=== PATIENT | female | born 1925 | race Caucasian/White ===

== ENCOUNTER 2016-09-11 16:11 | Inpatient (IN) | payer OTHER, MEDICARE ==
[2016-09-11 16:28] VITALS: BMI 28.8
[2016-09-11 17:34] LABS: BASOPHIL 1.2 % (0-2.0); EOSINOPHIL 1.1 % (0-4.5); MCH 26.6 pg (25.7-33.7); MCHC 31.3 g/dl (32.0-36.0); MEAN CELL VOLUME 84.8 fl (80-96); MEAN PLT VOLUME 7.2 fl (7.5-11.1); NEUTROPHILS 75.3 % (42.8-82.8); PLATELET COUNT 293 K/MM3 (134-434); WHITE BLOOD COUNT 5.3 K/mm3 (4.0-10.0)
[2016-09-11 17:38] LABS: INR 1.49 (0.82-1.09); PROTHROMBIN TIME (PATIENT) 16.5 SEC (9.98-11.88)
[2016-09-11 17:40] LABS: ACTIVATED PTT 35.8 SECONDS (26.9-34.4)
[2016-09-11 17:53] LABS: ALBUMIN 3.4 g/dl (3.4-5.0); ALK PHOS 143 U/L (45-117); ANION GAP 9 (8-16); BILIRUBIN,TOTAL 0.8 mg/dL (0.2-1.0); CALCIUM 8.3 mg/dL (8.5-10.1); CO2 31 mmol/L (21-32); CREATININE 0.6 mg/dL (0.55-1.02); GLUCOSE,RANDOM 103 mg/dL (74-106); SGOT/AST 15 U/L (15-37); SGPT/ALT 14 U/L (12-78); TOT PROT 6.9 g/dl (6.4-8.2)
[2016-09-11] MEDS ORDERED: CEFTRIAXONE 1 GM in DEXTROSE 5%-WATER - 50 ML IVPB ONE (19:43)
[2016-09-11] MEDS ORDERED: VANCOMYCIN 1,000 MG in DEXTROSE 5%-WATER - 250 ML IVPB ONE (19:43)
[2016-09-11] MEDS ORDERED: CEFTRIAXONE 50 ML ONE (19:50)
--- NOTE | 2016-09-11 20:10 | PDOC ---
History of Present Illness - General History Source: Patient, Old Records Exam Limitations: No Limitations <Miles Vega - Last Filed: 09/11/16 20:34> - General History Source: Patient, Old Records, Primary Care Provider Exam Limitations: No Limitations - History of Present Illness Initial Comments: 09/11/16 20:35 The patient is a 89 year old female, with a significant past medical history of chronic venous stasis dermatitis, HTN, COPD, CHF, HLD, skin cancer, Afib, and anemia, who presents to the emergency department with a draining wound infection on her right lower extremity. She reports that she banged her right ramos which caused the drainage. She denies any increase in redness, swelling or pain. She notes that that she has chronic venous stasis changes in her lower extremity changes that is being monitored by Dr. Anderson. She states that she took 19 doses of oral antibiotics (Keflex) at home. The patient currently takes Keflex, Digg and Coumadin The patient denies chest pain, shortness of breath, headache and dizziness. Denies fever, chills, nausea, vomit, diarrhea and constipation. Denies dysuria, frequency, urgency and hematuria. Allergies: Penicillin Past surgical history: total hysterectomy, pacemaker Social history: No alcohol, tobacco or drug use reported PMD - Dr. Anthony Anderson <Dwayne Langley - Last Filed: 09/11/16 20:39> - General Chief Complaint: Wound Stated Complaint: INFECTED RT LEG (PCP SENT) Time Seen by Provider: 09/11/16 16:23 Past History - Past Medical History Anemia: Yes Cancer: Yes (SKIN CANCER) Cardiac Disorders: Yes (CHF ASHD,A FIB) COPD: Yes CHF: Yes HTN: Yes Hypercholesterolemia: Yes Thyroid Disease: Yes - Surgical History Abdominal Surgery: Yes (total hysterectomy) Cardiac Surgery: Yes (PACEMAKER) - Psycho/Social/Smoking Cessation Hx Anxiety: No Suicidal Ideation: No Smoking Status: No Smoking History: Never smoked Have you smoked in the past 12 months: No Number of Cigarettes Smoked Daily: 0 Hx Alcohol Use: No Drug/Substance Use Hx: No Substance Use Type: None Hx Substance Use Treatment: No <Miles Vega - Last Filed: 09/11/16 20:34> <Dwayne Langley - Last Filed: 09/11/16 20:39> - Past Medical History Allergies/Adverse Reactions: Allergies Allergy/AdvReac Type Severity Reaction Status Date / Time Penicillins Allergy Unknown Verified 09/11/16 16:23 mushrooms Allergy Uncoded 09/11/16 16:23 Home Medications: Ambulatory Orders Quinapril HCl [Accupril -] 20 mg PO DAILY #90 tablet 08/24/15 Atorvastatin Ca [Lipitor] 10 mg PO HS tablet 04/19/16 Warfarin Na [Coumadin -] 4 mg PO DAILY@1800 tablet 04/19/16 Aspirin [ASA -] 81 mg PO DAILY 06/11/16 Levothyroxine [Synthroid -] 125 mcg PO DAILY #30 tablet MDD 1 06/17/16 Digoxin [Lanoxin -] 125 mcg PO DAILY 09/11/16 Furosemide [Lasix -] 20 mg PO DAILY 09/11/16 Quinapril HCl [Accupril] 20 mg PO DAILY 09/11/16 Sertraline HCl [Zoloft -] 50 mg PO HS 09/11/16 Spironolactone [Aldactone -] 25 mg PO DAILY 09/11/16 Review of Systems - Review of Systems Able to Perform ROS?: Yes Comments:: 09/11/16 20:35 GENERAL/CONSTITUTIONAL: No fever or chills. No weakness. HEAD, EYES, EARS, NOSE AND THROAT: No change in vision. No ear pain or discharge. No sore throat. CARDIOVASCULAR: No chest pain or shortness of breath RESPIRATORY: No cough, wheezing, or hemoptysis. GASTROINTESTINAL: No nausea, vomiting, diarrhea or constipation. GENITOURINARY: No dysuria, frequency, or change in urination. MUSCULOSKELETAL: No joint or muscle swelling or pain. No neck or back pain. EXTREMITIES: + Right lower extremity wound and drainage. Bilateral lower extremity swelling. SKIN: No rash NEUROLOGIC: No headache, vertigo, loss of consciousness, or change in strength/ sensation. ENDOCRINE: No increased thirst. No abnormal weight change HEMATOLOGIC/LYMPHATIC: No anemia, easy bleeding, or history of blood clots. ALLERGIC/IMMUNOLOGIC: No hives or skin allergy. <Dwayne Langley - Last Filed: 09/11/16 20:39> *Physical Exam - Vital Signs Last Vital Signs Temp Pulse Resp BP Pulse Ox 98.8 F 85 18 117/56 98 09/11/16 18:50 02/22/17 16:23 09/11/16 16:23 09/11/16 16:23 09/11/16 16:23 <Miles Vega - Last Filed: 09/11/16 20:34> - Vital Signs Last Vital Signs Temp Pulse Resp BP Pulse Ox 98.8 F 85 18 117/56 98 09/11/16 18:50 09/11/16 16:23 09/11/16 16:23 09/11/16 16:23 09/11/16 16:23 - Physical Exam Comments: 09/11/16 20:35 GENERAL: Awake, alert, and fully oriented, in no acute distress HEAD: No signs of trauma, normocephalic, atraumatic EYES: PERRLA, EOMI, sclera anicteric, conjunctiva clear ENT: Auricles normal inspection, hearing grossly normal, nares patent, oropharynx clear without exudates. Moist mucosa NECK: Normal ROM, supple, no lymphadenopathy, JVD, or masses LUNGS: No distress, speaks full sentences, clear to auscultation bilaterally HEART: +Systolic murmur. Regular rate and rhythm, normal S1 and S2, no rubs or gallops, peripheral pulses normal and equal bilaterally. ABDOMEN: Soft, nontender, normoactive bowel sounds. No guarding, no rebound. No masses EXTREMITIES: Bilateral anterior ramos erythema, Right anterior ramos with 2 wound ulceration 3 cm by 3 cm and 2 cm by 2 cm 2+ pitting edema lower extremities bilaterally NEUROLOGICAL: Cranial nerves II through XII grossly intact. Normal speech, no focal sensorimotor deficits SKIN: Warm, Dry, normal turgor, no rashes or lesions noted. <Dwayne Langley - Last Filed: 09/11/16 20:39> Heart Score/ECG Review #1 ECG reviewed & interpreted by me at: 16:45 09/11/16 20:34 Ventricular paced 69 <Miles Vega - Last Filed: 09/11/16 20:34> ED Treatment Course - LABORATORY CBC & Chemistry Diagram: 09/11/16 17:00 09/11/16 17:00 - ADDITIONAL ORDERS Additional order review: Laboratory Results 09/11/16 09/11/16 09/11/16 17:00 17:00 16:55 INR 1.49 H PTT (Actin FS) 35.8 H D Sodium 140 Potassium 3.7 Chloride 100 Carbon Dioxide 31 Anion Gap 9 BUN 27 H Creatinine 0.6 Creat Clearance w eGFR > 60 Random Glucose 103 D Lactic Acid 1.013 Calcium 8.3 L Total Bilirubin 0.8 AST 15 D ALT 14 D Alkaline Phosphatase 143 H Total Protein 6.9 Albumin 3.4 09/11/16 17:00 RBC 2.55 L D MCV 84.8 MCHC 31.3 L RDW 20.0 H D MPV 7.2 L D Neutrophils % 75.3 Lymphocytes % 14.2 Monocytes % 8.2 Eosinophils % 1.1 Basophils % 1.2 <Miles Vega - Last Filed: 09/11/16 20:34> - LABORATORY CBC & Chemistry Diagram: 09/11/16 17:00 09/11/16 17:00 - ADDITIONAL ORDERS Additional order review: Laboratory Results 09/11/16 09/11/16 09/11/16 19:47 17:00 17:00 INR 1.49 H PTT (Actin FS) 35.8 H D Sodium 140 Potassium 3.7 Chloride 100 Carbon Dioxide 31 Anion Gap 9 BUN 27 H Creatinine 0.6 Creat Clearance w eGFR > 60 Random Glucose 103 D Lactic Acid Calcium 8.3 L Total Bilirubin 0.8 AST 15 D ALT 14 D Alkaline Phosphatase 143 H Total Protein 6.9 Albumin 3.4 Stool Occult Blood Negative 09/11/16 16:55 INR PTT (Actin FS) Sodium Potassium Chloride Carbon Dioxide Anion Gap BUN Creatinine Creat Clearance w eGFR Random Glucose Lactic Acid 1.013 Calcium Total Bilirubin AST ALT Alkaline Phosphatase Total Protein Albumin Stool Occult Blood 09/11/16 17:00 RBC 2.55 L D MCV 84.8 MCHC 31.3 L RDW 20.0 H D MPV 7.2 L D Neutrophils % 75.3 Lymphocytes % 14.2 Monocytes % 8.2 Eosinophils % 1.1 Basophils % 1.2 - RADIOLOGY Radiograph Interpretation: 09/11/16 20:36 Right lower extremity duplex Reviewed by: Dr. Chantelle Gonzalez Impression: There is no evidence of deep venous thromboses in the right lower extremity. Soft tissue swelling in the popliteal fossa. - Medications Given in the ED: ED Medications Discontinued Medications Generic Name Dose Route Start Last Admin Trade Name Freq PRN Reason Stop Dose Admin Ceftriaxone Sodium 1 gm/ 50 mls @ 100 mls/hr 09/11/16 19:43 09/11/16 20:14 Dextrose IVPB 09/11/16 20:12 100 mls/hr ONCE ONE Administration <Dwayne Langley - Last Filed: 09/11/16 20:39> Medical Decision Making - Medical Decision Making 09/11/16 20:10 A portion of this note was documented by scribe services under my direction. I have reviewed the details of the note, within reason, and agree with the documentation with the following case summary and management plan written by me. Patient treated in the ED. Nursing notes are reviewed and incorporated into the medical decision-making. Vital signs reviewed. Peripheral IV access obtained by the nurse, laboratory studies are drawn and sent, reviewed and interpreted by myself. Vital Signs Temp Pulse Resp BP Pulse Ox 98.8 F 85 18 117/56 98 09/11/16 18:50 09/11/16 16:23 09/11/16 16:23 09/11/16 16:23 09/11/16 16:23 89-year-old female with past medical history of hypertension, COPD, CHF, hyperlipidemia, skin cancer, atrial fibrillation, anemia presents for admission for right lower extremity infection. Several days ago, patient bumped bilaterallyOnto an object and sustained an injury to her right lateral ramos. It has started to become erythematous and red. She was started on Keflex which she has been adherent intake and 19 doses. Has noted no improvement in symptoms. Patient then came into the ED at the direction of her primary care physician for IV antibiotics. Ceftriaxone and vancomycin ordered. Interestingly, the patient is noted to be anemic at 6.8 which is a drop. Rectal stool occult exam was performed. Stool occult negative. Brown stools with no anal tears. Risks and benefits were discussed with the patient. Risks also include fever, blood reaction transfusions, infections. Patient consented for blood chest contusion. Given her history of CHF, 1 unit of PRBCs was ordered. The patient will need further inpatient workup for anemia. Case discussed with Dr. Anderson. He accepts patient for med/surg admission. Case discussed in detail with admitting physician including history, physical exam and ancillary studies. Admitting physician has assumed care for the patient, will follow all pending diagnostics and will complete the evaluation and treatment. <Miles Vega - Last Filed: 09/11/16 20:34> - Medical Decision Making 09/11/16 20:38 Dr. Anderson was called regarding the patient at 7:45pm and 8:10pm Dr. Anderson was consulted regarding the patient at 8:12pm [phone] <Dwayne Langley - Last Filed: 09/11/16 20:39> *DC/Admit/Observation/Transfer - Discharge Dispostion Admit: Yes <Miles Vega - Last Filed: 09/11/16 20:34> - Attestations Scribe Attestion: 09/11/16 20:36 Documentation prepared by Dwayne Langley, acting as medical billing and coding instructor for Miles Vega MD <Dwayne Langley - Last Filed: 09/11/16 20:39> Diagnosis at time of Disposition: Anemia Qualifiers: Anemia type: unspecified type Qualified Code(s): D64.9 - Anemia, unspecified Cellulitis Qualifiers: Site of cellulitis: extremity Site of cellulitis of extremity: lower extremity Laterality: unspecified laterality Qualified Code(s): L03.119 - Cellulitis of unspecified part of limb - Referrals Referrals: Anthony Anderson MD [Primary Care Provider] -
[2016-09-11] MEDS ORDERED: VANCOMYCIN 1 GRAM (PRE-DOCKED) 250 ML IVPB ONE ×2 (20:52→20:55)
[2016-09-11] MEDS ORDERED: PANTOPRAZOLE SODIUM 40 MG in SODIUM CHLORIDE 100 ML IVPB SCH (22:00)
[2016-09-11 23:26] LABS: URINE APPEARANCE CLEAR; URINE BILIRUBIN NEGATIVE (NEGATIVE); URINE BLOOD NEGATIVE (NEGATIVE); URINE COLOR LTYELLOW; URINE GLUCOSE (UA) NEGATIVE (NEGATIVE); URINE KETONE NEGATIVE (NEGATIVE); URINE LEUK ESTERASE NEGATIVE (NEGATIVE); URINE NITRITE NEGATIVE (NEGATIVE); URINE PROTEIN NEGATIVE (NEGATIVE); URINE UROBILINOGEN NEGATIVE E.U./dl (0.2-1.0)
[2016-09-12] MEDS: ACETAMINOPHEN 325 MG TABLET (FP) PO PRN ×2 (03:50→20:47)
[2016-09-12] MEDS: ATORVASTATIN CA 10 MG TABLET (FP) PO SCH ×2 (06:34→22:09)
[2016-09-12] MEDS: LEVOTHYROXINE NA 125 MCG TABLET (FP) PO SCH (06:34)
[2016-09-12] MEDS: PANTOPRAZOLE SODIUM 40 MG/100 ML PRE-DOCKED IVPB SCH ×3 (06:36→22:11)
[2016-09-12] MEDS: SERTRALINE HCL 50 MG TABLET (FP) PO SCH ×2 (06:36→22:10)
--- NOTE | 2016-09-12 07:18 | HP ---
Admitting History and Physical - Admission History of Present Illness: 89 year old female, with a significant past medical history of chronic venous stasis dermatitis, HTN, COPD, CHF, HLD, skin cancer, Afib, and anemia, who presents to the emergency department with a draining wound infection on her right lower extremity. She reports that she banged her right ramos which caused the drainage. She denies any increase in redness, swelling or pain. She notes that that she has chronic venous stasis changes in her lower extremity changes was on oral antibiotics (Keflex) at home. In er noted to be anemic - Past Medical History Cardiovascular: Yes: AFIB, CAD, CHF, HTN, Hyperlipdemia, Pulmonary Hypertension , Other (PPM with sick sinus syndrome) Pulmonary: Yes: COPD Gastrointestinal: Yes: GERD Musculoskeletal: Yes: Other (left foot drop) Endocrine: Yes: Hypothyroidism - Past Surgical History Past Surgical History: Yes: Hysterectomy, Permanent Pacemaker, Tonsillectomy - Smoking History Smoking history: Never smoked Have you smoked in the past 12 months: No Aproximately how many cigarettes per day: 0 - Alcohol/Substance Use Hx Alcohol Use: No - Social History ADL: Support Services History of Recent Travel: No Home Medications - Allergies Allergies/Adverse Reactions: Allergies Allergy/AdvReac Type Severity Reaction Status Date / Time Penicillins Allergy Unknown Verified 09/11/16 16:23 mushrooms Allergy Uncoded 09/11/16 16:23 - Home Medications Home Medications: Ambulatory Orders Quinapril HCl [Accupril -] 20 mg PO DAILY #90 tablet 08/24/15 Atorvastatin Ca [Lipitor] 10 mg PO HS tablet 04/19/16 Warfarin Na [Coumadin -] 4 mg PO DAILY@1800 tablet 04/19/16 Aspirin [ASA -] 81 mg PO DAILY 06/11/16 Levothyroxine [Synthroid -] 125 mcg PO DAILY #30 tablet MDD 1 06/17/16 Digoxin [Lanoxin -] 125 mcg PO DAILY 09/11/16 Furosemide [Lasix -] 20 mg PO DAILY 09/11/16 Quinapril HCl [Accupril] 20 mg PO DAILY 09/11/16 Sertraline HCl [Zoloft -] 50 mg PO HS 09/11/16 Spironolactone [Aldactone -] 25 mg PO DAILY 09/11/16 Review of Systems - Review of Systems Cardiovascular: denies: Chest Pain, Palpitations Respiratory: reports: SOB on Exertion. denies: Cough, SOB Gastrointestinal: denies: Abdominal Pain, Constipation Musculoskeletal: reports: Extremity Pain Integumentary: reports: Erythema, Wound (LE) Physical Examination Vital Signs: Vital Signs Temperature 98.6 F 09/12/16 02:00 Pulse Rate 92 H 09/12/16 02:00 Respiratory Rate 18 09/12/16 02:00 Blood Pressure 124/73 09/12/16 02:00 O2 Sat by Pulse Oximetry (%) 100 09/12/16 02:00 Cardiovascular: Yes: Regular Rate and Rhythm Respiratory: Yes: Regular, CTA Bilaterally Gastrointestinal: Yes: Normal Bowel Sounds, Soft. No: Tenderness Extremities: Yes: Erythema Edema: Yes Wound/Incision: Yes: Dressing Removed, Reddened, Other (scab) Problem List - Problems (1) Anemia Assessment/Plan: S/P PRBC MONITOR LABS GI CONSULT Code(s): D64.9 - ANEMIA, UNSPECIFIED Qualifiers: Anemia type: unspecified type Qualified Code(s): D64.9 - Anemia, unspecified (2) Cellulitis Assessment/Plan: IV ABX ID CONSULT Code(s): L03.90 - CELLULITIS, UNSPECIFIED Qualifiers: Site of cellulitis: extremity Site of cellulitis of extremity: lower extremity Laterality: unspecified laterality Qualified Code(s): L03.119 - Cellulitis of unspecified part of limb (3) A-fib Assessment/Plan: INR SUBTERAPEUTIC--?/COMPLIANCE HOLD COUMADIN--PENDING HGB AND GI Code(s): I48.91 - UNSPECIFIED ATRIAL FIBRILLATION Qualifiers: Atrial fibrillation type: chronic Qualified Code(s): I48.2 - Chronic atrial fibrillation (4) COPD (chronic obstructive pulmonary disease) Assessment/Plan: NEBS Code(s): J44.9 - CHRONIC OBSTRUCTIVE PULMONARY DISEASE, UNSPECIFIED (5) Venous stasis dermatitis of both lower extremities Code(s): I83.11 - VARICOSE VEINS OF RIGHT LOWER EXTREMITY WITH INFLAMMATION I83.12 - VARICOSE VEINS OF LEFT LOWER EXTREMITY WITH INFLAMMATION (6) Ulcer of lower extremity Assessment/Plan: ABX LOCAL CARE Code(s): L97.909 - NON-PRS CHRONIC ULC UNSP PRT OF UNSP LOW LEG W UNSP SEVERITY
[2016-09-12 08:58] LABS: ALBUMIN 3.1 g/dl (3.4-5.0); ANION GAP 7 (8-16); CO2 31 mmol/L (21-32); GLUCOSE,RANDOM 83 mg/dL (74-106)
[2016-09-12 09:02] LABS: ALK PHOS 127 U/L (45-117); CREATININE 0.6 mg/dL (0.55-1.02); SGOT/AST 14 U/L (15-37); SGPT/ALT 13 U/L (12-78); TOT PROT 5.9 g/dl (6.4-8.2)
[2016-09-12] MEDS ORDERED: cefTRIAXone 1 GM/50 ML BAG (PRE-DOCKED) IVPB SCH ×2 (10:00)
[2016-09-12] MEDS ORDERED: PT OWN MED DRAWER 7, Y5N ONE (11:22)
[2016-09-12] MEDS: DIGOXIN 0.125 MG TABLET (FP) PO SCH (11:25)
[2016-09-12] MEDS: SPIRONOLACTONE 25 MG TABLET (FP) PO SCH (11:25)
--- NOTE | 2016-09-12 11:36 | PN ---
Progress Note (short form) - Note Progress Note: ID Full note dictated Selected Entries 09/12/16 02:00 Temperature 98.6 F Pulse Rate 92 H Respiratory 18 Rate Blood Pressure 124/73 Assessment Celluititis/ Lymphedema Plan Cefazolin Toni SHAH Problem List - Problems (1) Cellulitis Code(s): L03.90 - CELLULITIS, UNSPECIFIED Qualifiers: Site of cellulitis: extremity Site of cellulitis of extremity: lower extremity Laterality: unspecified laterality Qualified Code(s): L03.119 - Cellulitis of unspecified part of limb (2) Lymphedema Code(s): I89.0 - LYMPHEDEMA, NOT ELSEWHERE CLASSIFIED
[2016-09-12 13:51] LABS: MCH 26.3 pg (25.7-33.7); MEAN PLT VOLUME 7.3 fl (7.5-11.1); PLATELET COUNT 238 K/MM3 (134-434); WHITE BLOOD COUNT 5.8 K/mm3 (4.0-10.0)
--- NOTE | 2016-09-12 14:45 | EKG ---
Test Reason : Blood Pressure : / mmHG Vent. Rate : 069 BPM Atrial Rate : 110 BPM P-R Int : 000 ms QRS Dur : 152 ms QT Int : 444 ms P-R-T Axes : 000 051 -88 degrees QTc Int : 475 ms Ventricular-paced rhythm ABNORMAL ECG WHEN COMPARED WITH ECG OF 11-JUN-2016 15:38, NO SIGNIFICANT CHANGE WAS FOUND Confirmed by GIUSEPPE SWARTZ MD ([id number]) on 09/12/2016 2:45:20 PM Referred By: Confirmed By:GIUSEPPE SWARTZ MD
--- NOTE | 2016-09-12 15:24 | CONSULT ---
- Consultation REQUESTING PROVIDER: Dr. Zabala CONSULT REQUEST: We have been asked to surgically evaluate this patient for RLE . PCP:Anthony Anderson HISTORY OF PRESENT ILLNESS:The patent is a 89 yo female with a PMHX of chronic venous stasis, HTN, COPD, CHF, A fib and anemia. Her neighbor, who is at the bedside states that she hit her leg approximately 1 month ago. The patient has been applying a cream and dressing to the area and was given a course of oral keflex. The patient states that a [employer] was helping her take care of it in a clinic. She doesn't recall coming to the wound center recently. But she has been a patient there is the past at the clinic. She denies any fevers, no increase in swelling or pain. PMHx: htn, COPD, left ankle trauma(foot drop) ambulates with a cane. a feb and anemia, vertebral fracture(lower), some black tarry stool(taking iron) PSHx: tonsillectomy/adenoids Home Medications Medication Instructions Recorded Quinapril HCl [Accupril -] 20 mg PO DAILY #90 tablet 08/24/15 Atorvastatin Ca [Lipitor] 10 mg PO HS tablet 04/19/16 Warfarin Na [Coumadin -] 4 mg PO DAILY@1800 tablet 04/19/16 Aspirin [ASA -] 81 mg PO DAILY 06/11/16 Levothyroxine [Synthroid -] 125 mcg PO DAILY #30 tablet MDD 1 06/17/16 Digoxin [Lanoxin -] 125 mcg PO DAILY 09/11/16 Furosemide [Lasix -] 20 mg PO DAILY 09/11/16 Quinapril HCl [Accupril] 20 mg PO DAILY 09/11/16 Sertraline HCl [Zoloft -] 50 mg PO HS 09/11/16 Spironolactone [Aldactone -] 25 mg PO DAILY 09/11/16 Allergies Allergy/AdvReac Type Severity Reaction Status Date / Time Penicillins Allergy Unknown Verified 09/11/16 16:23 mushrooms Allergy Uncoded 09/11/16 16:23 REVIEW OF SYSTEMS: CONSTITUTIONAL: Absent: fever, chills CARDIOVASCULAR: Absent: chest pain, syncope RESPIRATORY: Absent: cough, shortness of breath GASTROINTESTINAL: Absent: abdominal pain, abdominal distension, dark stools with one episode of red blood with a bowel movement MUSCULOSKELETAL: Present: back pain/lower abd SKIN: Absent: rash, itching, pallor HEMATOLOGIC/IMMUNOLOGIC: Absent: easy bleeding, easy bruising, lymphadenopathy NEUROLOGIC: Absent: left foot drop PSYCHIATRIC: Absent: anxiety, depression, suicidal or homicidal ideation, hallucinations. PHYSICAL EXAM: GENERAL: Awake, alert, and fully oriented, in no acute distress. HEAD: Normal with no signs of trauma. EYES:sclera anicteric, conjunctiva clear. NECK: Normal ROM, supple without lymphadenopathy, JVD, or masses. LUNGS: Clear to auscultation bilat anteriorly. No wheezes, and no crackles. No accessory muscle use. HEART: Irregular rhythm, regular rate. No murmurs ABDOMEN: Soft, nontender, not distended, normoactive bowel sounds, no guarding, no rebound, no masses. UPPER EXTREMITIES: 2+ pulses, warm, well-perfused. No cyanosis. Cap refill <2 seconds. No peripheral edema. LOWER EXTREMITIES: 2+ DP/femoral pulses, warm, well-perfused. No calf tenderness. No peripheral edema. b/l venous stasis changes. RLE with three seperate scabbed areas of varous sizes. One is dime sized, nickel sized and the larger is approx 2.5 x 2.5cm. There is no erythema to her lower ext, no pitting edema. No drainage noted NEUROLOGICAL: Normal speech PSYCH: Cooperative. Good eye contact. Appropriate mood and affect. Vital Signs Temperature 98.6 F 09/12/16 02:00 Pulse Rate 78 09/12/16 11:25 Respiratory Rate 18 09/12/16 02:00 Blood Pressure 124/73 09/12/16 02:00 O2 Sat by Pulse Oximetry (%) 100 09/12/16 02:00 Lab Results WBC 5.8 K/mm3 (4.0-10.0) 09/12/16 13:00 RBC 3.02 M/mm3 (3.60-5.2) L 09/12/16 13:00 Hgb 7.9 GM/dL (10.7-15.3) L D 09/12/16 13:00 Hct 25.6 % (32.4-45.2) L D 09/12/16 13:00 MCV 85.0 fl (80-96) 09/12/16 13:00 MCHC 31.0 g/dl (32.0-36.0) L 09/12/16 13:00 RDW 19.0 % (11.6-15.6) H 09/12/16 13:00 Plt Count 238 K/MM3 (134-434) 09/12/16 13:00 Sodium 143 mmol/L (136-145) 09/12/16 07:00 Potassium 4.1 mmol/L (3.5-5.1) 09/12/16 07:00 Chloride 105 mmol/L (98-107) 09/12/16 07:00 Carbon Dioxide 31 mmol/L (21-32) 09/12/16 07:00 Anion Gap 7 (8-16) L 09/12/16 07:00 BUN 23 mg/dL (7-18) H 09/12/16 07:00 Creatinine 0.6 mg/dL (0.55-1.02) 09/12/16 07:00 Random Glucose 83 mg/dL (74-106) 09/12/16 07:00 Calcium 8.0 mg/dL (8.5-10.1) L 09/12/16 07:00 Blood Type A POSITIVE 09/11/16 23:11 Antibody Screen Negative 09/11/16 23:11 INR 1.49 (0.82-1.09) H 09/11/16 17:00 Problem List - Problems (1) Venous stasis dermatitis of both lower extremities Assessment/Plan: Pt has superfical wound to her RLE after trauma. The wound appears to be kodak/healing. No drainage or erythema noted. IV abx as per ID Local wound care ordered. The patient may follow-up with Dr. Zabala as an outpt in the clinic upon discharge. D/w Dr. Zabala Code(s): I83.11 - VARICOSE VEINS OF RIGHT LOWER EXTREMITY WITH INFLAMMATION I83.12 - VARICOSE VEINS OF LEFT LOWER EXTREMITY WITH INFLAMMATION Visit type - Case Type Case Type: Scheduled Admission - Emergency Emergency Visit: Yes ED Registration Date: 09/11/16 Care time: The patient presented to the Emergency Department on the above date and was hospitalized for further evaluation of their emergent condition. - New patient This patient is new to me today: Yes Date on this admission: 09/12/16 - Critical Care Critical Care patient: No
--- NOTE | 2016-09-12 15:38 | CONS ---
DATE OF CONSULTATION: DATE OF DICTATION: 09/12/2016 This is an 89-year-old female who I am asked to see for evaluation of right lower extremity cellulitis. She has a history of chronic lymphedema, venous stasis dermatitis, hypertension, COPD, congestive heart failure, atrial fibrillation, and chronic anemia. She presented to the emergency room with a "draining wound" on her right anterior lower leg, noting that she had banged her ramos and subsequently developed pain and drainage. She denied any fever or chills. I am asked to see her for antibiotic management. Past medical history as noted above. MEDICATIONS: Quinapril, atorvastatin, Coumadin, levothyroxine, digoxin, Lasix, Zoloft, Aldactone. Reported allergy to PENICILLIN but notes vaginal yeast infection. Family history reviewed and noncontributory. SOCIAL HISTORY: Lives alone. Nonsmoker. No history of alcohol abuse. PAST SURGICAL HISTORY: Hysterectomy, permanent pacemaker, tonsillectomy. REVIEW OF SYSTEMS: Respiratory: Exertional shortness of breath. No cough. Cardiac: No chest pain, palpitations, syncope. Gastrointestinal: No abdominal pain, nausea, vomiting, diarrhea. Genitourinary: No dysuria, hematuria. PHYSICAL EXAMINATION: General: She was a pleasant elderly woman. Vital Signs: Temperature 98.6. Pulse 92. Blood pressure 124/73. Respirations 18. Neck: Supple. Lungs: Clear. Heart: S1, S2. Irregularly irregular. Abdomen: Soft, nontender. No organomegaly. Extremities: Bilateral lower extremity edema with confluent erythema on a large 2-cm central area of superficial skin erosion. No fluctuance but tender to touch. White count 5.3, hemoglobin 6.8, hematocrit 21.6, BUN 23, creatinine 0.6. Urinalysis negative. Blood cultures pending. ASSESSMENT: An 89-year-old female with chronic lymphedema and venous stasis dermatitis, presents following an injury to the right ramos in which she subsequently developed increasing tenderness, redness, and atraumatic skin tear to the pretibial area. Penicillin allergy not true allergy. Will give her cefazolin dose of 1 g q.8 h. followed by Keflex at home. RINA WAKEFIELD M.D. SERAFIN/[id number]
[2016-09-12] MEDS: QUINAPRIL HCL 20 MG TABLET (FP) PO SCH (15:55)
[2016-09-12] MEDS ORDERED: FUROSEMIDE 40 MG/4 ML INJECTABLE VIAL IVPUSH ONE (18:00)
[2016-09-12] MEDS: SILVER SULFADIAZINE 1% TOP CREAM 50 GM JAR TP SCH (18:53)
[2016-09-12] MEDS ORDERED: CEFAZOLIN (PRE-DOCKED) 50 ML IVPB ONE (20:45)
[2016-09-12] MEDS: CEFAZOLIN 1 GM in DEXTROSE 5%-WATER - 50 ML IVPB SCH (20:47)
[2016-09-12] MEDS ORDERED: FUROSEMIDE 40 MG/4 ML INJECTABLE VIAL ONE (20:50)
--- NOTE | 2016-09-12 21:00 | CON.GI ---
Consult Consult Specialty:: GI Referred by:: Dr Anderson Reason for Consultation:: Anemia - History of Present Illness Chief Complaint: Wound infection History of Present Illness: 89 F well-known to myself, with h/o HTN, COPD, CHF, HLD, AF and chronic anemia which patient states she has had all of her liife, now admitted with RLE wound infection. Called to evaluate anemia. On admission, Hgb 6.8. She has no dyspnea at rest and no chest pain. - History Source History Provided By: Patient (Patient is awake, alert and articulate-a good historian), Medical Record - Past Medical History Cardio/Vascular: Yes: AFIB, CAD, CHF, HTN, Hyperlipdemia, Pulmonary Hypertension , Other (PPM with sick sinus syndrome) Pulmonary: Yes: COPD Gastrointestinal: Yes: GERD Musculoskeletal: Yes: Other (left foot drop) Endocrine: Yes: Hypothyroidism - Past Surgical History Past Surgical History: Yes: Hysterectomy, Permanent Pacemaker, Tonsillectomy - Alcohol/Substance Use Hx Alcohol Use: No - Smoking History Smoking history: Never smoked Have you smoked in the past 12 months: No Aproximately how many cigarettes per day: 0 - Social History Usual Living Arrangement: Alone ADL: Support Services History of Recent Travel: No Home Medications - Allergies Allergies/Adverse Reactions: Allergies Allergy/AdvReac Type Severity Reaction Status Date / Time Penicillins Allergy Unknown Verified 09/11/16 16:23 mushrooms Allergy Uncoded 09/11/16 16:23 - Home Medications Home Medications: Ambulatory Orders Quinapril HCl [Accupril -] 20 mg PO DAILY #90 tablet 08/24/15 Atorvastatin Ca [Lipitor] 10 mg PO HS tablet 04/19/16 Warfarin Na [Coumadin -] 4 mg PO DAILY@1800 tablet 04/19/16 Aspirin [ASA -] 81 mg PO DAILY 06/11/16 Levothyroxine [Synthroid -] 125 mcg PO DAILY #30 tablet MDD 1 06/17/16 Digoxin [Lanoxin -] 125 mcg PO DAILY 09/11/16 Furosemide [Lasix -] 20 mg PO DAILY 09/11/16 Quinapril HCl [Accupril] 20 mg PO DAILY 09/11/16 Sertraline HCl [Zoloft -] 50 mg PO HS 09/11/16 Spironolactone [Aldactone -] 25 mg PO DAILY 09/11/16 Physical Exam-GI Vital Signs: Vital Signs Temperature 98.1 F 09/12/16 15:42 Pulse Rate 84 09/12/16 15:42 Respiratory Rate 18 09/12/16 15:42 Blood Pressure 138/73 09/12/16 15:42 O2 Sat by Pulse Oximetry (%) 100 09/12/16 09:00 Constitutional: Yes: Well Nourished, No Distress HENT: Yes: Normocephalic Cardiovascular: Yes: Pulse Irregular Respiratory: Yes: CTA Bilaterally Gastrointestinal Inspection: Yes: WNL ...Auscultate: Yes: Normoactive Bowel Sounds ...Palpate: Yes: Soft. No: Tenderness ...Percussion: Yes: Dullness ...Rectal Exam: Yes: Guaiac Negative Integumentary: Yes: Venous Stasis Changes (RLE with infection) Labs: CBC, BMP 09/12/16 13:00 09/12/16 07:00 INR, PTT INR 1.49 (0.82-1.09) H 09/11/16 17:00 MCV 85.8 Assessment/Plan 89 F admitted with infection of RLE, called for anemia evaluation. She has a normocytic anemia and is guaiac negative at this time. I did her EGD and colonoscopy in January,, as part of an anemia w/u. Both exams negative for source of bleed. No further w/u necessary. Current low Hgb also related to inflammation and infection. Rec transfuse to Hgb >8 Manage underlying infection Expect normalization with counts returning to baseline Please call if I can be of further assistance
[2016-09-12] MEDS ORDERED: VANCOMYCIN 1 GRAM (PRE-DOCKED) 250 ML IVPB SCH (22:00)
[2016-09-13] MEDS ORDERED: CEFAZOLIN (PRE-DOCKED) 50 ML IVPB ONE (02:00)
[2016-09-13] MEDS: CEFAZOLIN 1 GM in DEXTROSE 5%-WATER - 50 ML IVPB SCH ×4 (02:34→18:53)
[2016-09-13 06:06] LABS: SERUM IRON 19 ug/dL (27-139); TOTAL IRON BINDING CAPACITY 417 ug/dL (250-450); UIBC 398 ug/dL (118-369)
[2016-09-13] MEDS: LEVOTHYROXINE NA 125 MCG TABLET (FP) PO SCH (07:01)
[2016-09-13 07:52] LABS: EOSINOPHIL 1.8 % (0-4.5); MEAN CELL VOLUME 84.2 fl (80-96); MEAN PLT VOLUME 7.4 fl (7.5-11.1); NEUTROPHILS 69.1 % (42.8-82.8); PLATELET COUNT 212 K/MM3 (134-434); RDW 18.6 % (11.6-15.6); WHITE BLOOD COUNT 5.4 K/mm3 (4.0-10.0)
[2016-09-13] MEDS: PANTOPRAZOLE SODIUM 40 MG/100 ML PRE-DOCKED IVPB SCH ×2 (10:21→21:29)
[2016-09-13] MEDS: DIGOXIN 0.125 MG TABLET (FP) PO SCH (10:22)
[2016-09-13] MEDS: SPIRONOLACTONE 25 MG TABLET (FP) PO SCH (10:22)
[2016-09-13] MEDS: SILVER SULFADIAZINE 1% TOP CREAM 50 GM JAR TP SCH (10:23)
[2016-09-13] MEDS: QUINAPRIL HCL 20 MG TABLET (FP) PO SCH (10:23)
--- NOTE | 2016-09-13 12:02 | PN ---
Progress Note, Physician - Current Medication List Current Medications: Active Medications Acetaminophen (Tylenol -) 650 mg PO Q4H PRN PRN Reason: FEVER OR PAIN Last Admin: 09/12/16 20:47 Dose: 650 mg Atorvastatin Calcium (Lipitor -) 10 mg PO HS [facility] Last Admin: 09/12/16 22:09 Dose: 10 mg Digoxin (Lanoxin -) 0.125 mg PO DAILY [facility] Last Admin: 09/13/16 10:22 Dose: 0.125 mg Vancomycin HCl (Vancomycin (Pre-Docked)) 250 mls @ 200 mls/hr IVPB DAILY@2200 [facility] Cefazolin Sodium 1 gm/ (Dextrose) 50 mls @ 100 mls/hr IVPB Q8H-IV [facility] Last Admin: 09/13/16 11:28 Dose: 100 mls/hr Levothyroxine Sodium (Synthroid -) 125 mcg PO DAILY@0700 [facility] Last Admin: 09/13/16 07:01 Dose: 125 mcg Pantoprazole Sodium (Protonix 40mg Ivpb (Pre-Docked)) 40 mg IVPB BID [facility] Last Admin: 09/13/16 10:21 Dose: 40 mg Quinapril HCl (Accupril -) 20 mg PO DAILY [facility] Last Admin: 09/13/16 10:23 Dose: 20 mg Sertraline HCl (Zoloft -) 50 mg PO HS [facility] Last Admin: 09/12/16 22:10 Dose: 50 mg Silver Sulfadiazine (Silvadene -) 1 applic TP DAILY [facility] Last Admin: 09/13/16 10:23 Dose: 1 applic Spironolactone (Aldactone -) 25 mg PO DAILY [facility] Last Admin: 09/13/16 10:22 Dose: 25 mg - Objective Vital Signs: Vital Signs Temperature 97.3 F L 09/13/16 06:48 Pulse Rate 77 09/13/16 10:22 Respiratory Rate 20 09/13/16 06:48 Blood Pressure 110/66 09/13/16 06:48 O2 Sat by Pulse Oximetry (%) 100 09/12/16 21:00 Cardiovascular: Yes: S1, S2 Respiratory: Yes: Regular, CTA Bilaterally Gastrointestinal: Yes: Normal Bowel Sounds, Soft Labs: CBC, BMP 09/13/16 06:30 09/12/16 07:00 INR, PTT INR 1.49 (0.82-1.09) H 09/11/16 17:00 Problem List - Problems (1) Anemia Assessment/Plan: S/P PRBC--ONE MORE UNIT--FOLLOWED BY [facility] GI CONSULT Code(s): D64.9 - ANEMIA, UNSPECIFIED Qualifiers: Anemia type: unspecified type Qualified Code(s): D64.9 - Anemia, unspecified (2) Cellulitis Assessment/Plan: IV ABX ID CONSULT Code(s): L03.90 - CELLULITIS, UNSPECIFIED Qualifiers: Site of cellulitis: extremity Site of cellulitis of extremity: lower extremity Laterality: unspecified laterality Qualified Code(s): L03.119 - Cellulitis of unspecified part of limb (3) A-fib Assessment/Plan: INR SUBTERAPEUTIC--?/COMPLIANCE HOLD COUMADIN--PENDING HGB AND GI Code(s): I48.91 - UNSPECIFIED ATRIAL FIBRILLATION Qualifiers: Atrial fibrillation type: chronic Qualified Code(s): I48.2 - Chronic atrial fibrillation (4) COPD (chronic obstructive pulmonary disease) Assessment/Plan: NEBS Code(s): J44.9 - CHRONIC OBSTRUCTIVE PULMONARY DISEASE, UNSPECIFIED (5) Venous stasis dermatitis of both lower extremities Code(s): I83.11 - VARICOSE VEINS OF RIGHT LOWER EXTREMITY WITH INFLAMMATION I83.12 - VARICOSE VEINS OF LEFT LOWER EXTREMITY WITH INFLAMMATION (6) Ulcer of lower extremity Assessment/Plan: ABX LOCAL CARE Code(s): L97.909 - NON-PRS CHRONIC ULC UNSP PRT OF UNSP LOW LEG W UNSP SEVERITY
[2016-09-13] MEDS ORDERED: FUROSEMIDE 40 MG/4 ML INJECTABLE VIAL IVPUSH SCH (13:15)
--- NOTE | 2016-09-13 15:04 | PN ---
Progress Note, Physician History of Present Illness: No c/o leg pain No fever/ chills Tolerating antibiotics - Current Medication List Current Medications: Active Medications Acetaminophen (Tylenol -) 650 mg PO Q4H PRN PRN Reason: FEVER OR PAIN Last Admin: 09/12/16 20:47 Dose: 650 mg Atorvastatin Calcium (Lipitor -) 10 mg PO HS [facility] Last Admin: 09/12/16 22:09 Dose: 10 mg Digoxin (Lanoxin -) 0.125 mg PO DAILY [facility] Last Admin: 09/13/16 10:22 Dose: 0.125 mg Furosemide (Lasix Injection -) 40 mg IVPUSH [employer] [facility] Stop: 09/13/16 17:00 Cefazolin Sodium 1 gm/ (Dextrose) 50 mls @ 100 mls/hr IVPB Q8H-IV [facility] Last Admin: 09/13/16 11:28 Dose: 100 mls/hr Levothyroxine Sodium (Synthroid -) 125 mcg PO DAILY@0700 [facility] Last Admin: 09/13/16 07:01 Dose: 125 mcg Pantoprazole Sodium (Protonix 40mg Ivpb (Pre-Docked)) 40 mg IVPB BID [facility] Last Admin: 09/13/16 10:21 Dose: 40 mg Quinapril HCl (Accupril -) 20 mg PO DAILY [facility] Last Admin: 09/13/16 10:23 Dose: 20 mg Sertraline HCl (Zoloft -) 50 mg PO HS [facility] Last Admin: 09/12/16 22:10 Dose: 50 mg Silver Sulfadiazine (Silvadene -) 1 applic TP DAILY [facility] Last Admin: 09/13/16 10:23 Dose: 1 applic Spironolactone (Aldactone -) 25 mg PO DAILY [facility] Last Admin: 09/13/16 10:22 Dose: 25 mg - Objective Vital Signs: Vital Signs Temperature 97.3 F L 09/13/16 06:48 Pulse Rate 77 09/13/16 10:22 Respiratory Rate 20 09/13/16 06:48 Blood Pressure 110/66 09/13/16 06:48 O2 Sat by Pulse Oximetry (%) 100 09/12/16 21:00 Constitutional: Yes: No Distress Eyes: Yes: Conjunctiva Clear Cardiovascular: Yes: Regular Rate and Rhythm, S1, S2 Respiratory: Yes: CTA Bilaterally Gastrointestinal: Yes: Normal Bowel Sounds, Soft. No: Tenderness Extremities: Yes: Other (+ erythema/ warmth LE bilaterally Superficial ulcer, R pretibial area) Edema: Yes Labs: CBC, BMP 09/13/16 06:30 09/12/16 07:00 INR, PTT INR 1.49 (0.82-1.09) H 09/11/16 17:00 Assessment/Plan Bilateral LE cellulitis Infected leg ulcer PCN allergy Continue cefazolin, local wound care
--- NOTE | 2016-09-13 16:27 | EKG ---
Test Reason : Blood Pressure : / mmHG Vent. Rate : 074 BPM Atrial Rate : 075 BPM P-R Int : 000 ms QRS Dur : 170 ms QT Int : 448 ms P-R-T Axes : 000 270 089 degrees QTc Int : 497 ms Ventricular-paced rhythm ABNORMAL ECG WHEN COMPARED WITH ECG OF 11-SEP-2016 16:41, VENT. RATE HAS INCREASED BY 5 BPM Confirmed by MD FLAQUITO, RADHA ([id number]) on 09/13/2016 4:27:21 PM Referred By: SANTO REYNOLDS Confirmed By:RADHA HUDDLESTON MD
[2016-09-13] MEDS ORDERED: PT OWN MED DRAWER 7, Y5N ONE (17:55)
[2016-09-13] MEDS: ALBUTEROL SO4 0.083% IH SOL 2.5 MG/3 ML VIAL.NEB. NEB SCH (21:31)
[2016-09-13] MEDS: ATORVASTATIN CA 10 MG TABLET (FP) PO SCH (21:31)
[2016-09-13] MEDS: SERTRALINE HCL 50 MG TABLET (FP) PO SCH (21:31)
[2016-09-14] MEDS: ALBUTEROL SO4 0.083% IH SOL 2.5 MG/3 ML VIAL.NEB. NEB SCH ×5 (01:17→22:00)
[2016-09-14] MEDS ORDERED: PT OWN MED DRAWER 7, Y5N ONE ×3 (01:36→19:23)
[2016-09-14] MEDS: CEFAZOLIN 1 GM in DEXTROSE 5%-WATER - 50 ML IVPB SCH ×3 (01:40→19:24)
[2016-09-14] MEDS: LEVOTHYROXINE NA 125 MCG TABLET (FP) PO SCH (06:15)
[2016-09-14 07:42] LABS: BASOPHIL 1.1 % (0-2.0); EOSINOPHIL 1.7 % (0-4.5); MCH 27.3 pg (25.7-33.7); MCHC 32.3 g/dl (32.0-36.0); MEAN CELL VOLUME 84.7 fl (80-96); MEAN PLT VOLUME 7.1 fl (7.5-11.1); PLATELET COUNT 194 K/MM3 (134-434); RDW 18.3 % (11.6-15.6); WHITE BLOOD COUNT 5.7 K/mm3 (4.0-10.0)
[2016-09-14 08:08] LABS: ALK PHOS 122 U/L (45-117); ANION GAP 7 (8-16); BILIRUBIN,TOTAL 0.7 mg/dL (0.2-1.0); CALCIUM 8.1 mg/dL (8.5-10.1); CO2 31 mmol/L (21-32); CREATININE 0.7 mg/dL (0.55-1.02); GLUCOSE,RANDOM 102 mg/dL (74-106); SGOT/AST 14 U/L (15-37); SGPT/ALT 11 U/L (12-78)
[2016-09-14] MEDS: SPIRONOLACTONE 25 MG TABLET (FP) PO SCH (09:42)
[2016-09-14] MEDS: DIGOXIN 0.125 MG TABLET (FP) PO SCH (09:42)
[2016-09-14] MEDS: PANTOPRAZOLE SODIUM 40 MG/100 ML PRE-DOCKED IVPB SCH ×2 (09:43→21:11)
[2016-09-14] MEDS: QUINAPRIL HCL 20 MG TABLET (FP) PO SCH (09:43)
[2016-09-14] MEDS: SILVER SULFADIAZINE 1% TOP CREAM 50 GM JAR TP SCH (09:44)
--- NOTE | 2016-09-14 13:22 | PN ---
Progress Note, Physician History of Present Illness: FEELS BETTER - Current Medication List Current Medications: Active Medications Acetaminophen (Tylenol -) 650 mg PO Q4H PRN PRN Reason: FEVER OR PAIN Last Admin: 09/12/16 20:47 Dose: 650 mg Albuterol Sulfate (Ventolin 0.083% Nebulizer Soln -) 1 amp NEB Q6HPO [facility] Last Admin: 09/14/16 12:10 Dose: 1 amp Atorvastatin Calcium (Lipitor -) 10 mg PO HS [facility] Last Admin: 09/13/16 21:31 Dose: 10 mg Digoxin (Lanoxin -) 0.125 mg PO DAILY [facility] Last Admin: 09/14/16 09:42 Dose: 0.125 mg Cefazolin Sodium 1 gm/ (Dextrose) 50 mls @ 100 mls/hr IVPB Q8H-IV [facility] Last Admin: 09/14/16 09:43 Dose: 100 mls/hr Levothyroxine Sodium (Synthroid -) 125 mcg PO DAILY@0700 [facility] Last Admin: 09/14/16 06:15 Dose: 125 mcg Pantoprazole Sodium (Protonix 40mg Ivpb (Pre-Docked)) 40 mg IVPB BID [facility] Last Admin: 09/14/16 09:43 Dose: 40 mg Quinapril HCl (Accupril -) 20 mg PO DAILY [facility] Last Admin: 09/14/16 09:43 Dose: 20 mg Sertraline HCl (Zoloft -) 50 mg PO [facility] Last Admin: 09/13/16 21:31 Dose: 50 mg Silver Sulfadiazine (Silvadene -) 1 applic TP DAILY [facility] Last Admin: 09/14/16 09:44 Dose: 1 applic Spironolactone (Aldactone -) 25 mg PO DAILY [facility] Last Admin: 09/14/16 09:42 Dose: 25 mg - Objective Vital Signs: Vital Signs Temperature 97.2 F L 09/14/16 10:00 Pulse Rate 67 09/14/16 12:09 Respiratory Rate 18 09/14/16 10:00 Blood Pressure 120/63 09/14/16 10:00 O2 Sat by Pulse Oximetry (%) 92 L 09/14/16 12:09 Cardiovascular: Yes: S1, S2 Respiratory: Yes: Regular, CTA Bilaterally Gastrointestinal: Yes: Normal Bowel Sounds, Soft Edema: No Wound/Incision: Yes: Dressing Dry and Intact Labs: CBC, BMP 02/25/17 06:00 09/14/16 06:00 INR, PTT INR 1.49 (0.82-1.09) H 09/11/16 17:00 Problem List - Problems (1) Anemia Assessment/Plan: S/P PRBC--ONE MORE UNIT--FOLLOWED BY [facility] GI CONSULT STOOL GUAIC Code(s): D64.9 - ANEMIA, UNSPECIFIED Qualifiers: Anemia type: unspecified type Qualified Code(s): D64.9 - Anemia, unspecified (2) Cellulitis Assessment/Plan: IV ABX ID CONSULT Code(s): L03.90 - CELLULITIS, UNSPECIFIED Qualifiers: Site of cellulitis: extremity Site of cellulitis of extremity: lower extremity Laterality: unspecified laterality Qualified Code(s): L03.119 - Cellulitis of unspecified part of limb (3) A-fib Assessment/Plan: INR SUBTERAPEUTIC--?/COMPLIANCE HOLD COUMADIN--PENDING HGB AND GI Code(s): I48.91 - UNSPECIFIED ATRIAL FIBRILLATION Qualifiers: Atrial fibrillation type: chronic Qualified Code(s): I48.2 - Chronic atrial fibrillation (4) COPD (chronic obstructive pulmonary disease) Assessment/Plan: NEBS Code(s): J44.9 - CHRONIC OBSTRUCTIVE PULMONARY DISEASE, UNSPECIFIED (5) Venous stasis dermatitis of both lower extremities Code(s): I83.11 - VARICOSE VEINS OF RIGHT LOWER EXTREMITY WITH INFLAMMATION I83.12 - VARICOSE VEINS OF LEFT LOWER EXTREMITY WITH INFLAMMATION (6) Ulcer of lower extremity Assessment/Plan: ABX LOCAL CARE Code(s): L97.909 - NON-PRS CHRONIC ULC UNSP PRT OF UNSP LOW LEG W UNSP SEVERITY
[2016-09-14] MEDS: SERTRALINE HCL 50 MG TABLET (FP) PO SCH (21:11)
[2016-09-14] MEDS: ATORVASTATIN CA 10 MG TABLET (FP) PO SCH (21:11)
[2016-09-15] MEDS ORDERED: CEFAZOLIN (PRE-DOCKED) 50 ML IVPB ONE (01:45)
[2016-09-15] MEDS: CEFAZOLIN 1 GM in DEXTROSE 5%-WATER - 50 ML IVPB SCH ×4 (01:50→18:27)
[2016-09-15] MEDS: LEVOTHYROXINE NA 125 MCG TABLET (FP) PO SCH (06:13)
--- NOTE | 2016-09-15 09:44 | PN ---
Progress Note, Physician History of Present Illness: FEELS BETTER - Current Medication List Current Medications: Active Medications Acetaminophen (Tylenol -) 650 mg PO Q4H PRN PRN Reason: FEVER OR PAIN Last Admin: 09/12/16 20:47 Dose: 650 mg Albuterol Sulfate (Ventolin 0.083% Nebulizer Soln -) 1 amp NEB Q6HPO [facility] Last Admin: 09/14/16 22:00 Dose: 1 amp Atorvastatin Calcium (Lipitor -) 10 mg PO [facility] Last Admin: 09/14/16 21:11 Dose: 10 mg Digoxin (Lanoxin -) 0.125 mg PO DAILY [facility] Last Admin: 09/14/16 09:42 Dose: 0.125 mg Cefazolin Sodium 1 gm/ (Dextrose) 50 mls @ 100 mls/hr IVPB Q8H-IV [facility] Last Admin: 09/15/16 01:50 Dose: 100 mls/hr Levothyroxine Sodium (Synthroid -) 125 mcg PO DAILY@0700 [facility] Last Admin: 09/15/16 06:13 Dose: 125 mcg Pantoprazole Sodium (Protonix 40mg Ivpb (Pre-Docked)) 40 mg IVPB BID [facility] Last Admin: 09/14/16 21:11 Dose: 40 mg Quinapril HCl (Accupril -) 20 mg PO DAILY [facility] Last Admin: 09/14/16 09:43 Dose: 20 mg Sertraline HCl (Zoloft -) 50 mg PO [facility] Last Admin: 09/14/16 21:11 Dose: 50 mg Silver Sulfadiazine (Silvadene -) 1 applic TP DAILY [facility] Last Admin: 09/14/16 09:44 Dose: 1 applic Spironolactone (Aldactone -) 25 mg PO DAILY [facility] Last Admin: 09/14/16 09:42 Dose: 25 mg - Objective Vital Signs: Vital Signs Temperature 97.9 F 09/15/16 06:00 Pulse Rate 90 09/15/16 06:00 Respiratory Rate 20 09/15/16 06:00 Blood Pressure 130/68 09/15/16 06:00 O2 Sat by Pulse Oximetry (%) 92 L 09/14/16 21:00 Cardiovascular: Yes: Regular Rate and Rhythm Respiratory: Yes: Regular, CTA Bilaterally Gastrointestinal: Yes: Normal Bowel Sounds, Soft Labs: CBC, BMP 09/14/16 06:00 09/14/16 06:00 INR, PTT INR 1.49 (0.82-1.09) H 09/11/16 17:00 Problem List - Problems (1) Anemia Assessment/Plan: S/P PRBC--ONE MORE UNIT--FOLLOWED BY [facility] GI CONSULT STOOL GUAIC FOLLOW CBC Code(s): D64.9 - ANEMIA, UNSPECIFIED Qualifiers: Anemia type: unspecified type Qualified Code(s): D64.9 - Anemia, unspecified (2) Cellulitis Assessment/Plan: IV ABX ID CONSULT Code(s): L03.90 - CELLULITIS, UNSPECIFIED Qualifiers: Site of cellulitis: extremity Site of cellulitis of extremity: lower extremity Laterality: unspecified laterality Qualified Code(s): L03.119 - Cellulitis of unspecified part of limb (3) A-fib Assessment/Plan: INR SUBTERAPEUTIC--?/COMPLIANCE HOLD COUMADIN--PENDING HGB AND GI Code(s): I48.91 - UNSPECIFIED ATRIAL FIBRILLATION Qualifiers: Atrial fibrillation type: chronic Qualified Code(s): I48.2 - Chronic atrial fibrillation (4) COPD (chronic obstructive pulmonary disease) Assessment/Plan: NEBS Code(s): J44.9 - CHRONIC OBSTRUCTIVE PULMONARY DISEASE, UNSPECIFIED (5) Venous stasis dermatitis of both lower extremities Code(s): I83.11 - VARICOSE VEINS OF RIGHT LOWER EXTREMITY WITH INFLAMMATION I83.12 - VARICOSE VEINS OF LEFT LOWER EXTREMITY WITH INFLAMMATION (6) Ulcer of lower extremity Assessment/Plan: ABX LOCAL CARE--WET TO DRY Code(s): L97.909 - NON-PRS CHRONIC ULC UNSP PRT OF UNSP LOW LEG W UNSP SEVERITY
[2016-09-15] MEDS ORDERED: PT OWN MED DRAWER 7, Y5N ONE (10:17)
[2016-09-15] MEDS: DIGOXIN 0.125 MG TABLET (FP) PO SCH (11:12)
[2016-09-15] MEDS: SPIRONOLACTONE 25 MG TABLET (FP) PO SCH (11:13)
[2016-09-15] MEDS: PANTOPRAZOLE SODIUM 40 MG/100 ML PRE-DOCKED IVPB SCH ×2 (11:13→21:40)
[2016-09-15] MEDS: QUINAPRIL HCL 20 MG TABLET (FP) PO SCH (11:14)
[2016-09-15] MEDS: SILVER SULFADIAZINE 1% TOP CREAM 50 GM JAR TP SCH (11:14)
[2016-09-15] MEDS: ALBUTEROL SO4 0.083% IH SOL 2.5 MG/3 ML VIAL.NEB. NEB SCH ×4 (11:24→23:33)
[2016-09-15 11:26] LABS: MCH 27.7 pg (25.7-33.7); MCHC 32.2 g/dl (32.0-36.0); MEAN CELL VOLUME 85.9 fl (80-96); MEAN PLT VOLUME 7.3 fl (7.5-11.1); PLATELET COUNT 199 K/MM3 (134-434); RDW 18.3 % (11.6-15.6); WHITE BLOOD COUNT 6.8 K/mm3 (4.0-10.0)
[2016-09-15] MEDS: ACETAMINOPHEN 325 MG TABLET (FP) PO PRN (16:48)
[2016-09-15] MEDS: ATORVASTATIN CA 10 MG TABLET (FP) PO SCH (21:40)
[2016-09-15] MEDS: SERTRALINE HCL 50 MG TABLET (FP) PO SCH (21:40)
[2016-09-16] MEDS: LEVOTHYROXINE NA 125 MCG TABLET (FP) PO SCH (06:26)
[2016-09-16] MEDS: ALBUTEROL SO4 0.083% IH SOL 2.5 MG/3 ML VIAL.NEB. NEB SCH ×3 (07:06→19:14)
[2016-09-16 08:20] LABS: MCH 27.8 pg (25.7-33.7); MCHC 32.3 g/dl (32.0-36.0); MEAN CELL VOLUME 85.9 fl (80-96); MEAN PLT VOLUME 7.5 fl (7.5-11.1); PLATELET COUNT 192 K/MM3 (134-434); RDW 18.6 % (11.6-15.6); WHITE BLOOD COUNT 5.9 K/mm3 (4.0-10.0)
--- NOTE | 2016-09-16 09:06 | PN ---
Progress Note, Physician History of Present Illness: FEELS BETTER - Current Medication List Current Medications: Active Medications Acetaminophen (Tylenol -) 650 mg PO Q4H PRN PRN Reason: FEVER OR PAIN Last Admin: 09/15/16 16:48 Dose: 650 mg Albuterol Sulfate (Ventolin 0.083% Nebulizer Soln -) 1 amp NEB Q6HPO [facility] Last Admin: 09/16/16 07:06 Dose: 1 amp Atorvastatin Calcium (Lipitor -) 10 mg PO HS [facility] Last Admin: 09/15/16 21:40 Dose: 10 mg Digoxin (Lanoxin -) 0.125 mg PO DAILY [facility] Last Admin: 09/15/16 11:12 Dose: 0.125 mg Levothyroxine Sodium (Synthroid -) 125 mcg PO DAILY@0700 [facility] Last Admin: 09/16/16 06:26 Dose: 125 mcg Pantoprazole Sodium (Protonix 40mg Ivpb (Pre-Docked)) 40 mg IVPB BID [facility] Last Admin: 09/15/16 21:40 Dose: 40 mg Quinapril HCl (Accupril -) 20 mg PO DAILY [facility] Last Admin: 09/15/16 11:14 Dose: 20 mg Sertraline HCl (Zoloft -) 50 mg PO [facility] Last Admin: 09/15/16 21:40 Dose: 50 mg Silver Sulfadiazine (Silvadene -) 1 applic TP DAILY [facility] Last Admin: 09/15/16 11:14 Dose: Not Given Spironolactone (Aldactone -) 25 mg PO DAILY [facility] Last Admin: 09/15/16 11:13 Dose: 25 mg - Objective Vital Signs: Vital Signs Temperature 97.5 F L 09/16/16 07:20 Pulse Rate 84 09/16/16 07:20 Respiratory Rate 20 09/16/16 07:20 Blood Pressure 123/68 09/16/16 07:20 O2 Sat by Pulse Oximetry (%) 94 L 09/15/16 21:00 Cardiovascular: Yes: S1, S2 Respiratory: Yes: Regular, CTA Bilaterally Gastrointestinal: Yes: Normal Bowel Sounds, Soft Wound/Incision: Yes: Dressing Removed Neurological: Yes: Alert, Oriented Labs: CBC, BMP 09/16/16 06:30 09/14/16 06:00 INR, PTT INR 1.49 (0.82-1.09) H 09/11/16 17:00 Problem List - Problems (1) Anemia Assessment/Plan: S/P PRBC--ONE MORE UNIT--FOLLOWED BY [facility] GI CONSULT STOOL GUAIC FOLLOW CBC Code(s): D64.9 - ANEMIA, UNSPECIFIED Qualifiers: Anemia type: unspecified type Qualified Code(s): D64.9 - Anemia, unspecified (2) Cellulitis Assessment/Plan: IV ABX ID CONSULT Code(s): L03.90 - CELLULITIS, UNSPECIFIED Qualifiers: Site of cellulitis: extremity Site of cellulitis of extremity: lower extremity Laterality: unspecified laterality Qualified Code(s): L03.119 - Cellulitis of unspecified part of limb (3) A-fib Assessment/Plan: INR SUBTERAPEUTIC--?/COMPLIANCE HOLD COUMADIN--PENDING HGB AND GI Code(s): I48.91 - UNSPECIFIED ATRIAL FIBRILLATION Qualifiers: Atrial fibrillation type: chronic Qualified Code(s): I48.2 - Chronic atrial fibrillation (4) COPD (chronic obstructive pulmonary disease) Assessment/Plan: NEBS Code(s): J44.9 - CHRONIC OBSTRUCTIVE PULMONARY DISEASE, UNSPECIFIED (5) Venous stasis dermatitis of both lower extremities Code(s): I83.11 - VARICOSE VEINS OF RIGHT LOWER EXTREMITY WITH INFLAMMATION I83.12 - VARICOSE VEINS OF LEFT LOWER EXTREMITY WITH INFLAMMATION (6) Ulcer of lower extremity Assessment/Plan: ABX LOCAL CARE--WET TO DRY Code(s): L97.909 - NON-PRS CHRONIC ULC UNSP PRT OF UNSP LOW LEG W UNSP SEVERITY
[2016-09-16] MEDS ORDERED: PT OWN MED DRAWER 7, Y5N ONE (09:48)
[2016-09-16] MEDS: PANTOPRAZOLE SODIUM 40 MG/100 ML PRE-DOCKED IVPB SCH ×2 (09:50→21:19)
[2016-09-16] MEDS: SPIRONOLACTONE 25 MG TABLET (FP) PO SCH (09:50)
[2016-09-16] MEDS: DIGOXIN 0.125 MG TABLET (FP) PO SCH (09:50)
[2016-09-16] MEDS: QUINAPRIL HCL 20 MG TABLET (FP) PO SCH (09:50)
[2016-09-16] MEDS: SILVER SULFADIAZINE 1% TOP CREAM 50 GM JAR TP SCH (15:25)
[2016-09-16] MEDS ORDERED: WARFARIN NA 5 MG TABLET (UD) PO SCH (18:00)
[2016-09-16] MEDS: SERTRALINE HCL 50 MG TABLET (FP) PO SCH (21:18)
[2016-09-16] MEDS: ATORVASTATIN CA 10 MG TABLET (FP) PO SCH (21:18)
[2016-09-17] MEDS: LEVOTHYROXINE NA 125 MCG TABLET (FP) PO SCH (06:04)
[2016-09-17] MEDS: ALBUTEROL SO4 0.083% IH SOL 2.5 MG/3 ML VIAL.NEB. NEB SCH ×2 (06:30)
[2016-09-17 07:57] LABS: MCHC 32.3 g/dl (32.0-36.0); MEAN CELL VOLUME 86.8 fl (80-96); MEAN PLT VOLUME 7.4 fl (7.5-11.1); PLATELET COUNT 185 K/MM3 (134-434); RDW 19.2 % (11.6-15.6); WHITE BLOOD COUNT 6.4 K/mm3 (4.0-10.0)
[2016-09-17 08:17] LABS: INR 1.33 (0.82-1.09); PROTHROMBIN TIME (PATIENT) 14.7 SEC (9.98-11.88)
--- NOTE | 2016-09-17 09:16 | DS ---
Physical Examination Vital Signs: Vital Signs Temperature 98.5 F 09/16/16 21:58 Pulse Rate 76 09/16/16 21:58 Respiratory Rate 18 09/16/16 21:58 Blood Pressure 130/70 09/16/16 21:58 O2 Sat by Pulse Oximetry (%) 95 09/16/16 21:00 Cardiovascular: Yes: Regular Rate and Rhythm Respiratory: Yes: Regular, CTA Bilaterally Gastrointestinal: Yes: Normal Bowel Sounds, Soft Labs: CBC, BMP 09/17/16 06:45 09/14/16 06:00 Discharge Summary Reason For Visit: ANEMIA,CELLULITIS Current Active Problems Anemia (Acute) Cellulitis (Acute) Lymphedema (Acute) Ulcer of lower extremity (Acute) Hospital Course: 89 year old female, with a significant past medical history of chronic venous stasis dermatitis, HTN, COPD, CHF, HLD, skin cancer, Afib, and anemia, who presents to the emergency department with a draining wound infection on her right lower extremity. She reports that she banged her right ramos which caused the drainage. She denies any increase in redness, swelling or pain. She notes that that she has chronic venous stasis changes in her lower extremity changes was on oral antibiotics (Keflex) at home. In er noted to be anemic - Past Medical History Cardiovascular: Yes: AFIB, CAD, CHF, HTN, Hyperlipdemia, Pulmonary Hypertension , Other (PPM with sick sinus syndrome) Pulmonary: Yes: COPD Gastrointestinal: Yes: GERD Musculoskeletal: Yes: Other (left foot drop) Endocrine: Yes: Hypothyroidism - Past Surgical History Past Surgical History: Yes: Hysterectomy, Permanent Pacemaker, Tonsillectomy - Problems (1) Anemia Assessment/Plan: S/P PRBC--ONE MORE UNIT--FOLLOWED BY [facility] GI CONSULT STOOL GUAIC FOLLOW CBC Code(s): D64.9 - ANEMIA, UNSPECIFIED Qualifiers: Anemia type: unspecified type Qualified Code(s): D64.9 - Anemia, unspecified (2) Cellulitis Assessment/Plan: IV ABX ID CONSULT Code(s): L03.90 - CELLULITIS, UNSPECIFIED Qualifiers: Site of cellulitis: extremity Site of cellulitis of extremity: lower extremity Laterality: unspecified laterality Qualified Code(s): L03.119 - Cellulitis of unspecified part of limb (3) A-fib Assessment/Plan: INR SUBTERAPEUTIC--?/COMPLIANCE HOLD COUMADIN--PENDING HGB AND GI Code(s): I48.91 - UNSPECIFIED ATRIAL FIBRILLATION Qualifiers: Atrial fibrillation type: chronic Qualified Code(s): I48.2 - Chronic atrial fibrillation (4) COPD (chronic obstructive pulmonary disease) Assessment/Plan: NEBS Code(s): J44.9 - CHRONIC OBSTRUCTIVE PULMONARY DISEASE, UNSPECIFIED (5) Venous stasis dermatitis of both lower extremities Code(s): I83.11 - VARICOSE VEINS OF RIGHT LOWER EXTREMITY WITH INFLAMMATION I83.12 - VARICOSE VEINS OF LEFT LOWER EXTREMITY WITH INFLAMMATION (6) Ulcer of lower extremity Assessment/Plan: ABX LOCAL CARE--WET TO DRY Code(s): L97.909 - NON-PRS CHRONIC ULC UNSP PRT OF UNSP LOW LEG W UNSP SEVERITY - Instructions Referrals: Anthony Anderson MD [Primary Care Provider] - 1 Week Disposition: [facility]/HOME HEALTH CARE - Home Medications Comprehensive Discharge Medication List: Ambulatory Orders Quinapril HCl [Accupril -] 20 mg PO DAILY #90 tablet 08/24/15 Atorvastatin Ca [Lipitor] 10 mg PO HS tablet 04/19/16 Warfarin Na [Coumadin -] 4 mg PO DAILY@1800 tablet 04/19/16 Levothyroxine [Synthroid -] 125 mcg PO DAILY #30 tablet [facility] 1 06/17/16 Digoxin [Lanoxin -] 125 mcg PO DAILY 09/11/16 Furosemide [Lasix -] 20 mg PO DAILY 09/11/16 Sertraline HCl [Zoloft -] 50 mg PO HS 09/11/16 Spironolactone [Aldactone -] 25 mg PO DAILY 09/11/16 Melatonin 5 mg Tablet 5 mg PO HS 09/16/16 Metoprolol Succinate [Toprol XL -] 25 mg PO DAILY 09/16/16 Cephalexin Monohydrate [Keflex -] 500 mg PO BID #10 capsule 09/17/16
[2016-09-17] MEDS ORDERED: PT OWN MED DRAWER 7, Y5N ONE (09:59)
[2016-09-17] MEDS: SPIRONOLACTONE 25 MG TABLET (FP) PO SCH (10:08)
[2016-09-17] MEDS: DIGOXIN 0.125 MG TABLET (FP) PO SCH (10:08)
[2016-09-17] MEDS: QUINAPRIL HCL 20 MG TABLET (FP) PO SCH (10:09)
[2016-09-17 10:11] VITALS: PULSE 83
[2016-09-17] MEDS: PANTOPRAZOLE SODIUM 40 MG/100 ML PRE-DOCKED IVPB SCH (10:11)
[2016-09-17] MEDS: SILVER SULFADIAZINE 1% TOP CREAM 50 GM JAR TP SCH (10:11)
[2016-09-17 15:21] VITALS: BP 116/57; TEMP 98.3
== END 2016-09-17 13:51 | disposition home health service (06) | DRG 603 ==
LOC: JER 16:11 → JERBED 20:32 → J8W 09-12 01:58
PROVIDERS: ADMIT Family Medicine; ATTEND Family Medicine
PROC: 30233N1 Transfusion of Nonautologous Red Blood Cells into Peripheral Vein, Percutaneous Approach (ICD-10-PCS; principal; 2016-09-11)
DX: L03.115 Cellulitis of right lower limb (principal); L97.909 Non-pressure chronic ulcer of unspecified part of unspecified lower leg with unspecified severity; B95.61 Methicillin susceptible Staphylococcus aureus infection as the cause of diseases classified elsewhere; D64.9 Anemia, unspecified; I48.2 Chronic atrial fibrillation; Z79.01 Long term (current) use of anticoagulants; I83.12 Varicose veins of left lower extremity with inflammation; I83.11 Varicose veins of right lower extremity with inflammation; I11.0 Hypertensive heart disease with heart failure; I50.9 Heart failure, unspecified; I25.10 Atherosclerotic heart disease of native coronary artery without angina pectoris; I48.91 Unspecified atrial fibrillation; J44.9 Chronic obstructive pulmonary disease, unspecified; K21.9 Gastro-esophageal reflux disease without esophagitis; M21.372 Foot drop, left foot; E03.9 Hypothyroidism, unspecified; I89.0 Lymphedema, not elsewhere classified
CPT/HCPCS: 36415; 36430; 71010-TC; 80048; 80053; 81003; 82272; 82607; 82728; 83540; 83550; 83605; 85025; 85027; 85610; 85730; 86850; 86900; 86901; 86922; 87040; 87070; 87086; 87186; 87205; 93005; 93010; 93971-TC; 94640; 97116-GP; 97161-GP; 99284-25; P9038; P9058

== ENCOUNTER 2016-10-10 04:18 | Observation (INO) | payer OTHER, MEDICARE ==
--- NOTE | 2016-10-10 04:26 | PDOC ---
History of Present Illness - General History Source: Patient Exam Limitations: No Limitations - History of Present Illness Initial Comments: 10/10/16 04:37 The patient is a 89 year old female with significant past medical history of a- fib, hypertension, hyperlipidemia, CHF, CAD, COPD, skin cancer, and anemia who presents to the ED BIBA from home with s/p unwitnessed mechanical fall secondary to weakness 4 hours prior to arrival. Patient reports she normally does not drink coffee, however she had some coffee today and subsequently started developing generalized weakness and few episodes of diarrhea. Subsequently, her legs gave out and patient fell down. She states she was unable to get up for 4 hours. Patient does not have any complaints or pain, however she states she is still feeling weak. Denies LOC or head trauma. The patient denies fever, chills, cough, SOB, chest pain, and palpitations. The patient denies abdominal pain, nausea, and vomiting. Allergies: penicillin Social History: No alcohol, tobacco, or drug use reported. Lives at home alone. Past Surgical History: total hysterectomy, pacemaker, tonsillectomy PCP:Dr. Anthony Anderson GI: Dr. Mike Avila <Maria E Jaime - Last Filed: 10/10/16 06:41> - General History Source: Patient <Dwayne Richter - Last Filed: 10/10/16 19:21> - General Stated Complaint: FALL Time Seen by Provider: 10/10/16 04:24 Past History <Maria E Jaime - Last Filed: 10/10/16 06:41> - Past Medical History Anemia: Yes Cancer: Yes (SKIN CANCER) Cardiac Disorders: Yes (CHF ASHD,A FIB) COPD: Yes CHF: Yes HTN: Yes Hypercholesterolemia: Yes Thyroid Disease: Yes - Surgical History Abdominal Surgery: Yes (total hysterectomy) Cardiac Surgery: Yes (PACEMAKER) - Psycho/Social/Smoking Cessation Hx Anxiety: No Suicidal Ideation: No Smoking Status: No Smoking History: Never smoked Have you smoked in the past 12 months: No Number of Cigarettes Smoked Daily: 0 Hx Alcohol Use: No Drug/Substance Use Hx: No Substance Use Type: None Hx Substance Use Treatment: No <Dwayne Richter - Last Filed: 10/10/16 19:21> - Past Medical History Allergies/Adverse Reactions: Allergies Allergy/AdvReac Type Severity Reaction Status Date / Time Penicillins Allergy Unknown Verified 10/10/16 04:31 mushrooms Allergy Uncoded 10/10/16 04:31 Home Medications: Ambulatory Orders Atorvastatin Ca [Lipitor] 10 mg PO HS tablet 04/19/16 Levothyroxine [Synthroid -] 125 mcg PO DAILY #30 tablet MDD 1 06/17/16 Digoxin [Lanoxin -] 125 mcg PO DAILY 09/11/16 Furosemide [Lasix -] 40 mg PO DAILY 09/11/16 Sertraline HCl [Zoloft -] 50 mg PO HS 09/11/16 Spironolactone [Aldactone -] 25 mg PO DAILY 09/11/16 Melatonin 3 mg PO HS #0 09/16/16 Metoprolol Succinate [Toprol XL -] 25 mg PO DAILY 09/16/16 Cephalexin Monohydrate [Keflex -] 500 mg PO BID #10 capsule 09/17/16 Quinapril HCl [Accupril -] 40 mg PO DAILY 10/10/16 Warfarin Na [Coumadin -] 3 mg PO DAILY@1800 10/10/16 Review of Systems - Review of Systems Able to Perform ROS?: Yes Comments:: 10/10/16 04:39 CONSTITUTIONAL: +generalized weakness Absent: fever, no chills, no fatigue EYES: Absent: visual changes ENT: Absent: ear pain, no sore throat CARDIOVASCULAR: Absent: chest pain, no palpitations RESPIRATORY: Absent: cough, no SOB GI: +diarrhea Absent: abdominal pain, no nausea, no vomiting, no constipation GENITOURINARY: Absent: dysuria, no frequency, no hematuria MUSKULOSKELETAL: Absent: back pain, no arthralgia, no myalgia SKIN: Absent: rash NEURO: Absent: headache <Bharrat,Maria E - Last Filed: 10/10/16 06:41> *Physical Exam - Physical Exam Comments: 10/10/16 04:39 GENERAL: Well-appearing, well-nourished. No apparent distress. HEENT: Normocephalic, atraumatic. No racoon or cervantes signs. PERRL, EOM intact. No hemotympanum. CARDIOVASCULAR: Irregularly irregular. No murmurs, rubs, or gallops. PULMONARY: Clear to auscultation bilaterally. ABDOMEN: Soft, non-distended, non-tender. EXTREMITIES: Normal ROM in all four extremities. No gross deformities. Bilateral lower extremities brawny stasis changes. Bilateral lower extremities swelling. SKIN: Warm, dry. No rash NEUROLOGICAL: No focal neurological deficits. <Maria E Jaime - Last Filed: 10/10/16 06:41> Heart Score/ECG Review - ECG Impressions Comment:: 10/10/16 05:59 Atrial-sensed ventricular-paced rhythm @85bpm Abnormal ECG <Maria E Jaime - Last Filed: 10/10/16 06:41> ED Treatment Course - LABORATORY CBC & Chemistry Diagram: 10/10/16 05:00 10/10/16 05:00 <Maria E Jaime - Last Filed: 10/10/16 06:41> - LABORATORY CBC & Chemistry Diagram: 10/10/16 05:00 10/10/16 05:00 <Dwayne Richter - Last Filed: 10/10/16 19:21> Medical Decision Making - Medical Decision Making 10/10/16 06:[address] Anthony Anderson (via answering service) at 6:04 Awaiting call back 10/10/16 06:26 Patient's case discussed with Dr. Anderson at 6:26 <Maria E Jaime - Last Filed: 10/10/16 06:41> - Medical Decision Making 10/10/16 06:38 Dr. Richter: The scribe's documentation has been prepared under my direction and personally reviewed by me in its entirery. I confirm that the note above accurately reflects all work, treatment, procedures, and medical decision making performed by me. Offered pt admission for placement to [place], as pt lives alone, and was on the floor for 4 hours. However, pt doesn't want to go to [place]. Pt to wait for sociall work to see if she can get VNS for home. 10/10/16 19:20 Pt required admission to resolve her medical and sociall issue. <Dwayne Richter - Last Filed: 10/10/16 19:21> *DC/Admit/Observation/Transfer - Attestations Scribe Attestion: 10/10/16 04:39 Documentation prepared by Maria E Jaime, acting as medical accounting clerk for Dwayne Richter MD <Maria E Jaime - Last Filed: 10/10/16 06:41> <Dwayne Richter - Last Filed: 10/10/16 19:21> Diagnosis at time of Disposition: Fall Qualifiers: Encounter type: initial encounter Qualified Code(s): W19.XXXA - Unspecified fall, initial encounter - Discharge Dispostion Condition at time of disposition: Stable
[2016-10-10 05:08] LABS: URINE APPEARANCE CLEAR; URINE BILIRUBIN NEGATIVE (NEGATIVE); URINE COLOR LTYELLOW; URINE GLUCOSE (UA) NEGATIVE (NEGATIVE); URINE KETONE NEGATIVE (NEGATIVE); URINE NITRITE NEGATIVE (NEGATIVE); URINE PROTEIN NEGATIVE (NEGATIVE); URINE UROBILINOGEN NEGATIVE E.U./dl (0.2-1.0)
[2016-10-10 05:10] VITALS: BMI 27.4
[2016-10-10 05:13] LABS: URINE BLOOD 1+ (NEGATIVE); URINE LEUK ESTERASE TRACE (NEGATIVE)
[2016-10-10 05:13] LABS: BASOPHIL 0.7 % (0-2.0); EOSINOPHIL 0.6 % (0-4.5); MCH 27.7 pg (25.7-33.7); MCHC 32.4 g/dl (32.0-36.0); MEAN CELL VOLUME 85.4 fl (80-96); MEAN PLT VOLUME 8.2 fl (7.5-11.1); NEUTROPHILS 83.4 % (42.8-82.8); PLATELET COUNT 196 K/MM3 (134-434); RDW 21.2 % (11.6-15.6)
[2016-10-10 05:14] LABS: URINE BACTERIA RARE /hpf (NONE SEEN); URINE HYALINE CAST 4 /lpf; URINE MUCUS RARE; URINE RBC 4 /hpf (0-3); URINE WBC <1 /hpf (3-5)
[2016-10-10 05:39] LABS: ALBUMIN 3.9 g/dl (3.4-5.0); ANION GAP 10 (8-16); BILIRUBIN,TOTAL 1.1 mg/dL (0.2-1.0); CALCIUM 8.7 mg/dL (8.5-10.1); CO2 29 mmol/L (21-32); CREATININE 0.6 mg/dL (0.55-1.02); GLUCOSE,RANDOM 82 mg/dL (74-106); MAGNESIUM 1.8 mg/dL (1.8-2.4); SGOT/AST 29 U/L (15-37); SGPT/ALT 20 U/L (12-78); TOT PROT 7.4 g/dl (6.4-8.2)
[2016-10-10 05:42] LABS: ALK PHOS 170 U/L (45-117); TROPONIN I < 0.02 ng/ml (0.00-0.05)
[2016-10-10 05:44] LABS: INR 4.24 (0.82-1.09)
[2016-10-10 06:28] LABS: PLATELET COMMENT2 NO CLOTTING DETECTED; PLATELET ESTIMATE ADEQUATE (NORMAL); SMUDGE CELLS FEW
[2016-10-10 06:29] LABS: ANISOCYTOSIS 1+; HYPOCHROMIA 1+; POIKILOCYTOSIS 1+; POLYCHROMASIA 1+
[2016-10-10] MEDS ORDERED: ACETAMINOPHEN 325 MG TABLET (FP) ONE (06:54)
[2016-10-10 06:56] LABS: ACETONE SERUM NEGATIVE (NEGATIVE)
[2016-10-10] MEDS ORDERED: ACETAMINOPHEN 325 MG TABLET (FP) PO ONE (06:59)
--- NOTE | 2016-10-10 11:01 | PDOC ---
*Physical Exam - Vital Signs Last Vital Signs Temp Pulse Resp BP Pulse Ox 98.4 F 75 16 98/72 95 10/10/16 04:18 10/10/16 08:30 10/10/16 08:30 10/10/16 08:30 10/10/16 08:30 ED Treatment Course - LABORATORY CBC & Chemistry Diagram: 10/10/16 05:00 10/10/16 05:00 - ADDITIONAL ORDERS Additional order review: Laboratory Results 10/10/16 10/10/16 10/10/16 05:00 05:00 05:00 INR 4.24 H* D Sodium 141 Potassium 4.3 Chloride 102 Carbon Dioxide 29 Anion Gap 10 BUN 13 Creatinine 0.6 Creat Clearance w eGFR > 60 Random Glucose 82 Calcium 8.7 Magnesium 1.8 Total Bilirubin 1.1 H D AST 29 D ALT 20 D Alkaline Phosphatase 170 H D Creatine Kinase 97 Troponin I < 0.02 B-Natriuretic Peptide 920.31 H Total Protein 7.4 D Albumin 3.9 D Urine Color Urine Appearance Urine pH Ur Specific [place] Urine Protein Urine Glucose (UA) Urine Ketones Urine Blood Urine Nitrite Urine Bilirubin Urine Urobilinogen Ur Leukocyte Esterase Urine RBC Urine WBC Ur Epithelial Cells Urine Bacteria Hyaline Casts Urine Mucus Acetone, Qual Negative L Blood Type A POSITIVE Antibody Screen Negative 10/10/16 04:45 INR Sodium Potassium Chloride Carbon Dioxide Anion Gap BUN Creatinine Creat Clearance w eGFR Random Glucose Calcium Magnesium Total Bilirubin AST ALT Alkaline Phosphatase Creatine Kinase Troponin I B-Natriuretic Peptide Total Protein Albumin Urine Color Ltyellow Urine Appearance Clear Urine pH 7.0 Ur Specific [place] 1.011 Urine Protein Negative Urine Glucose (UA) Negative Urine Ketones Negative Urine Blood 1+ H Urine Nitrite Negative Urine Bilirubin Negative Urine Urobilinogen Negative Ur Leukocyte Esterase Trace H Urine RBC 4 Urine WBC <1 Ur Epithelial Cells Rare Urine Bacteria Rare Hyaline Casts 4 Urine Mucus Rare Acetone, Qual Blood Type Antibody Screen 10/10/16 05:00 RBC 3.74 MCV 85.4 MCHC 32.4 RDW 21.2 H D MPV 8.2 D Neutrophils % 83.4 H D Lymphocytes % 7.7 L D Monocytes % 7.6 Eosinophils % 0.6 Basophils % 0.7 - RADIOLOGY Radiology Studies Ordered: Category Date Time Status PELVIS CT WITHOUT CONTRAST [CT] Stat CT Scan 10/10/16 10:47 Ordered - Medications Given in the ED: ED Medications Discontinued Medications Generic Name Dose Route Start Last Admin Trade Name P[place]ito PRN Reason Stop Dose Admin Acetaminophen 650 mg 10/10/16 06:59 10/10/16 06:59 Tylenol - PO 10/10/16 07:00 650 mg NOW ONE Administration Medical Decision Making - Medical Decision Making 10/10/16 10:57 Sign-out received from outgoing Emergency Physician Dr. Richter Pt interviewed and examined Ancillary studies reviewed Case discussed in detail with oncoming Emergency Physician including history, physical exam and ancillary studies. Vital Signs Temp Pulse Resp BP Pulse Ox 98.4 F 75 16 98/72 95 10/10/16 04:18 10/10/16 08:30 10/10/16 08:30 10/10/16 08:30 10/10/16 08:30 After discussing with the patient, the patient states that she only has about 1.5 hours of aide a day at home. She has difficulties performing her daily activities of living. Unable to cook for herself. She often times gets her pants caught in the hospital bed at home. Pt continues to have some mild R hip pain despite negative xrays. Will order CT pelvis to r/o occult fracture. Given concerns for home safety, case was discussed with Dr. Castaneda. She agrees for med/surg observation under Dr. Anderson. Case discussed in detail with admitting physician including history, physical exam and ancillary studies. Admitting physician has assumed care for the patient, will follow all pending diagnostics and will complete the evaluation and treatment. *DC/Admit/Observation/Transfer Diagnosis at time of Disposition: Fall Qualifiers: Encounter type: initial encounter Qualified Code(s): W19.XXXA - Unspecified fall, initial encounter - Discharge Dispostion Condition at time of disposition: Stable Admit: Yes
[2016-10-10] MEDS ORDERED: MELATONIN 5 MG TABLETS PO PRN (13:24)
--- NOTE | 2016-10-10 13:30 | HP ---
Admitting History and Physical - Primary Care Physician PCP: Anthony Anderson - Admission History of Present Illness: The patient is a 89 year old female with significant past medical history of a- fib, hypertension, hyperlipidemia, CHF, CAD, COPD, skin cancer, and anemia who presents to the ED BIBA from home with s/p unwitnessed mechanical fall secondary to weakness 4 hours prior to arrival. Patient reports she normally does not drink coffee, however she had some coffee today and subsequently started developing generalized weakness and few episodes of diarrhea. Subsequently, her legs gave out and patient fell down. She states she was unable to get up for 4 hours. Patient does not have any complaints or pain, however she states she is still feeling weak. Denies LOC or head trauma. The patient denies fever, chills, cough, SOB, chest pain, and palpitations. The patient denies abdominal pain, nausea, and vomiting. Allergies: penicillin Social History: No alcohol, tobacco, or drug use reported. Lives at home alone. Past Surgical History: total hysterectomy, pacemaker, tonsillectomy PCP:Dr. Anthony Anderson GI: Dr. Mike Avila per patient she has an aide who comes for 1.5 hrs a day and she in process of filling paper work to hire a home visitor home base head start she requires more help at home she says her legs gave way bc she was weak and having diarrhea History Source: Patient - Past Medical History Cardiovascular: Yes: AFIB, CAD, CHF, HTN, Hyperlipdemia, Pulmonary Hypertension , Other (PPM with sick sinus syndrome) Pulmonary: Yes: COPD Gastrointestinal: Yes: GERD Musculoskeletal: Yes: Other (left foot drop) Endocrine: Yes: Hypothyroidism - Past Surgical History Past Surgical History: Yes: Hysterectomy, Permanent Pacemaker, Tonsillectomy - Smoking History Smoking history: Never smoked Have you smoked in the past 12 months: No Aproximately how many cigarettes per day: 0 - Alcohol/Substance Use Hx Alcohol Use: No - Social History ADL: Support Services History of Recent Travel: No Home Medications - Allergies Allergies/Adverse Reactions: Allergies Allergy/AdvReac Type Severity Reaction Status Date / Time Penicillins Allergy Unknown Verified 10/10/16 04:31 mushrooms Allergy Uncoded 10/10/16 04:31 - Home Medications Home Medications: Ambulatory Orders Atorvastatin Ca [Lipitor] 10 mg PO HS tablet 04/19/16 Levothyroxine [Synthroid -] 125 mcg PO DAILY #30 tablet MDD 1 06/17/16 Digoxin [Lanoxin -] 125 mcg PO DAILY 09/11/16 Furosemide [Lasix -] 40 mg PO DAILY 09/11/16 Sertraline HCl [Zoloft -] 50 mg PO HS 09/11/16 Spironolactone [Aldactone -] 25 mg PO DAILY 09/11/16 Melatonin 5 mg Tablet 5 mg PO HS 09/16/16 Metoprolol Succinate [Toprol XL -] 25 mg PO DAILY 09/16/16 Cephalexin Monohydrate [Keflex -] 500 mg PO BID #10 capsule 09/17/16 Quinapril HCl [Accupril -] 40 mg PO DAILY 10/10/16 Warfarin Na [Coumadin -] 3 mg PO DAILY@1800 10/10/16 Review of Systems - Review of Systems Constitutional: reports: Other (tired) Physical Examination Vital Signs: Vital Signs Temperature 98.4 F 10/10/16 04:18 Pulse Rate 75 10/10/16 08:30 Respiratory Rate 16 10/10/16 08:30 Blood Pressure 98/72 10/10/16 08:30 O2 Sat by Pulse Oximetry (%) 95 10/10/16 08:30 Constitutional: Yes: Calm Cardiovascular: Yes: Pulse Irregular, S1, S2 Respiratory: Yes: CTA Bilaterally Gastrointestinal: Yes: Normal Bowel Sounds, Soft Extremities: Yes: Other (chronic changes, erythema) Imaging - Results Cat Scan: Report Reviewed (fracture of superior pubic ramus and pubi c bone) Problem List - Problems (1) Fall Assessment/Plan: pt /ot ccc for snf placement needs executive secretary social welfare helps to complete process of hiring home visitor home base head start Code(s): W19.XXXA - UNSPECIFIED FALL, INITIAL ENCOUNTER Qualifiers: Encounter type: initial encounter Qualified Code(s): W19.XXXA - Unspecified fall, initial encounter (2) Pelvic fracture Assessment/Plan: ortho pain control dvt pxx- on couamdin Code(s): S32.9XXA - FRACTURE OF UNSP PARTS OF LUMBOSACRAL SPINE AND PELVIS, INIT (3) A-fib Assessment/Plan: hold coumadin tonight surpa theroeutic inr Code(s): I48.91 - UNSPECIFIED ATRIAL FIBRILLATION (4) Hypercholesteremia Assessment/Plan: statin Code(s): E78.0 - PURE HYPERCHOLESTEROLEMIA * DO NOT USE * (5) Hypothyroid Assessment/Plan: tsh on synthroid Code(s): E03.9 - HYPOTHYROIDISM, UNSPECIFIED (6) CHF (congestive heart failure) Assessment/Plan: same meds Code(s): I50.9 - HEART FAILURE, UNSPECIFIED (7) Insomnia Assessment/Plan: melatonin Code(s): G47.00 - INSOMNIA, UNSPECIFIED
[2016-10-10] MEDS ORDERED: ACETAMINOPHEN 325 MG TABLET (FP) PO PRN (13:32)
[2016-10-10] MEDS: oxyCODONE HCL 5 MG TABLET PO PRN (16:24)
[2016-10-10] MEDS: METOPROLOL SUCCINATE 50 MG TAB.SR.24H (FP) PO SCH (16:25)
--- NOTE | 2016-10-10 17:06 | EKG ---
Test Reason : Blood Pressure : / mmHG Vent. Rate : 085 BPM Atrial Rate : 085 BPM P-R Int : 166 ms QRS Dur : 168 ms QT Int : 440 ms P-R-T Axes : 051 -80 099 degrees QTc Int : 523 ms Atrial-sensed ventricular-paced rhythm ABNORMAL ECG WHEN COMPARED WITH ECG OF 13-SEP-2016 15:14, VENT. RATE HAS INCREASED BY 11 BPM Confirmed by SHERIDAN SHAH, GIUSEPPE ([id number]) on 10/10/2016 5:05:44 PM Referred By: Confirmed By:GIUSEPPE SWARTZ MD
--- NOTE | 2016-10-10 20:44 | CONS ---
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 [facility] and does use a straight cane premorbidly outside the home but usually did not require assistive device within the home. She fell and was unable to get up. She activated her [employer] DD-alert button and was found complaining of pain in her right lower extremity after her legs gave out. Patient was brought to [facility], where she was found to have supratherapeutic INR of 4.24. The patient underwent imaging including CT of the pelvis, which demonstrated a fracture at the junction of the body of the pubic bone and the right superior pubic ramus, and a possible non-displaced fracture of the right inferior pubic ramus. There was some spondylolysis at L5 with minimal anterolisthesis of L5 on S1. Other blood work demonstrated troponin less than 0.02, WBC high normal 9.0, hemoglobin 10.4, platelet count 196. She had a normal BUN 13, creatinine 0.6, sodium normal 141, potassium normal 4.3. Patient's BNP was slightly elevated at 920, total protein normal at 7.4. Patient is pending orthopedic consultation. Her Coumadin was held due to the supratherapeutic INR, and will be held tonight. Patient has yet to be evaluated by Physical Therapy. She continues to complain of pain in the right hip, swelling in both lower extremities, which actually has improved recently compared to what it used to be, partial foot drop and deformity in her left ankle and foot. She reports no other injury such as head trauma, no loss of consciousness. Review of past medical and surgical history extensive as above. Also COPD, skin cancer, congestive heart failure, hyperlipidemia, coronary artery disease, hypertension, chronic anemia. She states she had some injury to her left ankle and has had a partial foot drop for many years. She is status post permanent pacemaker, total hysterectomy, tonsillectomy, and also notes she has been hospitalized for infection, requiring shelter IV antibiotics in the past. Also a history of gastroesophageal reflux disease. 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 The patient does not drink alcohol. Current function: Bedrest. ALLERGIES: No known drug allergies. Medications are extensive and reviewed: Atorvastatin, levothyroxine, digoxin, furosemide, sertraline, spironolactone, melatonin, metoprolol, Keflex, quinapril, warfarin--again which is being held. REVIEW OF SYSTEMS: She denies any current lightheadedness or dizziness. No blurry vision, double vision that is new. She does have problems with her hearing and wears hearing aids. No nausea, vomiting, difficulty swallowing, difficulty chewing. No neck pain or current low back pain. No chest pain. She does get dyspneic when she bends forward. She states her diaphragm may be compromised when she bends forward. No abdominal discomfort. She was having some loose stool after having a cup of coffee and had multiple bouts prior to admission and possibly early this morning but no recent bouts since admission. No bladder incontinence. Again, she has swelling in the lower extremities, weakness in the left foot. She is unable to lift up her right leg at the hip due to pain. No numbness, tingling, but again chronic multiple lesions in the lower extremities. EXAMINATION: General: On examination, very friendly elderly woman who seems to have good insight into her medical conditions. She is awake, alert and cooperative. HEENT: She is normocephalic and atraumatic. Her extraocular muscles appear intact. No obvious facial weakness. Neck: Supple. Extremities: She has extensive edema in the lower extremities with multiple lesions in bilateral lower extremities but no surrounding erythema, no active drainage. No other skin rash noted. Neuromuscular: She is awake, alert, oriented x3. Cranial nerves 2-12, she has cranial nerve 8 involvement but otherwise 2-12 are grossly intact. She has some arthritic changes in her hands but they are not limiting, and she has good range and strength throughout her upper extremities. In the lower extremities, she does have a deformity of the left ankle with a large anterior mass and limited range of motion, also mild weakness at 4 to 4+ out of 5 within her range. Right ankle has full range and good strength. She has weakness also in the proximal right hip girdle, only 1 to 2 out of 5, but her femur is supported. She is able to extend her knee so she has at least 3/5 knee extensor strength. Left lower extremity good range of motion and strength, at least 4+/5 proximally. Normal sensation to light touch. I did not do pinprick in the distal lower extremities as she has edema, and for fear of further skin compromise but she can feel light tough throughout her lower extremities and pinprick in the upper extremities. Symmetric reflexes in the lower extremities and downgoing toes. She does have pain with passive range in the right hip but more with active range. Unable to stand or ambulate her at this time. OVERALL IMPRESSION: 1. Deficits in mobility and activities of daily living. 2. Right pelvic fracture or pelvic fractures as described above. 3. Status post fall. 4. Status post loose stool. 5. Supratherapeutic INR, on Coumadin for atrial fibrillation, currently on hold. 6. Chronic anemia. 7. Chronic venous insufficiency with multiple chronic wounds. 8. History of chronic obstructive pulmonary disease. 9. History of congestive heart failure and coronary artery disease. 10. Chronic anemia. PLAN, SUGGESTION: 1. Physical therapy for mobilization, transfers, gait training, if cleared by Orthopedics. 2. Out of bed to chair once cleared by Orthopedics. 3. Probably will be weightbearing as tolerated but await official orthopedic clearance. 4. No further DVT prophylaxis needed as she is on Coumadin, is supratherapeutic. 5. Home medication. 6. Monitor INR closely. 7. Wound care. 8. Monitor bowel, did have loose stool but may be at high risk for constipation going forward. 9. Will need short-term rehab in half-way facility and this was discussed with her in detail. Case management to follow up. Thank you for this referral. GUADALUPE ANGELES M.D. ROBERT/[id number]
[2016-10-10] MEDS: SERTRALINE HCL 50 MG TABLET (FP) PO SCH (22:12)
[2016-10-10] MEDS: ATORVASTATIN CA 10 MG TABLET (FP) PO SCH (22:12)
[2016-10-11] MEDS: oxyCODONE HCL 5 MG TABLET PO PRN ×2 (02:52→21:27)
[2016-10-11] MEDS: LEVOTHYROXINE NA 125 MCG TABLET (FP) PO SCH (06:08)
[2016-10-11 08:01] LABS: EOSINOPHIL 0.8 % (0-4.5); MCH 27.6 pg (25.7-33.7); MCHC 32.1 g/dl (32.0-36.0); MEAN CELL VOLUME 85.8 fl (80-96); NEUTROPHILS 68.6 % (42.8-82.8); PLATELET COUNT 150 K/MM3 (134-434); RDW 21.5 % (11.6-15.6); WHITE BLOOD COUNT 5.4 K/mm3 (4.0-10.0)
[2016-10-11 08:10] LABS: PROTHROMBIN TIME (PATIENT) 70.1 SEC (9.98-11.88)
[2016-10-11 08:13] LABS: ACTIVATED PTT 54.9 SECONDS (26.9-34.4)
[2016-10-11 08:26] LABS: INR 6.14 (0.82-1.09)
[2016-10-11 08:35] LABS: ALBUMIN 3.1 g/dl (3.4-5.0); ANION GAP 8 (8-16); CO2 34 mmol/L (21-32); GLUCOSE,RANDOM 92 mg/dL (74-106); MAGNESIUM 1.9 mg/dL (1.8-2.4)
--- NOTE | 2016-10-11 08:48 | PN ---
Progress Note, Physician History of Present Illness: LT HIP PAIN - Current Medication List Current Medications: Active Medications Acetaminophen (Tylenol -) 650 mg PO Q6H PRN PRN Reason: FEVER OR PAIN Atorvastatin Calcium (Lipitor -) 10 mg PO HS [facility] Last Admin: 10/10/16 22:12 Dose: 10 mg Digoxin (Lanoxin -) 0.125 mg PO DAILY [facility] Furosemide (Lasix -) 40 mg PO DAILY [facility] Levothyroxine Sodium (Synthroid -) 125 mcg PO DAILY@0700 [facility] Last Admin: 10/11/16 06:08 Dose: 125 mcg Melatonin (Melatonin) 5 mg PO HS PRN PRN Reason: INSOMNIA Metoprolol Succinate (Toprol Xl -) 25 mg PO DAILY [facility] Last Admin: 10/10/16 16:25 Dose: 25 mg Oxycodone HCl (Roxicodone -) 5 mg PO Q6H PRN PRN Reason: PAIN Last Admin: 10/11/16 02:52 Dose: 5 mg Quinapril HCl (Accupril -) 40 mg PO DAILY [facility] Sertraline HCl (Zoloft -) 50 mg PO HS [facility] Last Admin: 10/10/16 22:12 Dose: 50 mg Spironolactone (Aldactone -) 25 mg PO DAILY [facility] - Objective Vital Signs: Vital Signs Temperature 98.4 F 10/11/16 06:00 Pulse Rate 68 10/11/16 06:00 Respiratory Rate 18 10/11/16 06:00 Blood Pressure 107/60 10/11/16 06:00 O2 Sat by Pulse Oximetry (%) 97 10/10/16 21:00 Cardiovascular: Yes: S1, S2 Respiratory: Yes: Regular, CTA Bilaterally Gastrointestinal: Yes: Normal Bowel Sounds, Soft Edema: No Labs: CBC, BMP 10/11/16 06:30 INR, PTT INR 6.14 (0.82-1.09) H* D 10/11/16 06:30 Assessment/Plan Problems (1) Fall Assessment/Plan: pt /ot ccc for snf placement needs sr. social media & mobile manager helps to complete process of hiring home health assistant Code(s): W19.XXXA - UNSPECIFIED FALL, INITIAL ENCOUNTER Qualifiers: Encounter type: initial encounter Qualified Code(s): W19.XXXA - Unspecified fall, initial encounter (2) Pelvic fracture Assessment/Plan: ortho pain control dvt pxx- on couamdin Code(s): S32.9XXA - FRACTURE OF UNSP PARTS OF LUMBOSACRAL SPINE AND PELVIS, INIT (3) A-fib Assessment/Plan: hold coumadin tonight surpa theroeutic inr Code(s): I48.91 - UNSPECIFIED ATRIAL FIBRILLATION (4) Hypercholesteremia Assessment/Plan: statin Code(s): E78.0 - PURE HYPERCHOLESTEROLEMIA * DO NOT USE * (5) Hypothyroid Assessment/Plan: tsh on synthroid Code(s): E03.9 - HYPOTHYROIDISM, UNSPECIFIED (6) CHF (congestive heart failure) Assessment/Plan: same meds Code(s): I50.9 - HEART FAILURE, UNSPECIFIED (7) Insomnia Assessment/Plan: melatonin Code(s): G47.00 - INSOMNIA, UNSPECIFIED (8) Anemia Assessment/Plan: MONITOR RPT TODAY
[2016-10-11 08:51] LABS: ALK PHOS 126 U/L (45-117); BILIRUBIN,TOTAL 1.2 mg/dL (0.2-1.0); CREATININE 0.7 mg/dL (0.55-1.02); PHOSPHOROUS 3.3 mg/dL (2.5-4.9); SGOT/AST 20 U/L (15-37); SGPT/ALT 14 U/L (12-78); TOT PROT 5.9 g/dl (6.4-8.2)
[2016-10-11] MEDS: SPIRONOLACTONE 25 MG TABLET (FP) PO SCH (10:59)
[2016-10-11] MEDS: FUROSEMIDE 40 MG TABLET (FP) PO SCH (10:59)
[2016-10-11] MEDS: DIGOXIN 0.125 MG TABLET (FP) PO SCH (10:59)
[2016-10-11] MEDS: METOPROLOL SUCCINATE 50 MG TAB.SR.24H (FP) PO SCH (11:00)
[2016-10-11] MEDS: QUINAPRIL HCL 40 MG TABLET (FP) PO SCH (11:01)
--- NOTE | 2016-10-11 12:39 | CON.ORTH ---
Consult Reason for Consultation:: pelvic fx - Past Medical History Cardio/Vascular: Yes: AFIB, CAD, CHF, HTN, Hyperlipdemia, Pulmonary Hypertension , Other (PPM with sick sinus syndrome) Pulmonary: Yes: COPD Gastrointestinal: Yes: GERD ...: No Musculoskeletal: Yes: Other (left foot drop) Endocrine: Yes: Hypothyroidism - Past Surgical History Past Surgical History: Yes: Hysterectomy, Permanent Pacemaker, Tonsillectomy - Alcohol/Substance Use Hx Alcohol Use: No - Smoking History Smoking history: Never smoked Have you smoked in the past 12 months: No Aproximately how many cigarettes per day: 0 - Social History Usual Living Arrangement: Alone ADL: Support Services History of Recent Travel: No Home Medications - Allergies Allergies/Adverse Reactions: Allergies Allergy/AdvReac Type Severity Reaction Status Date / Time Penicillins Allergy Unknown Verified 10/10/16 04:31 mushrooms Allergy Uncoded 10/10/16 04:31 - Home Medications Home Medications: Ambulatory Orders Atorvastatin Ca [Lipitor] 10 mg PO HS tablet 04/19/16 Levothyroxine [Synthroid -] 125 mcg PO DAILY #30 tablet MDD 1 06/17/16 Digoxin [Lanoxin -] 125 mcg PO DAILY 09/11/16 Furosemide [Lasix -] 40 mg PO DAILY 09/11/16 Sertraline HCl [Zoloft -] 50 mg PO HS 09/11/16 Spironolactone [Aldactone -] 25 mg PO DAILY 09/11/16 Melatonin 3 mg PO HS #0 09/16/16 Metoprolol Succinate [Toprol XL -] 25 mg PO DAILY 09/16/16 Cephalexin Monohydrate [Keflex -] 500 mg PO BID #10 capsule 09/17/16 Quinapril HCl [Accupril -] 40 mg PO DAILY 10/10/16 Warfarin Na [Coumadin -] 3 mg PO DAILY@1800 10/10/16 Physical Exam for Ortho Vital Signs: Vital Signs Temperature 98.4 F 10/11/16 06:00 Pulse Rate 102 H 10/11/16 10:59 Respiratory Rate 18 10/11/16 06:00 Blood Pressure 107/60 10/11/16 06:00 O2 Sat by Pulse Oximetry (%) 97 10/10/16 21:00 Labs: CBC, BMP 10/11/16 06:30 10/11/16 06:30 INR, PTT INR 6.14 (0.82-1.09) H* D 10/11/16 06:30 - Lower Extremity Pelvis: Yes: Left, Right, Limited ROM, Pain, Swelling, Tenderness, Other (nvi) Imaging - Results X-ray: Report Reviewed, Image Reviewed Cat Scan: Report Reviewed, Image Reviewed Assessment/Plan 89 year old female with significant past medical history of a-fib, hypertension , hyperlipidemia, CHF, CAD, COPD, skin cancer, and anemia who presents to the ED BIBA from home with s/p unwitnessed mechanical fall secondary to weakness prior to arrival. a/p- right superior pubic rami fx PT WBAT pain control d/c planning d/w Dr. Daley
[2016-10-11 13:18] LABS: THYROID STIMULATING HORMONE 3.52 uIU/ml (0.358-3.74)
[2016-10-11] MEDS: SERTRALINE HCL 50 MG TABLET (FP) PO SCH (21:27)
[2016-10-11] MEDS: ATORVASTATIN CA 10 MG TABLET (FP) PO SCH (21:27)
[2016-10-12] MEDS: oxyCODONE HCL 5 MG TABLET PO PRN ×2 (06:42→20:04)
[2016-10-12] MEDS: LEVOTHYROXINE NA 125 MCG TABLET (FP) PO SCH (06:42)
[2016-10-12 07:29] LABS: MCH 27.3 pg (25.7-33.7); MCHC 31.7 g/dl (32.0-36.0); MEAN PLT VOLUME 8.2 fl (7.5-11.1); PLATELET COUNT 137 K/MM3 (134-434); RDW 20.9 % (11.6-15.6); WHITE BLOOD COUNT 6.9 K/mm3 (4.0-10.0)
[2016-10-12 07:56] LABS: ALBUMIN 2.9 g/dl (3.4-5.0); ANION GAP 8 (8-16); CALCIUM 7.7 mg/dL (8.5-10.1); CO2 33 mmol/L (21-32); GLUCOSE,RANDOM 95 mg/dL (74-106)
[2016-10-12 07:59] LABS: ALK PHOS 117 U/L (45-117); CREATININE 0.8 mg/dL (0.55-1.02); SGOT/AST 17 U/L (15-37); SGPT/ALT 12 U/L (12-78); TOT PROT 5.5 g/dl (6.4-8.2)
[2016-10-12 08:01] LABS: INR 3.99 (0.82-1.09); PROTHROMBIN TIME (PATIENT) 45.2 SEC (9.98-11.88)
[2016-10-12] MEDS: DIGOXIN 0.125 MG TABLET (FP) PO SCH (09:51)
[2016-10-12] MEDS: QUINAPRIL HCL 40 MG TABLET (FP) PO SCH (09:52)
[2016-10-12] MEDS: SPIRONOLACTONE 25 MG TABLET (FP) PO SCH (09:52)
[2016-10-12] MEDS: FUROSEMIDE 40 MG TABLET (FP) PO SCH (09:52)
[2016-10-12] MEDS: METOPROLOL SUCCINATE 50 MG TAB.SR.24H (FP) PO SCH (09:52)
--- NOTE | 2016-10-12 11:13 | PN ---
Progress Note, Physician Chief Complaint: NO COMPLAINTS - Current Medication List Current Medications: Active Medications Acetaminophen (Tylenol -) 650 mg PO Q6H PRN PRN Reason: FEVER OR PAIN Atorvastatin Calcium (Lipitor -) 10 mg PO HS [facility] Last Admin: 10/11/16 21:27 Dose: 10 mg Digoxin (Lanoxin -) 0.125 mg PO DAILY [facility] Last Admin: 10/12/16 09:51 Dose: 0.125 mg Furosemide (Lasix -) 40 mg PO DAILY [facility] Last Admin: 10/12/16 09:52 Dose: Not Given Levothyroxine Sodium (Synthroid -) 125 mcg PO DAILY@0700 [facility] Last Admin: 10/12/16 06:42 Dose: 125 mcg Melatonin (Melatonin) 5 mg PO HS PRN PRN Reason: INSOMNIA Metoprolol Succinate (Toprol Xl -) 25 mg PO DAILY [facility] Last Admin: 10/12/16 09:52 Dose: Not Given Oxycodone HCl (Roxicodone -) 5 mg PO Q6H PRN PRN Reason: PAIN Last Admin: 10/12/16 06:42 Dose: 5 mg Quinapril HCl (Accupril -) 40 mg PO DAILY [facility] Last Admin: 10/12/16 09:52 Dose: Not Given Sertraline HCl (Zoloft -) 50 mg PO HS [facility] Last Admin: 10/11/16 21:27 Dose: 50 mg Spironolactone (Aldactone -) 25 mg PO DAILY [facility] Last Admin: 10/12/16 09:52 Dose: 25 mg - Objective Vital Signs: Vital Signs Temperature 97.9 F 10/12/16 06:00 Pulse Rate 65 10/12/16 09:51 Respiratory Rate 18 10/12/16 06:00 Blood Pressure 100/53 10/12/16 06:00 O2 Sat by Pulse Oximetry (%) 96 10/12/16 06:00 Constitutional: Yes: Calm Cardiovascular: Yes: WNL Respiratory: Yes: WNL Gastrointestinal: Yes: WNL Edema: Yes (NOTICEABLE IMPROVEMENT) Labs: CBC, BMP 10/12/16 06:05 10/12/16 06:05 INR, PTT INR 3.99 (0.82-1.09) H D 10/12/16 06:05 Problem List - Problems (1) Fall Code(s): W19.XXXA - UNSPECIFIED FALL, INITIAL ENCOUNTER Qualifiers: Encounter type: initial encounter Qualified Code(s): W19.XXXA - Unspecified fall, initial encounter (2) Pelvic fracture Code(s): S32.9XXA - FRACTURE OF UNSP PARTS OF LUMBOSACRAL SPINE AND PELVIS, INIT (3) A-fib Code(s): I48.91 - UNSPECIFIED ATRIAL FIBRILLATION (4) CHF (congestive heart failure) Code(s): I50.9 - HEART FAILURE, UNSPECIFIED (5) COPD (chronic obstructive pulmonary disease) Code(s): J44.9 - CHRONIC OBSTRUCTIVE PULMONARY DISEASE, UNSPECIFIED (6) Edema Code(s): R60.9 - EDEMA, UNSPECIFIED Assessment/Plan (1) Fall Assessment/Plan: pt /ot [facility] for snf placement needs social media job titles 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 Code(s): W19.XXXA - UNSPECIFIED FALL, INITIAL ENCOUNTER Qualifiers: Encounter type: initial encounter Qualified Code(s): W19.XXXA - Unspecified fall, initial encounter (2) Pelvic fracture Assessment/Plan: ortho on case pain control inr 4 -> ac on hold Code(s): S32.9XXA - FRACTURE OF UNSP PARTS OF LUMBOSACRAL SPINE AND PELVIS, INIT (3) A-fib Assessment/Plan: hold coumadin tonight surpa theroeutic inr Code(s): I48.91 - UNSPECIFIED ATRIAL FIBRILLATION (4) Hypercholesteremia Assessment/Plan: statin Code(s): E78.0 - PURE HYPERCHOLESTEROLEMIA * DO NOT USE * (5) Hypothyroid Assessment/Plan: tsh wnl on synthroid Code(s): E03.9 - HYPOTHYROIDISM, UNSPECIFIED (6) CHF (congestive heart failure) Assessment/Plan: same meds Code(s): I50.9 - HEART FAILURE, UNSPECIFIED (7) Insomnia Assessment/Plan: melatonin Code(s): G47.00 - INSOMNIA, UNSPECIFIED (8) Anemia Assessment/Plan: MONITOR RPT TODAY [facility]
[2016-10-12] MEDS: ATORVASTATIN CA 10 MG TABLET (FP) PO SCH (22:49)
[2016-10-12] MEDS: SERTRALINE HCL 50 MG TABLET (FP) PO SCH (22:49)
[2016-10-13] MEDS: LEVOTHYROXINE NA 125 MCG TABLET (FP) PO SCH (06:18)
[2016-10-13 07:47] LABS: INR 2.64 (0.82-1.09); PROTHROMBIN TIME (PATIENT) 29.6 SEC (9.98-11.88)
[2016-10-13 07:58] LABS: ALBUMIN 2.9 g/dl (3.4-5.0); ALK PHOS 112 U/L (45-117); ANION GAP 9 (8-16); CALCIUM 7.8 mg/dL (8.5-10.1); CO2 33 mmol/L (21-32); CREATININE 0.7 mg/dL (0.55-1.02); GLUCOSE,RANDOM 108 mg/dL (74-106); SGOT/AST 16 U/L (15-37); SGPT/ALT 12 U/L (12-78); TOT PROT 5.7 g/dl (6.4-8.2)
[2016-10-13] MEDS ORDERED: PT OWN MED DRAWER 7, Y5N ONE (09:47)
[2016-10-13] MEDS: DIGOXIN 0.125 MG TABLET (FP) PO SCH (09:55)
[2016-10-13] MEDS: SPIRONOLACTONE 25 MG TABLET (FP) PO SCH (09:56)
[2016-10-13] MEDS: QUINAPRIL HCL 40 MG TABLET (FP) PO SCH (09:56)
[2016-10-13] MEDS: FUROSEMIDE 40 MG TABLET (FP) PO SCH (09:56)
[2016-10-13] MEDS: METOPROLOL SUCCINATE 50 MG TAB.SR.24H (FP) PO SCH (09:56)
--- NOTE | 2016-10-13 09:57 | DS ---
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 Code(s): W19.XXXA - UNSPECIFIED FALL, INITIAL ENCOUNTER Qualifiers: Encounter type: initial encounter Qualified Code(s): W19.XXXA - Unspecified fall, initial encounter (2) Pelvic fracture Assessment/Plan: ortho on case pain control Code(s): S32.9XXA - FRACTURE OF UNSP PARTS OF LUMBOSACRAL SPINE AND PELVIS, INIT (3) A-fib Assessment/Plan: inr therapeutic inr supratherapeutic on 3mg at admission -> restart at 2mg Code(s): I48.91 - UNSPECIFIED ATRIAL FIBRILLATION (4) Hypercholesteremia Assessment/Plan: statin Code(s): E78.0 - PURE HYPERCHOLESTEROLEMIA * DO NOT USE * (5) Hypothyroid Assessment/Plan: tsh wnl on synthroid Code(s): E03.9 - HYPOTHYROIDISM, UNSPECIFIED (6) CHF (congestive heart failure) Assessment/Plan: same meds Code(s): I50.9 - HEART FAILURE, UNSPECIFIED (7) Insomnia Assessment/Plan: melatonin Code(s): G47.00 - INSOMNIA, UNSPECIFIED (8) Anemia Assessment/Plan: stable DISCHARGE TO SNF FOR STR 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 [employer] FM Condition: Stable - Instructions Referrals: Anthony Anderson MD [Primary Care Provider] - Disposition: [facility] FACILITY - Home Medications Comprehensive Discharge Medication List: Ambulatory Orders Atorvastatin Ca [Lipitor] 10 mg PO HS tablet 04/19/16 Levothyroxine [Synthroid -] 125 mcg PO DAILY #30 tablet MDD 1 06/17/16 Digoxin [Lanoxin -] 125 mcg PO DAILY 09/11/16 Furosemide [Lasix -] 40 mg PO DAILY 09/11/16 Sertraline HCl [Zoloft -] 50 mg PO HS 09/11/16 Spironolactone [Aldactone -] 25 mg PO DAILY 09/11/16 Melatonin 3 mg PO HS #0 09/16/16 Metoprolol Succinate [Toprol XL -] 25 mg PO DAILY 09/16/16 Cephalexin Monohydrate [Keflex -] 500 mg PO BID #10 capsule 09/17/16 Quinapril HCl [Accupril -] 40 mg PO DAILY 10/10/16 Warfarin Na [Coumadin -] 3 mg PO DAILY@1800 10/10/16
[2016-10-13 09:58] VITALS: PULSE 85
--- NOTE | 2016-10-13 10:22 | PN ---
Progress Note (short form) - Note Progress Note: AVSS COMFORTABEL NVI PLAN: DC WHEN MEDICALLY OK, CONTINUE PT AND WBAT
[2016-10-13 14:17] VITALS: BP 102/54; TEMP 98
== END 2016-10-13 15:08 ==
LOC: SUPCPDRO 04:18 → JER 04:18 → JERBED 11:00 → J5S 12:52
PROVIDERS: ADMIT Family Medicine; ATTEND Family Medicine
DX: S32.511A Fracture of superior rim of right pubis, initial encounter for closed fracture (principal); W18.39XA Other fall on same level, initial encounter; Y93.89 Activity, other specified; Y92.098 Other place in other non-institutional residence as the place of occurrence of the external cause; J44.9 Chronic obstructive pulmonary disease, unspecified; I48.91 Unspecified atrial fibrillation; K21.9 Gastro-esophageal reflux disease without esophagitis; M21.372 Foot drop, left foot; I27.2 Other secondary pulmonary hypertension; E78.00 Pure hypercholesterolemia, unspecified; E03.9 Hypothyroidism, unspecified; I50.9 Heart failure, unspecified; G47.00 Insomnia, unspecified; I25.10 Atherosclerotic heart disease of native coronary artery without angina pectoris; Z85.828 Personal history of other malignant neoplasm of skin
CPT/HCPCS: 36415; 71010-TC; 72192-TC; 73523-TC; 80053; 80162; 81003; 81015; 82009; 82550; 83735; 83880; 84100; 84443; 84484; 85025; 85027; 85610; 85730; 86850; 86900; 86901; 93005; 93010; 97116-GP; 97161-GP; 99283-25; G0378

== ENCOUNTER 2016-11-18 23:10 | Inpatient (IN) | payer OTHER, MEDICARE ==
[2016-11-18 23:29] VITALS: BMI 35.2
--- NOTE | 2016-11-19 00:10 | PDOC ---
History of Present Illness - General History Source: Patient, Residential Records <Dwayne Richter - Last Filed: 11/19/16 04:18> - History of Present Illness Initial Comments: 11/19/16 00:14 The patient is a 89 year old female, with a significant past medical history of chronic venous stasis dermatitis, hypertension, AFib (on coumadin), hyperlipidemia, COPD, CHF, skin cancer, and anemia, who presents to the emergency department from Located within [facility] for abdominal pain near the lovenox injection site she used yesterday. As per long term report, the patient was found to have abdominal pain with guarding to RLQ. The patient denies radiation of pain. She denies abdominal burning. She denies vomiting. She denies chest pain, shortness of breath, headache and dizziness. She denies fever, chills, diarrhea and constipation. She denies dysuria, frequency, urgency and hematuria. Allergies: penicillins Social history: denies toxic habits PCP - Dr. Anderson <Michelle Diaz - Last Filed: 11/19/16 05:51> - General Chief Complaint: Pain, Acute Stated Complaint: ABDOMINAL PAIN Time Seen by Provider: 11/19/16 00:06 Past History - Past Medical History Anemia: Yes Cancer: Yes (SKIN CANCER) Cardiac Disorders: Yes (CHF ASHD,A FIB) COPD: Yes CHF: Yes HTN: Yes Hypercholesterolemia: Yes Thyroid Disease: Yes - Surgical History Abdominal Surgery: Yes (total hysterectomy) Cardiac Surgery: Yes (PACEMAKER) - Psycho/Social/Smoking Cessation Hx Anxiety: No Suicidal Ideation: No Smoking Status: No Smoking History: Unknown if ever smoked Have you smoked in the past 12 months: No Number of Cigarettes Smoked Daily: 0 Information on smoking cessation initiated: No Hx Alcohol Use: No Drug/Substance Use Hx: No Substance Use Type: None Hx Substance Use Treatment: No <Dwayne Richter - Last Filed: 11/19/16 04:18> <Michelle Diaz - Last Filed: 11/19/16 05:51> - Past Medical History Allergies/Adverse Reactions: Allergies Allergy/AdvReac Type Severity Reaction Status Date / Time Penicillins Allergy Unknown Verified 11/18/16 23:21 mushrooms Allergy Uncoded 11/18/16 23:21 Home Medications: Ambulatory Orders Atorvastatin Ca [Lipitor] 10 mg PO HS tablet 04/19/16 Levothyroxine [Synthroid -] 125 mcg PO DAILY #30 tablet MDD 1 06/17/16 Digoxin [Lanoxin -] 125 mcg PO DAILY 09/11/16 Furosemide [Lasix -] 40 mg PO DAILY 09/11/16 Spironolactone [Aldactone -] 25 mg PO DAILY 09/11/16 Metoprolol Succinate [Toprol XL -] 25 mg PO DAILY 09/16/16 Quinapril HCl [Accupril -] 40 mg PO DAILY 10/10/16 Acetaminophen [Tylenol .Regular Strength -] 650 mg PO Q6H PRN #0 tablet Atorvastatin Ca [Lipitor] 10 mg PO HS tablet 10/13/16 Digoxin [Lanoxin -] 0.125 mg PO DAILY tablet 10/13/16 Furosemide [Lasix -] 40 mg PO DAILY tablet 10/13/16 Levothyroxine [Synthroid -] 125 mcg PO DAILY@0700 tablet 10/13/16 Melatonin 5 mg PO HS PRN #0 tab 10/13/16 Metoprolol Succinate [Toprol XL -] 25 mg PO DAILY 10/13/16 Oxycodone HCl [Roxicodone -] 5 mg PO Q6H PRN #0 tablet MDD 4 10/13/16 Quinapril HCl [Accupril -] 40 mg PO DAILY tablet 10/13/16 Spironolactone [Aldactone -] 25 mg PO DAILY tablet 10/13/16 Warfarin Na [Coumadin -] 2 mg PO DAILY@1800 #0 10/13/16 Albuterol 0.083% Nebulizer Cris 2.5 mg TID 11/19/16 Docusate Sodium 100 mg PO BID 11/19/16 Sertraline HCl [Zoloft -] 100 mg PO AM 11/19/16 Review of Systems - Review of Systems Able to Perform ROS?: Yes Comments:: 11/19/16 00:14 CONSTITUTIONAL: Absent: fever, chills, diaphoresis, generalized weakness, malaise, loss of appetite HEENT: Absent: rhinorrhea, nasal congestion, throat pain, throat swelling, difficulty swallowing, mouth swelling, ear pain, eye pain, visual Changes CARDIOVASCULAR: Absent: chest pain, syncope, palpitations, irregular heart rate, lightheadedness , peripheral edema RESPIRATORY: Absent: cough, shortness of breath, dyspnea with exertion, orthopnea, wheezing, stridor, hemoptysis GASTROINTESTINAL: (+) abdominal pain, Absent: abdominal distension, nausea, vomiting, diarrhea, constipation, melena , hematochezia GENITOURINARY: Absent: dysuria, frequency, urgency, hesitancy, hematuria, flank pain, genital pain MUSCULOSKELETAL: Absent: myalgia, arthralgia, joint swelling SKIN: Absent: rash, itching, pallor HEMATOLOGIC/IMMUNOLOGIC: Absent: easy bleeding, easy bruising, lymphadenopathy, frequent infections ENDOCRINE: Absent: unexplained weight gain, unexplained weight loss, heat intolerance, cold intolerance NEUROLOGIC: Absent: headache, focal weakness or paresthesias, dizziness, unsteady gait, seizure, mental status changes, bladder or bowel incontinence PSYCHIATRIC: Absent: anxiety, depression, suicidal or homicidal ideation, hallucinations. <Michelle Diaz - Last Filed: 11/19/16 05:51> *Physical Exam - Vital Signs Last Vital Signs Temp Pulse Resp BP Pulse Ox 98.6 F 68 18 114/51 90 L 11/18/16 23:21 11/18/16 23:21 11/18/16 23:21 11/18/16 23:21 11/18/16 23:21 <Dwayne Richter - Last Filed: 11/19/16 04:18> - Vital Signs Last Vital Signs Temp Pulse Resp BP Pulse Ox 98.6 F 68 18 114/51 90 L 11/18/16 23:21 11/18/16 23:21 11/18/16 23:21 11/18/16 23:21 11/18/16 23:21 - Physical Exam Comments: 11/19/16 00:15 GENERAL: Well developed, well nourished. Awake and alert. No acute distress. HEENT: Normocephalic, atraumatic. PERRLA, EOMI. No conjunctival pallor. Sclera are non- icteric. Moist mucous membranes. Oropharynx is clear. NECK: Supple. Full ROM. No JVD. Carotid pulses 2+ and symmetric, without bruits. No thyromegaly. No lymphadenopathy. CARDIOVASCULAR: Regular rate and rhythm. No murmurs, rubs, or gallops. Distal pulses are 2+ and symmetric. PULMONARY: No evidence of respiratory distress. Lungs clear to auscultation bilaterally. No wheezing, rales or rhonchi. ABDOMINAL: (+) Distended, Diffuse tenderness to palpation worse in RLQ. Soft. no ecchymoses. No rebound or guarding. No organomegaly. Normoactive bowel sounds. MUSCULOSKELETAL Normal range of motion at all joints. No bony deformities or tenderness. No CVA tenderness. EXTREMITIES: No cyanosis. No clubbing. No edema. No calf tenderness. SKIN: Warm and dry. Normal capillary refill. No rashes. No jaundice. NEUROLOGICAL: Alert, awake, appropriate. Cranial nerves 2-12 intact. Normoreflexic in the upper and lower extremities. Normal speech. Toes are down-going bilaterally. Gait is normal without ataxia. PSYCHIATRIC: Cooperative. Good eye contact. Appropriate mood and affect. <Michelle Diaz - Last Filed: 11/19/16 05:51> ED Treatment Course - LABORATORY CBC & Chemistry Diagram: 11/19/16 01:03 11/19/16 01:03 <Dwayne Richter - Last Filed: 11/19/16 04:18> - LABORATORY CBC & Chemistry Diagram: 11/19/16 01:03 11/19/16 01:03 - RADIOLOGY Radiograph Interpretation: 11/19/16 03:41 Exam: Noncontrast CT abdomen and pelvis was read by Rajiv Bowman M.D. at 03: 34 EST Images: [id number] Clinical indication: Rule out small bowel obstruction. A prior examination performed on August 12, 2014 was reviewed. Findings: A small right pleural effusion is noted. The heart is enlarged. An AICD is noted. Perihepatic ascites is noted. The liver doesn't slightly nodular contour which may indicate parenchymal disease. Hypodensities are noted in the right lobe and appear unchanged. A hypodensity in the left lobe is also unchanged. The gallbladder is unremarkable. A calcified granuloma in anterior spleen is unchanged. Hypodensity seen on the prior contrast-enhanced examination are not visualized on the current exam. There is a small amount of perisplenic ascites. The pancreas is atrophied. An area of hypoattenuation is noted in the pancreatic head and uncinate which demonstrate cystic attenuation and may represent a cystic lesion such as an intraductal papillary mucinous neoplasm or partial volume averaging with fat. This appearance has not appreciably changed in comparison to the prior examination. The adrenal glands are unremarkable. The IVC is prominent which is unchanged and is indicative of central venous congestion. The kidneys have a normal unenhanced appearance. No calculi are seen. There is no hydronephrosis or hydroureter. The gastrointestinal tract does not appear obstructed. No thickened or dilated bowel is seen. A soft tissue lesion in the right rectus muscle measures up to 5.9 x 7.7 x 13 cm craniocaudal and is consistent with hematoma. This process involves the oblique and transversalis muscles laterally on the right. Heterogeneous soft tissue attenuation locules are seen throughout the mid to lower pelvis consistent with hematoma several of which contain hematocrit levels (for example image 115). The confluence area of hematoma in the pelvis measures up to 17 cm transverse by 16 cm AP by 13 cm craniocaudal. The patient is status post hysterectomy. The urinary bladder is unremarkable. No abdominal or pelvic adenopathy is seen. Pubic rami fractures are noted on the right. The inferior ramus fracture appears chronic. The superior pubic ramus fracture is indeterminate and may be a source of the hematoma. These fractures are not seen on the prior examination. Impression: Pubic rami fractures on the right. The inferior ramus fracture appears chronic. The superior ramus fracture is age-indeterminate with some acute features. Soft tissue attenuation process involving the the anterior abdominal and pelvic wall on the right with multiple heterogeneous soft tissue attenuation locules seen in the mid to lower pelvis consistent with hematoma. <Michelle Diaz - Last Filed: 11/19/16 05:51> Medical Decision Making - Medical Decision Making 11/19/16 04:19 Dr. Richter: The scribe's documentation has been prepared under my direction and personally reviewed by me in its entirery. I confirm that the note above accurately reflects all work, treatment, procedures, and medical decision making performed by me. Pt found to have a large area of abdominal wall hematomas that extend to the right low quadrant and pelvic region. Pt will be admit to evaluate pt H/H. Pending orders from Dr. Anderson. <Dwayne Richter - Last Filed: 11/19/16 04:18> - Medical Decision Making 11/19/16 05:46 Dr. Anderson was called via phone answering service at this time for doctor to doctor consult regarding admission of this patient. I was informed Dr. Espinoza is covering for the group this morning. Dr. Espinoza accepted this patient's admission at this time. <Michelle Diaz - Last Filed: 11/19/16 05:51> *DC/Admit/Observation/Transfer - Discharge Dispostion Admit: Yes <Dwayne Richter - Last Filed: 11/19/16 04:18> - Attestations Scribe Attestion: 11/19/16 00:16 Documentation prepared by Michelle Diaz, acting as medical services manager for Dwayne Richter DO <Micehlle Diaz - Last Filed: 11/19/16 05:51> Diagnosis at time of Disposition: Abdominal wall hematoma Qualifiers: Encounter type: initial encounter Qualified Code(s): S30.1XXA - Contusion of abdominal wall, initial encounter - Discharge Dispostion Condition at time of disposition: Stable - Referrals Referrals: Anthony Anderson MD [Primary Care Provider] -
[2016-11-19 01:14] LABS: BASOPHIL 0.7 % (0-2.0); EOSINOPHIL 0.3 % (0-4.5); MCH 29.7 pg (25.7-33.7); MCHC 31.7 g/dl (32.0-36.0); MEAN CELL VOLUME 93.6 fl (80-96); MEAN PLT VOLUME 7.9 fl (7.5-11.1); NEUTROPHILS 79.1 % (42.8-82.8); PLATELET COUNT 207 K/MM3 (134-434); RDW 24.4 % (11.6-15.6); WHITE BLOOD COUNT 8.6 K/mm3 (4.0-10.0)
[2016-11-19 01:30] LABS: INR 1.4 (0.82-1.09); PROTHROMBIN TIME (PATIENT) 15.5 SEC (9.98-11.88)
[2016-11-19 01:46] LABS: ALBUMIN 3.3 g/dl (3.4-5.0); ANION GAP 11 (8-16); BILIRUBIN,TOTAL 0.9 mg/dL (0.2-1.0); CALCIUM 8.6 mg/dL (8.5-10.1); CO2 26 mmol/L (21-32); COCKROFT - GAULT 125.2985; CREATININE 0.4 mg/dL (0.55-1.02); GLUCOSE,RANDOM 96 mg/dL (74-106); MAGNESIUM 1.9 mg/dL (1.8-2.4); SGOT/AST 19 U/L (15-37); SGPT/ALT 22 U/L (12-78); TOT PROT 6.3 g/dl (6.4-8.2)
[2016-11-19 01:47] LABS: ALK PHOS 181 U/L (45-117)
[2016-11-19] MEDS ORDERED: ONDANSETRON 4 MG/2 ML VIAL IVPUSH STA (04:28)
[2016-11-19] MEDS ORDERED: morphine CARPU-JECT 2 MG/1 ML DISP.SYRIN IVPUSH ONE (04:28)
[2016-11-19] MEDS ORDERED: morphine CARPU-JECT 2 MG/1 ML DISP.SYRIN ONE (04:44)
[2016-11-19] MEDS ORDERED: ONDANSETRON 4 MG/2 ML VIAL ONE (04:44)
[2016-11-19] MEDS: SODIUM CHLORIDE 1,000 ML IV SCH ×2 (04:45→09:09)
[2016-11-19] MEDS ORDERED: ACETAMINOPHEN 325 MG TABLET (FP) PO PRN (07:11)
[2016-11-19] MEDS ORDERED: MELATONIN 5 MG TABLETS PO PRN (07:11)
[2016-11-19] MEDS ORDERED: ALBUTEROL SO4 0.083% IH SOL 2.5 MG/3 ML VIAL.NEB. NEB PRN (07:11)
[2016-11-19] MEDS ORDERED: SPIRONOLACTONE 25 MG TABLET (FP) PO SCH (10:00)
[2016-11-19] MEDS ORDERED: FUROSEMIDE 40 MG TABLET (FP) PO SCH (10:00)
--- NOTE | 2016-11-19 10:09 | HP ---
Admitting History and Physical - Primary Care Physician PCP: Anthony Anderson - Admission Chief Complaint: sent for abdominal pain History of Present Illness: The patient is a 89 year old female, with a significant past medical history of chronic venous stasis dermatitis, hypertension, AFib (on coumadin), hyperlipidemia, COPD, CHF, skin cancer, and anemia, who presents to the emergency department from [facility] for abdominal pain near the lovenox injection site she used yesterday. As per shelter report, the patient was found to have abdominal pain with guarding to RLQ. The patient denies radiation of pain. She denies abdominal burning. She denies vomiting. She denies chest pain, shortness of breath, headache and dizziness. She denies fever, chills, diarrhea and constipation. She denies dysuria, frequency, urgency and hematuria. Allergies: penicillins Social history: denies toxic habits PCP - Dr. Anderson - Past Medical History Cardiovascular: Yes: AFIB, CAD, CHF, HTN, Hyperlipdemia, Pulmonary Hypertension , Other (PPM with sick sinus syndrome) Pulmonary: Yes: COPD Gastrointestinal: Yes: GERD Musculoskeletal: Yes: Other (left foot drop) Endocrine: Yes: Hypothyroidism - Past Surgical History Past Surgical History: Yes: Hysterectomy, Permanent Pacemaker, Tonsillectomy - Smoking History Smoking history: Unknown if ever smoked Have you smoked in the past 12 months: No Aproximately how many cigarettes per day: 0 - Alcohol/Substance Use Hx Alcohol Use: No - Social History ADL: Support Services History of Recent Travel: No Home Medications - Allergies Allergies/Adverse Reactions: Allergies Allergy/AdvReac Type Severity Reaction Status Date / Time Penicillins Allergy Unknown Verified 11/18/16 23:21 mushrooms Allergy Uncoded 11/18/16 23:21 - Home Medications Home Medications: Ambulatory Orders Atorvastatin Ca [Lipitor] 10 mg PO HS tablet 04/19/16 Digoxin [Lanoxin -] 125 mcg PO DAILY 09/11/16 Furosemide [Lasix -] 40 mg PO DAILY 09/11/16 Spironolactone [Aldactone -] 25 mg PO DAILY 09/11/16 Quinapril HCl [Accupril -] 40 mg PO DAILY 10/10/16 Acetaminophen [Tylenol .Regular Strength -] 650 mg PO Q6H PRN #0 tablet Furosemide [Lasix -] 40 mg PO DAILY tablet 10/13/16 Levothyroxine [Synthroid -] 125 mcg PO DAILY@0700 tablet 10/13/16 Melatonin 5 mg PO HS PRN #0 tab 10/13/16 Oxycodone HCl [Roxicodone -] 5 mg PO Q6H PRN #0 tablet MDD 4 10/13/16 Spironolactone [Aldactone -] 25 mg PO DAILY tablet 10/13/16 Warfarin Na [Coumadin -] 2 mg PO DAILY@1800 #0 10/13/16 Albuterol 0.083% Nebulizer Cris 2.5 mg TID 11/19/16 Docusate Sodium 100 mg PO BID 11/19/16 Ferrous Sulfate 325 mg PO BID 11/19/16 Metoprolol Succinate [Toprol XL -] 25 mg PO BID 11/19/16 Sertraline HCl [Zoloft -] 100 mg PO AM 11/19/16 Review of Systems - Review of Systems Gastrointestinal: reports: Abdominal Pain Physical Examination Vital Signs: Vital Signs Temperature 98.3 F 11/19/16 06:10 Pulse Rate 84 11/19/16 06:10 Respiratory Rate 17 11/19/16 06:10 Blood Pressure 114/67 11/19/16 06:10 O2 Sat by Pulse Oximetry (%) 98 11/19/16 06:10 Constitutional: Yes: Calm Neck: Yes: Trachea Midline Cardiovascular: Yes: Pulse Irregular, S1, S2 Respiratory: Yes: CTA Bilaterally, Diminished (at bases) Gastrointestinal: Yes: Other (firm hard mass in anterior abdomen tender to touch ) Extremities: Yes: Erythema (chronic ecchymosis on legs) Edema: Yes Imaging - Results Cat Scan: Report Reviewed Problem List - Problems (1) Abdominal wall hematoma Assessment/Plan: monitor cbc vasc consult Code(s): S30.1XXA - CONTUSION OF ABDOMINAL WALL, INITIAL ENCOUNTER Qualifiers : Encounter type: initial encounter Qualified Code(s): S30.1XXA - Contusion of abdominal wall, initial encounter (2) A-fib Assessment/Plan: cardio eval coumadin inr monitoring Code(s): I48.91 - UNSPECIFIED ATRIAL FIBRILLATION (3) CAD (coronary artery disease) Assessment/Plan: quinipril aldactone statin, BB Code(s): I25.10 - ATHSCL HEART DISEASE OF [place] CORONARY ARTERY W/O ANG PCTRS Qualifiers: Coronary Disease-Associated Artery/Lesion type: [place] artery [place] vs. transplanted heart: [place] heart Associated angina: without angina Qualified Code(s): I25.10 - Atherosclerotic heart disease of [place] coronary artery without angina pectoris (4) CHF (congestive heart failure) Assessment/Plan: quinipril aldactone digoxin Code(s): I50.9 - HEART FAILURE, UNSPECIFIED (5) Hypothyroid Assessment/Plan: synthroid check tsh Code(s): E03.9 - HYPOTHYROIDISM, UNSPECIFIED
[2016-11-19] MEDS ORDERED: PT OWN MED DRAWER 7, Y5N ONE (10:18)
[2016-11-19] MEDS: FERROUS SO4 325 MG TABLET (FP) PO SCH ×2 (10:21→23:09)
[2016-11-19] MEDS: DIGOXIN 0.125 MG TABLET (FP) PO SCH (10:21)
[2016-11-19] MEDS: METOPROLOL SUCCINATE 25 MG TAB.SR.24H (FP) PO SCH ×2 (10:21→23:09)
[2016-11-19] MEDS: DOCUSATE SODIUM 100 MG CAPSULE (FP) PO SCH (10:21)
[2016-11-19] MEDS: SERTRALINE HCL 50 MG TABLET (FP) PO SCH (10:21)
[2016-11-19 11:01] LABS: THYROID STIMULATING HORMONE 2.21 uIU/ml (0.358-3.74)
[2016-11-19] MEDS: QUINAPRIL HCL 40 MG TABLET (FP) PO SCH (12:02)
[2016-11-19 12:58] LABS: URINE APPEARANCE SLCLOUDY; URINE BILIRUBIN NEGATIVE (NEGATIVE); URINE COLOR DKYELLOW; URINE GLUCOSE (UA) NEGATIVE (NEGATIVE); URINE KETONE NEGATIVE (NEGATIVE); URINE NITRITE NEGATIVE (NEGATIVE); URINE UROBILINOGEN NEGATIVE E.U./dl (0.2-1.0)
[2016-11-19 13:01] LABS: URINE BLOOD 2+ (NEGATIVE); URINE LEUK ESTERASE 1+ (NEGATIVE); URINE PROTEIN 2+ (NEGATIVE)
[2016-11-19 13:11] LABS: URINE HYALINE CAST 39 /lpf; URINE MUCUS RARE; URINE RBC 8 /hpf (0-3); URINE WBC 93 /hpf (3-5)
[2016-11-19] MEDS: oxyCODONE HCL 5 MG TABLET PO PRN (13:39)
--- NOTE | 2016-11-19 13:55 | CONSULT ---
- Consultation REQUESTING PROVIDER: Dr. Zabala CONSULT REQUEST: We have been asked to surgically evaluate this patient for right rectus shealth hematoma. PCP:Anthony Anderson HISTORY OF PRESENT ILLNESS:The patient is a 89 yo female who presented to the ER for complaints of abd pain. The patient states that she felt pain after a recent lovenox shot in her abdomen. She denies any CP, SOB, dizziness, fever or chills. She denies any fall. The patient had been on coumadin in the past and her nursing records were reviewed. She had been prescribed lovenox and was restarting coumadin since 11/18/2016. PMHx: HTn, COPD, CHF, venous stasis, left ankle trauma(foot drop) skin cancer, afib anemia, vertebral fracture, right pubic rami fracture PSHx: tonsillectomy/adenoids, total abd hysterectomy Home Medications Medication Instructions Recorded Atorvastatin Ca [Lipitor] 10 mg PO HS tablet 04/19/16 Digoxin [Lanoxin -] 125 mcg PO DAILY 09/11/16 Furosemide [Lasix -] 40 mg PO DAILY 09/11/16 Spironolactone [Aldactone -] 25 mg PO DAILY 09/11/16 Quinapril HCl [Accupril -] 40 mg PO DAILY 10/10/16 Acetaminophen [Tylenol .Regular 650 mg PO Q6H PRN #0 tablet 10/13/16 Strength -] Furosemide [Lasix -] 40 mg PO DAILY tablet 10/13/16 Levothyroxine [Synthroid -] 125 mcg PO DAILY@0700 tablet 10/13/16 Melatonin 5 mg PO HS PRN #0 tab 10/13/16 Oxycodone HCl [Roxicodone -] 5 mg PO Q6H PRN #0 tablet MDD 4 10/13/16 Spironolactone [Aldactone -] 25 mg PO DAILY tablet 10/13/16 Warfarin Na [Coumadin -] 2 mg PO DAILY@1800 #0 10/13/16 Albuterol 0.083% Nebulizer Cris 2.5 mg TID 11/19/16 Docusate Sodium 100 mg PO BID 11/19/16 Ferrous Sulfate 325 mg PO BID 11/19/16 Metoprolol Succinate [Toprol XL -] 25 mg PO BID 11/19/16 Sertraline HCl [Zoloft -] 100 mg PO AM 11/19/16 Allergies Allergy/AdvReac Type Severity Reaction Status Date / Time Penicillins Allergy Unknown Verified 11/18/16 23:21 mushrooms Allergy Uncoded 11/18/16 23:21 REVIEW OF SYSTEMS: CONSTITUTIONAL: Absent: fever, chills CARDIOVASCULAR: Absent: chest pain, syncope RESPIRATORY: Absent: cough, shortness of breath GASTROINTESTINAL: Present: abdominal pain, nausea, vomiting HEMATOLOGIC/IMMUNOLOGIC: Present: easy bleeding, easy bruising NEUROLOGIC: Absent: dizziness PHYSICAL EXAM: GENERAL: Awake, alert, and fully oriented, in no acute distress. HEAD: bandaid over left cheek with dried blood EYES: PERRL, sclera anicteric, conjunctiva clear. NECK: Normal ROM, supple without lymphadenopathy LUNGS: Clear to auscultation bilat anteriorly. No wheezes, and no crackles. No accessory muscle use. HEART: Regular rate and irregular rhythm. ABDOMEN: Soft, right palpable mass(tender to touch adn firm) on right of umbilicus 10 x14 cm. Minimal ecchymosis over the skin, no redness or skin breakdown. MUSCULOSKELETAL: left ankle deformity(non-tender), UPPER EXTREMITIES: 2+ pulses, warm, well-perfused. No cyanosis. Cap refill <2 seconds. No peripheral edema. LOWER EXTREMITIES: 2+ pulses, warm, well-perfused. No calf tenderness. No peripheral edema. varicosities b/l NEUROLOGICAL: Normal speech, gait not observed. PSYCH: Cooperative. Good eye contact. Appropriate mood and affect. Vital Signs Temperature 97.9 F 11/19/16 12:41 Pulse Rate 102 H 11/19/16 12:41 Respiratory Rate 20 11/19/16 12:41 Blood Pressure 119/53 11/19/16 12:41 O2 Sat by Pulse Oximetry (%) 98 11/19/16 06:10 Lab Results WBC 8.6 K/mm3 (4.0-10.0) 11/19/16 01:03 RBC 3.15 M/mm3 (3.60-5.2) L 11/19/16 01:03 Hgb 9.4 GM/dL (10.7-15.3) L 11/19/16 01:03 Hct 29.5 % (32.4-45.2) L 11/19/16 01:03 MCV 93.6 fl (80-96) 11/19/16 01:03 MCHC 31.7 g/dl (32.0-36.0) L 11/19/16 01:03 RDW 24.4 % (11.6-15.6) H D 11/19/16 01:03 Plt Count 207 K/MM3 (134-434) D 11/19/16 01:03 Sodium 135 mmol/L (136-145) L 11/19/16 01:03 Potassium 4.4 mmol/L (3.5-5.1) 11/19/16 01:03 Chloride 98 mmol/L (98-107) 11/19/16 01:03 Carbon Dioxide 26 mmol/L (21-32) D 11/19/16 01:03 Anion Gap 11 (8-16) 11/19/16 01:03 BUN 15 mg/dL (7-18) D 11/19/16 01:03 Creatinine 0.4 mg/dL (0.55-1.02) L D 11/19/16 01:03 Random Glucose 96 mg/dL (74-106) 11/19/16 01:03 Calcium 8.6 mg/dL (8.5-10.1) 11/19/16 01:03 Blood Type A POSITIVE 11/19/16 01:03 Antibody Screen Negative 11/19/16 01:03 INR 1.40 (0.82-1.09) H D 11/19/16 01:03 CT scan: large lobulated complex mass of right rectus and lateral abd wall c/w hematoma. A/p: 89 yo female with right rectus hematoma. Recommend to monitor H&H and transfuse as needed Coumadin given in nursing facility, INR 1.4 the patient will be given 2mg coumadin this pm. Warm compress to the area as needed At this time no need for surgical intervention, will follow the patient as needed. D/w Dr. Zabala Visit type - Case Type Case Type: ED Admission - Emergency Emergency Visit: Yes ED Registration Date: 11/19/16 Care time: The patient presented to the Emergency Department on the above date and was hospitalized for further evaluation of their emergent condition. - New patient This patient is new to me today: Yes Date on this admission: 11/19/16 - Critical Care Critical Care patient: No
[2016-11-19] MEDS ORDERED: WARFARIN NA 2 MG TABLET (UD) PO SCH (18:00)
--- NOTE | 2016-11-19 18:44 | CON.CARD ---
Consult Consult Specialty:: Cardiology Referred by:: Dr. 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 Patient had received Lovenox injection while her INR was found less than 2. INR on admission was 1.4. She has underlying dementia. She denies chest pain, shortness of breath or palpitations. She denies paroxysmal nocturnal dyspnea or orthopnea. She denies fever or chills. She denies headache or lightheadedness. Cardiology consultation was called for further evaluation. Patient was seen early this am while Hgb was stable. Currently H/H has diminished. - History Source History Provided By: Patient, Medical Record Limitations to Obtaining History: Dementia - Past Medical History Cardio/Vascular: Yes: AFIB, CAD, CHF, HTN, Hyperlipdemia, Pulmonary Hypertension , Other (PPM with sick sinus syndrome) Pulmonary: Yes: COPD Gastrointestinal: Yes: GERD Musculoskeletal: Yes: Other (left foot drop) Endocrine: Yes: Hypothyroidism - Past Surgical History Past Surgical History: Yes: Hysterectomy, Permanent Pacemaker, Tonsillectomy - Alcohol/Substance Use Hx Alcohol Use: No - Smoking History Smoking history: Never smoked Have you smoked in the past 12 months: No Aproximately how many cigarettes per day: 0 - Social History Usual Living Arrangement: Alone ADL: Support Services History of Recent Travel: No <Hi Lucas - Last Filed: 11/20/16 17:59> Home Medications <Prashanth Castano - Last Filed: 11/20/16 12:03> <Hi Lucas - Last Filed: 11/20/16 17:59> - Allergies Allergies/Adverse Reactions: Allergies Allergy/AdvReac Type Severity Reaction Status Date / Time Penicillins Allergy Unknown Verified 11/18/16 23:21 mushrooms Allergy Uncoded 11/18/16 23:21 - Home Medications Home Medications: Ambulatory Orders Atorvastatin Ca [Lipitor] 10 mg PO HS tablet 04/19/16 Digoxin [Lanoxin -] 125 mcg PO DAILY 09/11/16 Furosemide [Lasix -] 40 mg PO DAILY 09/11/16 Spironolactone [Aldactone -] 25 mg PO DAILY 09/11/16 Quinapril HCl [Accupril -] 40 mg PO DAILY 10/10/16 Acetaminophen [Tylenol .Regular Strength -] 650 mg PO Q6H PRN #0 tablet Furosemide [Lasix -] 40 mg PO DAILY tablet 10/13/16 Levothyroxine [Synthroid -] 125 mcg PO DAILY@0700 tablet 10/13/16 Melatonin 5 mg PO HS PRN #0 tab 10/13/16 Oxycodone HCl [Roxicodone -] 5 mg PO Q6H PRN #0 tablet MDD 4 10/13/16 Spironolactone [Aldactone -] 25 mg PO DAILY tablet 10/13/16 Warfarin Na [Coumadin -] 2 mg PO DAILY@1800 #0 10/13/16 Albuterol 0.083% Nebulizer Cris 2.5 mg TID 11/19/16 Docusate Sodium 100 mg PO BID 11/19/16 Ferrous Sulfate 325 mg PO BID 11/19/16 Metoprolol Succinate [Toprol XL -] 25 mg PO BID 11/19/16 Sertraline HCl [Zoloft -] 100 mg PO AM 11/19/16 Review of Systems - Review of Systems Constitutional: denies: Chills, Fever Cardiovascular: denies: Chest Pain, Palpitations, Shortness of Breath Respiratory: denies: Cough, Hemoptysis, Orthopnea, PND, SOB, SOB on Exertion Gastrointestinal: reports: Abdominal Pain. denies: Diarrhea, Melena, Nausea, Rectal Bleeding, Vomiting Neurological: denies: Dizziness, Headache, Seizure, Syncope <Hi Lucas H - Last Filed: 11/20/16 17:59> Vital Signs: Vital Signs Temperature 98.6 F 11/20/16 06:00 Pulse Rate 88 11/20/16 11:04 Respiratory Rate 18 11/20/16 06:00 Blood Pressure 95/54 11/20/16 06:00 O2 Sat by Pulse Oximetry (%) 94 L 11/19/16 23:00 - Other Data Labs, Other Data: CBC, BMP 11/20/16 09:56 11/20/16 09:56 INR, PTT INR 1.88 (0.82-1.09) H 11/20/16 09:56 Troponin, BNP 11/19/16 19:00 Troponin I < 0.02 Troponin, BNP 11/19/16 19:00 Troponin I < 0.02 <Prashanth Castano - Last Filed: 11/20/16 12:03> Vital Signs: Vital Signs Temperature 98.3 F 11/19/16 15:27 Pulse Rate 78 11/19/16 15:27 Respiratory Rate 18 11/19/16 15:27 Blood Pressure 119/53 11/19/16 12:41 O2 Sat by Pulse Oximetry (%) 94 L 11/19/16 17:37 Constitutional: Yes: No Distress Eyes: Yes: Conjunctiva Clear HENT: Yes: Atraumatic Neck: Yes: Supple Respiratory: Yes: Diminished Gastrointestinal: Yes: Distention, Other (Large abdominal hematoma) Cardiovascular: Yes: Pulse Irregular JVD: No Carotid Bruit: No PMI: Non-Displaced Heart Sounds: Yes: S1, S2. No: Gallop Murmur: Yes: Systolic Murmur, Grade 1 Extremities: Yes: Other (Left ankle deformity) Edema: No Neurological: Yes: WNL - Other Data Labs, Other Data: INR, PTT INR 1.40 (0.82-1.09) H D 11/19/16 01:03 CBCD WBC 11.9 K/mm3 (4.0-10.0) H D 11/19/16 19:00 RBC 2.31 M/mm3 (3.60-5.2) L D 11/19/16 19:00 Hgb 6.9 GM/dL (10.7-15.3) L* D 11/19/16 19:00 Hct 21.6 % (32.4-45.2) L D 11/19/16 19:00 MCV 93.3 fl (80-96) 11/19/16 19:00 MCHC 32.2 g/dl (32.0-36.0) 11/19/16 19:00 RDW 24.3 % (11.6-15.6) H 11/19/16 19:00 Plt Count 218 K/MM3 (134-434) 11/19/16 19:00 MPV 8.2 fl (7.5-11.1) 11/19/16 19:00 CMP Sodium 137 mmol/L (136-145) 11/19/16 19:00 Potassium 4.6 mmol/L (3.5-5.1) 11/19/16 19:00 Chloride 99 mmol/L (98-107) 11/19/16 19:00 Carbon Dioxide 30 mmol/L (21-32) 11/19/16 19:00 Anion Gap 8 (8-16) 11/19/16 19:00 BUN 18 mg/dL (7-18) 11/19/16 19:00 Creatinine 0.8 mg/dL (0.55-1.02) D 11/19/16 19:00 Creat Clearance w eGFR > 60 (>60) 11/19/16 19:00 Calcium 7.9 mg/dL (8.5-10.1) L 11/19/16 19:00 Total Bilirubin 1.0 mg/dL (0.2-1.0) 11/19/16 19:00 AST 16 U/L (15-37) 11/19/16 19:00 ALT 17 U/L (12-78) D 11/19/16 19:00 Alkaline Phosphatase 138 U/L (45-117) H D 11/19/16 19:00 Total Protein 5.5 g/dl (6.4-8.2) L 11/19/16 19:00 Albumin 3.1 g/dl (3.4-5.0) L 11/19/16 19:00 Laboratory Results - last 24 hr 11/19/16 11/19/16 11/19/16 01:03 01:03 01:03 WBC 8.6 RBC 3.15 L Hgb 9.4 L Hct 29.5 L MCV 93.6 MCHC 31.7 L RDW 24.4 H D Plt Count 207 D MPV 7.9 Neutrophils % 79.1 Lymphocytes % 9.8 D Monocytes % 10.1 Eosinophils % 0.3 Basophils % 0.7 Platelet Estimate Polychromasia Hypochromic-Microcytic Anisocytosis Morphology Comment INR 1.40 H D Sodium 135 L Potassium 4.4 Chloride 98 Carbon Dioxide 26 D Anion Gap 11 BUN 15 D Creatinine 0.4 L D Creat Clearance w eGFR > 60 Random Glucose 96 Calcium 8.6 Magnesium 1.9 Total Bilirubin 0.9 AST 19 ALT 22 D Alkaline Phosphatase 181 H D Creatine Kinase Troponin I Total Protein 6.3 L Albumin 3.3 L Lipase 94 TSH 2.21 D Urine Color Urine Appearance Urine pH Ur Specific [place] Urine Protein Urine Glucose (UA) Urine Ketones Urine Blood Urine Nitrite Urine Bilirubin Urine Urobilinogen Ur Leukocyte Esterase Urine RBC Urine WBC Ur Epithelial Cells Hyaline Casts Urine Mucus Blood Type Antibody Screen Crossmatch 11/19/16 11/19/16 11/19/16 01:03 12:00 19:00 WBC 11.9 H D RBC 2.31 L D Hgb 6.9 L* D Hct 21.6 L D MCV 93.3 MCHC 32.2 RDW 24.3 H Plt Count 218 MPV 8.2 Neutrophils % Lymphocytes % Monocytes % Eosinophils % Basophils % Platelet Estimate Adequate Polychromasia 1+ Hypochromic-Microcytic 2+ Anisocytosis 2+ Morphology Comment Slide scanned INR Sodium Potassium Chloride Carbon Dioxide Anion Gap BUN Creatinine Creat Clearance w eGFR Random Glucose Calcium Magnesium Total Bilirubin AST ALT Alkaline Phosphatase Creatine Kinase Troponin I Total Protein Albumin Lipase TSH Urine Color Dkyellow Urine Appearance Slcloudy Urine pH 6.0 Ur Specific [place] 1.015 Urine Protein 2+ H Urine Glucose (UA) Negative Urine Ketones Negative Urine Blood 2+ H Urine Nitrite Negative Urine Bilirubin Negative Urine Urobilinogen Negative Ur Leukocyte Esterase 1+ H Urine RBC 8 Urine WBC 93 Ur Epithelial Cells Rare Hyaline Casts 39 Urine Mucus Rare Blood Type A POSITIVE Antibody Screen Negative Crossmatch See Detail 11/19/16 11/19/16 11/19/16 19:00 19:00 19:00 WBC RBC Hgb Hct MCV MCHC RDW Plt Count MPV Neutrophils % Lymphocytes % Monocytes % Eosinophils % Basophils % Platelet Estimate Polychromasia Hypochromic-Microcytic Anisocytosis Morphology Comment INR 1.75 H Sodium 137 Potassium 4.6 Chloride 99 Carbon Dioxide 30 Anion Gap 8 BUN 18 Creatinine 0.8 D Creat Clearance w eGFR > 60 Random Glucose 127 H D Calcium 7.9 L Magnesium Total Bilirubin 1.0 AST 16 ALT 17 D Alkaline Phosphatase 138 H D Creatine Kinase 39 Troponin I < 0.02 Total Protein 5.5 L Albumin 3.1 L Lipase TSH Urine Color Urine Appearance Urine pH Ur Specific [place] Urine Protein Urine Glucose (UA) Urine Ketones Urine Blood Urine Nitrite Urine Bilirubin Urine Urobilinogen Ur Leukocyte Esterase Urine RBC Urine WBC Ur Epithelial Cells Hyaline Casts Urine Mucus Blood Type Antibody Screen Crossmatch Not on chart <Hi Lucas - Last Filed: 11/20/16 17:59> Imaging - Results Chest X-ray: Report Reviewed (Presence of pacemaker and lead, cardiomegaly) Cat Scan: Report Reviewed (Abd CT - large right rectus and abdominal wall hematoma) EKG: Pending <Hi Lucas - Last Filed: 11/20/16 17:59> Problem List - Problems (1) Abdominal wall hematoma Code(s): S30.1XXA - CONTUSION OF ABDOMINAL WALL, INITIAL ENCOUNTER Qualifiers : Encounter type: initial encounter Qualified Code(s): S30.1XXA - Contusion of abdominal wall, initial encounter (2) A-fib Code(s): I48.91 - UNSPECIFIED ATRIAL FIBRILLATION Qualifiers: Atrial fibrillation type: permanent Qualified Code(s): I48.2 - Chronic atrial fibrillation (3) Acute on chronic diastolic (congestive) heart failure Code(s): I50.33 - ACUTE ON CHRONIC DIASTOLIC (CONGESTIVE) HEART FAILURE (4) CAD (coronary artery disease) Code(s): I25.10 - ATHSCL HEART DISEASE OF [place] CORONARY ARTERY W/O ANG PCTRS Qualifiers: Coronary Disease-Associated Artery/Lesion type: [place] artery [place] vs. transplanted heart: [place] heart Associated angina: without angina Qualified Code(s): I25.10 - Atherosclerotic heart disease of [place] coronary artery without angina pectoris (5) COPD (chronic obstructive pulmonary disease) Code(s): J44.9 - CHRONIC OBSTRUCTIVE PULMONARY DISEASE, UNSPECIFIED Qualifiers : COPD type: unspecified COPD Qualified Code(s): J44.9 - Chronic obstructive pulmonary disease, unspecified (6) Diastolic dysfunction without heart failure Code(s): I51.9 - HEART DISEASE, UNSPECIFIED (7) Hypercholesteremia Code(s): E78.0 - PURE HYPERCHOLESTEROLEMIA * DO NOT USE * (8) Hypertension Code(s): I10 - ESSENTIAL (PRIMARY) HYPERTENSION Qualifiers: Hypertension type: essential hypertension Qualified Code(s): I10 - Essential (primary) hypertension (9) Hypothyroid Code(s): E03.9 - HYPOTHYROIDISM, UNSPECIFIED Qualifiers: Hypothyroidism type: unspecified Qualified Code(s): E03.9 - Hypothyroidism, unspecified (10) Pacemaker Code(s): Z95.0 - PRESENCE OF CARDIAC PACEMAKER (11) Sick sinus syndrome Code(s): I49.5 - SICK SINUS SYNDROME (12) Skin cancer Code(s): C44.90 - UNSPECIFIED MALIGNANT NEOPLASM OF SKIN, UNSPECIFIED <Hi Lucas - Last Filed: 11/20/16 17:59> Assessment/Plan 1. Large abdominal wall hematoma 2. Permanent atrial fibrillation [id number] score of 6 on A/C 3. Anemia with decrease in H/H 4. Sick sinus syndrome s/p PPM 5. Hypertension 6. Hypercholesterolemia 7. History of LV diastolic dysfunction with failure 8. COPD 9. Hypothyroidism PLAN: 1. Discontinue Warfarin with presence of large abdominal wall hematoma and anemia. Transfuse PRBC and FFP and monitor CBC 2. GI and Surgical follow up 3. PPM to be interrogated 4. ECG to be obtained 5. In view of high [id number] score, patient will eventually need to be anticoagulated, but current status needs to be stabilized. Hematoma is to be monitored and if increased, it may need to be evacuated. 6. Obtain office records. Transthoracic echocardiography if not done recently 7. Consider transferring to cardiac monitored setting if clinically indicated 8. Continue Metoprolol, Accupril, Atorvastatin, Furosemide and Spironolactone as tolerated Guarded Further plans are to follow Hi Lucas MD <Hi Lucas - Last Filed: 11/20/16 17:59>
[2016-11-19 19:53] LABS: MCHC 32.2 g/dl (32.0-36.0); MEAN CELL VOLUME 93.3 fl (80-96); MEAN PLT VOLUME 8.2 fl (7.5-11.1); PLATELET COUNT 218 K/MM3 (134-434); RDW 24.3 % (11.6-15.6); WHITE BLOOD COUNT 11.9 K/mm3 (4.0-10.0)
[2016-11-19 20:04] LABS: INR 1.75 (0.82-1.09); PROTHROMBIN TIME (PATIENT) 19.5 SEC (9.98-11.88)
[2016-11-19 20:46] LABS: ALBUMIN 3.1 g/dl (3.4-5.0); ANION GAP 8 (8-16); CALCIUM 7.9 mg/dL (8.5-10.1); CO2 30 mmol/L (21-32); GLUCOSE,RANDOM 127 mg/dL (74-106)
[2016-11-19 20:50] LABS: ALK PHOS 138 U/L (45-117); CREATININE 0.8 mg/dL (0.55-1.02); SGOT/AST 16 U/L (15-37); SGPT/ALT 17 U/L (12-78); TOT PROT 5.5 g/dl (6.4-8.2); TROPONIN I < 0.02 ng/ml (0.00-0.05)
--- NOTE | 2016-11-19 21:04 | CON.GI ---
Consult Consult Specialty:: GI Referred by:: Dr Anderson Reason for Consultation:: Anemia - History of Present Illness Chief Complaint: pain History of Present Illness: 89 F with h/o HTN, AF on warfarin, HLD, CAD, COPD, admitted after c/o pain at the [place]. She was found to have a large R rectus sheath hematoma. At this time, the hematoma is clearly visible on inspection. She has dementia and is an unreliable historian. - History Source History Provided By: Medical Record, Caregiver Limitations to Obtaining History: Dementia - Past Medical History TAG MAKER: Yes: Dementia Cardio/Vascular: Yes: AFIB, CAD, CHF, HTN, Hyperlipdemia, Pulmonary Hypertension , Other (PPM with sick sinus syndrome) Pulmonary: Yes: COPD Gastrointestinal: Yes: GERD ...: No Musculoskeletal: Yes: Other (left foot drop) Endocrine: Yes: Hypothyroidism - Past Surgical History Past Surgical History: Yes: Hysterectomy, Permanent Pacemaker, Tonsillectomy - Alcohol/Substance Use Hx Alcohol Use: No - Smoking History Smoking history: Unknown if ever smoked Have you smoked in the past 12 months: No Aproximately how many cigarettes per day: 0 - Social History Usual Living Arrangement: Alone ADL: Support Services History of Recent Travel: No Home Medications - Allergies Allergies/Adverse Reactions: Allergies Allergy/AdvReac Type Severity Reaction Status Date / Time Penicillins Allergy Unknown Verified 11/18/16 23:21 mushrooms Allergy Uncoded 11/18/16 23:21 - Home Medications Home Medications: Ambulatory Orders Atorvastatin Ca [Lipitor] 10 mg PO HS tablet 04/19/16 Digoxin [Lanoxin -] 125 mcg PO DAILY 09/11/16 Furosemide [Lasix -] 40 mg PO DAILY 09/11/16 Spironolactone [Aldactone -] 25 mg PO DAILY 09/11/16 Quinapril HCl [Accupril -] 40 mg PO DAILY 10/10/16 Acetaminophen [Tylenol .Regular Strength -] 650 mg PO Q6H PRN #0 tablet Furosemide [Lasix -] 40 mg PO DAILY tablet 10/13/16 Levothyroxine [Synthroid -] 125 mcg PO DAILY@0700 tablet 10/13/16 Melatonin 5 mg PO HS PRN #0 tab 10/13/16 Oxycodone HCl [Roxicodone -] 5 mg PO Q6H PRN #0 tablet MDD 4 10/13/16 Spironolactone [Aldactone -] 25 mg PO DAILY tablet 10/13/16 Warfarin Na [Coumadin -] 2 mg PO DAILY@1800 #0 10/13/16 Albuterol 0.083% Nebulizer Cris 2.5 mg TID 11/19/16 Docusate Sodium 100 mg PO BID 11/19/16 Ferrous Sulfate 325 mg PO BID 11/19/16 Metoprolol Succinate [Toprol XL -] 25 mg PO BID 11/19/16 Sertraline HCl [Zoloft -] 100 mg PO AM 11/19/16 Physical Exam-GI Vital Signs: Vital Signs Temperature 98.3 F 11/19/16 15:27 Pulse Rate 78 11/19/16 15:27 Respiratory Rate 18 11/19/16 15:27 Blood Pressure 119/53 11/19/16 12:41 O2 Sat by Pulse Oximetry (%) 94 L 11/19/16 17:37 Constitutional: Yes: Pallor, Thin HENT: Yes: Normocephalic Cardiovascular: Yes: Pulse Irregular Respiratory: Yes: CTA Bilaterally Gastrointestinal Inspection: Yes: Other (Noticeable bulge of R rectus.) ...Auscultate: Yes: Normoactive Bowel Sounds ...Palpate: Yes: Tenderness (over distribution of R rectus sheath) Labs: CBC, BMP 11/19/16 19:00 INR, PTT INR 1.75 (0.82-1.09) H 11/19/16 19:00 Hepatic Panel Total Bilirubin 1.0 mg/dL (0.2-1.0) 11/19/16 19:00 AST 16 U/L (15-37) 11/19/16 19:00 ALT 17 U/L (12-78) D 11/19/16 19:00 Alkaline Phosphatase 138 U/L (45-117) H D 11/19/16 19:00 Albumin 3.1 g/dl (3.4-5.0) L 11/19/16 19:00 INR, PTT INR 1.75 (0.82-1.09) H 11/19/16 19:00 Imaging - Results Cat Scan: Report Reviewed (Large R rectus sheath hematoma tracking into the R pelvis) Assessment/Plan Anemia secondary to hematoma. Apparently the patient is still bleeding as Hgb has dropped from 9.4 to 6.9 over the past 18 hours. INR has gone from 1.4 to 1.75. She was given coumadin today at 530 PM. Recommend: 1) Administer 2 units of PRBC 2) Administer 2 units FFP 3) Vit K 10 mg SQ now 4) Surgery to re-evaluate as there is active bleeding
[2016-11-19] MEDS ORDERED: PHYTONADIONE 10 MG/1 ML AMP IM ONE ×2 (21:21→23:15)
[2016-11-19 21:53] LABS: ANISOCYTOSIS 2+; HYPOCHROMIA 2+; PLATELET ESTIMATE ADEQUATE (NORMAL); POLYCHROMASIA 1+
[2016-11-19] MEDS: ATORVASTATIN CA 10 MG TABLET (FP) PO SCH (23:09)
[2016-11-20] MEDS ORDERED: FUROSEMIDE 40 MG/4 ML INJECTABLE VIAL IVPUSH ONE (02:15)
[2016-11-20] MEDS: LEVOTHYROXINE NA 125 MCG TABLET (FP) PO SCH (06:39)
--- NOTE | 2016-11-20 07:45 | PN ---
Progress Note, Physician History of Present Illness: feels weak abdominal pain - Current Medication List Current Medications: Active Medications Acetaminophen (Tylenol -) 650 mg PO Q6H PRN PRN Reason: FEVER OR PAIN Albuterol Sulfate (Ventolin 0.083% Nebulizer Soln -) 1 amp NEB Q6H PRN PRN Reason: SHORT OF BREATH/WHEEZING Atorvastatin Calcium (Lipitor -) 10 mg PO HS [facility] Last Admin: 11/19/16 23:09 Dose: 10 mg Digoxin (Lanoxin -) 0.125 mg PO DAILY [facility] Last Admin: 11/19/16 10:21 Dose: 0.125 mg Docusate Sodium (Colace -) 100 mg PO DAILY [facility] Last Admin: 11/19/16 10:21 Dose: 100 mg Ferrous Sulfate (Feosol -) 325 mg PO BID [facility] Last Admin: 11/19/16 23:09 Dose: 325 mg Furosemide (Lasix -) 40 mg PO DAILY [facility] Last Admin: 11/19/16 10:21 Dose: 40 mg Levothyroxine Sodium (Synthroid -) 125 mcg PO DAILY@0700 [facility] Last Admin: 11/20/16 06:39 Dose: 125 mcg Melatonin (Melatonin) 5 mg PO HS PRN PRN Reason: INSOMNIA Metoprolol Succinate (Toprol Xl -) 25 mg PO BID [facility] Last Admin: 11/19/16 23:09 Dose: Not Given Oxycodone HCl (Roxicodone -) 5 mg PO Q6H PRN PRN Reason: PAIN Last Admin: 11/19/16 13:39 Dose: 5 mg Quinapril HCl (Accupril -) 40 mg PO DAILY [facility] Last Admin: 11/19/16 12:02 Dose: 40 mg Sertraline HCl (Zoloft -) 100 mg PO DAILY [facility] Last Admin: 11/19/16 10:21 Dose: 100 mg Spironolactone (Aldactone -) 25 mg PO DAILY [facility] Last Admin: 11/19/16 10:20 Dose: 25 mg - Objective Vital Signs: Vital Signs Temperature 98.6 F 11/20/16 06:00 Pulse Rate 97 H 11/20/16 06:00 Respiratory Rate 18 11/20/16 06:00 Blood Pressure 95/54 11/20/16 06:00 O2 Sat by Pulse Oximetry (%) 94 L 11/19/16 23:00 Cardiovascular: Yes: S1, S2 Respiratory: Yes: Regular, CTA Bilaterally Gastrointestinal: Yes: Normal Bowel Sounds, Soft, Tenderness (large hematoma rlq and rt flank) Edema: No Neurological: Yes: Alert, Oriented Labs: CBC, BMP 11/19/16 19:00 11/19/16 19:00 INR, PTT INR 1.75 (0.82-1.09) H 11/19/16 19:00 Problem List - Problems (1) Abdominal wall hematoma Assessment/Plan: MONITOR LABS HOLD AC MAY NEED REPEAT IMAGING Code(s): S30.1XXA - CONTUSION OF ABDOMINAL WALL, INITIAL ENCOUNTER Qualifiers : Encounter type: initial encounter Qualified Code(s): S30.1XXA - Contusion of abdominal wall, initial encounter (2) A-fib Assessment/Plan: HOLD AC Code(s): I48.91 - UNSPECIFIED ATRIAL FIBRILLATION Qualifiers: Atrial fibrillation type: permanent Qualified Code(s): I48.2 - Chronic atrial fibrillation (3) Anemia Assessment/Plan: TRANSFUSE PRBS/FFP AND VIT K MONITOR CBC GI and surgery on case Code(s): D64.9 - ANEMIA, UNSPECIFIED Qualifiers: Anemia type: unspecified type Qualified Code(s): D64.9 - Anemia, unspecified (4) CHF (congestive heart failure) Assessment/Plan: HOLD DIURETICS Code(s): I50.9 - HEART FAILURE, UNSPECIFIED (5) Hematuria Assessment/Plan: [facility] Code(s): R31.9 - HEMATURIA, UNSPECIFIED
--- NOTE | 2016-11-20 09:34 | PN ---
Progress Note (short form) - Note Progress Note: Pt with repeat H&H lower last pm and she received 2 units of PRBC. This am she is getting FFP for an INR of 1.7. Slightly hypotensive compared to baseline. Vital Signs Period Temp Pulse Resp BP Sys/Liriano Pulse Ox Last 24 Hr 97.6 F-98.6 F 69-102 18-20 85-119/39-54 94-94 PE: GEN: A&0x3 CV: RR irregular rhythm Lungs: CTA b/l ABD: soft on the LUQ/LLQ. Right side with tender/firm palpable mass CBC, BMP 11/19/16 19:00 11/19/16 19:00 INR, PTT INR 1.75 (0.82-1.09) H 11/19/16 19:00 A/p: 89 yo female with Right rectus sheath hematoma with drop in H&H and transused PRBC yesterday receiving FFP currently Stat CBC ordered, and recommend to trend H&H values D/r. Zabala, correct INR and transfuse as needed.
[2016-11-20] MEDS: METOPROLOL SUCCINATE 25 MG TAB.SR.24H (FP) PO SCH ×2 (10:13→21:57)
[2016-11-20] MEDS: QUINAPRIL HCL 40 MG TABLET (FP) PO SCH (10:13)
[2016-11-20 10:48] LABS: BASOPHIL 0.1 % (0-2.0); MCH 30.5 pg (25.7-33.7); MCHC 33.6 g/dl (32.0-36.0); MEAN CELL VOLUME 90.8 fl (80-96); MEAN PLT VOLUME 8.1 fl (7.5-11.1); NEUTROPHILS 86.1 % (42.8-82.8); PLATELET COUNT 217 K/MM3 (134-434); RDW 22.6 % (11.6-15.6); WHITE BLOOD COUNT 15.6 K/mm3 (4.0-10.0)
[2016-11-20 10:55] LABS: INR 1.88 (0.82-1.09); PROTHROMBIN TIME (PATIENT) 20.9 SEC (9.98-11.88)
[2016-11-20] MEDS: SODIUM CHLORIDE 0.45%/POT 1,000 ML IV SCH (11:03)
[2016-11-20] MEDS: DIGOXIN 0.125 MG TABLET (FP) PO SCH (11:04)
[2016-11-20] MEDS: FERROUS SO4 325 MG TABLET (FP) PO SCH ×2 (11:04→21:56)
[2016-11-20] MEDS: DOCUSATE SODIUM 100 MG CAPSULE (FP) PO SCH (11:04)
[2016-11-20] MEDS: SERTRALINE HCL 50 MG TABLET (FP) PO SCH (11:04)
[2016-11-20 11:27] LABS: ALBUMIN 3.2 g/dl (3.4-5.0); COCKROFT - GAULT 35.7935; CREATININE 1.4 mg/dL (0.55-1.02); DIGOXIN LEVEL 0.9071 ng/ml (0.8-2.0); TOT PROT 5.7 g/dl (6.4-8.2)
[2016-11-20] MEDS: oxyCODONE HCL 5 MG TABLET PO PRN (11:38)
--- NOTE | 2016-11-20 12:00 | PN ---
Progress Note, Physician History of Present Illness: c/o abd wall tenderness, received pRBC. - Current Medication List Current Medications: Active Medications Acetaminophen (Tylenol -) 650 mg PO Q6H PRN PRN Reason: FEVER OR PAIN Albuterol Sulfate (Ventolin 0.083% Nebulizer Soln -) 1 amp NEB Q6H PRN PRN Reason: SHORT OF BREATH/WHEEZING Atorvastatin Calcium (Lipitor -) 10 mg PO HS [facility] Last Admin: 11/19/16 23:09 Dose: 10 mg Digoxin (Lanoxin -) 0.125 mg PO DAILY [facility] Last Admin: 11/20/16 11:04 Dose: 0.125 mg Docusate Sodium (Colace -) 100 mg PO DAILY [facility] Last Admin: 11/20/16 11:04 Dose: 100 mg Ferrous Sulfate (Feosol -) 325 mg PO BID [facility] Last Admin: 11/20/16 11:04 Dose: 325 mg Potassium Chloride/Sodium Chloride (1/2ns+20meq Kcl) 1,000 mls @ 125 mls/hr IV ASDIR [facility] Last Admin: 11/20/16 11:03 Dose: 125 mls/hr Levothyroxine Sodium (Synthroid -) 125 mcg PO DAILY@0700 [facility] Last Admin: 11/20/16 06:39 Dose: 125 mcg Melatonin (Melatonin) 5 mg PO HS PRN PRN Reason: INSOMNIA Metoprolol Succinate (Toprol Xl -) 25 mg PO BID [facility] Last Admin: 11/20/16 10:13 Dose: Not Given Oxycodone HCl (Roxicodone -) 5 mg PO Q6H PRN PRN Reason: PAIN Last Admin: 11/20/16 11:38 Dose: 5 mg Quinapril HCl (Accupril -) 40 mg PO DAILY [facility] Last Admin: 11/20/16 10:13 Dose: Not Given Sertraline HCl (Zoloft -) 100 mg PO DAILY [facility] Last Admin: 11/20/16 11:04 Dose: 100 mg - Objective Vital Signs: Vital Signs Temperature 98.6 F 11/20/16 06:00 Pulse Rate 88 11/20/16 11:04 Respiratory Rate 18 11/20/16 06:00 Blood Pressure 95/54 11/20/16 06:00 O2 Sat by Pulse Oximetry (%) 94 L 11/19/16 23:00 Constitutional: Yes: No Distress, Calm Neck: Yes: Supple Cardiovascular: Yes: Regular Rate and Rhythm Respiratory: Yes: Regular, Diminished, On Nasal O2 Gastrointestinal: Yes: Normal Bowel Sounds, Soft, Tenderness, Other (Abd wall hematoma) Edema: Yes Edema: LLE: Trace, RLE: Trace Labs: CBC, BMP 11/20/16 09:56 11/20/16 09:56 INR, PTT INR 1.88 (0.82-1.09) H 11/20/16 09:56 - ....Imaging Cat Scan: Report Reviewed (Right rectus sheath hematoma) Problem List - Problems (1) Abdominal wall hematoma Code(s): S30.1XXA - CONTUSION OF ABDOMINAL WALL, INITIAL ENCOUNTER Qualifiers : Encounter type: initial encounter Qualified Code(s): S30.1XXA - Contusion of abdominal wall, initial encounter (2) A-fib Code(s): I48.91 - UNSPECIFIED ATRIAL FIBRILLATION Qualifiers: Atrial fibrillation type: permanent Qualified Code(s): I48.2 - Chronic atrial fibrillation (3) CAD (coronary artery disease) Code(s): I25.10 - ATHSCL HEART DISEASE OF [place] CORONARY ARTERY W/O ANG PCTRS Qualifiers: Coronary Disease-Associated Artery/Lesion type: [place] artery [place] vs. transplanted heart: [place] heart Associated angina: without angina Qualified Code(s): I25.10 - Atherosclerotic heart disease of [place] coronary artery without angina pectoris (4) COPD (chronic obstructive pulmonary disease) Code(s): J44.9 - CHRONIC OBSTRUCTIVE PULMONARY DISEASE, UNSPECIFIED Qualifiers : COPD type: unspecified COPD Qualified Code(s): J44.9 - Chronic obstructive pulmonary disease, unspecified (5) Diastolic dysfunction without heart failure Code(s): I51.9 - HEART DISEASE, UNSPECIFIED (6) Hypercholesteremia Code(s): E78.0 - PURE HYPERCHOLESTEROLEMIA * DO NOT USE * (7) Hypertension Code(s): I10 - ESSENTIAL (PRIMARY) HYPERTENSION Qualifiers: Hypertension type: essential hypertension Qualified Code(s): I10 - Essential (primary) hypertension (8) Hypothyroid Code(s): E03.9 - HYPOTHYROIDISM, UNSPECIFIED Qualifiers: Hypothyroidism type: unspecified Qualified Code(s): E03.9 - Hypothyroidism, unspecified (9) Pacemaker Code(s): Z95.0 - PRESENCE OF CARDIAC PACEMAKER (10) Sick sinus syndrome Code(s): I49.5 - SICK SINUS SYNDROME (11) Anemia Code(s): D64.9 - ANEMIA, UNSPECIFIED Qualifiers: Anemia type: unspecified type Qualified Code(s): D64.9 - Anemia, unspecified Assessment/Plan 1. Large right rectus sheath hematoma 2. Permanent atrial fibrillation [id number] score of 6 off A/C 3. Anemia with decrease in H/H 4. Sick sinus syndrome s/p PPM 5. Hypertension 6. Hypercholesterolemia 7. History of LV diastolic dysfunction with failure 8. COPD 9. Hypothyroidism PLAN: 1. Discontinue Warfarin with presence of large abdominal wall hematoma and anemia. Transfuse PRBC and FFP and monitor CBC 2. GI and Surgical follow up noted 3. PPM to be interrogated 4. In view of high [id number] score, patient will eventually need to be anticoagulated with NOAC once hemostasis has been achieved. 5. Obtain office records. Transthoracic echocardiography if not done recently 6. Continue Metoprolol XL 25 bid, Accupril 40 qd, Dig 0.125 qd, Atorvastatin 10 qhs, resume Furosemide and Spironolactone as tolerated
[2016-11-20] MEDS ORDERED: SODIUM CHLORIDE 250 ML IV ONE (17:00)
[2016-11-20] MEDS ORDERED: FUROSEMIDE 40 MG/4 ML INJECTABLE VIAL IVPB ONE (17:30)
--- NOTE | 2016-11-20 18:16 | PN ---
Progress Note (short form) - Note Progress Note: Vascular Surgery pt seen and examined. Rectus sheath hematoma. cont present care. Warm compresses. Will take one month to resolve. conservative care. Sudeep Zabala DO
[2016-11-20] MEDS: ATORVASTATIN CA 10 MG TABLET (FP) PO SCH (21:57)
[2016-11-21] MEDS: LEVOTHYROXINE NA 125 MCG TABLET (FP) PO SCH (06:34)
--- NOTE | 2016-11-21 07:14 | DS ---
Physical Examination Vital Signs: Vital Signs Temperature 98.8 F 11/21/16 06:00 Pulse Rate 92 H 11/21/16 06:00 Respiratory Rate 20 11/21/16 06:00 Blood Pressure 102/50 11/21/16 06:00 O2 Sat by Pulse Oximetry (%) 99 11/20/16 21:00 Discharge Summary Reason For Visit: ABDOMINAL WALL HEMATOMA Current Active Problems Abdominal wall hematoma (Acute) Hematuria (Acute) Condition: Stable - Instructions Referrals: Anthony Anderson MD [Primary Care Provider] - - Home Medications Comprehensive Discharge Medication List: Ambulatory Orders Atorvastatin Ca [Lipitor] 10 mg PO HS tablet 04/19/16 Digoxin [Lanoxin -] 125 mcg PO DAILY 09/11/16 Furosemide [Lasix -] 40 mg PO DAILY 09/11/16 Spironolactone [Aldactone -] 25 mg PO DAILY 09/11/16 Quinapril HCl [Accupril -] 40 mg PO DAILY 10/10/16 Acetaminophen [Tylenol .Regular Strength -] 650 mg PO Q6H PRN #0 tablet Furosemide [Lasix -] 40 mg PO DAILY tablet 10/13/16 Levothyroxine [Synthroid -] 125 mcg PO DAILY@0700 tablet 10/13/16 Melatonin 5 mg PO HS PRN #0 tab 10/13/16 Oxycodone HCl [Roxicodone -] 5 mg PO Q6H PRN #0 tablet MDD 4 10/13/16 Spironolactone [Aldactone -] 25 mg PO DAILY tablet 10/13/16 Warfarin Na [Coumadin -] 2 mg PO DAILY@1800 #0 10/13/16 Albuterol 0.083% Nebulizer Cris 2.5 mg TID 11/19/16 Docusate Sodium 100 mg PO BID 11/19/16 Ferrous Sulfate 325 mg PO BID 11/19/16 Metoprolol Succinate [Toprol XL -] 25 mg PO BID 11/19/16 Sertraline HCl [Zoloft -] 100 mg PO AM 11/19/16
[2016-11-21 07:21] LABS: BASOPHIL 0.1 % (0-2.0); MCH 31.2 pg (25.7-33.7); MCHC 33.7 g/dl (32.0-36.0); MEAN CELL VOLUME 92.7 fl (80-96); MEAN PLT VOLUME 7.7 fl (7.5-11.1); NEUTROPHILS 84.5 % (42.8-82.8); PLATELET COUNT 207 K/MM3 (134-434); RDW 22.5 % (11.6-15.6); WHITE BLOOD COUNT 15.1 K/mm3 (4.0-10.0)
[2016-11-21 07:49] LABS: ALBUMIN 3.2 g/dl (3.4-5.0); CALCIUM 7.6 mg/dL (8.5-10.1); COCKROFT - GAULT 25.432; CREATININE 1.7 mg/dL (0.55-1.02)
[2016-11-21 07:51] LABS: BILIRUBIN,TOTAL 1.1 mg/dL (0.2-1.0); TOT PROT 5.8 g/dl (6.4-8.2)
[2016-11-21 08:08] LABS: INR 1.27 (0.82-1.09)
--- NOTE | 2016-11-21 08:21 | PN ---
Progress Note, Physician History of Present Illness: feels weak abdominal pain - Current Medication List Current Medications: Active Medications Acetaminophen (Tylenol -) 650 mg PO Q6H PRN PRN Reason: FEVER OR PAIN Albuterol Sulfate (Ventolin 0.083% Nebulizer Soln -) 1 amp NEB Q6H PRN PRN Reason: SHORT OF BREATH/WHEEZING Atorvastatin Calcium (Lipitor -) 10 mg PO HS [facility] Last Admin: 11/20/16 21:57 Dose: 10 mg Digoxin (Lanoxin -) 0.125 mg PO DAILY [facility] Last Admin: 11/20/16 11:04 Dose: 0.125 mg Docusate Sodium (Colace -) 100 mg PO DAILY [facility] Last Admin: 11/20/16 11:04 Dose: 100 mg Ferrous Sulfate (Feosol -) 325 mg PO BID [facility] Last Admin: 11/20/16 21:56 Dose: 325 mg Potassium Chloride/Sodium Chloride (1/2ns+20meq Kcl) 1,000 mls @ 125 mls/hr IV ASDIR [facility] Last Admin: 11/20/16 11:03 Dose: 125 mls/hr Levothyroxine Sodium (Synthroid -) 125 mcg PO DAILY@0700 [facility] Last Admin: 11/21/16 06:34 Dose: 125 mcg Melatonin (Melatonin) 5 mg PO HS PRN PRN Reason: INSOMNIA Metoprolol Succinate (Toprol Xl -) 25 mg PO BID [facility] Last Admin: 11/20/16 21:57 Dose: 25 mg Oxycodone HCl (Roxicodone -) 5 mg PO Q6H PRN PRN Reason: PAIN Last Admin: 11/20/16 11:38 Dose: 5 mg Sertraline HCl (Zoloft -) 100 mg PO DAILY [facility] Last Admin: 11/20/16 11:04 Dose: 100 mg - Objective Vital Signs: Vital Signs Temperature 98.8 F 11/21/16 06:00 Pulse Rate 92 H 11/21/16 06:00 Respiratory Rate 20 11/21/16 06:00 Blood Pressure 102/50 11/21/16 06:00 O2 Sat by Pulse Oximetry (%) 99 11/20/16 21:00 Cardiovascular: Yes: S1, S2 Respiratory: Yes: Regular, CTA Bilaterally Gastrointestinal: Yes: Normal Bowel Sounds, Soft, Tenderness Labs: CBC, BMP 11/21/16 06:10 11/21/16 06:10 INR, PTT INR 1.27 (0.82-1.09) H D 11/21/16 06:10 Problem List - Problems (1) Abdominal wall hematoma Assessment/Plan: on ac---coumadin and lovenox MONITOR LABS HOLD AC REPEAT IMAGING NOTED Code(s): S30.1XXA - CONTUSION OF ABDOMINAL WALL, INITIAL ENCOUNTER Qualifiers : Encounter type: initial encounter Qualified Code(s): S30.1XXA - Contusion of abdominal wall, initial encounter (2) A-fib Assessment/Plan: HOLD AC Code(s): I48.91 - UNSPECIFIED ATRIAL FIBRILLATION Qualifiers: Atrial fibrillation type: permanent Qualified Code(s): I48.2 - Chronic atrial fibrillation (3) Anemia Assessment/Plan: large hematoma--pt on anticoagulation--on hold now due to bleeding TRANSFUSE PRBS/FFP AND VIT K MONITOR CBC GI and surgery on case Code(s): D64.9 - ANEMIA, UNSPECIFIED Qualifiers: Anemia type: unspecified type Qualified Code(s): D64.9 - Anemia, unspecified (4) CHF (congestive heart failure) Assessment/Plan: HOLD DIURETICS Code(s): I50.9 - HEART FAILURE, UNSPECIFIED (5) Hematuria Assessment/Plan: [facility] Code(s): R31.9 - HEMATURIA, UNSPECIFIED
--- NOTE | 2016-11-21 08:41 | CON.GU ---
Consult Consult Specialty:: urology Referred by:: Monica - History of Present Illness Chief Complaint: gross hematuria History of Present Illness: Patient with history of A Fib on lovonox. Patient developed right lower quadrant pain. On CT scan she has a hematoma involving the right rectus and abdominal wall. The patient has gross hematuria with poo urine output. 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 Cardio/Vascular: Yes: AFIB, CAD, CHF, HTN, Hyperlipdemia, Pulmonary Hypertension , Other (PPM with sick sinus syndrome) Pulmonary: Yes: COPD Gastrointestinal: Yes: GERD ...: No Musculoskeletal: Yes: Other (left foot drop) Endocrine: Yes: Hypothyroidism - Past Surgical History Past Surgical History: Yes: Hysterectomy, Permanent Pacemaker, Tonsillectomy - Alcohol/Substance Use Hx Alcohol Use: No - Smoking History Smoking history: Never smoked Have you smoked in the past 12 months: No Aproximately how many cigarettes per day: 0 - Social History Usual Living Arrangement: Alone ADL: Support Services History of Recent Travel: No Home Medications - Allergies Allergies/Adverse Reactions: Allergies Allergy/AdvReac Type Severity Reaction Status Date / Time Penicillins Allergy Unknown Verified 11/18/16 23:21 mushrooms Allergy Uncoded 11/18/16 23:21 - Home Medications Home Medications: Ambulatory Orders Atorvastatin Ca [Lipitor] 10 mg PO HS tablet 04/19/16 Digoxin [Lanoxin -] 125 mcg PO DAILY 09/11/16 Furosemide [Lasix -] 40 mg PO DAILY 09/11/16 Spironolactone [Aldactone -] 25 mg PO DAILY 09/11/16 Quinapril HCl [Accupril -] 40 mg PO DAILY 10/10/16 Acetaminophen [Tylenol .Regular Strength -] 650 mg PO Q6H PRN #0 tablet Furosemide [Lasix -] 40 mg PO DAILY tablet 10/13/16 Levothyroxine [Synthroid -] 125 mcg PO DAILY@0700 tablet 10/13/16 Melatonin 5 mg PO HS PRN #0 tab 10/13/16 Oxycodone HCl [Roxicodone -] 5 mg PO Q6H PRN #0 tablet MDD 4 10/13/16 Spironolactone [Aldactone -] 25 mg PO DAILY tablet 10/13/16 Warfarin Na [Coumadin -] 2 mg PO DAILY@1800 #0 10/13/16 Albuterol 0.083% Nebulizer Cris 2.5 mg TID 11/19/16 Docusate Sodium 100 mg PO BID 11/19/16 Ferrous Sulfate 325 mg PO BID 11/19/16 Metoprolol Succinate [Toprol XL -] 25 mg PO BID 11/19/16 Sertraline HCl [Zoloft -] 100 mg PO AM 11/19/16 Physical Exam- Vital Signs: Vital Signs Temperature 98.8 F 11/21/16 06:00 Pulse Rate 92 H 11/21/16 06:00 Respiratory Rate 20 11/21/16 06:00 Blood Pressure 102/50 11/21/16 06:00 O2 Sat by Pulse Oximetry (%) 99 11/20/16 21:00 Constitutional: Yes: Calm Eyes: Yes: WNL, Conjunctiva Clear, EOM Intact HENT: Yes: WNL, Atraumatic Neck: Yes: WNL, Supple Renal/: Yes: WNL Kidneys: Yes: WNL Musculoskeletal: Yes: Other (tense tender suprapubic area) Labs: CBC, BMP 11/21/16 06:10 11/21/16 06:10 Imaging - Results Cat Scan: Report Reviewed (no hydronephrosis) Assessment/Plan procedure note patient with bladder sonogram showin 500cc volume; poor urine output with gross hematuria. catheter changed to 24 czech and bladder irrigated with minimal clots aspirated. no evidence of urinary retention impression gross hematuria most likely due to anti coagulation plan Patient is not producing urine most likely due to dehydration and hypovolemia after hematoma formation would recommend following I's and O's and hydrating patient and monitoring Hct.
[2016-11-21] MEDS ORDERED: FUROSEMIDE 40 MG/4 ML INJECTABLE VIAL IVPUSH SCH (10:30)
[2016-11-21] MEDS: DIGOXIN 0.125 MG TABLET (FP) PO SCH (10:39)
[2016-11-21] MEDS: METOPROLOL SUCCINATE 25 MG TAB.SR.24H (FP) PO SCH ×2 (10:39→21:28)
[2016-11-21] MEDS: SERTRALINE HCL 50 MG TABLET (FP) PO SCH (10:39)
[2016-11-21] MEDS: DOCUSATE SODIUM 100 MG CAPSULE (FP) PO SCH (10:39)
[2016-11-21] MEDS: FERROUS SO4 325 MG TABLET (FP) PO SCH ×2 (10:39→21:28)
[2016-11-21] MEDS: SODIUM CHLORIDE 0.45%/POT 1,000 ML IV SCH (10:40)
[2016-11-21] MEDS ORDERED: PT OWN MED DRAWER 7, Y5N ONE (11:28)
--- NOTE | 2016-11-21 12:33 | PN ---
Progress Note, Physician History of Present Illness: c/o abd wall tenderness, received pRBC. - Current Medication List Current Medications: Active Medications Acetaminophen (Tylenol -) 650 mg PO Q6H PRN PRN Reason: FEVER OR PAIN Albuterol Sulfate (Ventolin 0.083% Nebulizer Soln -) 1 amp NEB Q6H PRN PRN Reason: SHORT OF BREATH/WHEEZING Atorvastatin Calcium (Lipitor -) 10 mg PO HS [facility] Last Admin: 11/20/16 21:57 Dose: 10 mg Digoxin (Lanoxin -) 0.125 mg PO DAILY [facility] Last Admin: 11/21/16 10:39 Dose: 0.125 mg Docusate Sodium (Colace -) 100 mg PO DAILY [facility] Last Admin: 11/21/16 10:39 Dose: 100 mg Ferrous Sulfate (Feosol -) 325 mg PO BID [facility] Last Admin: 11/21/16 10:39 Dose: 325 mg Furosemide (Lasix Injection -) 40 mg IVPUSH ONCE [facility] Stop: 11/21/16 23:59 Last Admin: 11/21/16 10:45 Dose: 40 mg Potassium Chloride/Sodium Chloride (1/2ns+20meq Kcl) 1,000 mls @ 125 mls/hr IV ASDIR [facility] Last Admin: 11/21/16 10:40 Dose: 125 mls/hr Levothyroxine Sodium (Synthroid -) 125 mcg PO DAILY@0700 [facility] Last Admin: 11/21/16 06:34 Dose: 125 mcg Melatonin (Melatonin) 5 mg PO HS PRN PRN Reason: INSOMNIA Metoprolol Succinate (Toprol Xl -) 25 mg PO BID [facility] Last Admin: 11/21/16 10:39 Dose: 25 mg Oxycodone HCl (Roxicodone -) 5 mg PO Q6H PRN PRN Reason: PAIN Last Admin: 11/20/16 11:38 Dose: 5 mg Sertraline HCl (Zoloft -) 100 mg PO DAILY [facility] Last Admin: 11/21/16 10:39 Dose: 100 mg - Objective Vital Signs: Vital Signs Temperature 98.1 F 11/21/16 09:00 Pulse Rate 95 H 11/21/16 10:39 Respiratory Rate 16 11/21/16 09:00 Blood Pressure 94/49 11/21/16 09:00 O2 Sat by Pulse Oximetry (%) 99 11/20/16 21:00 Constitutional: Yes: No Distress, Calm Neck: Yes: Supple Cardiovascular: Yes: Pulse Irregular Respiratory: Yes: Regular, Diminished Gastrointestinal: Yes: Abdomen, Obese, Tenderness Edema: Yes Edema: LLE: Trace, RLE: Trace Labs: CBC, BMP 11/21/16 06:10 11/21/16 06:10 INR, PTT INR 1.27 (0.82-1.09) H D 11/21/16 06:10 Problem List - Problems (1) Abdominal wall hematoma Code(s): S30.1XXA - CONTUSION OF ABDOMINAL WALL, INITIAL ENCOUNTER Qualifiers : Encounter type: initial encounter Qualified Code(s): S30.1XXA - Contusion of abdominal wall, initial encounter (2) A-fib Code(s): I48.91 - UNSPECIFIED ATRIAL FIBRILLATION Qualifiers: Atrial fibrillation type: permanent Qualified Code(s): I48.2 - Chronic atrial fibrillation (3) CAD (coronary artery disease) Code(s): I25.10 - ATHSCL HEART DISEASE OF [place] CORONARY ARTERY W/O ANG PCTRS Qualifiers: Coronary Disease-Associated Artery/Lesion type: [place] artery [place] vs. transplanted heart: [place] heart Associated angina: without angina Qualified Code(s): I25.10 - Atherosclerotic heart disease of [place] coronary artery without angina pectoris (4) COPD (chronic obstructive pulmonary disease) Code(s): J44.9 - CHRONIC OBSTRUCTIVE PULMONARY DISEASE, UNSPECIFIED Qualifiers : COPD type: unspecified COPD Qualified Code(s): J44.9 - Chronic obstructive pulmonary disease, unspecified (5) Diastolic dysfunction without heart failure Code(s): I51.9 - HEART DISEASE, UNSPECIFIED (6) Hypercholesteremia Code(s): E78.0 - PURE HYPERCHOLESTEROLEMIA * DO NOT USE * (7) Hypertension Code(s): I10 - ESSENTIAL (PRIMARY) HYPERTENSION Qualifiers: Hypertension type: essential hypertension Qualified Code(s): I10 - Essential (primary) hypertension (8) Hypothyroid Code(s): E03.9 - HYPOTHYROIDISM, UNSPECIFIED Qualifiers: Hypothyroidism type: unspecified Qualified Code(s): E03.9 - Hypothyroidism, unspecified (9) Pacemaker Code(s): Z95.0 - PRESENCE OF CARDIAC PACEMAKER (10) Sick sinus syndrome Code(s): I49.5 - SICK SINUS SYNDROME (11) Anemia Code(s): D64.9 - ANEMIA, UNSPECIFIED Qualifiers: Anemia type: unspecified type Qualified Code(s): D64.9 - Anemia, unspecified Assessment/Plan 1. Large right rectus sheath hematoma 2. Permanent atrial fibrillation [id number] score of 6 off A/C 3. Anemia with decrease in H/H 4. Sick sinus syndrome s/p PPM 5. Hypertension 6. Hypercholesterolemia 7. History of LV diastolic dysfunction with failure 8. COPD 9. Hypothyroidism 10. Pre-renal acut kidney injury with hyperkalemia 11. Hematuria PLAN: 1. Discontinue Warfarin with presence of large abdominal wall hematoma, hematuria and anemia. Transfuse PRBC and FFP and monitor CBC 2. GI, and Surgical follow up noted 3. Volume resuscitation with monitor renal recovery and electrolytes 4. In view of high [id number] score, patient will eventually need to be anticoagulated with NOAC once hemostasis has been achieved. 5. Obtain office records. Transthoracic echocardiography if not done recently 6. Continue Metoprolol XL 25 bid, Dig 0.125 qd, Atorvastatin 10 qhs, resume Furosemide, Accupril 40 qd, and Spironolactone once renal fxn stable
--- NOTE | 2016-11-21 17:31 | EKG ---
Test Reason : Blood Pressure : / mmHG Vent. Rate : 085 BPM Atrial Rate : 060 BPM P-R Int : 000 ms QRS Dur : 150 ms QT Int : 430 ms P-R-T Axes : 000 032 229 degrees QTc Int : 511 ms ATRIAL FIBRILLATION WITH OCCASIONAL ventricular-paced complexes RIGHT BUNDLE BRANCH BLOCK T WAVE ABNORMALITY, CONSIDER INFEROLATERAL ISCHEMIA ABNORMAL ECG WHEN COMPARED WITH ECG OF 10-OCT-2016 05:56, NO SIGNIFICANT CHANGE WAS FOUND Confirmed by SHERIDAN SHAH, GIUSEPPE ([id number]) on 11/21/2016 5:31:28 PM Referred By: Debbie BENITEZ Confirmed By:GIUSEPPE SWARTZ MD
[2016-11-21] MEDS: ATORVASTATIN CA 10 MG TABLET (FP) PO SCH (21:28)
[2016-11-22] MEDS: LEVOTHYROXINE NA 125 MCG TABLET (FP) PO SCH (06:58)
[2016-11-22] MEDS ORDERED: INSULIN (NOVOLOG) ASPART 100 UNITS/ML 10ML VIAL ONE (07:04)
[2016-11-22 08:27] LABS: BASOPHIL 0.1 % (0-2.0); EOSINOPHIL 0.2 % (0-4.5); MCHC 33.5 g/dl (32.0-36.0); MEAN CELL VOLUME 92.5 fl (80-96); MEAN PLT VOLUME 7.7 fl (7.5-11.1); PLATELET COUNT 228 K/MM3 (134-434); RDW 20.5 % (11.6-15.6); WHITE BLOOD COUNT 12.1 K/mm3 (4.0-10.0)
--- NOTE | 2016-11-22 10:19 | PN ---
Progress Note, Physician Chief Complaint: patient has bowles cath awake alert - Current Medication List Current Medications: Active Medications Acetaminophen (Tylenol -) 650 mg PO Q6H PRN PRN Reason: FEVER OR PAIN Albuterol Sulfate (Ventolin 0.083% Nebulizer Soln -) 1 amp NEB Q6H PRN PRN Reason: SHORT OF BREATH/WHEEZING Atorvastatin Calcium (Lipitor -) 10 mg PO HS [facility] Last Admin: 11/21/16 21:28 Dose: 10 mg Digoxin (Lanoxin -) 0.125 mg PO DAILY [facility] Last Admin: 11/21/16 10:39 Dose: 0.125 mg Docusate Sodium (Colace -) 100 mg PO DAILY [facility] Last Admin: 11/21/16 10:39 Dose: 100 mg Ferrous Sulfate (Feosol -) 325 mg PO BID [facility] Last Admin: 11/21/16 21:28 Dose: 325 mg Potassium Chloride/Sodium Chloride (1/2ns+20meq Kcl) 1,000 mls @ 125 mls/hr IV ASDIR [facility] Last Admin: 11/21/16 10:40 Dose: 125 mls/hr Levothyroxine Sodium (Synthroid -) 125 mcg PO DAILY@0700 [facility] Last Admin: 11/22/16 06:58 Dose: 125 mcg Melatonin (Melatonin) 5 mg PO HS PRN PRN Reason: INSOMNIA Metoprolol Succinate (Toprol Xl -) 25 mg PO BID [facility] Last Admin: 11/21/16 21:28 Dose: 25 mg Oxycodone HCl (Roxicodone -) 5 mg PO Q6H PRN PRN Reason: PAIN Last Admin: 11/20/16 11:38 Dose: 5 mg Sertraline HCl (Zoloft -) 100 mg PO DAILY [facility] Last Admin: 11/21/16 10:39 Dose: 100 mg - Objective Vital Signs: Vital Signs Temperature 98.1 F 11/22/16 06:00 Pulse Rate 91 H 11/22/16 06:00 Respiratory Rate 20 11/22/16 06:00 Blood Pressure 119/66 11/22/16 06:00 O2 Sat by Pulse Oximetry (%) 99 11/21/16 21:00 Constitutional: Yes: Calm, Other ([place]) Cardiovascular: Yes: Pulse Irregular, S1, S2 Respiratory: Yes: CTA Bilaterally, Diminished (at bases) Gastrointestinal: Yes: Tenderness ...Rectal Exam: Yes: WNL (abdominal mass) Genitourinary: Yes: Bowles Present Extremities: Yes: Other (chronic changes) Neurological: Yes: Alert, Oriented (to name) Labs: CBC, BMP 11/22/16 06:30 INR, PTT INR 1.27 (0.82-1.09) H D 11/21/16 06:10 Problem List - Problems (1) Hematuria Assessment/Plan: appreicate urology eval monitor output iv hydration Code(s): R31.9 - HEMATURIA, UNSPECIFIED (2) Abdominal wall hematoma Assessment/Plan: s/p PRBC h/h stable no AC for now Code(s): S30.1XXA - CONTUSION OF ABDOMINAL WALL, INITIAL ENCOUNTER Qualifiers : Encounter type: initial encounter Qualified Code(s): S30.1XXA - Contusion of abdominal wall, initial encounter (3) A-fib Assessment/Plan: ECHO coumadin stop for now till hematoma resolves cardio on board rate control Code(s): I48.91 - UNSPECIFIED ATRIAL FIBRILLATION Qualifiers: Atrial fibrillation type: permanent Qualified Code(s): I48.2 - Chronic atrial fibrillation (4) CAD (coronary artery disease) Assessment/Plan: quinipril aldactone statin, BB Code(s): I25.10 - ATHSCL HEART DISEASE OF [place] CORONARY ARTERY W/O ANG PCTRS Qualifiers: Coronary Disease-Associated Artery/Lesion type: [place] artery [place] vs. transplanted heart: [place] heart Associated angina: without angina Qualified Code(s): I25.10 - Atherosclerotic heart disease of [place] coronary artery without angina pectoris (5) CHF (congestive heart failure) Assessment/Plan: quinipril aldactone digoxin Code(s): I50.9 - HEART FAILURE, UNSPECIFIED (6) Hypothyroid Assessment/Plan: synthroid check tsh Code(s): E03.9 - HYPOTHYROIDISM, UNSPECIFIED Qualifiers: Hypothyroidism type: unspecified Qualified Code(s): E03.9 - Hypothyroidism, unspecified
[2016-11-22 10:25] LABS: BILIRUBIN,TOTAL 2.3 mg/dL (0.2-1.0); CALCIUM 8.3 mg/dL (8.5-10.1); COCKROFT - GAULT 52.5895; CREATININE 0.9 mg/dL (0.55-1.02); TOT PROT 5.9 g/dl (6.4-8.2)
[2016-11-22] MEDS: DOCUSATE SODIUM 100 MG CAPSULE (FP) PO SCH (10:35)
[2016-11-22] MEDS: SODIUM CHLORIDE 0.45%/POT 1,000 ML IV SCH (10:35)
[2016-11-22] MEDS: FERROUS SO4 325 MG TABLET (FP) PO SCH ×2 (10:35→22:36)
[2016-11-22] MEDS: DIGOXIN 0.125 MG TABLET (FP) PO SCH (10:35)
[2016-11-22] MEDS: METOPROLOL SUCCINATE 25 MG TAB.SR.24H (FP) PO SCH ×2 (10:35→22:37)
[2016-11-22] MEDS: SERTRALINE HCL 50 MG TABLET (FP) PO SCH (10:35)
--- NOTE | 2016-11-22 18:37 | PN ---
Progress Note, Physician History of Present Illness: Abd wall tenderness slowly improving, Hgb stable post transfusion. - Current Medication List Current Medications: Active Medications Acetaminophen (Tylenol -) 650 mg PO Q6H PRN PRN Reason: FEVER OR PAIN Albuterol Sulfate (Ventolin 0.083% Nebulizer Soln -) 1 amp NEB Q6H PRN PRN Reason: SHORT OF BREATH/WHEEZING Atorvastatin Calcium (Lipitor -) 10 mg PO HS [facility] Last Admin: 11/21/16 21:28 Dose: 10 mg Digoxin (Lanoxin -) 0.125 mg PO DAILY [facility] Last Admin: 11/22/16 10:35 Dose: 0.125 mg Docusate Sodium (Colace -) 100 mg PO DAILY [facility] Last Admin: 11/22/16 10:35 Dose: 100 mg Ferrous Sulfate (Feosol -) 325 mg PO BID [facility] Last Admin: 11/22/16 10:35 Dose: 325 mg Potassium Chloride/Sodium Chloride (1/2ns+20meq Kcl) 1,000 mls @ 125 mls/hr IV ASDIR [facility] Last Admin: 11/22/16 10:35 Dose: Not Given Levothyroxine Sodium (Synthroid -) 125 mcg PO DAILY@0700 [facility] Last Admin: 11/22/16 06:58 Dose: 125 mcg Melatonin (Melatonin) 5 mg PO HS PRN PRN Reason: INSOMNIA Metoprolol Succinate (Toprol Xl -) 25 mg PO BID [facility] Last Admin: 11/22/16 10:35 Dose: 25 mg Oxycodone HCl (Roxicodone -) 5 mg PO Q6H PRN PRN Reason: PAIN Last Admin: 11/20/16 11:38 Dose: 5 mg Sertraline HCl (Zoloft -) 100 mg PO DAILY [facility] Last Admin: 11/22/16 10:35 Dose: 100 mg - Objective Vital Signs: Vital Signs Temperature 99.1 F 11/22/16 15:31 Pulse Rate 92 H 11/22/16 15:31 Respiratory Rate 20 11/22/16 15:31 Blood Pressure 117/65 11/22/16 15:31 O2 Sat by Pulse Oximetry (%) 97 11/22/16 09:00 Constitutional: Yes: No Distress, Calm Neck: Yes: Supple Cardiovascular: Yes: Regular Rate and Rhythm, Murmur (1/6 SM) Respiratory: Yes: Regular, Diminished Gastrointestinal: Yes: Normal Bowel Sounds, Soft, Tenderness Edema: No Labs: CBC, BMP 11/22/16 06:30 11/22/16 06:30 INR, PTT INR 1.27 (0.82-1.09) H D 11/21/16 06:10 Problem List - Problems (1) Abdominal wall hematoma Code(s): S30.1XXA - CONTUSION OF ABDOMINAL WALL, INITIAL ENCOUNTER Qualifiers : Encounter type: initial encounter Qualified Code(s): S30.1XXA - Contusion of abdominal wall, initial encounter (2) A-fib Code(s): I48.91 - UNSPECIFIED ATRIAL FIBRILLATION Qualifiers: Atrial fibrillation type: permanent Qualified Code(s): I48.2 - Chronic atrial fibrillation (3) CAD (coronary artery disease) Code(s): I25.10 - ATHSCL HEART DISEASE OF [place] CORONARY ARTERY W/O ANG PCTRS Qualifiers: Coronary Disease-Associated Artery/Lesion type: [place] artery [place] vs. transplanted heart: [place] heart Associated angina: without angina Qualified Code(s): I25.10 - Atherosclerotic heart disease of [place] coronary artery without angina pectoris (4) COPD (chronic obstructive pulmonary disease) Code(s): J44.9 - CHRONIC OBSTRUCTIVE PULMONARY DISEASE, UNSPECIFIED Qualifiers : COPD type: unspecified COPD Qualified Code(s): J44.9 - Chronic obstructive pulmonary disease, unspecified (5) Diastolic dysfunction without heart failure Code(s): I51.9 - HEART DISEASE, UNSPECIFIED (6) Hypercholesteremia Code(s): E78.0 - PURE HYPERCHOLESTEROLEMIA * DO NOT USE * (7) Hypertension Code(s): I10 - ESSENTIAL (PRIMARY) HYPERTENSION Qualifiers: Hypertension type: essential hypertension Qualified Code(s): I10 - Essential (primary) hypertension (8) Hypothyroid Code(s): E03.9 - HYPOTHYROIDISM, UNSPECIFIED Qualifiers: Hypothyroidism type: unspecified Qualified Code(s): E03.9 - Hypothyroidism, unspecified (9) Pacemaker Code(s): Z95.0 - PRESENCE OF CARDIAC PACEMAKER (10) Sick sinus syndrome Code(s): I49.5 - SICK SINUS SYNDROME (11) Anemia Code(s): D64.9 - ANEMIA, UNSPECIFIED Qualifiers: Anemia type: unspecified type Qualified Code(s): D64.9 - Anemia, unspecified Assessment/Plan Transthoracic echocardiography: Low normal LV fxn, mod-severe dilated and decreased RV fxn, severe VICENTA, mild-mod MR, severe TR, RVSP 40-50 mmHg 1. Large right rectus sheath hematoma 2. Permanent atrial fibrillation [id number] score of 6 off A/C 3. Anemia with decrease in H/H 4. Sick sinus syndrome s/p PPM 5. Hypertension 6. Hypercholesterolemia 7. History of LV diastolic dysfunction with failure 8. COPD 9. Hypothyroidism 10. Pre-renal acute kidney injury with hyperkalemia improving 11. Hematuria PLAN: 1. Discontinue Warfarin with presence of large abdominal wall hematoma, hematuria and anemia. Transfuse PRBC and FFP and monitor CBC 2. GI, and Surgical follow up noted 3. Volume resuscitation with monitor renal recovery and electrolytes 4. In view of high [id number] score, patient will eventually need to be anticoagulated with NOAC once hemostasis has been achieved. 5. Continue Metoprolol XL 25 bid, Dig 0.125 qd, Atorvastatin 10 qhs, resume Furosemide, Accupril 40 qd, and Spironolactone once renal fxn stable
[2016-11-22] MEDS: ATORVASTATIN CA 10 MG TABLET (FP) PO SCH (22:36)
[2016-11-23] MEDS: LEVOTHYROXINE NA 125 MCG TABLET (FP) PO SCH (07:06)
[2016-11-23 07:44] LABS: BASOPHIL 0.5 % (0-2.0); EOSINOPHIL 0.6 % (0-4.5); MCH 31.2 pg (25.7-33.7); MCHC 33.5 g/dl (32.0-36.0); MEAN PLT VOLUME 7.4 fl (7.5-11.1); NEUTROPHILS 80.1 % (42.8-82.8); PLATELET COUNT 246 K/MM3 (134-434); RDW 20.8 % (11.6-15.6); WHITE BLOOD COUNT 9.1 K/mm3 (4.0-10.0)
[2016-11-23 08:20] LABS: CALCIUM 8.2 mg/dL (8.5-10.1); COCKROFT - GAULT 90.491; CREATININE 0.5 mg/dL (0.55-1.02)
[2016-11-23] MEDS: METOPROLOL SUCCINATE 25 MG TAB.SR.24H (FP) PO SCH ×2 (09:23→21:48)
[2016-11-23] MEDS: SODIUM CHLORIDE 0.45%/POT 1,000 ML IV SCH (09:23)
[2016-11-23] MEDS: DOCUSATE SODIUM 100 MG CAPSULE (FP) PO SCH (09:23)
[2016-11-23] MEDS: FERROUS SO4 325 MG TABLET (FP) PO SCH ×2 (09:23→21:48)
[2016-11-23] MEDS: DIGOXIN 0.125 MG TABLET (FP) PO SCH (09:23)
[2016-11-23] MEDS: SERTRALINE HCL 50 MG TABLET (FP) PO SCH (09:23)
[2016-11-23 11:46] LABS: ANISOCYTOSIS 2+; HYPOCHROMIA 1+
--- NOTE | 2016-11-23 12:50 | PN ---
Progress Note, Physician History of Present Illness: feels weak abdominal pain - Current Medication List Current Medications: Active Medications Acetaminophen (Tylenol -) 650 mg PO Q6H PRN PRN Reason: FEVER OR PAIN Albuterol Sulfate (Ventolin 0.083% Nebulizer Soln -) 1 amp NEB Q6H PRN PRN Reason: SHORT OF BREATH/WHEEZING Atorvastatin Calcium (Lipitor -) 10 mg PO HS [facility] Last Admin: 11/22/16 22:36 Dose: 10 mg Digoxin (Lanoxin -) 0.125 mg PO DAILY [facility] Last Admin: 11/23/16 09:23 Dose: 0.125 mg Docusate Sodium (Colace -) 100 mg PO DAILY [facility] Last Admin: 11/23/16 09:23 Dose: 100 mg Ferrous Sulfate (Feosol -) 325 mg PO BID [facility] Last Admin: 11/23/16 09:23 Dose: 325 mg Levothyroxine Sodium (Synthroid -) 125 mcg PO DAILY@0700 [facility] Last Admin: 11/23/16 07:06 Dose: 125 mcg Melatonin (Melatonin) 5 mg PO HS PRN PRN Reason: INSOMNIA Last Admin: 11/22/16 22:37 Dose: 5 mg Metoprolol Succinate (Toprol Xl -) 25 mg PO BID [facility] Last Admin: 11/23/16 09:23 Dose: 25 mg Oxycodone HCl (Roxicodone -) 5 mg PO Q6H PRN PRN Reason: PAIN Last Admin: 11/20/16 11:38 Dose: 5 mg Sertraline HCl (Zoloft -) 100 mg PO DAILY [facility] Last Admin: 11/23/16 09:23 Dose: 100 mg - Objective Vital Signs: Vital Signs Temperature 97.8 F 11/23/16 10:00 Pulse Rate 90 11/23/16 10:00 Respiratory Rate 20 11/23/16 10:00 Blood Pressure 109/52 11/23/16 10:00 O2 Sat by Pulse Oximetry (%) 95 11/23/16 09:00 Cardiovascular: Yes: S1, S2 Respiratory: Yes: Regular, CTA Bilaterally Gastrointestinal: Yes: Normal Bowel Sounds, Soft, Tenderness (LESS), Other ( HEMATOMA) Labs: CBC, BMP 11/23/16 06:00 11/23/16 06:00 INR, PTT INR 1.27 (0.82-1.09) H D 11/21/16 06:10 Problem List - Problems (1) Abdominal wall hematoma Code(s): S30.1XXA - CONTUSION OF ABDOMINAL WALL, INITIAL ENCOUNTER Qualifiers : Encounter type: initial encounter Qualified Code(s): S30.1XXA - Contusion of abdominal wall, initial encounter (2) A-fib Code(s): I48.91 - UNSPECIFIED ATRIAL FIBRILLATION Qualifiers: Atrial fibrillation type: permanent Qualified Code(s): I48.2 - Chronic atrial fibrillation (3) Anemia Code(s): D64.9 - ANEMIA, UNSPECIFIED Qualifiers: Anemia type: unspecified type Qualified Code(s): D64.9 - Anemia, unspecified (4) CHF (congestive heart failure) Code(s): I50.9 - HEART FAILURE, UNSPECIFIED (5) Hematuria Code(s): R31.9 - HEMATURIA, UNSPECIFIED Assessment/Plan - Problems (1) Hematuria Assessment/Plan: appreciate urology eval monitor output DC iv hydration Code(s): R31.9 - HEMATURIA, UNSPECIFIED (2) Abdominal wall hematoma Assessment/Plan: s/p PRBC h/h stable no AC for now Code(s): S30.1XXA - CONTUSION OF ABDOMINAL WALL, INITIAL ENCOUNTER Qualifiers : Encounter type: initial encounter Qualified Code(s): S30.1XXA - Contusion of abdominal wall, initial encounter (3) A-fib Assessment/Plan: ECHO Coumadin stop for now till hematoma resolves cardio on board rate control Code(s): I48.91 - UNSPECIFIED ATRIAL FIBRILLATION Qualifiers: Atrial fibrillation type: permanent Qualified Code(s): I48.2 - Chronic atrial fibrillation (4) CAD (coronary artery disease) Assessment/Plan: quinipril aldactone statin, BB Code(s): I25.10 - ATHSCL HEART DISEASE OF [place] CORONARY ARTERY W/O ANG PCTRS Qualifiers: Coronary Disease-Associated Artery/Lesion type: [place] artery [place] vs. transplanted heart: [place] heart Associated angina: without angina Qualified Code(s): I25.10 - Atherosclerotic heart disease of [place] coronary artery without angina pectoris (5) CHF (congestive heart failure) Assessment/Plan: quinipril aldactone digoxin Code(s): I50.9 - HEART FAILURE, UNSPECIFIED (6) Hypothyroid Assessment/Plan: synthroid check tsh Code(s): E03.9 - HYPOTHYROIDISM, UNSPECIFIED Qualifiers: Hypothyroidism type: unspecified Qualified Code(s): E03.9 - Hypothyroidism, unspecified
--- NOTE | 2016-11-23 13:48 | PN ---
Progress Note (short form) - Note Progress Note: Chief Complaint: Events noted, notes reviewed, denies any chest pain, reports dyspnea History of Present Illness: Seen and examined. Events noted, notes reviewed, denies any chest pain, reports dyspnea Echocardiography performed 06/12/2016 revealed Mild concentric LVH with normal LV function, mod dilated RV with moderately decreased RV function, moderate- severe bi-atrial dilatation, severe TR and moderate MR Echocardiography dated 11/22/2016 revealed low normal LV systolic function, moderate-severely dilated RV with moderate-severely reduced RV function, severe bi-atrial dilatation, mild-moderate MR, severe TR with RVSP 40-50 mmHg Medications: Current Medications Acetaminophen (Tylenol -) 650 mg PO Q6H PRN PRN Reason: FEVER OR PAIN Albuterol Sulfate (Ventolin 0.083% Nebulizer Soln -) 1 amp NEB Q6H PRN PRN Reason: SHORT OF BREATH/WHEEZING Atorvastatin Calcium (Lipitor -) 10 mg PO HS [facility] Last Admin: 11/22/16 22:36 Dose: 10 mg Digoxin (Lanoxin -) 0.125 mg PO DAILY [facility] Last Admin: 11/23/16 09:23 Dose: 0.125 mg Docusate Sodium (Colace -) 100 mg PO DAILY [facility] Last Admin: 11/23/16 09:23 Dose: 100 mg Ferrous Sulfate (Feosol -) 325 mg PO BID [facility] Last Admin: 11/23/16 09:23 Dose: 325 mg Levothyroxine Sodium (Synthroid -) 125 mcg PO DAILY@0700 [facility] Last Admin: 11/23/16 07:06 Dose: 125 mcg Melatonin (Melatonin) 5 mg PO HS PRN PRN Reason: INSOMNIA Last Admin: 11/22/16 22:37 Dose: 5 mg Metoprolol Succinate (Toprol Xl -) 25 mg PO BID [facility] Last Admin: 11/23/16 09:23 Dose: 25 mg Oxycodone HCl (Roxicodone -) 5 mg PO Q6H PRN PRN Reason: PAIN Last Admin: 11/20/16 11:38 Dose: 5 mg Sertraline HCl (Zoloft -) 100 mg PO DAILY [facility] Last Admin: 11/23/16 09:23 Dose: 100 mg Vital Signs: Last Vital Signs Temp Pulse Resp BP Pulse Ox 97.8 F 90 20 109/52 95 11/23/16 10:00 11/23/16 10:00 11/23/16 10:00 11/23/16 10:00 11/23/16 09:00 Intake & Output 11/20/16 11/21/16 11/22/16 11/23/16 23:59 23:59 23:59 23:59 Intake Total 1050 2950 2250 300 Output Total 572 230 7849 900 Balance 900 2200 1050 -600 Weight 155 lb 4.8 oz 170 lb 162 lb 8 oz Constitutional: No Distress, Calm Neck: Supple Negative JVD No Bruit Respiratory: Diminished Breath Sounds at the Bases Bilaterally Cardiovascular: S1 S2 Regular Rate and Rhythm Grade 3/6 SM Gastrointestinal: Soft Benign Normal Bowel Sounds Ext: Bilateral Edema Chronic Venous Stasis changes Labs: CBC, BMP 11/23/16 06:00 11/23/16 06:00 Hepatic Panel Total Bilirubin 2.3 mg/dL (0.2-1.0) H D 11/22/16 06:30 AST 14 U/L (15-37) L 11/22/16 06:30 ALT 19 U/L (12-78) 11/22/16 06:30 Alkaline Phosphatase 129 U/L (45-117) H 11/22/16 06:30 Albumin 3.0 g/dl (3.4-5.0) L 11/22/16 06:30 INR, PTT INR 1.27 (0.82-1.09) H D 11/21/16 06:10 Assessment/Plan ASSESSMENT: 1. Large right rectus sheath hematoma 2. 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 CAD, angina pectoris, stable 4. Sick sinus syndrome post PPM 5. Permanent atrial fibrillation [id number] score of 6 off of A/C 6. 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 HTN 8. Hypercholesterolemia 9. Hypothyroidism 10. Hematuria 11. Anemia related to above presentation PLAN: 1. Resume Lasix and Aldactone with close monitoring of renal function, provided hemodynamic stability and renal function stabilization 2. Resume Accupril with close monitoring of renal function, provided hemodynamic stability and renal function stabilization 3. Continue Toprol XL 4. Continue Digoxin with close monitoring of level 5. Continue Lipitor 6. Resume Coumadin as per INR once hemostasis is achieved Alfredo Estes MD
[2016-11-23] MEDS: ATORVASTATIN CA 10 MG TABLET (FP) PO SCH (21:48)
[2016-11-24] MEDS: LEVOTHYROXINE NA 125 MCG TABLET (FP) PO SCH (06:44)
--- NOTE | 2016-11-24 07:15 | PN ---
Progress Note, Physician History of Present Illness: feels better abdominal pain - Current Medication List Current Medications: Active Medications Acetaminophen (Tylenol -) 650 mg PO Q6H PRN PRN Reason: FEVER OR PAIN Atorvastatin Calcium (Lipitor -) 10 mg PO HS [facility] Last Admin: 11/23/16 21:48 Dose: 10 mg Digoxin (Lanoxin -) 0.125 mg PO DAILY [facility] Last Admin: 11/23/16 09:23 Dose: 0.125 mg Docusate Sodium (Colace -) 100 mg PO DAILY [facility] Last Admin: 11/23/16 09:23 Dose: 100 mg Ferrous Sulfate (Feosol -) 325 mg PO BID [facility] Last Admin: 11/23/16 21:48 Dose: 325 mg Levothyroxine Sodium (Synthroid -) 125 mcg PO DAILY@0700 [facility] Last Admin: 11/24/16 06:44 Dose: 125 mcg Melatonin (Melatonin) 5 mg PO HS PRN PRN Reason: INSOMNIA Last Admin: 11/22/16 22:37 Dose: 5 mg Metoprolol Succinate (Toprol Xl -) 25 mg PO BID [facility] Last Admin: 11/23/16 21:48 Dose: 25 mg Sertraline HCl (Zoloft -) 100 mg PO DAILY [facility] Last Admin: 11/23/16 09:23 Dose: 100 mg - Objective Vital Signs: Vital Signs Temperature 98.1 F 11/24/16 06:00 Pulse Rate 92 H 11/24/16 06:00 Respiratory Rate 20 11/24/16 06:00 Blood Pressure 124/75 11/24/16 06:00 O2 Sat by Pulse Oximetry (%) 95 11/23/16 21:00 Cardiovascular: Yes: S1, S2 Respiratory: Yes: Regular, CTA Bilaterally Gastrointestinal: Yes: Normal Bowel Sounds, Soft, Other (less paain) Labs: CBC, BMP 11/23/16 06:00 11/23/16 06:00 INR, PTT INR 1.27 (0.82-1.09) H D 11/21/16 06:10 Problem List - Problems (1) Abdominal wall hematoma Code(s): S30.1XXA - CONTUSION OF ABDOMINAL WALL, INITIAL ENCOUNTER Qualifiers : Encounter type: initial encounter Qualified Code(s): S30.1XXA - Contusion of abdominal wall, initial encounter (2) A-fib Code(s): I48.91 - UNSPECIFIED ATRIAL FIBRILLATION Qualifiers: Atrial fibrillation type: permanent Qualified Code(s): I48.2 - Chronic atrial fibrillation (3) Anemia Code(s): D64.9 - ANEMIA, UNSPECIFIED Qualifiers: Anemia type: unspecified type Qualified Code(s): D64.9 - Anemia, unspecified (4) CHF (congestive heart failure) Code(s): I50.9 - HEART FAILURE, UNSPECIFIED (5) Hematuria Code(s): R31.9 - HEMATURIA, UNSPECIFIED Assessment/Plan - Problems (1) Hematuria Assessment/Plan: appreciate urology eval monitor output DC iv hydration Code(s): R31.9 - HEMATURIA, UNSPECIFIED (2) Abdominal wall hematoma Assessment/Plan: s/p PRBC h/h stable no AC for now Code(s): S30.1XXA - CONTUSION OF ABDOMINAL WALL, INITIAL ENCOUNTER Qualifiers : Encounter type: initial encounter Qualified Code(s): S30.1XXA - Contusion of abdominal wall, initial encounter (3) A-fib Assessment/Plan: ECHO Coumadin stop for now till hematoma resolves cardio on board rate control Code(s): I48.91 - UNSPECIFIED ATRIAL FIBRILLATION Qualifiers: Atrial fibrillation type: permanent Qualified Code(s): I48.2 - Chronic atrial fibrillation (4) CAD (coronary artery disease) Assessment/Plan: quinipril aldactone statin, BB Code(s): I25.10 - ATHSCL HEART DISEASE OF [place] CORONARY ARTERY W/O ANG PCTRS Qualifiers: Coronary Disease-Associated Artery/Lesion type: [place] artery [place] vs. transplanted heart: [place] heart Associated angina: without angina Qualified Code(s): I25.10 - Atherosclerotic heart disease of [place] coronary artery without angina pectoris (5) CHF (congestive heart failure) Assessment/Plan: quinipril aldactone digoxin Code(s): I50.9 - HEART FAILURE, UNSPECIFIED (6) Hypothyroid Assessment/Plan: synthroid check tsh Code(s): E03.9 - HYPOTHYROIDISM, UNSPECIFIED Qualifiers: Hypothyroidism type: unspecified Qualified Code(s): E03.9 - Hypothyroidism, unspecified
[2016-11-24 08:30] LABS: BASOPHIL 0.3 % (0-2.0); EOSINOPHIL 0.6 % (0-4.5); MCH 31.3 pg (25.7-33.7); MCHC 33.1 g/dl (32.0-36.0); MEAN CELL VOLUME 94.5 fl (80-96); MEAN PLT VOLUME 7.1 fl (7.5-11.1); PLATELET COUNT 254 K/MM3 (134-434); RDW 20.4 % (11.6-15.6)
[2016-11-24 08:53] LABS: ALBUMIN 3.1 g/dl (3.4-5.0); ALK PHOS 133 U/L (45-117); ANION GAP 8 (8-16); BILIRUBIN,TOTAL 1.8 mg/dL (0.2-1.0); CALCIUM 8.2 mg/dL (8.5-10.1); CO2 26 mmol/L (21-32); CREATININE 0.4 mg/dL (0.55-1.02); GLUCOSE,RANDOM 85 mg/dL (74-106); SGOT/AST 20 U/L (15-37); SGPT/ALT 18 U/L (12-78); TOT PROT 5.9 g/dl (6.4-8.2)
--- NOTE | 2016-11-24 09:05 | PN ---
Progress Note (short form) - Note Progress Note: Chief Complaint: Events noted, notes reviewed, denies any chest pain, reports dyspnea but improved History of Present Illness: Seen and examined. Events noted, notes reviewed, denies any chest pain, reports dyspnea but improved Echocardiography performed 06/12/2016 revealed Mild concentric LVH with normal LV function, mod dilated RV with moderately decreased RV function, moderate- severe bi-atrial dilatation, severe TR and moderate MR Echocardiography dated 11/22/2016 revealed low normal LV systolic function, moderate-severely dilated RV with moderate-severely reduced RV function, severe bi-atrial dilatation, mild-moderate MR, severe TR with RVSP 40-50 mmHg Medications: Current Medications Acetaminophen (Tylenol -) 650 mg PO Q6H PRN PRN Reason: FEVER OR PAIN Atorvastatin Calcium (Lipitor -) 10 mg PO HS [facility] Last Admin: 11/23/16 21:48 Dose: 10 mg Digoxin (Lanoxin -) 0.125 mg PO DAILY [facility] Last Admin: 11/23/16 09:23 Dose: 0.125 mg Docusate Sodium (Colace -) 100 mg PO DAILY [facility] Last Admin: 11/23/16 09:23 Dose: 100 mg Ferrous Sulfate (Feosol -) 325 mg PO BID [facility] Last Admin: 11/23/16 21:48 Dose: 325 mg Levothyroxine Sodium (Synthroid -) 125 mcg PO DAILY@0700 [facility] Last Admin: 11/24/16 06:44 Dose: 125 mcg Melatonin (Melatonin) 5 mg PO HS PRN PRN Reason: INSOMNIA Last Admin: 11/22/16 22:37 Dose: 5 mg Metoprolol Succinate (Toprol Xl -) 25 mg PO BID [facility] Last Admin: 11/23/16 21:48 Dose: 25 mg Sertraline HCl (Zoloft -) 100 mg PO DAILY [facility] Last Admin: 11/23/16 09:23 Dose: 100 mg Vital Signs: Last Vital Signs Temp Pulse Resp BP Pulse Ox 98.1 F 92 H 20 124/75 95 11/24/16 06:00 11/24/16 06:00 11/24/16 06:00 11/24/16 06:00 11/23/16 21:00 Intake & Output 11/21/16 11/22/16 11/23/16 11/24/16 23:59 23:59 23:59 23:59 Intake Total 2950 2250 1150 Output Total 750 1200 1600 400 Balance 2200 1050 -450 -400 Weight 155 lb 4.8 oz 170 lb 162 lb 8 oz Constitutional: No Distress, Calm Neck: Supple Negative JVD No Bruit Respiratory: Diminished Breath Sounds at the Bases Bilaterally Cardiovascular: S1 S2 Regular Rate and Rhythm Grade 3/6 SM Gastrointestinal: Soft Benign Normal Bowel Sounds Ext: Bilateral Edema Chronic Venous Stasis changes Labs: CBC, BMP 11/24/16 06:45 11/24/16 06:45 INR, PTT INR 1.27 (0.82-1.09) H D 11/21/16 06:10 Assessment/Plan ASSESSMENT: 1. Large right rectus sheath hematoma 2. 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 CAD, angina pectoris, stable 4. Sick sinus syndrome post PPM 5. Permanent atrial fibrillation [id number] score of 6 off of A/C 6. 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 HTN 8. Hypercholesterolemia 9. Hypothyroidism 10. Hematuria 11. Anemia related to the above presentation PLAN: 1. Resume Lasix and Aldactone with close monitoring of renal function, provided hemodynamic stability and renal function stabilization 2. Resume Accupril with close monitoring of renal function, provided hemodynamic stability and renal function stabilization 3. Continue Toprol XL 4. Continue Digoxin with close monitoring of level 5. Continue Lipitor 6. Resume Coumadin as per INR or preferably with NOAC's once hemostasis is achieved Alfredo Estes MD
[2016-11-24] MEDS ORDERED: PT OWN MED DRAWER 7, Y5N ONE (10:13)
[2016-11-24] MEDS: METOPROLOL SUCCINATE 25 MG TAB.SR.24H (FP) PO SCH ×2 (10:29→21:15)
[2016-11-24] MEDS: DOCUSATE SODIUM 100 MG CAPSULE (FP) PO SCH (10:29)
[2016-11-24] MEDS: DIGOXIN 0.125 MG TABLET (FP) PO SCH (10:29)
[2016-11-24] MEDS: FERROUS SO4 325 MG TABLET (FP) PO SCH ×2 (10:29→21:15)
[2016-11-24] MEDS: SERTRALINE HCL 50 MG TABLET (FP) PO SCH (10:29)
[2016-11-24] MEDS: FUROSEMIDE 20 MG TABLET (FP) PO SCH (12:44)
[2016-11-24] MEDS: SPIRONOLACTONE 25 MG TABLET (FP) PO SCH (12:44)
[2016-11-24] MEDS: QUINAPRIL HCL 10 MG TABLET (FP) PO SCH (12:45)
[2016-11-24] MEDS: ATORVASTATIN CA 10 MG TABLET (FP) PO SCH (21:15)
[2016-11-25] MEDS: LEVOTHYROXINE NA 125 MCG TABLET (FP) PO SCH (06:13)
--- NOTE | 2016-11-25 10:23 | PN ---
Progress Note, Physician Chief Complaint: patient in bed no distress wears hearing aide - Current Medication List Current Medications: Active Medications Acetaminophen (Tylenol -) 650 mg PO Q6H PRN PRN Reason: FEVER OR PAIN Atorvastatin Calcium (Lipitor -) 10 mg PO HS [facility] Last Admin: 11/24/16 21:15 Dose: 10 mg Digoxin (Lanoxin -) 0.125 mg PO DAILY [facility] Last Admin: 11/24/16 10:29 Dose: 0.125 mg Docusate Sodium (Colace -) 100 mg PO DAILY [facility] Last Admin: 11/24/16 10:29 Dose: 100 mg Ferrous Sulfate (Feosol -) 325 mg PO BID [facility] Last Admin: 11/24/16 21:15 Dose: 325 mg Furosemide (Lasix -) 20 mg PO DAILY [facility] Last Admin: 11/24/16 12:44 Dose: 20 mg Levothyroxine Sodium (Synthroid -) 125 mcg PO DAILY@0700 [facility] Last Admin: 11/25/16 06:13 Dose: 125 mcg Melatonin (Melatonin) 5 mg PO HS PRN PRN Reason: INSOMNIA Last Admin: 11/22/16 22:37 Dose: 5 mg Metoprolol Succinate (Toprol Xl -) 25 mg PO BID [facility] Last Admin: 11/24/16 21:15 Dose: 25 mg Quinapril HCl (Accupril -) 10 mg PO DAILY [facility] Last Admin: 11/24/16 12:45 Dose: 10 mg Sertraline HCl (Zoloft -) 100 mg PO DAILY [facility] Last Admin: 11/24/16 10:29 Dose: 100 mg Spironolactone (Aldactone -) 25 mg PO DAILY [facility] Last Admin: 11/24/16 12:44 Dose: 25 mg - Objective Vital Signs: Vital Signs Temperature 97.6 F 11/25/16 06:30 Pulse Rate 72 11/25/16 06:30 Respiratory Rate 20 11/25/16 06:30 Blood Pressure 118/56 11/25/16 06:30 O2 Sat by Pulse Oximetry (%) 95 11/24/16 21:00 Constitutional: Yes: Calm Cardiovascular: Yes: Pulse Irregular, S1, S2 Respiratory: Yes: CTA Bilaterally, Diminished (at bases) Gastrointestinal: Yes: Distention, Other (firm in midline mass) Extremities: Yes: Other (echymotic area thigh left side chronic pigmentation of legs) Neurological: Yes: Alert, Oriented Labs: CBC, BMP 11/24/16 06:45 11/24/16 06:45 INR, PTT INR 1.27 (0.82-1.09) H D 11/21/16 06:10 Problem List - Problems (1) Hematuria Assessment/Plan: urology evaluation Code(s): R31.9 - HEMATURIA, UNSPECIFIED (2) Abdominal wall hematoma Assessment/Plan: s/p PRBC h/h stable couamdin per cardio warm compress Code(s): S30.1XXA - CONTUSION OF ABDOMINAL WALL, INITIAL ENCOUNTER Qualifiers : Encounter type: initial encounter Qualified Code(s): S30.1XXA - Contusion of abdominal wall, initial encounter (3) A-fib Assessment/Plan: coumadin per cardio Code(s): I48.91 - UNSPECIFIED ATRIAL FIBRILLATION Qualifiers: Atrial fibrillation type: permanent Qualified Code(s): I48.2 - Chronic atrial fibrillation (4) CAD (coronary artery disease) Assessment/Plan: quinipril aldactone statin, BB Code(s): I25.10 - ATHSCL HEART DISEASE OF [place] CORONARY ARTERY W/O ANG PCTRS Qualifiers: Coronary Disease-Associated Artery/Lesion type: [place] artery [place] vs. transplanted heart: [place] heart Associated angina: without angina Qualified Code(s): I25.10 - Atherosclerotic heart disease of [place] coronary artery without angina pectoris (5) CHF (congestive heart failure) Assessment/Plan: quinipril aldactone digoxin Code(s): I50.9 - HEART FAILURE, UNSPECIFIED (6) Hypothyroid Assessment/Plan: synthroid check tsh Code(s): E03.9 - HYPOTHYROIDISM, UNSPECIFIED Qualifiers: Hypothyroidism type: unspecified Qualified Code(s): E03.9 - Hypothyroidism, unspecified
--- NOTE | 2016-11-25 10:51 | PN ---
Progress Note, Physician History of Present Illness: Abd wall tenderness slowly improving, Hgb stable post transfusion last 3 days. - Current Medication List Current Medications: Active Medications Acetaminophen (Tylenol -) 650 mg PO Q6H PRN PRN Reason: FEVER OR PAIN Atorvastatin Calcium (Lipitor -) 10 mg PO HS [facility] Last Admin: 11/24/16 21:15 Dose: 10 mg Digoxin (Lanoxin -) 0.125 mg PO DAILY [facility] Last Admin: 11/24/16 10:29 Dose: 0.125 mg Docusate Sodium (Colace -) 100 mg PO DAILY [facility] Last Admin: 11/24/16 10:29 Dose: 100 mg Ferrous Sulfate (Feosol -) 325 mg PO BID [facility] Last Admin: 11/24/16 21:15 Dose: 325 mg Furosemide (Lasix -) 20 mg PO DAILY [facility] Last Admin: 11/24/16 12:44 Dose: 20 mg Levothyroxine Sodium (Synthroid -) 125 mcg PO DAILY@0700 [facility] Last Admin: 11/25/16 06:13 Dose: 125 mcg Melatonin (Melatonin) 5 mg PO HS PRN PRN Reason: INSOMNIA Last Admin: 11/22/16 22:37 Dose: 5 mg Metoprolol Succinate (Toprol Xl -) 25 mg PO BID [facility] Last Admin: 11/24/16 21:15 Dose: 25 mg Quinapril HCl (Accupril -) 10 mg PO DAILY [facility] Last Admin: 11/24/16 12:45 Dose: 10 mg Sertraline HCl (Zoloft -) 100 mg PO DAILY [facility] Last Admin: 11/24/16 10:29 Dose: 100 mg Spironolactone (Aldactone -) 25 mg PO DAILY [facility] Last Admin: 11/24/16 12:44 Dose: 25 mg - Objective Vital Signs: Vital Signs Temperature 97.6 F 11/25/16 06:30 Pulse Rate 72 11/25/16 06:30 Respiratory Rate 20 11/25/16 06:30 Blood Pressure 118/56 11/25/16 06:30 O2 Sat by Pulse Oximetry (%) 95 11/24/16 21:00 Constitutional: Yes: No Distress, Calm Neck: Yes: Supple Cardiovascular: Yes: Regular Rate and Rhythm, Murmur (2/6 SM) Respiratory: Yes: Regular, Diminished, On Nasal O2 Gastrointestinal: Yes: Normal Bowel Sounds, Soft, Tenderness Edema: No Labs: CBC, BMP 11/24/16 06:45 11/24/16 06:45 INR, PTT INR 1.27 (0.82-1.09) H D 11/21/16 06:10 Problem List - Problems (1) Abdominal wall hematoma Code(s): S30.1XXA - CONTUSION OF ABDOMINAL WALL, INITIAL ENCOUNTER Qualifiers : Encounter type: initial encounter Qualified Code(s): S30.1XXA - Contusion of abdominal wall, initial encounter (2) A-fib Code(s): I48.91 - UNSPECIFIED ATRIAL FIBRILLATION Qualifiers: Atrial fibrillation type: permanent Qualified Code(s): I48.2 - Chronic atrial fibrillation (3) CAD (coronary artery disease) Code(s): I25.10 - ATHSCL HEART DISEASE OF [place] CORONARY ARTERY W/O ANG PCTRS Qualifiers: Coronary Disease-Associated Artery/Lesion type: [place] artery [place] vs. transplanted heart: [place] heart Associated angina: without angina Qualified Code(s): I25.10 - Atherosclerotic heart disease of [place] coronary artery without angina pectoris (4) COPD (chronic obstructive pulmonary disease) Code(s): J44.9 - CHRONIC OBSTRUCTIVE PULMONARY DISEASE, UNSPECIFIED Qualifiers : COPD type: unspecified COPD Qualified Code(s): J44.9 - Chronic obstructive pulmonary disease, unspecified (5) Diastolic dysfunction without heart failure Code(s): I51.9 - HEART DISEASE, UNSPECIFIED (6) Hypercholesteremia Code(s): E78.0 - PURE HYPERCHOLESTEROLEMIA * DO NOT USE * (7) Hypertension Code(s): I10 - ESSENTIAL (PRIMARY) HYPERTENSION Qualifiers: Hypertension type: essential hypertension Qualified Code(s): I10 - Essential (primary) hypertension (8) Hypothyroid Code(s): E03.9 - HYPOTHYROIDISM, UNSPECIFIED Qualifiers: Hypothyroidism type: unspecified Qualified Code(s): E03.9 - Hypothyroidism, unspecified (9) Pacemaker Code(s): Z95.0 - PRESENCE OF CARDIAC PACEMAKER (10) Sick sinus syndrome Code(s): I49.5 - SICK SINUS SYNDROME (11) Anemia Code(s): D64.9 - ANEMIA, UNSPECIFIED Qualifiers: Anemia type: unspecified type Qualified Code(s): D64.9 - Anemia, unspecified Assessment/Plan Transthoracic echocardiography: Low normal LV fxn, mod-severe dilated and decreased RV fxn, severe VICENTA, mild-mod MR, severe TR, RVSP 40-50 mmHg 1. Large right rectus sheath hematoma 2. 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 CAD, angina pectoris, stable 4. Sick sinus syndrome post PPM 5. Permanent atrial fibrillation [id number] score of 6 off of A/C 6. 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 HTN 8. Hypercholesterolemia 9. Hypothyroidism 10. Hematuria since resolved 11. Anemia related to the above presentation with stable Hgb post-transfusion PLAN: 1. Continue Lasix 20 qd and Aldactone 25 qd with close monitoring of renal function, provided hemodynamic stability and renal function stabilization 2. Continue Accupril 10 qd with close monitoring of renal function and electrolytes 3. Continue Toprol XL 25 bid 4. Continue Digoxin 0.125 qd with close monitoring of level 5. Continue Lipitor 10 qhs 6. Start Eliquis 5 bid now that Hgb stable and hemostasis achieved
[2016-11-25] MEDS ORDERED: PT OWN MED DRAWER 7, Y5N ONE ×3 (11:50→21:20)
[2016-11-25] MEDS: QUINAPRIL HCL 10 MG TABLET (FP) PO SCH (11:53)
[2016-11-25] MEDS: DOCUSATE SODIUM 100 MG CAPSULE (FP) PO SCH (11:53)
[2016-11-25] MEDS: SERTRALINE HCL 50 MG TABLET (FP) PO SCH (11:54)
[2016-11-25] MEDS: DIGOXIN 0.125 MG TABLET (FP) PO SCH (11:54)
[2016-11-25] MEDS: FERROUS SO4 325 MG TABLET (FP) PO SCH ×2 (11:54→21:13)
[2016-11-25] MEDS: SPIRONOLACTONE 25 MG TABLET (FP) PO SCH (11:54)
[2016-11-25] MEDS: FUROSEMIDE 20 MG TABLET (FP) PO SCH (11:55)
[2016-11-25] MEDS: METOPROLOL SUCCINATE 25 MG TAB.SR.24H (FP) PO SCH ×2 (14:07→21:13)
[2016-11-25] MEDS: APIXABAN 5 MG TABLET PO SCH ×2 (14:07→21:13)
[2016-11-25] MEDS: ATORVASTATIN CA 10 MG TABLET (FP) PO SCH (21:13)
[2016-11-26] MEDS: LEVOTHYROXINE NA 125 MCG TABLET (FP) PO SCH (06:50)
--- NOTE | 2016-11-26 10:34 | DS ---
Physical Examination Vital Signs: Vital Signs Temperature 98.2 F 11/26/16 07:30 Pulse Rate 73 11/26/16 07:30 Respiratory Rate 20 11/26/16 07:30 Blood Pressure 114/64 11/26/16 07:30 O2 Sat by Pulse Oximetry (%) 96 11/25/16 21:00 Constitutional: Yes: Calm, Other (UNGA) Cardiovascular: Yes: Pulse Irregular, S1, S2 Respiratory: Yes: CTA Bilaterally (scattred wheeze) Gastrointestinal: Yes: Soft, Other (firm mass tender to touch) Extremities: Yes: Other (chornic pigmentation of legs) Edema: Yes Neurological: Yes: Alert, Oriented Labs: CBC, BMP 11/24/16 06:45 11/24/16 06:45 Discharge Summary Reason For Visit: ABDOMINAL WALL HEMATOMA Current Active Problems Abdominal wall hematoma (Acute) Hematuria (Acute) Hospital Course: PCP: Anthony Anderson - Admission Chief Complaint: sent for abdominal pain History of Present Illness: The patient is a 89 year old female, with a significant past medical history of chronic venous stasis dermatitis, hypertension, AFib (on coumadin), hyperlipidemia, COPD, CHF, skin cancer, and anemia, who presents to the emergency department from [facility] for abdominal pain near the lovenox injection site she used yesterday. As per detention report, the patient was found to have abdominal pain with guarding to RLQ. The patient denies radiation of pain. She denies abdominal burning. She denies vomiting. She denies chest pain, shortness of breath, headache and dizziness. She denies fever, chills, diarrhea and constipation. She denies dysuria, frequency, urgency and hematuria. Allergies: penicillins Social history: denies toxic habits PCP - Dr. Anderson ct scan of abdomen showed large rectus sheath hematoma frop in h/h got prbc stop coumadin warm comress to hematoma to resolve slowly now restarted eliquis monitod h/h on aldactone and qunipril monitor K levels to go back to [place] Condition: Stable - Instructions Diet, Activity, Other Instructions: check weekly CBC and digoxin level warm compress to abdominal hematoma three times a day for 10 min and monitor for increase in size or discoloration twice a week check BMP to see potassium level Referrals: Anthony Anderson MD [Primary Care Provider] - Disposition: INTERMEDIATE FACILITY - Home Medications Comprehensive Discharge Medication List: Ambulatory Orders Atorvastatin Ca [Lipitor] 10 mg PO HS tablet 04/19/16 Digoxin [Lanoxin -] 125 mcg PO DAILY 09/11/16 Furosemide [Lasix -] 40 mg PO DAILY 09/11/16 Spironolactone [Aldactone -] 25 mg PO DAILY 09/11/16 Quinapril HCl [Accupril -] 40 mg PO DAILY 10/10/16 Acetaminophen [Tylenol .Regular Strength -] 650 mg PO Q6H PRN #0 tablet Furosemide [Lasix -] 40 mg PO DAILY tablet 10/13/16 Levothyroxine [Synthroid -] 125 mcg PO DAILY@0700 tablet 10/13/16 Melatonin 5 mg PO HS PRN #0 tab 10/13/16 Oxycodone HCl [Roxicodone -] 5 mg PO Q6H PRN #0 tablet MDD 4 10/13/16 Spironolactone [Aldactone -] 25 mg PO DAILY tablet 10/13/16 Warfarin Na [Coumadin -] 2 mg PO DAILY@1800 #0 10/13/16 Albuterol 0.083% Nebulizer Cris 2.5 mg TID 11/19/16 Docusate Sodium 100 mg PO BID 11/19/16 Ferrous Sulfate 325 mg PO BID 11/19/16 Metoprolol Succinate [Toprol XL -] 25 mg PO BID 11/19/16 Sertraline HCl [Zoloft -] 100 mg PO AM 11/19/16
[2016-11-26] MEDS ORDERED: PT OWN MED DRAWER 7, Y5N ONE (10:51)
[2016-11-26] MEDS: SERTRALINE HCL 50 MG TABLET (FP) PO SCH (11:00)
[2016-11-26] MEDS: METOPROLOL SUCCINATE 25 MG TAB.SR.24H (FP) PO SCH (11:00)
[2016-11-26] MEDS: FERROUS SO4 325 MG TABLET (FP) PO SCH (11:00)
[2016-11-26] MEDS: DOCUSATE SODIUM 100 MG CAPSULE (FP) PO SCH (11:00)
[2016-11-26] MEDS: APIXABAN 5 MG TABLET PO SCH (11:00)
[2016-11-26] MEDS: FUROSEMIDE 20 MG TABLET (FP) PO SCH (11:01)
[2016-11-26] MEDS: DIGOXIN 0.125 MG TABLET (FP) PO SCH (11:01)
[2016-11-26] MEDS: SPIRONOLACTONE 25 MG TABLET (FP) PO SCH (11:01)
[2016-11-26] MEDS: QUINAPRIL HCL 10 MG TABLET (FP) PO SCH (11:01)
[2016-11-26 11:02] VITALS: PULSE 62
[2016-11-26 15:14] VITALS: BP 121/68; TEMP 98.6
--- NOTE | 2016-11-26 16:46 | PN ---
Progress Note, Physician Chief Complaint: Not in distress History of Present Illness: Patient was seen and examined. Awake and alert. Chart was reviewed Denies chest pain, SOB or palpitations Abdominal wall hematoma appears less - Objective Vital Signs: Vital Signs Temperature 98.6 F 11/26/16 09:00 Pulse Rate 62 11/26/16 11:01 Respiratory Rate 18 11/26/16 09:00 Blood Pressure 121/68 11/26/16 09:00 O2 Sat by Pulse Oximetry (%) 96 11/26/16 09:00 Cardiovascular: Yes: Regular Rate and Rhythm, Murmur (2/6 SM), S1, S2 Respiratory: Yes: Diminished Gastrointestinal: Yes: Normal Bowel Sounds, Distention Edema: No Problem List - Problems (1) Abdominal wall hematoma Code(s): S30.1XXA - CONTUSION OF ABDOMINAL WALL, INITIAL ENCOUNTER Qualifiers : Encounter type: initial encounter Qualified Code(s): S30.1XXA - Contusion of abdominal wall, initial encounter (2) A-fib Code(s): I48.91 - UNSPECIFIED ATRIAL FIBRILLATION Qualifiers: Atrial fibrillation type: permanent Qualified Code(s): I48.2 - Chronic atrial fibrillation (3) Acute on chronic diastolic (congestive) heart failure Code(s): I50.33 - ACUTE ON CHRONIC DIASTOLIC (CONGESTIVE) HEART FAILURE (4) CAD (coronary artery disease) Code(s): I25.10 - ATHSCL HEART DISEASE OF [place] CORONARY ARTERY W/O ANG PCTRS Qualifiers: Coronary Disease-Associated Artery/Lesion type: [place] artery [place] vs. transplanted heart: [place] heart Associated angina: without angina Qualified Code(s): I25.10 - Atherosclerotic heart disease of [place] coronary artery without angina pectoris (5) COPD (chronic obstructive pulmonary disease) Code(s): J44.9 - CHRONIC OBSTRUCTIVE PULMONARY DISEASE, UNSPECIFIED Qualifiers : COPD type: unspecified COPD Qualified Code(s): J44.9 - Chronic obstructive pulmonary disease, unspecified (6) Diastolic dysfunction without heart failure Code(s): I51.9 - HEART DISEASE, UNSPECIFIED (7) Hypercholesteremia Code(s): E78.0 - PURE HYPERCHOLESTEROLEMIA * DO NOT USE * (8) Hypertension Code(s): I10 - ESSENTIAL (PRIMARY) HYPERTENSION Qualifiers: Hypertension type: essential hypertension Qualified Code(s): I10 - Essential (primary) hypertension (9) Hypothyroid Code(s): E03.9 - HYPOTHYROIDISM, UNSPECIFIED Qualifiers: Hypothyroidism type: unspecified Qualified Code(s): E03.9 - Hypothyroidism, unspecified (10) Pacemaker Code(s): Z95.0 - PRESENCE OF CARDIAC PACEMAKER (11) Sick sinus syndrome Code(s): I49.5 - SICK SINUS SYNDROME (12) Skin cancer Code(s): C44.90 - UNSPECIFIED MALIGNANT NEOPLASM OF SKIN, UNSPECIFIED Assessment/Plan 1. Large abdominal wall hematoma - resolving 2. Permanent atrial fibrillation [id number] score of 6 on A/C 3. Anemia with decrease in H/H 4. Sick sinus syndrome s/p PPM 5. Hypertension 6. Hypercholesterolemia 7. History of LV diastolic dysfunction with failure 8. COPD 9. Hypothyroidism PLAN: 1. Added Eliquis as per Dr. Castano's note 2. Continue Metoprolol, Accupril, Atorvastatin, Furosemide and Spironolactone as tolerated Discharge planning Further plans are to follow Hi Lucas MD
== END 2016-11-26 13:42 | DRG 813 ==
LOC: JER 23:10 → JERBED 11-19 04:23 → UNDOADMIN 11-19 04:39 → JERBED 11-19 04:39 → J8W 11-19 07:05
PROVIDERS: ADMIT Family Medicine; ATTEND Family Medicine
PROC: 30233L1 Transfusion of Nonautologous Fresh Plasma into Peripheral Vein, Percutaneous Approach (ICD-10-PCS; principal; 2016-11-19)
PROC: 30233N1 Transfusion of Nonautologous Red Blood Cells into Peripheral Vein, Percutaneous Approach (ICD-10-PCS; 2016-11-19)
PROC: 30233K1 Transfusion of Nonautologous Frozen Plasma into Peripheral Vein, Percutaneous Approach (ICD-10-PCS; 2016-11-19)
DX: D68.32 Hemorrhagic disorder due to extrinsic circulating anticoagulants (principal); I50.32 Chronic diastolic (congestive) heart failure; N17.9 Acute kidney failure, unspecified; Z79.01 Long term (current) use of anticoagulants; E78.5 Hyperlipidemia, unspecified; J44.9 Chronic obstructive pulmonary disease, unspecified; D64.9 Anemia, unspecified; I11.0 Hypertensive heart disease with heart failure; I87.2 Venous insufficiency (chronic) (peripheral); Z88.0 Allergy status to penicillin; I27.2 Other secondary pulmonary hypertension; I25.10 Atherosclerotic heart disease of native coronary artery without angina pectoris; E03.9 Hypothyroidism, unspecified; I48.2 Chronic atrial fibrillation; Z95.0 Presence of cardiac pacemaker; F03.90 Unspecified dementia, unspecified severity, without behavioral disturbance, psychotic disturbance, mood disturbance, and anxiety; R31.0 Gross hematuria; E86.0 Dehydration; E86.1 Hypovolemia; E87.5 Hyperkalemia
CPT/HCPCS: 36415; 36430; 71010-TC; 74176-TC; 80048; 80053; 80162; 81003; 81015; 82550; 83690; 83735; 84443; 84484; 85025; 85027; 85610; 86850; 86900; 86901; 86922; 87040; 93005; 93010; 93306-TC; 99283-25; J3480; P9017; P9038; P9058; Q9967

== ENCOUNTER 2017-01-22 23:40 | Inpatient (IN) | payer OTHER, MEDICARE ==
--- NOTE | 2017-01-23 00:27 | PDOC ---
History of Present Illness - General History Source: [facility] <Dwayne Richter - Last Filed: 01/23/17 02:49> - General History Source: Patient, [facility] Exam Limitations: No Limitations - History of Present Illness Initial Comments: 01/23/17 00:39 The patient is a 89 year old female with significant past medical history of a- fib, hypertension, hyperlipidemia, CHF, CAD, s/p ppm with sick sinus syndrome, COPD, skin cancer, and anemia who presents to the ED [facility] from [facility] for respiratory distress prior to arrival. As per [place] notes, patients pulse ox was 86-91. Reported SOB and possible fever. During triage, patients temp is 98. Patient is coughing during presentation. Patient denies lightheadedness, diaphoresis, chest pain, jaw pain, shoulder pain, arm pain, nausea, or vomiting. She also denies chills, abdominal pain, and diarrhea. Allergies: penicillin Social History: No alcohol, tobacco, or drug use reported. Past Surgical History: total hysterectomy, pacemaker, tonsillectomy PCP:Dr. Anthony Anderson GI: Dr. Mike Avila <Maria E Jaime - Last Filed: 01/23/17 03:16> - General Chief Complaint: Shortness of Breath Stated Complaint: SHORTNESS OF BREATH, FEVER Time Seen by Provider: 01/23/17 00:27 Past History - Past Medical History Anemia: Yes Cancer: Yes (SKIN CANCER) Cardiac Disorders: Yes (CHF ASHD,A FIB) COPD: Yes CHF: Yes HTN: Yes Hypercholesterolemia: Yes Thyroid Disease: Yes - Surgical History Abdominal Surgery: Yes (total hysterectomy) Cardiac Surgery: Yes (PACEMAKER) - Psycho/Social/Smoking Cessation Hx Anxiety: No Suicidal Ideation: No Smoking Status: No Smoking History: Never smoked Have you smoked in the past 12 months: No Number of Cigarettes Smoked Daily: 0 Information on smoking cessation initiated: No Hx Alcohol Use: No Drug/Substance Use Hx: No Substance Use Type: None Hx Substance Use Treatment: No <Dwayne Richter - Last Filed: 01/23/17 02:49> <Maria E Jaime - Last Filed: 01/23/17 03:16> - Past Medical History Allergies/Adverse Reactions: Allergies Allergy/AdvReac Type Severity Reaction Status Date / Time Penicillins Allergy Unknown Verified 01/23/17 00:17 mushrooms Allergy Uncoded 01/23/17 00:17 Home Medications: Ambulatory Orders Atorvastatin Ca [Lipitor] 10 mg PO HS tablet 04/19/16 Digoxin [Lanoxin -] 125 mcg PO DAILY 09/11/16 Spironolactone [Aldactone -] 25 mg PO DAILY 09/11/16 Acetaminophen [Tylenol .Regular Strength -] 650 mg PO Q6H PRN #0 tablet Furosemide [Lasix -] 40 mg PO DAILY tablet 10/13/16 Levothyroxine [Synthroid -] 125 mcg PO DAILY@0700 tablet 10/13/16 Melatonin 5 mg PO HS PRN #0 tab 10/13/16 Oxycodone HCl [Roxicodone -] 5 mg PO Q6H PRN #0 tablet MDD 4 10/13/16 Spironolactone [Aldactone -] 25 mg PO DAILY tablet 10/13/16 Albuterol 0.083% Nebulizer Cris 2.5 mg TID 11/19/16 Docusate Sodium 100 mg PO BID 11/19/16 Ferrous Sulfate 325 mg PO BID 11/19/16 Metoprolol Succinate [Toprol XL -] 25 mg PO BID 11/19/16 Sertraline HCl [Zoloft -] 100 mg PO AM 11/19/16 Apixaban [Eliquis -] 5 mg PO BID #10 tablet 11/26/16 Furosemide [Lasix -] 20 mg PO DAILY #60 tablet MDD 1 11/26/16 Quinapril HCl [Accupril -] 10 mg PO DAILY #30 tablet MDD 1 11/26/16 Review of Systems - Review of Systems Able to Perform ROS?: Yes Comments:: 01/23/17 00:39 CONSTITUTIONAL: +possible fever Absent: chills, diaphoresis, generalized weakness, malaise, loss of appetite HEENT: Absent: rhinorrhea, nasal congestion, throat pain, throat swelling, difficulty swallowing, mouth swelling, ear pain, eye pain, visual Changes CARDIOVASCULAR: Absent: chest pain, syncope, palpitations, irregular heart rate, lightheadedness , peripheral edema RESPIRATORY: +SOB, cough, Absent: dyspnea with exertion, orthopnea, wheezing, stridor, hemoptysis GASTROINTESTINAL: Absent: abdominal pain, abdominal distension, nausea, vomiting, diarrhea, constipation, melena, hematochezia GENITOURINARY: Absent: dysuria, frequency, urgency, hesitancy, hematuria, flank pain, genital pain MUSCULOSKELETAL: Absent: myalgia, arthralgia, joint swelling SKIN: Absent: rash, itching, pallor NEUROLOGIC: Absent: headache, focal weakness or paresthesias, dizziness, unsteady gait, seizure, mental status changes, bladder or bowel incontinence <Maria E Jaime - Last Filed: 01/23/17 03:16> *Physical Exam - Vital Signs Last Vital Signs Temp Pulse Resp BP Pulse Ox 98.3 F 64 131/67 01/23/17 00:18 01/23/17 00:18 01/23/17 00:18 <Dwayne Richter - Last Filed: 01/23/17 02:49> - Vital Signs Last Vital Signs Temp Pulse Resp BP Pulse Ox 98.3 F 64 131/67 01/23/17 00:18 01/23/17 00:18 01/23/17 00:18 - Physical Exam Comments: 01/23/17 00:39 GENERAL: Well developed, well nourished. Awake and alert. No acute distress. HEENT: Normocephalic, atraumatic. PERRLA, EOMI. No conjunctival pallor. Sclera are non- icteric. Moist mucous membranes. Oropharynx is clear. NECK: Supple. Full ROM. No JVD. Carotid pulses 2+ and symmetric, without bruits. No thyromegaly. No lymphadenopathy. CARDIOVASCULAR: Regular rate and rhythm. No murmurs, rubs, or gallops. Distal pulses are 2+ and symmetric. PULMONARY: Mild respiratory distress. Tachypneic. Coarse bilateral wheezing and rhonchi. Mild abdominal retractions. Mild supraclavicular retractions. Conversational dyspnea. Currently on 2L of O2. ABDOMINAL: Soft. Non-tender. Non-distended. No rebound or guarding. No organomegaly. Normoactive bowel sounds. MUSCULOSKELETAL Normal range of motion at all joints. No bony deformities or tenderness. No CVA tenderness. EXTREMITIES: No cyanosis. No clubbing. No edema. No calf tenderness. SKIN: Warm and dry. Normal capillary refill. No rashes. No jaundice. NEUROLOGICAL: Alert, awake, appropriate. Cranial nerves 2-12 intact. Moving all extremities. No gross neurological deficits. <Maria E Jaime - Last Filed: 01/23/17 03:16> Heart Score/ECG Review - ECG Impressions Comment:: 01/23/17 03:16 Ventricular-paced rhythm @66bpm Abnormal ECG <Maria E Jaime - Last Filed: 01/23/17 03:16> ED Treatment Course - LABORATORY CBC & Chemistry Diagram: 01/23/17 01:16 01/23/17 01:16 <Dwayne Richter - Last Filed: 01/23/17 02:49> - LABORATORY CBC & Chemistry Diagram: 01/23/17 01:16 01/23/17 01:16 <Maria E Jaime - Last Filed: 01/23/17 03:16> Medical Decision Making - Medical Decision Making 01/23/17 02:50 Dr. Richter: The scribe's documentation has been prepared under my direction and personally reviewed by me in its entirery. I confirm that the note above accurately reflects all work, treatment, procedures, and medical decision making performed by me. <Dwayne Richter - Last Filed: 01/23/17 02:49> - Medical Decision Making 01/23/17 02:46 Patient's case discussed with Dr. Sayda Espinoza <Maria E Jaime - Last Filed: 01/23/17 03:16> *DC/Admit/Observation/Transfer - Discharge Dispostion Admit: Yes <Dwayne Richter - Last Filed: 01/23/17 02:49> - Attestations Scribe Attestion: 01/23/17 00:39 Documentation prepared by Maria E Jaime, acting as medical numerical control operator for Dwayne Richter MD/DO. <Maria E Jaime - Last Filed: 01/23/17 03:16> Diagnosis at time of Disposition: CHF (congestive heart failure), Edema, CAD (coronary artery disease) - Referrals Referrals: Anthony Anderson MD [Primary Care Provider] -
[2017-01-23] MEDS ORDERED: methylPREDNISolone NA SUCC 125 MG/2 ML VIAL IVPB ONE (00:31)
[2017-01-23] MEDS ORDERED: MAGNESIUM SULF 50% (8.12 MEQ/2 ML-1 GM VIAL) IVPB ONE (00:31)
[2017-01-23] MEDS ORDERED: ALBUTEROL SO4 2.5/IPRATROPIUM 0.5 INH SOL 3 ML VIAL.NEB. NEB STA (00:31)
[2017-01-23] MEDS ORDERED: MAGNESIUM SULF 50% (8.12 MEQ/2 ML-1 GM VIAL) ONE (00:51)
[2017-01-23] MEDS ORDERED: ALBUTEROL SO4 2.5/IPRATROPIUM 0.5 INH SOL 3 ML VIAL.NEB. NEB ONE (00:52)
[2017-01-23] MEDS ORDERED: methylPREDNISolone NA SUCC 125 MG/2 ML VIAL ONE (00:52)
[2017-01-23 01:25] LABS: BASOPHIL 0.8 % (0-2.0); EOSINOPHIL 0.6 % (0-4.5); MCH 32.2 pg (25.7-33.7); MCHC 32.7 g/dl (32.0-36.0); MEAN CELL VOLUME 98.6 fl (80-96); MEAN PLT VOLUME 8.1 fl (7.5-11.1); NEUTROPHILS 83.2 % (42.8-82.8); PLATELET COUNT 175 K/MM3 (134-434); RDW 16.7 % (11.6-15.6); WHITE BLOOD COUNT 10.2 K/mm3 (4.0-10.0)
[2017-01-23 01:42] LABS: INR 2.54 (0.82-1.09); PROTHROMBIN TIME (PATIENT) 28.5 SEC (9.98-11.88)
[2017-01-23 01:52] LABS: ALBUMIN 4.1 g/dl (3.4-5.0); ANION GAP 8 (8-16); BILIRUBIN,TOTAL 1.7 mg/dL (0.2-1.0); CALCIUM 8.7 mg/dL (8.5-10.1); CO2 38 mmol/L (21-32); CREATININE 0.6 mg/dL (0.55-1.02); GLUCOSE,RANDOM 98 mg/dL (74-106); MAGNESIUM 1.8 mg/dL (1.8-2.4); SGOT/AST 19 U/L (15-37); SGPT/ALT 19 U/L (12-78); TOT PROT 7.6 g/dl (6.4-8.2)
[2017-01-23 01:55] LABS: ALK PHOS 217 U/L (45-117)
[2017-01-23] MEDS ORDERED: FUROSEMIDE 40 MG/4 ML INJECTABLE VIAL IVPUSH ONE ×2 (02:08→14:00)
[2017-01-23 02:41] LABS: TROPONIN I < 0.02 ng/ml (0.00-0.05)
[2017-01-23] MEDS ORDERED: FUROSEMIDE 40 MG/4 ML INJECTABLE VIAL ONE (03:09)
[2017-01-23 05:18] VITALS: BMI 25.4
[2017-01-23] MEDS: SERTRALINE HCL 50 MG TABLET (FP) PO SCH (09:33)
[2017-01-23] MEDS: DIGOXIN 0.125 MG TABLET (FP) PO SCH (09:33)
[2017-01-23] MEDS: FUROSEMIDE 40 MG TABLET (FP) PO SCH (09:33)
[2017-01-23] MEDS: METOPROLOL SUCCINATE 25 MG TAB.SR.24H (FP) PO SCH ×3 (09:33→23:07)
[2017-01-23] MEDS: SPIRONOLACTONE 25 MG TABLET (FP) PO SCH (09:33)
[2017-01-23] MEDS: FERROUS SO4 325 MG TABLET (FP) PO SCH (09:33)
[2017-01-23] MEDS: APIXABAN 5 MG TABLET PO SCH ×3 (09:33→23:08)
[2017-01-23] MEDS ORDERED: PT OWN MED DRAWER 7, Y5N ONE (09:35)
--- NOTE | 2017-01-23 10:43 | CON.CARD ---
Consult Consult Specialty:: Cardiology Referred by:: Anthony Anderson MD Reason for Consultation:: Dyspnea, acute hypoxic respiratory failure - History of Present Illness Chief Complaint: Dyspnea, acute hypoxic respiratory failure History of Present Illness: Patient is an 89 year old female with underlying history of CAD, angina pectoris , LV diastolic dysfunction with history of failure, permanent atrial fibrillation on Coumadin, sick sinus syndrome S/P PPM with previous generator change, HTN, hypercholesterolemia, COPD, skin cancer, anemia and hypothyroidism who presented to [facility] from [facility] for dyspnea, cough and acute hypoxic respiratory failure patients pulse ox was 86-91, she denies associated chest tightness, near or true syncope, palpitations, orthopnea, PND or LE edema. Allergies: penicillin Social History: No alcohol, tobacco, or drug use reported. Past Surgical History: total hysterectomy, pacemaker, tonsillectomy PCP:Dr. Anthony Anderson GI: Dr. 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 Cardio/Vascular: Yes: AFIB, CAD, CHF, HTN, Hyperlipdemia, Pulmonary Hypertension , Other (PPM with sick sinus syndrome) Pulmonary: Yes: COPD Gastrointestinal: Yes: GERD Musculoskeletal: Yes: Other (left foot drop) Endocrine: Yes: Hypothyroidism - Past Surgical History Past Surgical History: Yes: Hysterectomy, Permanent Pacemaker, Tonsillectomy - Alcohol/Substance Use Hx Alcohol Use: No - Smoking History Smoking history: Never smoked Have you smoked in the past 12 months: No Aproximately how many cigarettes per day: 0 - Social History Usual Living Arrangement: Alone ADL: Support Services History of Recent Travel: No Home Medications - Allergies Allergies/Adverse Reactions: Allergies Allergy/AdvReac Type Severity Reaction Status Date / Time Penicillins Allergy Unknown Verified 01/23/17 00:17 mushrooms Allergy Uncoded 01/23/17 00:17 - Home Medications Home Medications: Ambulatory Orders Atorvastatin Ca [Lipitor] 10 mg PO HS tablet 04/19/16 Digoxin [Lanoxin -] 125 mcg PO DAILY 09/11/16 Spironolactone [Aldactone -] 25 mg PO DAILY 09/11/16 Acetaminophen [Tylenol .Regular Strength -] 650 mg PO Q6H PRN #0 tablet Furosemide [Lasix -] 40 mg PO DAILY tablet 10/13/16 Levothyroxine [Synthroid -] 125 mcg PO DAILY@0700 tablet 10/13/16 Melatonin 5 mg PO HS PRN #0 tab 10/13/16 Oxycodone HCl [Roxicodone -] 5 mg PO Q6H PRN #0 tablet MDD 4 10/13/16 Spironolactone [Aldactone -] 25 mg PO DAILY tablet 10/13/16 Albuterol 0.083% Nebulizer Cris 2.5 mg TID 11/19/16 Docusate Sodium 100 mg PO BID 11/19/16 Ferrous Sulfate 325 mg PO BID 11/19/16 Metoprolol Succinate [Toprol XL -] 25 mg PO BID 11/19/16 Sertraline HCl [Zoloft -] 100 mg PO AM 11/19/16 Apixaban [Eliquis -] 5 mg PO BID #10 tablet 11/26/16 Furosemide [Lasix -] 20 mg PO DAILY #60 tablet MDD 1 11/26/16 Quinapril HCl [Accupril -] 10 mg PO DAILY #30 tablet MDD 1 11/26/16 Review of Systems - Review of Systems Cardiovascular: reports: Shortness of Breath Vital Signs: Vital Signs Temperature 97.8 F 01/23/17 10:00 Pulse Rate 64 01/23/17 10:00 Respiratory Rate 18 01/23/17 10:00 Blood Pressure 112/64 01/23/17 10:00 O2 Sat by Pulse Oximetry (%) 93 L 01/23/17 09:47 Constitutional: Yes: No Distress, Calm Neck: Yes: Supple Respiratory: Yes: Regular, Diminished, On Nasal O2 Gastrointestinal: Yes: Normal Bowel Sounds, Soft Cardiovascular: Yes: Regular Rate and Rhythm JVD: No Carotid Bruit: No Heart Sounds: Yes: S1, S2 Murmur: Yes: Systolic Murmur, Grade 1 Edema: Yes Edema: LLE: Trace, RLE: Trace - Other Data Labs, Other Data: INR, PTT INR 2.54 (0.82-1.09) H D 01/23/17 01:16 v-paced @ 66 Ejection Fraction %: LVEF > or = 40 % Imaging - Results Chest X-ray: Report Reviewed (NAD) Problem List - Problems (1) CAD (coronary artery disease) Code(s): I25.10 - ATHSCL HEART DISEASE OF [place] CORONARY ARTERY W/O ANG PCTRS Qualifiers: Coronary Disease-Associated Artery/Lesion type: [place] artery [place] vs. transplanted heart: [place] heart Associated angina: without angina Qualified Code(s): I25.10 - Atherosclerotic heart disease of [place] coronary artery without angina pectoris (2) CHF (congestive heart failure) Code(s): I50.9 - HEART FAILURE, UNSPECIFIED Qualifiers: Congestive heart failure type: diastolic Congestive heart failure chronicity: acute on chronic Qualified Code(s): I50.33 - Acute on chronic diastolic (congestive) heart failure (3) A-fib Code(s): I48.91 - UNSPECIFIED ATRIAL FIBRILLATION Qualifiers: Atrial fibrillation type: permanent Qualified Code(s): I48.2 - Chronic atrial fibrillation (4) Acute on chronic diastolic (congestive) heart failure Code(s): I50.33 - ACUTE ON CHRONIC DIASTOLIC (CONGESTIVE) HEART FAILURE (5) Hypercholesteremia Code(s): E78.0 - PURE HYPERCHOLESTEROLEMIA * DO NOT USE * (6) Hypertension Code(s): I10 - ESSENTIAL (PRIMARY) HYPERTENSION Qualifiers: Hypertension type: essential hypertension Qualified Code(s): I10 - Essential (primary) hypertension (7) Hypothyroid Code(s): E03.9 - HYPOTHYROIDISM, UNSPECIFIED Qualifiers: Hypothyroidism type: unspecified Qualified Code(s): E03.9 - Hypothyroidism, unspecified (8) Pacemaker Code(s): Z95.0 - PRESENCE OF CARDIAC PACEMAKER (9) Pulmonary hypertension Code(s): I27.2 - OTHER SECONDARY PULMONARY HYPERTENSION Assessment/Plan Transthoracic echocardiography: 17 Low normal LV fxn, mod-severe dilated and decreased RV fxn, severe VICENTA, mild-mod MR, severe TR, RVSP 40-50 mmHg 1. Acute on chronic diastolic failure 2. CAD, angina pectoris, stable 3. Sick sinus syndrome post PPM 4. Permanent atrial fibrillation [id number] score of 6 on NOAC (h/o Lovenox- associated rectus sheath hematoma) 5. RV dysfunction with RV failure and pulmonary HTN 6. HTN 7. Hypercholesterolemia 8. Hypothyroidism PLAN: 1. Continue Lasix 40 qd and Aldactone 25 qd with close monitoring of renal function, replete K, check TSH 2. Continue Accupril 10 qd with close monitoring of renal function and electrolytes 3. Continue Toprol XL 25 bid 4. Continue Digoxin 0.125 qd with close monitoring of level 5. Continue Lipitor 10 qhs 6. Continue Eliquis 5 bid with monitor Hgb 7. Thank you for consultative opportunity
--- NOTE | 2017-01-23 11:20 | EKG ---
Test Reason : Blood Pressure : / mmHG Vent. Rate : 066 BPM Atrial Rate : 288 BPM P-R Int : 000 ms QRS Dur : 158 ms QT Int : 478 ms P-R-T Axes : 000 054 261 degrees QTc Int : 501 ms Ventricular-paced rhythm ABNORMAL ECG WHEN COMPARED WITH ECG OF 20-NOV-2016 09:21, VENT. RATE HAS DECREASED BY 19 BPM Confirmed by GIUSEPPE SWARTZ MD ([id number]) on 01/23/2017 11:19:47 AM Referred By: Confirmed By:GIUSEPPE SWARTZ MD
[2017-01-23] MEDS ORDERED: POTASSIUM CHLORIDE TABS 20 MEQ TABLET.ER (FP) PO ONE (12:00)
[2017-01-23] MEDS: QUINAPRIL HCL 10 MG TABLET (FP) PO SCH (12:34)
--- NOTE | 2017-01-23 12:54 | HP ---
Admitting History and Physical - Primary Care Physician PCP: Anthony Anderson - Admission Chief Complaint: sent in for SOB History of Present Illness: The patient is a 89 year old female with significant past medical history of a- fib, hypertension, hyperlipidemia, CHF, CAD, s/p ppm with sick sinus syndrome, COPD, skin cancer, and anemia who presents to the ED [facility] from [facility] for respiratory distress prior to arrival. As per [place] notes, patients pulse ox was 86-91. Reported SOB and possible fever. During triage, patients temp is 98. Patient is coughing during presentation. Patient denies lightheadedness, diaphoresis, chest pain, jaw pain, shoulder pain, arm pain, nausea, or vomiting. She also denies chills, abdominal pain, and diarrhea. at [place] last few days she got in po lasix doses bid for inc leg swelling and abdominal swelling, i tried to give iv lasix but patient pulled out iv line the leg swelling and abdominal swelling has decreased since i last saw her at [place] Allergies: penicillin Social History: No alcohol, tobacco, or drug use reported. 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 Cardiovascular: Yes: AFIB, CAD, CHF, HTN, Hyperlipdemia, Pulmonary Hypertension , Other (PPM with sick sinus syndrome) Pulmonary: Yes: COPD Gastrointestinal: Yes: GERD Musculoskeletal: Yes: Other (left foot drop) Endocrine: Yes: Hypothyroidism - Past Surgical History Past Surgical History: Yes: Hysterectomy, Permanent Pacemaker, Tonsillectomy - Smoking History Smoking history: Never smoked Have you smoked in the past 12 months: No Aproximately how many cigarettes per day: 0 - Alcohol/Substance Use Hx Alcohol Use: No - Social History ADL: Support Services History of Recent Travel: No Home Medications - Allergies Allergies/Adverse Reactions: Allergies Allergy/AdvReac Type Severity Reaction Status Date / Time Penicillins Allergy Unknown Verified 01/23/17 00:17 mushrooms Allergy Uncoded 01/23/17 00:17 - Home Medications Home Medications: Ambulatory Orders Atorvastatin Ca [Lipitor] 10 mg PO HS tablet 04/19/16 Digoxin [Lanoxin -] 125 mcg PO DAILY 09/11/16 Spironolactone [Aldactone -] 25 mg PO DAILY 09/11/16 Acetaminophen [Tylenol .Regular Strength -] 650 mg PO Q6H PRN #0 tablet Furosemide [Lasix -] 40 mg PO DAILY tablet 10/13/16 Levothyroxine [Synthroid -] 125 mcg PO DAILY@0700 tablet 10/13/16 Melatonin 5 mg PO HS PRN #0 tab 10/13/16 Oxycodone HCl [Roxicodone -] 5 mg PO Q6H PRN #0 tablet MDD 4 10/13/16 Spironolactone [Aldactone -] 25 mg PO DAILY tablet 10/13/16 Albuterol 0.083% Nebulizer Cris 2.5 mg TID 11/19/16 Docusate Sodium 100 mg PO BID 11/19/16 Ferrous Sulfate 325 mg PO BID 11/19/16 Metoprolol Succinate [Toprol XL -] 25 mg PO BID 11/19/16 Sertraline HCl [Zoloft -] 100 mg PO AM 11/19/16 Apixaban [Eliquis -] 5 mg PO BID #10 tablet 11/26/16 Furosemide [Lasix -] 20 mg PO DAILY #60 tablet MDD 1 11/26/16 Quinapril HCl [Accupril -] 10 mg PO DAILY #30 tablet MDD 1 11/26/16 Physical Examination Vital Signs: Vital Signs Temperature 97.8 F 01/23/17 10:00 Pulse Rate 64 01/23/17 10:00 Respiratory Rate 18 01/23/17 10:00 Blood Pressure 112/64 01/23/17 10:00 O2 Sat by Pulse Oximetry (%) 93 L 01/23/17 09:47 Constitutional: Yes: Calm Cardiovascular: Yes: Regular Rate and Rhythm, Pulse Irregular, S1, S2 Respiratory: Yes: Diminished, On Nasal O2 Gastrointestinal: Yes: Soft Edema: (decreaed leg edema) Neurological: Yes: Alert ([facility] responds to her name) Problem List - Problems (1) Hypoxia Assessment/Plan: appreicate cardio note will get pulm to see as well nasal oxygen conitnue current meds Code(s): R09.02 - HYPOXEMIA (2) CHF (congestive heart failure) Assessment/Plan: appreicate cardio note rosa continue current medication and monitor for hypoxia Code(s): I50.9 - HEART FAILURE, UNSPECIFIED Qualifiers: Congestive heart failure type: diastolic Congestive heart failure chronicity: acute on chronic Qualified Code(s): I50.33 - Acute on chronic diastolic (congestive) heart failure (3) A-fib Assessment/Plan: on eliquis BB tele Code(s): I48.91 - UNSPECIFIED ATRIAL FIBRILLATION Qualifiers: Atrial fibrillation type: permanent Qualified Code(s): I48.2 - Chronic atrial fibrillation (4) Hypothyroid Assessment/Plan: on sythroid Code(s): E03.9 - HYPOTHYROIDISM, UNSPECIFIED Qualifiers: Hypothyroidism type: unspecified Qualified Code(s): E03.9 - Hypothyroidism, unspecified
[2017-01-23] MEDS: DOCUSATE SODIUM 100 MG CAPSULE (FP) PO SCH (21:23)
[2017-01-23] MEDS: ACETAMINOPHEN 325 MG TABLET (FP) PO PRN (21:23)
[2017-01-23] MEDS: ATORVASTATIN CA 10 MG TABLET (FP) PO SCH ×2 (21:23→23:08)
[2017-01-24] MEDS: LEVOTHYROXINE NA 125 MCG TABLET (FP) PO SCH (06:06)
[2017-01-24 07:27] LABS: MCH 32.6 pg (25.7-33.7); MEAN CELL VOLUME 98.8 fl (80-96); PLATELET COUNT 183 K/MM3 (134-434); RDW 16.8 % (11.6-15.6); WHITE BLOOD COUNT 10.9 K/mm3 (4.0-10.0)
[2017-01-24] MEDS: ALBUTEROL SO4 2.5/IPRATROPIUM 0.5 INH SOL 3 ML VIAL.NEB. NEB PRN (07:37)
[2017-01-24 07:56] LABS: ALBUMIN 3.8 g/dl (3.4-5.0); ANION GAP 7 (8-16); CALCIUM 8.7 mg/dL (8.5-10.1); CO2 40 mmol/L (21-32); CREATININE 0.8 mg/dL (0.55-1.02); GLUCOSE,RANDOM 94 mg/dL (74-106); MAGNESIUM 2.1 mg/dL (1.8-2.4); SGOT/AST 18 U/L (15-37); SGPT/ALT 19 U/L (12-78)
[2017-01-24 08:00] LABS: ALK PHOS 194 U/L (45-117); BILIRUBIN,TOTAL 1.1 mg/dL (0.2-1.0); TOT PROT 6.9 g/dl (6.4-8.2)
[2017-01-24] MEDS ORDERED: methylPREDNISolone NA SUCC 125 MG/2 ML VIAL ONE (08:39)
[2017-01-24 09:16] LABS: THYROID STIMULATING HORMONE 2.73 uIU/ml (0.358-3.74)
[2017-01-24] MEDS ORDERED: PT OWN MED DRAWER 7, Y5N ONE ×2 (09:19→17:51)
[2017-01-24] MEDS: APIXABAN 5 MG TABLET PO SCH ×2 (09:22→21:07)
[2017-01-24] MEDS: DIGOXIN 0.125 MG TABLET (FP) PO SCH (09:22)
[2017-01-24] MEDS: FUROSEMIDE 40 MG TABLET (FP) PO SCH (09:22)
[2017-01-24] MEDS: SPIRONOLACTONE 25 MG TABLET (FP) PO SCH (09:22)
[2017-01-24] MEDS: METOPROLOL SUCCINATE 25 MG TAB.SR.24H (FP) PO SCH ×2 (09:23→21:09)
[2017-01-24] MEDS: SERTRALINE HCL 50 MG TABLET (FP) PO SCH (09:23)
[2017-01-24] MEDS: FERROUS SO4 325 MG TABLET (FP) PO SCH (09:23)
[2017-01-24] MEDS ORDERED: ALBUTEROL SO4 0.083% IH SOL 2.5 MG/3 ML VIAL.NEB. NEB PRN (09:34)
[2017-01-24] MEDS: methylPREDNISolone NA SUCC 125 MG/2 ML VIAL IVPB SCH ×2 (09:36→17:39)
[2017-01-24] MEDS: QUINAPRIL HCL 10 MG TABLET (FP) PO SCH (10:20)
--- NOTE | 2017-01-24 10:44 | PN ---
Progress Note, Physician History of Present Illness: Dyspnea and cough improving. - Current Medication List Current Medications: Active Medications Acetaminophen (Tylenol -) 650 mg PO Q6H PRN PRN Reason: FEVER OR PAIN Albuterol Sulfate (Ventolin 0.083% Nebulizer Soln -) 1 amp NEB Q6H PRN PRN Reason: SHORT OF BREATH/WHEEZING Last Admin: 01/24/17 09:40 Dose: 1 amp Albuterol/Ipratropium (Duoneb -) 1 amp NEB Q6H PRN PRN Reason: SHORTNESS OF BREATH Last Admin: 01/24/17 07:37 Dose: 1 amp Albuterol/Ipratropium (Duoneb -) 1 amp NEB QIDR LYNN Apixaban (Eliquis -) 5 mg PO BID [facility] Last Admin: 01/24/17 09:22 Dose: 5 mg Atorvastatin Calcium (Lipitor -) 10 mg PO HS [facility] Last Admin: 01/23/17 23:08 Dose: 10 mg Digoxin (Lanoxin -) 0.125 mg PO DAILY [facility] Last Admin: 01/24/17 09:22 Dose: 0.125 mg Docusate Sodium (Colace -) 300 mg PO HS [facility] Last Admin: 01/23/17 21:23 Dose: 300 mg Ferrous Sulfate (Feosol -) 325 mg PO DAILY [facility] Last Admin: 01/24/17 09:23 Dose: 325 mg Furosemide (Lasix -) 40 mg PO DAILY [facility] Last Admin: 01/24/17 09:22 Dose: 40 mg Levothyroxine Sodium (Synthroid -) 125 mcg PO DAILY@0700 [facility] Last Admin: 01/24/17 06:06 Dose: 125 mcg Melatonin (Melatonin) 5 mg PO HS PRN PRN Reason: INSOMNIA Methylprednisolone Sodium Succinate (Solu-Medrol -) 60 mg IVPB Q8H-IV [facility] Last Admin: 01/24/17 09:36 Dose: 60 mg Metoprolol Succinate (Toprol Xl -) 25 mg PO BID [facility] Last Admin: 01/24/17 09:23 Dose: 25 mg Oxycodone HCl (Roxicodone -) 5 mg PO Q6H PRN PRN Reason: PAIN Quinapril HCl (Accupril -) 10 mg PO DAILY [facility] Last Admin: 01/24/17 10:20 Dose: 10 mg Sertraline HCl (Zoloft -) 100 mg PO DAILY [facility] Last Admin: 01/24/17 09:23 Dose: 100 mg Spironolactone (Aldactone -) 25 mg PO DAILY [facility] Last Admin: 01/24/17 09:22 Dose: 25 mg - Objective Vital Signs: Vital Signs Temperature 98 F 01/24/17 06:00 Pulse Rate 69 01/24/17 09:22 Respiratory Rate 20 01/24/17 06:00 Blood Pressure 119/76 01/24/17 06:00 O2 Sat by Pulse Oximetry (%) 100 01/24/17 07:36 Constitutional: Yes: No Distress, Calm Neck: Yes: Supple Cardiovascular: Yes: Regular Rate and Rhythm Respiratory: Yes: Regular, Diminished Gastrointestinal: Yes: Normal Bowel Sounds, Soft Edema: Yes Edema: LLE: Trace, RLE: Trace Labs: CBC, BMP 01/24/17 06:07 01/24/17 06:07 INR, PTT INR 2.54 (0.82-1.09) H D 01/23/17 01:16 - ....Imaging EKG: Report Reviewed (Tele: v-paced, underlying afib) Problem List - Problems (1) CAD (coronary artery disease) Code(s): I25.10 - ATHSCL HEART DISEASE OF [place] CORONARY ARTERY W/O ANG PCTRS Qualifiers: Coronary Disease-Associated Artery/Lesion type: [place] artery [place] vs. transplanted heart: [place] heart Associated angina: without angina Qualified Code(s): I25.10 - Atherosclerotic heart disease of [place] coronary artery without angina pectoris (2) CHF (congestive heart failure) Code(s): I50.9 - HEART FAILURE, UNSPECIFIED Qualifiers: Congestive heart failure type: diastolic Congestive heart failure chronicity: acute on chronic Qualified Code(s): I50.33 - Acute on chronic diastolic (congestive) heart failure (3) A-fib Code(s): I48.91 - UNSPECIFIED ATRIAL FIBRILLATION Qualifiers: Atrial fibrillation type: permanent Qualified Code(s): I48.2 - Chronic atrial fibrillation (4) Acute on chronic diastolic (congestive) heart failure Code(s): I50.33 - ACUTE ON CHRONIC DIASTOLIC (CONGESTIVE) HEART FAILURE (5) Hypercholesteremia Code(s): E78.0 - PURE HYPERCHOLESTEROLEMIA * DO NOT USE * (6) Hypertension Code(s): I10 - ESSENTIAL (PRIMARY) HYPERTENSION Qualifiers: Hypertension type: essential hypertension Qualified Code(s): I10 - Essential (primary) hypertension (7) Hypothyroid Code(s): E03.9 - HYPOTHYROIDISM, UNSPECIFIED Qualifiers: Hypothyroidism type: unspecified Qualified Code(s): E03.9 - Hypothyroidism, unspecified (8) Pacemaker Code(s): Z95.0 - PRESENCE OF CARDIAC PACEMAKER (9) Pulmonary hypertension Code(s): I27.2 - OTHER SECONDARY PULMONARY HYPERTENSION Assessment/Plan Transthoracic echocardiography: Low normal LV fxn, mod-severe dilated and decreased RV fxn, severe VICENTA, mild-mod MR, severe TR, RVSP 40-50 mmHg 1. Acute on chronic diastolic failure improving 2. CAD, angina pectoris, stable 3. Sick sinus syndrome post PPM 4. Permanent atrial fibrillation [id number] score of 6 on NOAC (h/o Lovenox- associated rectus sheath hematoma) 5. RV dysfunction with RV failure and pulmonary HTN 6. HTN 7. Hypercholesterolemia 8. Hypothyroidism PLAN: 1. Continue Lasix 40 qd and Aldactone 25 qd with close monitoring of renal function 2. Continue Accupril 10 qd with close monitoring of renal function and electrolytes 3. Continue Toprol XL 25 bid 4. Continue Digoxin 0.125 qd with close monitoring of level 5. Continue Lipitor 10 qhs 6. Continue Eliquis 5 bid with monitor Hgb 7. OOB to chair
--- NOTE | 2017-01-24 11:16 | PN ---
Progress Note, Physician Chief Complaint: coughing and dyspnea will give iv lasix on iv steroids - Current Medication List Current Medications: Active Medications Acetaminophen (Tylenol -) 650 mg PO Q6H PRN PRN Reason: FEVER OR PAIN Albuterol Sulfate (Ventolin 0.083% Nebulizer Soln -) 1 amp NEB Q6H PRN PRN Reason: SHORT OF BREATH/WHEEZING Last Admin: 01/24/17 09:40 Dose: 1 amp Albuterol/Ipratropium (Duoneb -) 1 amp NEB Q6H PRN PRN Reason: SHORTNESS OF BREATH Last Admin: 01/24/17 07:37 Dose: 1 amp Albuterol/Ipratropium (Duoneb -) 1 amp NEB QIDR [facility] Apixaban (Eliquis -) 5 mg PO BID [facility] Last Admin: 01/24/17 09:22 Dose: 5 mg Atorvastatin Calcium (Lipitor -) 10 mg PO HS [facility] Last Admin: 01/23/17 23:08 Dose: 10 mg Digoxin (Lanoxin -) 0.125 mg PO DAILY [facility] Last Admin: 01/24/17 09:22 Dose: 0.125 mg Docusate Sodium (Colace -) 300 mg PO HS [facility] Last Admin: 01/23/17 21:23 Dose: 300 mg Ferrous Sulfate (Feosol -) 325 mg PO DAILY [facility] Last Admin: 01/24/17 09:23 Dose: 325 mg Furosemide (Lasix Injection -) 40 mg IVPUSH DAILY [facility] Levothyroxine Sodium (Synthroid -) 125 mcg PO DAILY@0700 [facility] Last Admin: 01/24/17 06:06 Dose: 125 mcg Melatonin (Melatonin) 5 mg PO HS PRN PRN Reason: INSOMNIA Methylprednisolone Sodium Succinate (Solu-Medrol -) 60 mg IVPB Q8H-IV [facility] Last Admin: 01/24/17 09:36 Dose: 60 mg Metoprolol Succinate (Toprol Xl -) 25 mg PO BID [facility] Last Admin: 01/24/17 09:23 Dose: 25 mg Oxycodone HCl (Roxicodone -) 5 mg PO Q6H PRN PRN Reason: PAIN Quinapril HCl (Accupril -) 10 mg PO DAILY [facility] Last Admin: 01/24/17 10:20 Dose: 10 mg Sertraline HCl (Zoloft -) 100 mg PO DAILY [facility] Last Admin: 01/24/17 09:23 Dose: 100 mg Spironolactone (Aldactone -) 25 mg PO DAILY [facility] Last Admin: 01/24/17 09:22 Dose: 25 mg - Objective Vital Signs: Vital Signs Temperature 97.5 F L 01/24/17 09:00 Pulse Rate 69 01/24/17 09:22 Respiratory Rate 22 01/24/17 09:00 Blood Pressure 109/61 01/24/17 09:00 O2 Sat by Pulse Oximetry (%) 100 01/24/17 09:00 Constitutional: Yes: Calm Neck: Yes: Trachea Midline Cardiovascular: Yes: Pulse Irregular, S1, S2 Respiratory: Yes: On Nasal O2, Rhonchi Gastrointestinal: Yes: Normal Bowel Sounds, Soft Labs: CBC, BMP 01/24/17 06:07 01/24/17 06:07 INR, PTT INR 2.54 (0.82-1.09) H D 01/23/17 01:16 Problem List - Problems (1) Hypoxia Assessment/Plan: on iv lasix and iv steroids appreicate pulm note Code(s): R09.02 - HYPOXEMIA (2) CHF (congestive heart failure) Assessment/Plan: will give iv lasix continue aldactone and quinipril Code(s): I50.9 - HEART FAILURE, UNSPECIFIED Qualifiers: Congestive heart failure type: diastolic Congestive heart failure chronicity: acute on chronic Qualified Code(s): I50.33 - Acute on chronic diastolic (congestive) heart failure (3) A-fib Assessment/Plan: on [employer] BB tele Code(s): I48.91 - UNSPECIFIED ATRIAL FIBRILLATION Qualifiers: Atrial fibrillation type: permanent Qualified Code(s): I48.2 - Chronic atrial fibrillation (4) Hypothyroid Assessment/Plan: on sythroid Code(s): E03.9 - HYPOTHYROIDISM, UNSPECIFIED Qualifiers: Hypothyroidism type: unspecified Qualified Code(s): E03.9 - Hypothyroidism, unspecified
--- NOTE | 2017-01-24 11:32 | PN ---
Progress Note (short form) - Note Progress Note: PULMONARY CONSULTATION DICTATED 01/24/17 IMP ACUTE HYPOXEMIC RESPIRATORY FAILURE COPD EXACERBATION URI CHF PULMONARY HTN AFIB HTN PLAN IV STEROIDS INHALED BRONCHODILATORS O2 ANTIBIOTICS DIURETICS ABG DAILY WTS SPUTUM C+S CHEST CT DR NGUYEN Problem List - Problems (1) CAD (coronary artery disease) Code(s): I25.10 - ATHSCL HEART DISEASE OF [place] CORONARY ARTERY W/O ANG PCTRS Qualifiers: Coronary Disease-Associated Artery/Lesion type: [place] artery [place] vs. transplanted heart: [place] heart Associated angina: without angina Qualified Code(s): I25.10 - Atherosclerotic heart disease of [place] coronary artery without angina pectoris (2) CHF (congestive heart failure) Code(s): I50.9 - HEART FAILURE, UNSPECIFIED Qualifiers: Congestive heart failure type: diastolic Congestive heart failure chronicity: acute on chronic Qualified Code(s): I50.33 - Acute on chronic diastolic (congestive) heart failure (3) Hypoxia Code(s): R09.02 - HYPOXEMIA (4) A-fib Code(s): I48.91 - UNSPECIFIED ATRIAL FIBRILLATION Qualifiers: Atrial fibrillation type: permanent Qualified Code(s): I48.2 - Chronic atrial fibrillation (5) CHF NYHA class II (symptoms with moderately strenuous activities) Code(s): I50.9 - HEART FAILURE, UNSPECIFIED Qualifiers: Congestive heart failure type: combined Congestive heart failure chronicity: acute on chronic Qualified Code(s): I50.43 - Acute on chronic combined systolic (congestive) and diastolic (congestive) heart failure (6) COPD (chronic obstructive pulmonary disease) Code(s): J44.9 - CHRONIC OBSTRUCTIVE PULMONARY DISEASE, UNSPECIFIED Qualifiers : COPD type: unspecified COPD Qualified Code(s): J44.9 - Chronic obstructive pulmonary disease, unspecified (7) Hypertension Code(s): I10 - ESSENTIAL (PRIMARY) HYPERTENSION Qualifiers: Hypertension type: essential hypertension Qualified Code(s): I10 - Essential (primary) hypertension (8) Hypothyroid Code(s): E03.9 - HYPOTHYROIDISM, UNSPECIFIED Qualifiers: Hypothyroidism type: unspecified Qualified Code(s): E03.9 - Hypothyroidism, unspecified (9) Pacemaker Code(s): Z95.0 - PRESENCE OF CARDIAC PACEMAKER (10) Pedal edema Code(s): R60.0 - LOCALIZED EDEMA (11) Pulmonary hypertension Code(s): I27.2 - OTHER SECONDARY PULMONARY HYPERTENSION (12) Acute hypoxemic respiratory failure Code(s): J96.01 - ACUTE RESPIRATORY FAILURE WITH HYPOXIA
[2017-01-24 11:59] LABS: ARTERIAL BLD GAS O2 SATURATION 99.2 % (90-98.9); ARTERIAL BLOOD GAS BASE EXCESS 8.3 meq/l (-2-2); ARTERIAL BLOOD GAS HCO3 36.3 meq/L (22-26)
[2017-01-24 12:00] LABS: ALLENS TEST POSITIVE; ART PUNCT SITE RIGHT RADIAL; PT. ON O2? YES
[2017-01-24] MEDS ORDERED: FUROSEMIDE 40 MG/4 ML INJECTABLE VIAL IVPUSH SCH (12:00)
[2017-01-24 12:01] LABS: LPM/O2% 3; MECH. VENT. N; TYPE OF O2 NASAL CANULA
[2017-01-24 12:04] LABS: ARTERIAL BLOOD GAS pH 7.32 (7.35-7.45)
[2017-01-24] MEDS: LEVOFLOXACIN 500 MG IVPB 100 ML IVPB SCH (12:36)
--- NOTE | 2017-01-24 12:37 | CONS ---
PULMONARY CONSULTATION DATE OF CONSULTATION: 01/24/2017 REFERRING PHYSICIAN: Anthony Anderson MD History is obtained from the chart. Patient is currently very drowsy. The patient is an 89-year-old white female with a past medical history of ASHD, CHF, LV dysfunction, chronic atrial fibrillation on Coumadin, sick sinus syndrome status post permanent pacemaker, COPD, hypertension, hypercholesterolemia, history of skin cancer, anemia, hypothyroidism, [facility], [facility] to [facility] secondary to cough, chest congestion, and acute hypoxemic respiratory failure. Patient apparently was noted at the prison to have an O2 saturation of 86 on room air. She presented to the emergency room with the above. In the ER, she was felt to have possible CHF. She was started on IV Lasix. She was evaluated by Dr. Castano for cardiology consultation and recommended to continue Lasix and add Aldactone. The patient also has a cough productive of yellow sputum. There are no fevers or chills. Apparently, she has a history of smoking. SOCIAL HISTORY: Unobtained. PAST MEDICAL HISTORY: Again includes ASHD, CHF, LV dysfunction, status post permanent pacemaker, atrial fibrillation, skin cancer, COPD, anemia, hypothyroidism. CURRENT MEDICATIONS: Include Solu-Medrol 60 q.8, Tylenol, Accupril, Eliquis, Zoloft, albuterol, DuoNeb, Toprol, Lanoxin, Colace, Feosol, Lipitor, Lasix, Aldactone, Roxicodone, melatonin, and Synthroid. REVIEW OF SYSTEMS: Unable to obtain at this time. PHYSICAL EXAMINATION: General: The patient is an elderly white female, well developed, well nourished, dyspneic, and drowsy. Vital Signs: She is currently afebrile. Blood pressure is 109/61. Respiratory rate is 20. O2 saturation is 100% on 4 L. HEENT: Normocephalic, atraumatic. Neck: Supple. Heart: Irregularly irregular. Normal S1, S2. Chest: Diffuse bilateral rhonchi and wheezes. Abdomen: Soft. Bowel sounds are positive. Extremities: Trace bilateral extremity edema. LABORATORY DATA: INR is 2.54. WBC is 10.9, hemoglobin 11.9, hematocrit 36, platelet count of 183,000. BUN 27, creatinine 0.8. BNP is 4856. IMPRESSION: 1. Acute hypoxemic respiratory failure, likely secondary to multiple factors. One, probable mild chronic obstructive pulmonary disease exacerbation. Number two, possible acute bronchitis. Three, congestive heart failure. 2. Atrial fibrillation. 3. Hypertension. 4. Pulmonary hypertension. PLAN: Continue IV steroids, inhaled bronchodilators, supplemental O2, antibiotic therapy. Continue Lasix. Daily weights. CT scan of chest when stable. Check arterial blood gas to see if patient has any evidence of hypercapnia. Check pulse oximetry at rest and post exercise prior to discharge to determine whether the patient is a candidate for home O2. Thank you. We will follow closely with you. FERNANDO NGUYEN M.D. [id number]
[2017-01-24] MEDS: ALBUTEROL SO4 2.5/IPRATROPIUM 0.5 INH SOL 3 ML VIAL.NEB. NEB SCH ×3 (12:45→23:20)
[2017-01-24] MEDS: DOCUSATE SODIUM 100 MG CAPSULE (FP) PO SCH (21:07)
[2017-01-24] MEDS: ATORVASTATIN CA 10 MG TABLET (FP) PO SCH (21:08)
[2017-01-25] MEDS: methylPREDNISolone NA SUCC 125 MG/2 ML VIAL IVPB SCH ×3 (03:21→18:34)
[2017-01-25] MEDS: LEVOTHYROXINE NA 125 MCG TABLET (FP) PO SCH (06:46)
[2017-01-25] MEDS: ALBUTEROL SO4 2.5/IPRATROPIUM 0.5 INH SOL 3 ML VIAL.NEB. NEB SCH ×3 (06:46→17:19)
[2017-01-25 08:19] LABS: ALBUMIN 3.4 g/dl (3.4-5.0); ALK PHOS 172 U/L (45-117); ANION GAP 5 (8-16); BILIRUBIN,TOTAL 0.8 mg/dL (0.2-1.0); CALCIUM 8.7 mg/dL (8.5-10.1); CO2 39 mmol/L (21-32); CREATININE 0.6 mg/dL (0.55-1.02); GLUCOSE,RANDOM 125 mg/dL (74-106); SGOT/AST 19 U/L (15-37); SGPT/ALT 17 U/L (12-78); TOT PROT 6.3 g/dl (6.4-8.2)
[2017-01-25] MEDS ORDERED: FUROSEMIDE 40 MG/4 ML INJECTABLE VIAL IVPUSH SCH (10:00)
[2017-01-25] MEDS: FERROUS SO4 325 MG TABLET (FP) PO SCH ×2 (10:38→12:08)
[2017-01-25] MEDS: LEVOFLOXACIN 500 MG IVPB 100 ML IVPB SCH (10:38)
[2017-01-25] MEDS: APIXABAN 5 MG TABLET PO SCH ×2 (10:38→21:17)
[2017-01-25] MEDS: FUROSEMIDE 40 MG TABLET (FP) PO SCH (10:38)
[2017-01-25] MEDS: SERTRALINE HCL 50 MG TABLET (FP) PO SCH ×2 (10:39→12:08)
--- NOTE | 2017-01-25 12:05 | PN ---
Progress Note (short form) - Note Progress Note: PULMONARY Still some shortness of breath, cough and wheezing. Blood pressure low this AM. Last Vital Signs Temp Pulse Resp BP Pulse Ox 98 F 70 20 115/62 98 01/25/17 06:00 01/25/17 10:57 01/25/17 06:00 01/25/17 06:00 01/25/17 10:57 Gen: mildly tachypneic at rest Heart: RRR Lung: bilateral rhonchi, wheezes Abd: soft, nontender Ext: no edema CBC, BMP 01/24/17 06:07 01/25/17 06:00 Active Medications Acetaminophen (Tylenol -) 650 mg PO Q6H PRN PRN Reason: FEVER OR PAIN Albuterol Sulfate (Ventolin 0.083% Nebulizer Soln -) 1 amp NEB Q6H PRN PRN Reason: SHORT OF BREATH/WHEEZING Last Admin: 01/24/17 09:40 Dose: 1 amp Albuterol/Ipratropium (Duoneb -) 1 amp NEB Q6H PRN PRN Reason: SHORTNESS OF BREATH Last Admin: 01/24/17 07:37 Dose: 1 amp Albuterol/Ipratropium (Duoneb -) 1 amp NEB QIDR [facility] Last Admin: 01/25/17 11:04 Dose: 1 amp Apixaban (Eliquis -) 5 mg PO BID [facility] Last Admin: 01/25/17 10:38 Dose: 5 mg Atorvastatin Calcium (Lipitor -) 10 mg PO [facility] Last Admin: 01/24/17 21:08 Dose: 10 mg Digoxin (Lanoxin -) 0.125 mg PO DAILY [facility] Last Admin: 01/24/17 09:22 Dose: 0.125 mg Docusate Sodium (Colace -) 300 mg PO HS [facility] Last Admin: 01/24/17 21:07 Dose: 300 mg Ferrous Sulfate (Feosol -) 325 mg PO DAILY [facility] Last Admin: 01/25/17 10:38 Dose: 325 mg Furosemide (Lasix -) 40 mg PO DAILY [facility] Last Admin: 01/25/17 10:38 Dose: Not Given Levofloxacin (Levaquin 500 Mg Premixed Ivpb -) 100 mls @ 100 mls/hr IVPB DAILY [facility] Last Admin: 01/25/17 10:38 Dose: 100 mls/hr Levothyroxine Sodium (Synthroid -) 125 mcg PO DAILY@0700 [facility] Last Admin: 01/25/17 06:46 Dose: Not Given Melatonin (Melatonin) 5 mg PO HS PRN PRN Reason: INSOMNIA Methylprednisolone Sodium Succinate (Solu-Medrol -) 60 mg IVPB Q8H-IV [facility] Last Admin: 01/25/17 10:39 Dose: 60 mg Metoprolol Succinate (Toprol Xl -) 25 mg PO BID [facility] Last Admin: 01/24/17 21:09 Dose: 25 mg Oxycodone HCl (Roxicodone -) 5 mg PO Q6H PRN PRN Reason: PAIN Quinapril HCl (Accupril -) 10 mg PO DAILY [facility] Last Admin: 01/24/17 10:20 Dose: 10 mg Sertraline HCl (Zoloft -) 100 mg PO DAILY [facility] Last Admin: 01/25/17 10:39 Dose: 100 mg Spironolactone (Aldactone -) 25 mg PO DAILY [facility] Last Admin: 01/24/17 09:22 Dose: 25 mg A/P Acute COPD Exacerbation Acute on Chronic Diastolic Heart Failure CAD Atrial Fibrillation/SSS s/p PPM Pulmonary HTN HTN Hypercholesterolemia - continue medrol at current dose - inhaled bronchodilators - hold lasix today - small IVF bolus - rate controlled - continue anticoagulation - O2 to keep SpO2 >90%
[2017-01-25] MEDS: QUINAPRIL HCL 10 MG TABLET (FP) PO SCH (12:06)
[2017-01-25] MEDS: SPIRONOLACTONE 25 MG TABLET (FP) PO SCH (12:07)
[2017-01-25] MEDS: METOPROLOL SUCCINATE 25 MG TAB.SR.24H (FP) PO SCH ×2 (12:07→21:17)
[2017-01-25] MEDS: DIGOXIN 0.125 MG TABLET (FP) PO SCH (12:07)
--- NOTE | 2017-01-25 14:16 | PN ---
Progress Note, Physician Chief Complaint: RUSSELL CONFUSED MY FIRST ENCOUNTER WITH THIS PATIENT EVENTS AND CHART REVIEWED - Current Medication List Current Medications: Active Medications Acetaminophen (Tylenol -) 650 mg PO Q6H PRN PRN Reason: FEVER OR PAIN Albuterol Sulfate (Ventolin 0.083% Nebulizer Soln -) 1 amp NEB Q6H PRN PRN Reason: SHORT OF BREATH/WHEEZING Last Admin: 01/24/17 09:40 Dose: 1 amp Albuterol/Ipratropium (Duoneb -) 1 amp NEB Q6H PRN PRN Reason: SHORTNESS OF BREATH Last Admin: 01/24/17 07:37 Dose: 1 amp Albuterol/Ipratropium (Duoneb -) 1 amp NEB QIDR [facility] Last Admin: 01/25/17 11:04 Dose: 1 amp Apixaban (Eliquis -) 5 mg PO BID [facility] Last Admin: 01/25/17 10:38 Dose: 5 mg Atorvastatin Calcium (Lipitor -) 10 mg PO HS [facility] Last Admin: 01/24/17 21:08 Dose: 10 mg Digoxin (Lanoxin -) 0.125 mg PO DAILY [facility] Last Admin: 01/25/17 12:07 Dose: Not Given Docusate Sodium (Colace -) 300 mg PO HS [facility] Last Admin: 01/24/17 21:07 Dose: 300 mg Ferrous Sulfate (Feosol -) 325 mg PO DAILY [facility] Last Admin: 01/25/17 12:08 Dose: Not Given Furosemide (Lasix -) 40 mg PO DAILY [facility] Last Admin: 01/25/17 10:38 Dose: Not Given Levofloxacin (Levaquin 500 Mg Premixed Ivpb -) 100 mls @ 100 mls/hr IVPB DAILY [facility] Last Admin: 01/25/17 10:38 Dose: 100 mls/hr Levothyroxine Sodium (Synthroid -) 125 mcg PO DAILY@0700 [facility] Last Admin: 01/25/17 06:46 Dose: Not Given Melatonin (Melatonin) 5 mg PO HS PRN PRN Reason: INSOMNIA Methylprednisolone Sodium Succinate (Solu-Medrol -) 60 mg IVPB Q8H-IV [facility] Last Admin: 01/25/17 10:39 Dose: 60 mg Metoprolol Succinate (Toprol Xl -) 25 mg PO BID [facility] Last Admin: 01/25/17 12:07 Dose: Not Given Oxycodone HCl (Roxicodone -) 5 mg PO Q6H PRN PRN Reason: PAIN Quinapril HCl (Accupril -) 10 mg PO DAILY [facility] Last Admin: 01/25/17 12:06 Dose: Not Given Sertraline HCl (Zoloft -) 100 mg PO DAILY [facility] Last Admin: 01/25/17 12:08 Dose: Not Given Spironolactone (Aldactone -) 25 mg PO DAILY [facility] Last Admin: 01/25/17 12:07 Dose: Not Given - Objective Vital Signs: Vital Signs Temperature 98 F 01/25/17 06:00 Pulse Rate 63 01/25/17 12:07 Respiratory Rate 20 01/25/17 06:00 Blood Pressure 115/62 01/25/17 06:00 O2 Sat by Pulse Oximetry (%) 98 01/25/17 10:57 Constitutional: Yes: Mild Distress Eyes: Yes: WNL HENT: Yes: WNL Neck: Yes: WNL Cardiovascular: Yes: Pulse Irregular Respiratory: Yes: WNL Gastrointestinal: Yes: WNL Genitourinary: Yes: Incontinence Musculoskeletal: Yes: Muscle Weakness Extremities: Yes: WNL Peripheral Pulses WNL: Yes Integumentary: Yes: WNL Wound/Incision: Yes: Clean/Dry Neurological: Yes: Pre-Existing Deficit ...Motor Strength: LLE, RLE Psychiatric: Yes: Other Labs: CBC, BMP 01/24/17 06:07 01/25/17 06:00 INR, PTT INR 2.54 (0.82-1.09) H D 01/23/17 01:16 Problem List - Problems (1) Acute hypoxemic respiratory failure Code(s): J96.01 - ACUTE RESPIRATORY FAILURE WITH HYPOXIA (2) CAD (coronary artery disease) Code(s): I25.10 - ATHSCL HEART DISEASE OF [place] CORONARY ARTERY W/O ANG PCTRS Qualifiers: Coronary Disease-Associated Artery/Lesion type: [place] artery [place] vs. transplanted heart: [place] heart Associated angina: without angina Qualified Code(s): I25.10 - Atherosclerotic heart disease of [place] coronary artery without angina pectoris (3) CHF (congestive heart failure) Code(s): I50.9 - HEART FAILURE, UNSPECIFIED Qualifiers: Congestive heart failure type: diastolic Congestive heart failure chronicity: acute on chronic Qualified Code(s): I50.33 - Acute on chronic diastolic (congestive) heart failure (4) A-fib Code(s): I48.91 - UNSPECIFIED ATRIAL FIBRILLATION Qualifiers: Atrial fibrillation type: permanent Qualified Code(s): I48.2 - Chronic atrial fibrillation Assessment/Plan CARDIOLOGY WORKUP ON TELEMETRY LABS REVIEWED OOB TO CHAIR
[2017-01-25] MEDS ORDERED: SODIUM CHLORIDE 500 ML IV ONE (17:15)
[2017-01-25] MEDS: ATORVASTATIN CA 10 MG TABLET (FP) PO SCH (21:17)
[2017-01-25] MEDS: DOCUSATE SODIUM 100 MG CAPSULE (FP) PO SCH (21:17)
[2017-01-26] MEDS: methylPREDNISolone NA SUCC 125 MG/2 ML VIAL IVPB SCH ×2 (02:40→13:04)
[2017-01-26] MEDS: LEVOTHYROXINE NA 125 MCG TABLET (FP) PO SCH (06:32)
[2017-01-26] MEDS: ALBUTEROL SO4 2.5/IPRATROPIUM 0.5 INH SOL 3 ML VIAL.NEB. NEB SCH ×4 (06:55→17:31)
--- NOTE | 2017-01-26 10:21 | PN ---
Progress Note, Physician History of Present Illness: Dyspnea, wheezing and cough improving, episodes of confusion. - Current Medication List Current Medications: Active Medications Acetaminophen (Tylenol -) 650 mg PO Q6H PRN PRN Reason: FEVER OR PAIN Albuterol Sulfate (Ventolin 0.083% Nebulizer Soln -) 1 amp NEB Q6H PRN PRN Reason: SHORT OF BREATH/WHEEZING Last Admin: 01/24/17 09:40 Dose: 1 amp Albuterol/Ipratropium (Duoneb -) 1 amp NEB Q6H PRN PRN Reason: SHORTNESS OF BREATH Last Admin: 01/24/17 07:37 Dose: 1 amp Albuterol/Ipratropium (Duoneb -) 1 amp NEB QIDR [facility] Last Admin: 01/26/17 06:55 Dose: 1 amp Apixaban (Eliquis -) 5 mg PO BID [facility] Last Admin: 01/25/17 21:17 Dose: Not Given Atorvastatin Calcium (Lipitor -) 10 mg PO HS [facility] Last Admin: 01/25/17 21:17 Dose: Not Given Digoxin (Lanoxin -) 0.125 mg PO DAILY [facility] Last Admin: 01/25/17 12:07 Dose: Not Given Docusate Sodium (Colace -) 300 mg PO HS [facility] Last Admin: 01/25/17 21:17 Dose: Not Given Ferrous Sulfate (Feosol -) 325 mg PO DAILY [facility] Last Admin: 01/25/17 12:08 Dose: Not Given Furosemide (Lasix -) 40 mg PO DAILY [facility] Last Admin: 01/25/17 10:38 Dose: Not Given Levofloxacin (Levaquin 500 Mg Premixed Ivpb -) 100 mls @ 100 mls/hr IVPB DAILY [facility] Last Admin: 01/25/17 10:38 Dose: 100 mls/hr Levothyroxine Sodium (Synthroid -) 125 mcg PO DAILY@0700 [facility] Last Admin: 01/26/17 06:32 Dose: Not Given Melatonin (Melatonin) 5 mg PO HS PRN PRN Reason: INSOMNIA Methylprednisolone Sodium Succinate (Solu-Medrol -) 60 mg IVPB Q8H-IV [facility] Last Admin: 01/26/17 02:40 Dose: 60 mg Metoprolol Succinate (Toprol Xl -) 25 mg PO BID [facility] Last Admin: 01/25/17 21:17 Dose: Not Given Oxycodone HCl (Roxicodone -) 5 mg PO Q6H PRN PRN Reason: PAIN Quinapril HCl (Accupril -) 10 mg PO DAILY [facility] Last Admin: 01/25/17 12:06 Dose: Not Given Sertraline HCl (Zoloft -) 100 mg PO DAILY [facility] Last Admin: 01/25/17 12:08 Dose: Not Given Spironolactone (Aldactone -) 25 mg PO DAILY [facility] Last Admin: 01/25/17 12:07 Dose: Not Given - Objective Vital Signs: Vital Signs Temperature 98.4 F 01/26/17 06:00 Pulse Rate 78 01/26/17 06:00 Respiratory Rate 20 01/26/17 06:00 Blood Pressure 114/55 01/26/17 06:00 O2 Sat by Pulse Oximetry (%) 96 01/25/17 21:00 Constitutional: Yes: No Distress, Calm Neck: Yes: Supple Cardiovascular: Yes: Regular Rate and Rhythm Respiratory: Yes: Regular, Diminished, On Nasal O2 Gastrointestinal: Yes: Normal Bowel Sounds, Soft Edema: Yes Edema: LLE: Trace, RLE: Trace Labs: CBC, BMP 01/24/17 06:07 01/25/17 06:00 INR, PTT INR 2.54 (0.82-1.09) H D 01/23/17 01:16 - ....Imaging Cat Scan: Pending EKG: Report Reviewed (Underlying afib v-paced) Problem List - Problems (1) CAD (coronary artery disease) Code(s): I25.10 - ATHSCL HEART DISEASE OF [place] CORONARY ARTERY W/O ANG PCTRS Qualifiers: Coronary Disease-Associated Artery/Lesion type: [place] artery [place] vs. transplanted heart: [place] heart Associated angina: without angina Qualified Code(s): I25.10 - Atherosclerotic heart disease of [place] coronary artery without angina pectoris (2) CHF (congestive heart failure) Code(s): I50.9 - HEART FAILURE, UNSPECIFIED Qualifiers: Congestive heart failure type: diastolic Congestive heart failure chronicity: acute on chronic Qualified Code(s): I50.33 - Acute on chronic diastolic (congestive) heart failure (3) A-fib Code(s): I48.91 - UNSPECIFIED ATRIAL FIBRILLATION Qualifiers: Atrial fibrillation type: permanent Qualified Code(s): I48.2 - Chronic atrial fibrillation (4) Acute on chronic diastolic (congestive) heart failure Code(s): I50.33 - ACUTE ON CHRONIC DIASTOLIC (CONGESTIVE) HEART FAILURE (5) Hypercholesteremia Code(s): E78.0 - PURE HYPERCHOLESTEROLEMIA * DO NOT USE * (6) Hypertension Code(s): I10 - ESSENTIAL (PRIMARY) HYPERTENSION Qualifiers: Hypertension type: essential hypertension Qualified Code(s): I10 - Essential (primary) hypertension (7) Hypothyroid Code(s): E03.9 - HYPOTHYROIDISM, UNSPECIFIED Qualifiers: Hypothyroidism type: unspecified Qualified Code(s): E03.9 - Hypothyroidism, unspecified (8) Pacemaker Code(s): Z95.0 - PRESENCE OF CARDIAC PACEMAKER (9) Pulmonary hypertension Code(s): I27.2 - OTHER SECONDARY PULMONARY HYPERTENSION (10) COPD (chronic obstructive pulmonary disease) Code(s): J44.9 - CHRONIC OBSTRUCTIVE PULMONARY DISEASE, UNSPECIFIED Qualifiers : COPD type: COPD with acute exacerbation Qualified Code(s): J44.1 - Chronic obstructive pulmonary disease with (acute) exacerbation (11) Acute hypercapnic respiratory failure Code(s): J96.02 - ACUTE RESPIRATORY FAILURE WITH HYPERCAPNIA Assessment/Plan Transthoracic echocardiography: Low normal LV fxn, mod-severe dilated and decreased RV fxn, severe VICENTA, mild-mod MR, severe TR, RVSP 40-50 mmHg 1. Acute hypercapneic respiratory failure referable to COPD Exacerbation 2. Acute on chronic diastolic failure improving 3. CAD, angina pectoris, stable 4. Sick sinus syndrome post PPM 5. Permanent atrial fibrillation [id number] score of 6 on NOAC (h/o Lovenox- associated rectus sheath hematoma) 6. 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 HTN 8. Hypercholesterolemia 9. Hypothyroidism PLAN: 1. Continue Lasix 40 qd and Aldactone 25 qd with close monitoring of renal function 2. Continue Accupril 10 qd with close monitoring of renal function and electrolytes 3. Continue Toprol XL 25 bid 4. Continue Digoxin 0.125 qd with close monitoring of level 5. Continue Lipitor 10 qhs 6. Continue Eliquis 5 bid with monitor Hgb 7. IV steroids, BD, abx, O2 to keep SpO2 >90%, f/u chest CT
--- NOTE | 2017-01-26 11:29 | PN ---
Progress Note (short form) - Note Progress Note: PULMONARY Still some dyspnea. +cough. No fevers or chills. CT chest performed showing small bilateral effusions with some associated compressive atelectasis on right without obvious infiltrate. Last Vital Signs Temp Pulse Resp BP Pulse Ox 97.8 F 72 18 140/71 95 01/26/17 10:00 01/26/17 10:00 01/26/17 10:00 01/26/17 10:00 01/26/17 09:00 Gen: mildly tachypneic at rest Heart: RRR Lung: scattered rhonchi, wheezes Abd: soft, nontender Ext: no edema CBC, BMP 01/24/17 06:07 01/25/17 06:00 Active Medications Acetaminophen (Tylenol -) 650 mg PO Q6H PRN PRN Reason: FEVER OR PAIN Albuterol Sulfate (Ventolin 0.083% Nebulizer Soln -) 1 amp NEB Q6H PRN PRN Reason: SHORT OF BREATH/WHEEZING Last Admin: 01/24/17 09:40 Dose: 1 amp Albuterol/Ipratropium (Duoneb -) 1 amp NEB Q6H PRN PRN Reason: SHORTNESS OF BREATH Last Admin: 01/24/17 07:37 Dose: 1 amp Albuterol/Ipratropium (Duoneb -) 1 amp NEB QIDR [facility] Last Admin: 01/26/17 06:55 Dose: 1 amp Apixaban (Eliquis -) 5 mg PO BID [facility] Last Admin: 01/25/17 21:17 Dose: Not Given Atorvastatin Calcium (Lipitor -) 10 mg PO [facility] Last Admin: 01/25/17 21:17 Dose: Not Given Digoxin (Lanoxin -) 0.125 mg PO DAILY [facility] Last Admin: 01/25/17 12:07 Dose: Not Given Docusate Sodium (Colace -) 300 mg PO HS [facility] Last Admin: 01/25/17 21:17 Dose: Not Given Ferrous Sulfate (Feosol -) 325 mg PO DAILY [facility] Last Admin: 01/25/17 12:08 Dose: Not Given Furosemide (Lasix -) 40 mg PO DAILY [facility] Last Admin: 01/25/17 10:38 Dose: Not Given Levofloxacin (Levaquin 500 Mg Premixed Ivpb -) 100 mls @ 100 mls/hr IVPB DAILY [facility] Last Admin: 01/25/17 10:38 Dose: 100 mls/hr Levothyroxine Sodium (Synthroid -) 125 mcg PO DAILY@0700 [facility] Last Admin: 01/26/17 06:32 Dose: Not Given Melatonin (Melatonin) 5 mg PO HS PRN PRN Reason: INSOMNIA Methylprednisolone Sodium Succinate (Solu-Medrol -) 60 mg IVPB Q8H-IV [facility] Last Admin: 01/26/17 02:40 Dose: 60 mg Metoprolol Succinate (Toprol Xl -) 25 mg PO BID [facility] Last Admin: 01/25/17 21:17 Dose: Not Given Oxycodone HCl (Roxicodone -) 5 mg PO Q6H PRN PRN Reason: PAIN Quinapril HCl (Accupril -) 10 mg PO DAILY [facility] Last Admin: 01/25/17 12:06 Dose: Not Given Sertraline HCl (Zoloft -) 100 mg PO DAILY [facility] Last Admin: 01/25/17 12:08 Dose: Not Given Spironolactone (Aldactone -) 25 mg PO DAILY [facility] Last Admin: 01/25/17 12:07 Dose: Not Given A/P Acute COPD Exacerbation Acute on Chronic Diastolic Heart Failure CAD Atrial Fibrillation/SSS s/p PPM Pulmonary HTN HTN Hypercholesterolemia - will decrease medrol to 40mg q8h - inhaled bronchodilators - lasix as needed - rate controlled - continue anticoagulation - O2 to keep SpO2 >90%
[2017-01-26] MEDS: LEVOFLOXACIN 500 MG IVPB 100 ML IVPB SCH (12:03)
[2017-01-26] MEDS: FERROUS SO4 325 MG TABLET (FP) PO SCH (13:02)
[2017-01-26] MEDS: APIXABAN 5 MG TABLET PO SCH ×2 (13:02→21:07)
[2017-01-26] MEDS: FUROSEMIDE 40 MG TABLET (FP) PO SCH (13:02)
[2017-01-26] MEDS: SPIRONOLACTONE 25 MG TABLET (FP) PO SCH (13:03)
[2017-01-26] MEDS: METOPROLOL SUCCINATE 25 MG TAB.SR.24H (FP) PO SCH ×2 (13:03→21:07)
[2017-01-26] MEDS: DIGOXIN 0.125 MG TABLET (FP) PO SCH (13:04)
[2017-01-26] MEDS: QUINAPRIL HCL 10 MG TABLET (FP) PO SCH (13:04)
[2017-01-26] MEDS: SERTRALINE HCL 50 MG TABLET (FP) PO SCH (13:04)
[2017-01-26] MEDS ORDERED: PT OWN MED DRAWER 7, Y5N ONE ×2 (13:06→20:49)
--- NOTE | 2017-01-26 14:19 | PN ---
Progress Note, Physician Chief Complaint: MILD DISTRESS IN PAIN CT CHEST SHOWS COMPRESSION FRACTURE OF UNKNOWN TIMING. - Current Medication List Current Medications: Active Medications Acetaminophen (Tylenol -) 650 mg PO Q6H PRN PRN Reason: FEVER OR PAIN Albuterol Sulfate (Ventolin 0.083% Nebulizer Soln -) 1 amp NEB Q6H PRN PRN Reason: SHORT OF BREATH/WHEEZING Last Admin: 01/24/17 09:40 Dose: 1 amp Albuterol/Ipratropium (Duoneb -) 1 amp NEB Q6H PRN PRN Reason: SHORTNESS OF BREATH Last Admin: 01/24/17 07:37 Dose: 1 amp Albuterol/Ipratropium (Duoneb -) 1 amp NEB QIDR [facility] Last Admin: 01/26/17 11:53 Dose: 1 amp Apixaban (Eliquis -) 5 mg PO BID [facility] Last Admin: 01/26/17 13:02 Dose: 5 mg Atorvastatin Calcium (Lipitor -) 10 mg PO HS [facility] Last Admin: 01/25/17 21:17 Dose: Not Given Calcitonin (Miacalcin [place] -) 200 units NS DAILY [facility] Calcitriol (Rocaltrol -) 0.25 mcg PO DAILY [facility] Digoxin (Lanoxin -) 0.125 mg PO DAILY [facility] Last Admin: 01/26/17 13:04 Dose: 0.125 mg Docusate Sodium (Colace -) 300 mg PO HS [facility] Last Admin: 01/25/17 21:17 Dose: Not Given Ferrous Sulfate (Feosol -) 325 mg PO DAILY [facility] Last Admin: 01/26/17 13:02 Dose: 325 mg Furosemide (Lasix -) 40 mg PO DAILY [facility] Last Admin: 01/26/17 13:02 Dose: 40 mg Levofloxacin (Levaquin 500 Mg Premixed Ivpb -) 100 mls @ 100 mls/hr IVPB DAILY [facility] Last Admin: 01/26/17 12:03 Dose: 100 mls/hr Levothyroxine Sodium (Synthroid -) 125 mcg PO DAILY@0700 [facility] Last Admin: 01/26/17 06:32 Dose: Not Given Melatonin (Melatonin) 5 mg PO HS PRN PRN Reason: INSOMNIA Methylprednisolone Sodium Succinate (Solu-Medrol -) 40 mg IVPB Q8H-IV [facility] Metoprolol Succinate (Toprol Xl -) 25 mg PO BID [facility] Last Admin: 01/26/17 13:03 Dose: 25 mg Oxycodone HCl (Roxicodone -) 5 mg PO Q6H PRN PRN Reason: PAIN Quinapril HCl (Accupril -) 10 mg PO DAILY [facility] Last Admin: 01/26/17 13:04 Dose: 10 mg Sertraline HCl (Zoloft -) 100 mg PO DAILY [facility] Last Admin: 01/26/17 13:04 Dose: 100 mg Spironolactone (Aldactone -) 25 mg PO DAILY [facility] Last Admin: 01/26/17 13:03 Dose: 25 mg - Objective Vital Signs: Vital Signs Temperature 98.3 F 01/26/17 13:42 Pulse Rate 88 01/26/17 13:42 Respiratory Rate 18 01/26/17 13:42 Blood Pressure 112/57 01/26/17 13:42 O2 Sat by Pulse Oximetry (%) 99 01/26/17 11:52 Constitutional: Yes: Mild Distress Eyes: Yes: WNL HENT: Yes: WNL Neck: Yes: WNL Cardiovascular: Yes: Pulse Irregular Respiratory: Yes: WNL Gastrointestinal: Yes: WNL Genitourinary: Yes: Incontinence Musculoskeletal: Yes: Back Pain Extremities: Yes: WNL Edema: No Peripheral Pulses WNL: Yes Integumentary: Yes: Rash, Venous Stasis Changes Wound/Incision: Yes: Dressing Dry and Intact Neurological: Yes: Pre-Existing Deficit ...Motor Strength: LLE, RLE Psychiatric: Yes: Other Labs: CBC, BMP 01/24/17 06:07 01/25/17 06:00 INR, PTT INR 2.54 (0.82-1.09) H D 01/23/17 01:16 Problem List - Problems (1) Acute hypoxemic respiratory failure Code(s): J96.01 - ACUTE RESPIRATORY FAILURE WITH HYPOXIA (2) CAD (coronary artery disease) Code(s): I25.10 - ATHSCL HEART DISEASE OF [place] CORONARY ARTERY W/O ANG PCTRS Qualifiers: Coronary Disease-Associated Artery/Lesion type: [place] artery [place] vs. transplanted heart: [place] heart Associated angina: without angina Qualified Code(s): I25.10 - Atherosclerotic heart disease of [place] coronary artery without angina pectoris (3) CHF (congestive heart failure) Code(s): I50.9 - HEART FAILURE, UNSPECIFIED Qualifiers: Congestive heart failure type: diastolic Congestive heart failure chronicity: acute on chronic Qualified Code(s): I50.33 - Acute on chronic diastolic (congestive) heart failure (4) A-fib Code(s): I48.91 - UNSPECIFIED ATRIAL FIBRILLATION Qualifiers: Atrial fibrillation type: permanent Qualified Code(s): I48.2 - Chronic atrial fibrillation (5) Compressed spine fracture Code(s): M48.50XA - COLLAPSED VERTEBRA, NEC, SITE UNSP, INIT Assessment/Plan CALCITONIN NASAL FOR COMPRESSION FX CALCITEROL CARDIO F/U PAIN CONTROL PT
[2017-01-26] MEDS: CALCITRIOL 0.25 MCG CAPSULE (FP) PO SCH (15:51)
[2017-01-26] MEDS: CALCITONIN - SALMON SYNTHETIC 3.7 ML SPRAY.PUMP NS SCH (15:51)
[2017-01-26] MEDS: methylPREDNISolone NA SUCC 40 MG/1 ML VIAL IVPB SCH (17:55)
[2017-01-26] MEDS: ATORVASTATIN CA 10 MG TABLET (FP) PO SCH (21:07)
[2017-01-26] MEDS: DOCUSATE SODIUM 100 MG CAPSULE (FP) PO SCH (21:07)
[2017-01-26] MEDS: oxyCODONE HCL 5 MG TABLET PO PRN (21:07)
[2017-01-26] MEDS: MELATONIN 5 MG TABLETS PO PRN (21:08)
[2017-01-27] MEDS: ALBUTEROL SO4 2.5/IPRATROPIUM 0.5 INH SOL 3 ML VIAL.NEB. NEB SCH ×5 (00:29→23:48)
[2017-01-27] MEDS: methylPREDNISolone NA SUCC 40 MG/1 ML VIAL IVPB SCH ×3 (03:45→18:00)
[2017-01-27] MEDS: LEVOTHYROXINE NA 125 MCG TABLET (FP) PO SCH (06:06)
[2017-01-27 07:43] LABS: WHITE BLOOD COUNT 8.1 K/mm3 (4.0-10.0)
[2017-01-27 07:44] LABS: MCHC 33.3 g/dl (32.0-36.0); MEAN CELL VOLUME 99.1 fl (80-96); MEAN PLT VOLUME 7.9 fl (7.5-11.1); PLATELET COUNT 143 K/MM3 (134-434); RDW 16.7 % (11.6-15.6)
[2017-01-27 07:53] LABS: INR 1.73 (0.82-1.09); PROTHROMBIN TIME (PATIENT) 19.2 SEC (9.98-11.88)
[2017-01-27 08:19] LABS: ALBUMIN 3.4 g/dl (3.4-5.0); ALK PHOS 155 U/L (45-117); ANION GAP 6 (8-16); BILIRUBIN,TOTAL 0.8 mg/dL (0.2-1.0); CALCIUM 8.3 mg/dL (8.5-10.1); CO2 39 mmol/L (21-32); CREATININE 0.5 mg/dL (0.55-1.02); GLUCOSE,RANDOM 104 mg/dL (74-106); SGOT/AST 25 U/L (15-37); SGPT/ALT 25 U/L (12-78); TOT PROT 6.3 g/dl (6.4-8.2)
[2017-01-27] MEDS ORDERED: PT OWN MED DRAWER 7, Y5N ONE (09:25)
[2017-01-27] MEDS: DIGOXIN 0.125 MG TABLET (FP) PO SCH (09:52)
[2017-01-27] MEDS: FUROSEMIDE 40 MG TABLET (FP) PO SCH (09:52)
[2017-01-27] MEDS: APIXABAN 5 MG TABLET PO SCH ×2 (09:52→22:13)
[2017-01-27] MEDS: METOPROLOL SUCCINATE 25 MG TAB.SR.24H (FP) PO SCH ×2 (09:52→22:13)
[2017-01-27] MEDS: FERROUS SO4 325 MG TABLET (FP) PO SCH (09:53)
[2017-01-27] MEDS: SERTRALINE HCL 50 MG TABLET (FP) PO SCH (09:53)
[2017-01-27] MEDS: SPIRONOLACTONE 25 MG TABLET (FP) PO SCH (09:53)
[2017-01-27] MEDS: CALCITRIOL 0.25 MCG CAPSULE (FP) PO SCH (09:53)
[2017-01-27] MEDS: LEVOFLOXACIN 500 MG IVPB 100 ML IVPB SCH (09:53)
[2017-01-27] MEDS: CALCITONIN - SALMON SYNTHETIC 3.7 ML SPRAY.PUMP NS SCH (09:53)
[2017-01-27] MEDS: QUINAPRIL HCL 10 MG TABLET (FP) PO SCH (09:54)
--- NOTE | 2017-01-27 10:04 | PN ---
Progress Note, Physician Chief Complaint: Events noted Currently receiving nebulizer treatment Confused History of Present Illness: Patient was seen and examined. Confused. Chart was reviewed Denies chest pain or palpitations. Dyspnea intermittently - Current Medication List Current Medications: Active Medications Acetaminophen (Tylenol -) 650 mg PO Q6H PRN PRN Reason: FEVER OR PAIN Albuterol Sulfate (Ventolin 0.083% Nebulizer Soln -) 1 amp NEB Q6H PRN PRN Reason: SHORT OF BREATH/WHEEZING Last Admin: 01/24/17 09:40 Dose: 1 amp Albuterol/Ipratropium (Duoneb -) 1 amp NEB Q6H PRN PRN Reason: SHORTNESS OF BREATH Last Admin: 01/24/17 07:37 Dose: 1 amp Albuterol/Ipratropium (Duoneb -) 1 amp NEB QIDR [facility] Last Admin: 01/27/17 06:52 Dose: 1 amp Apixaban (Eliquis -) 5 mg PO BID [facility] Last Admin: 01/27/17 09:52 Dose: 5 mg Atorvastatin Calcium (Lipitor -) 10 mg PO HS [facility] Last Admin: 01/26/17 21:07 Dose: 10 mg Calcitonin (Miacalcin [place] -) 200 units NS DAILY [facility] Last Admin: 01/27/17 09:53 Dose: 1 spray Calcitriol (Rocaltrol -) 0.25 mcg PO DAILY [facility] Last Admin: 01/27/17 09:53 Dose: 0.25 mcg Digoxin (Lanoxin -) 0.125 mg PO DAILY [facility] Last Admin: 01/27/17 09:52 Dose: 0.125 mg Docusate Sodium (Colace -) 300 mg PO HS [facility] Last Admin: 01/26/17 21:07 Dose: Not Given Ferrous Sulfate (Feosol -) 325 mg PO DAILY [facility] Last Admin: 01/27/17 09:53 Dose: 325 mg Furosemide (Lasix -) 40 mg PO DAILY [facility] Last Admin: 01/27/17 09:52 Dose: 40 mg Levofloxacin (Levaquin 500 Mg Premixed Ivpb -) 100 mls @ 100 mls/hr IVPB DAILY [facility] Last Admin: 01/27/17 09:53 Dose: 100 mls/hr Levothyroxine Sodium (Synthroid -) 125 mcg PO DAILY@0700 [facility] Last Admin: 01/27/17 06:06 Dose: 125 mcg Melatonin (Melatonin) 5 mg PO HS PRN PRN Reason: INSOMNIA Last Admin: 01/26/17 21:08 Dose: 5 mg Methylprednisolone Sodium Succinate (Solu-Medrol -) 40 mg IVPB Q8H-IV [facility] Last Admin: 01/27/17 09:53 Dose: 40 mg Metoprolol Succinate (Toprol Xl -) 25 mg PO BID [facility] Last Admin: 01/27/17 09:52 Dose: 25 mg Oxycodone HCl (Roxicodone -) 5 mg PO Q6H PRN PRN Reason: PAIN Last Admin: 01/26/17 21:07 Dose: 5 mg Quinapril HCl (Accupril -) 10 mg PO DAILY [facility] Last Admin: 01/27/17 09:54 Dose: 10 mg Sertraline HCl (Zoloft -) 100 mg PO DAILY [facility] Last Admin: 01/27/17 09:53 Dose: 100 mg Spironolactone (Aldactone -) 25 mg PO DAILY [facility] Last Admin: 01/27/17 09:53 Dose: 25 mg - Objective Vital Signs: Vital Signs Temperature 97.8 F 01/27/17 06:00 Pulse Rate 78 01/27/17 09:52 Respiratory Rate 20 01/27/17 06:00 Blood Pressure 118/59 01/27/17 06:00 O2 Sat by Pulse Oximetry (%) 98 01/26/17 23:52 Neck: Yes: Supple Cardiovascular: Yes: Regular Rate and Rhythm, S1, S2 Respiratory: Yes: Diminished, Rhonchi Gastrointestinal: Yes: Normal Bowel Sounds, Soft. No: Tenderness Edema: Yes Edema: LLE: Trace, RLE: Trace Labs: CBC, BMP 01/27/17 05:35 01/27/17 05:35 INR, PTT INR 1.73 (0.82-1.09) H D 01/27/17 05:35 Problem List - Problems (1) Acute hypercapnic respiratory failure Code(s): J96.02 - ACUTE RESPIRATORY FAILURE WITH HYPERCAPNIA (2) Acute hypoxemic respiratory failure Code(s): J96.01 - ACUTE RESPIRATORY FAILURE WITH HYPOXIA (3) CAD (coronary artery disease) Code(s): I25.10 - ATHSCL HEART DISEASE OF [place] CORONARY ARTERY W/O ANG PCTRS Qualifiers: Coronary Disease-Associated Artery/Lesion type: [place] artery [place] vs. transplanted heart: [place] heart Associated angina: without angina Qualified Code(s): I25.10 - Atherosclerotic heart disease of [place] coronary artery without angina pectoris (4) Compressed spine fracture Code(s): M48.50XA - COLLAPSED VERTEBRA, NEC, SITE UNSP, INIT (5) A-fib Code(s): I48.91 - UNSPECIFIED ATRIAL FIBRILLATION Qualifiers: Atrial fibrillation type: permanent Qualified Code(s): I48.2 - Chronic atrial fibrillation (6) Acute on chronic diastolic (congestive) heart failure Code(s): I50.33 - ACUTE ON CHRONIC DIASTOLIC (CONGESTIVE) HEART FAILURE (7) Anemia Code(s): D64.9 - ANEMIA, UNSPECIFIED Qualifiers: Anemia type: unspecified type Qualified Code(s): D64.9 - Anemia, unspecified (8) COPD (chronic obstructive pulmonary disease) Code(s): J44.9 - CHRONIC OBSTRUCTIVE PULMONARY DISEASE, UNSPECIFIED Qualifiers : COPD type: COPD with acute exacerbation Qualified Code(s): J44.1 - Chronic obstructive pulmonary disease with (acute) exacerbation (9) Diastolic dysfunction without heart failure Code(s): I51.9 - HEART DISEASE, UNSPECIFIED (10) Hypercholesteremia Code(s): E78.0 - PURE HYPERCHOLESTEROLEMIA * DO NOT USE * (11) Hypertension Code(s): I10 - ESSENTIAL (PRIMARY) HYPERTENSION Qualifiers: Hypertension type: essential hypertension Qualified Code(s): I10 - Essential (primary) hypertension (12) Hypothyroid Code(s): E03.9 - HYPOTHYROIDISM, UNSPECIFIED Qualifiers: Hypothyroidism type: unspecified Qualified Code(s): E03.9 - Hypothyroidism, unspecified (13) Pulmonary hypertension Code(s): I27.2 - OTHER SECONDARY PULMONARY HYPERTENSION Assessment/Plan 1. Acute hypercapneic respiratory failure referable to COPD Exacerbation 2. Acute on chronic diastolic failure improving 3. CAD, angina pectoris, stable 4. Sick sinus syndrome post PPM 5. Permanent atrial fibrillation [id number] score of 6 on NOAC (h/o Lovenox- associated rectus sheath hematoma) 6. 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 HTN 8. Hypercholesterolemia 9. Hypothyroidism PLAN: 1. Continue Lasix 40 qd and Aldactone 25 qd with close monitoring of renal function and electrolytes 2. Continue Accupril 10 qd 3. Continue Toprol XL 25 bid 4. Continue Digoxin 0.125 qd with caution 5. Continue Lipitor 10 qhs 6. Continue Eliquis 5 bid 7. IV steroids, bronchodilators, antibiotics, O2 to keep SpO2 >90% 8. Chest CT shows compression fracture, cardiomegaly and pleural effusion Further plans are to follow Hi Lucas MD
--- NOTE | 2017-01-27 11:06 | PN ---
Progress Note, Physician History of Present Illness: pulmonary awake,less dyspneic,+ cough - Current Medication List Current Medications: Active Medications Acetaminophen (Tylenol -) 650 mg PO Q6H PRN PRN Reason: FEVER OR PAIN Albuterol Sulfate (Ventolin 0.083% Nebulizer Soln -) 1 amp NEB Q6H PRN PRN Reason: SHORT OF BREATH/WHEEZING Last Admin: 01/24/17 09:40 Dose: 1 amp Albuterol/Ipratropium (Duoneb -) 1 amp NEB Q6H PRN PRN Reason: SHORTNESS OF BREATH Last Admin: 01/24/17 07:37 Dose: 1 amp Albuterol/Ipratropium (Duoneb -) 1 amp NEB QIDR [facility] Last Admin: 01/27/17 06:52 Dose: 1 amp Apixaban (Eliquis -) 5 mg PO BID [facility] Last Admin: 01/27/17 09:52 Dose: 5 mg Atorvastatin Calcium (Lipitor -) 10 mg PO HS [facility] Last Admin: 01/26/17 21:07 Dose: 10 mg Calcitonin (Miacalcin [place] -) 200 units NS DAILY [facility] Last Admin: 01/27/17 09:53 Dose: 1 spray Calcitriol (Rocaltrol -) 0.25 mcg PO DAILY [facility] Last Admin: 01/27/17 09:53 Dose: 0.25 mcg Digoxin (Lanoxin -) 0.125 mg PO DAILY [facility] Last Admin: 01/27/17 09:52 Dose: 0.125 mg Docusate Sodium (Colace -) 300 mg PO HS [facility] Last Admin: 01/26/17 21:07 Dose: Not Given Ferrous Sulfate (Feosol -) 325 mg PO DAILY [facility] Last Admin: 01/27/17 09:53 Dose: 325 mg Furosemide (Lasix -) 40 mg PO DAILY [facility] Last Admin: 01/27/17 09:52 Dose: 40 mg Levofloxacin (Levaquin 500 Mg Premixed Ivpb -) 100 mls @ 100 mls/hr IVPB DAILY [facility] Last Admin: 01/27/17 09:53 Dose: 100 mls/hr Levothyroxine Sodium (Synthroid -) 125 mcg PO DAILY@0700 [facility] Last Admin: 01/27/17 06:06 Dose: 125 mcg Melatonin (Melatonin) 5 mg PO HS PRN PRN Reason: INSOMNIA Last Admin: 01/26/17 21:08 Dose: 5 mg Methylprednisolone Sodium Succinate (Solu-Medrol -) 40 mg IVPB Q8H-IV [facility] Last Admin: 01/27/17 09:53 Dose: 40 mg Metoprolol Succinate (Toprol Xl -) 25 mg PO BID [facility] Last Admin: 01/27/17 09:52 Dose: 25 mg Oxycodone HCl (Roxicodone -) 5 mg PO Q6H PRN PRN Reason: PAIN Last Admin: 01/26/17 21:07 Dose: 5 mg Quinapril HCl (Accupril -) 10 mg PO DAILY [facility] Last Admin: 01/27/17 09:54 Dose: 10 mg Sertraline HCl (Zoloft -) 100 mg PO DAILY [facility] Last Admin: 01/27/17 09:53 Dose: 100 mg Spironolactone (Aldactone -) 25 mg PO DAILY [facility] Last Admin: 01/27/17 09:53 Dose: 25 mg - Objective Vital Signs: Vital Signs Temperature 97.8 F 01/27/17 06:00 Pulse Rate 78 01/27/17 09:52 Respiratory Rate 20 01/27/17 06:00 Blood Pressure 118/59 01/27/17 06:00 O2 Sat by Pulse Oximetry (%) 98 01/26/17 23:52 Constitutional: Yes: Well Nourished, Calm Eyes: Yes: WNL HENT: Yes: WNL Neck: Yes: WNL Cardiovascular: Yes: Pulse Irregular, S1, S2 Respiratory: Yes: Rhonchi (scattered [place] rhonchi,and wheezes), Wheezes Gastrointestinal: Yes: Normal Bowel Sounds, Soft Extremities: Yes: WNL Edema: No Labs: CBC, BMP 01/27/17 05:35 01/27/17 05:35 INR, PTT INR 1.73 (0.82-1.09) H D 01/27/17 05:35 Problem List - Problems (1) CAD (coronary artery disease) Code(s): I25.10 - ATHSCL HEART DISEASE OF [place] CORONARY ARTERY W/O ANG PCTRS Qualifiers: Coronary Disease-Associated Artery/Lesion type: [place] artery [place] vs. transplanted heart: [place] heart Associated angina: without angina Qualified Code(s): I25.10 - Atherosclerotic heart disease of [place] coronary artery without angina pectoris (2) CHF (congestive heart failure) Code(s): I50.9 - HEART FAILURE, UNSPECIFIED Qualifiers: Congestive heart failure type: diastolic Congestive heart failure chronicity: acute on chronic Qualified Code(s): I50.33 - Acute on chronic diastolic (congestive) heart failure (3) Hypoxia Code(s): R09.02 - HYPOXEMIA (4) A-fib Code(s): I48.91 - UNSPECIFIED ATRIAL FIBRILLATION Qualifiers: Atrial fibrillation type: permanent Qualified Code(s): I48.2 - Chronic atrial fibrillation (5) CHF NYHA class II (symptoms with moderately strenuous activities) Code(s): I50.9 - HEART FAILURE, UNSPECIFIED Qualifiers: Congestive heart failure type: combined Congestive heart failure chronicity: acute on chronic Qualified Code(s): I50.43 - Acute on chronic combined systolic (congestive) and diastolic (congestive) heart failure (6) COPD (chronic obstructive pulmonary disease) Code(s): J44.9 - CHRONIC OBSTRUCTIVE PULMONARY DISEASE, UNSPECIFIED Qualifiers : COPD type: COPD with acute exacerbation Qualified Code(s): J44.1 - Chronic obstructive pulmonary disease with (acute) exacerbation (7) Hypertension Code(s): I10 - ESSENTIAL (PRIMARY) HYPERTENSION Qualifiers: Hypertension type: essential hypertension Qualified Code(s): I10 - Essential (primary) hypertension (8) Hypothyroid Code(s): E03.9 - HYPOTHYROIDISM, UNSPECIFIED Qualifiers: Hypothyroidism type: unspecified Qualified Code(s): E03.9 - Hypothyroidism, unspecified (9) Pacemaker Code(s): Z95.0 - PRESENCE OF CARDIAC PACEMAKER (10) Pedal edema Code(s): R60.0 - LOCALIZED EDEMA (11) Pulmonary hypertension Code(s): I27.2 - OTHER SECONDARY PULMONARY HYPERTENSION (12) Acute hypoxemic respiratory failure Code(s): J96.01 - ACUTE RESPIRATORY FAILURE WITH HYPOXIA Assessment/Plan IMP ACUTE HYPOXEMIC RESPIRATORY FAILURE COPD EXACERBATION URI CHF PULMONARY HTN AFIB HTN PLAN IV STEROIDS INHALED BRONCHODILATORS O2 ANTIBIOTICS DIURETICS DAILY WTS BIPAP PRN DR NGUYEN Problem List - Problems (1) CAD (coronary artery disease) Code(s): I25.10 - ATHSCL HEART DISEASE OF [place] CORONARY ARTERY W/O ANG PCTRS Qualifiers: Coronary Disease-Associated Artery/Lesion type: [place] artery [place] vs. transplanted heart: [place] heart Associated angina: without angina Qualified Code(s): I25.10 - Atherosclerotic heart disease of [place] coronary artery without angina pectoris (2) CHF (congestive heart failure) Code(s): I50.9 - HEART FAILURE, UNSPECIFIED Qualifiers: Congestive heart failure type: diastolic Congestive heart failure chronicity: acute on chronic Qualified Code(s): I50.33 - Acute on chronic diastolic (congestive) heart failure (3) Hypoxia Code(s): R09.02 - HYPOXEMIA (4) A-fib Code(s): I48.91 - UNSPECIFIED ATRIAL FIBRILLATION Qualifiers: Atrial fibrillation type: permanent Qualified Code(s): I48.2 - Chronic atrial fibrillation (5) CHF NYHA class II (symptoms with moderately strenuous activities) Code(s): I50.9 - HEART FAILURE, UNSPECIFIED Qualifiers: Congestive heart failure type: combined Congestive heart failure chronicity: acute on chronic Qualified Code(s): I50.43 - Acute on chronic combined systolic (congestive) and diastolic (congestive) heart failure (6) COPD (chronic obstructive pulmonary disease) Code(s): J44.9 - CHRONIC OBSTRUCTIVE PULMONARY DISEASE, UNSPECIFIED Qualifiers : COPD type: unspecified COPD Qualified Code(s): J44.9 - Chronic obstructive pulmonary disease, unspecified (7) Hypertension Code(s): I10 - ESSENTIAL (PRIMARY) HYPERTENSION Qualifiers: Hypertension type: essential hypertension Qualified Code(s): I10 - Essential (primary) hypertension (8) Hypothyroid Code(s): E03.9 - HYPOTHYROIDISM, UNSPECIFIED Qualifiers: Hypothyroidism type: unspecified Qualified Code(s): E03.9 - Hypothyroidism, unspecified (9) Pacemaker Code(s): Z95.0 - PRESENCE OF CARDIAC PACEMAKER (10) Pedal edema Code(s): R60.0 - LOCALIZED EDEMA (11) Pulmonary hypertension Code(s): I27.2 - OTHER SECONDARY PULMONARY HYPERTENSION (12) Acute hypoxemic respiratory failure Code(s): J96.01 - ACUTE RESPIRATORY FAILURE WITH HYPOXIA
[2017-01-27] MEDS: guaiFENesin 200 MG/10 ML 10 ML UNIT-DOSE CUPS PO PRN (11:43)
--- NOTE | 2017-01-27 12:01 | PN ---
Progress Note, Physician Chief Complaint: in bed awake alert [place] - Current Medication List Current Medications: Active Medications Acetaminophen (Tylenol -) 650 mg PO Q6H PRN PRN Reason: FEVER OR PAIN Albuterol Sulfate (Ventolin 0.083% Nebulizer Soln -) 1 amp NEB Q6H PRN PRN Reason: SHORT OF BREATH/WHEEZING Last Admin: 01/24/17 09:40 Dose: 1 amp Albuterol/Ipratropium (Duoneb -) 1 amp NEB Q6H PRN PRN Reason: SHORTNESS OF BREATH Last Admin: 01/24/17 07:37 Dose: 1 amp Albuterol/Ipratropium (Duoneb -) 1 amp NEB QIDR [facility] Last Admin: 01/27/17 11:05 Dose: 1 amp Apixaban (Eliquis -) 5 mg PO BID [facility] Last Admin: 01/27/17 09:52 Dose: 5 mg Atorvastatin Calcium (Lipitor -) 10 mg PO HS [facility] Last Admin: 01/26/17 21:07 Dose: 10 mg Calcitonin (Miacalcin [place] -) 200 units NS DAILY [facility] Last Admin: 01/27/17 09:53 Dose: 1 spray Calcitriol (Rocaltrol -) 0.25 mcg PO DAILY [facility] Last Admin: 01/27/17 09:53 Dose: 0.25 mcg Digoxin (Lanoxin -) 0.125 mg PO DAILY [facility] Last Admin: 01/27/17 09:52 Dose: 0.125 mg Docusate Sodium (Colace -) 300 mg PO HS [facility] Last Admin: 01/26/17 21:07 Dose: Not Given Ferrous Sulfate (Feosol -) 325 mg PO DAILY [facility] Last Admin: 01/27/17 09:53 Dose: 325 mg Furosemide (Lasix -) 40 mg PO DAILY [facility] Last Admin: 01/27/17 09:52 Dose: 40 mg Guaifenesin (Robitussin -) 10 ml PO Q4H PRN PRN Reason: COUGH Last Admin: 01/27/17 11:43 Dose: 10 ml Levofloxacin (Levaquin 500 Mg Premixed Ivpb -) 100 mls @ 100 mls/hr IVPB DAILY [facility] Last Admin: 01/27/17 09:53 Dose: 100 mls/hr Levothyroxine Sodium (Synthroid -) 125 mcg PO DAILY@0700 [facility] Last Admin: 01/27/17 06:06 Dose: 125 mcg Melatonin (Melatonin) 5 mg PO HS PRN PRN Reason: INSOMNIA Last Admin: 01/26/17 21:08 Dose: 5 mg Methylprednisolone Sodium Succinate (Solu-Medrol -) 40 mg IVPB Q8H-IV [facility] Last Admin: 01/27/17 09:53 Dose: 40 mg Metoprolol Succinate (Toprol Xl -) 25 mg PO BID [facility] Last Admin: 01/27/17 09:52 Dose: 25 mg Oxycodone HCl (Roxicodone -) 5 mg PO Q6H PRN PRN Reason: PAIN Last Admin: 01/26/17 21:07 Dose: 5 mg Quinapril HCl (Accupril -) 10 mg PO DAILY [facility] Last Admin: 01/27/17 09:54 Dose: 10 mg Sertraline HCl (Zoloft -) 100 mg PO DAILY [facility] Last Admin: 01/27/17 09:53 Dose: 100 mg Spironolactone (Aldactone -) 25 mg PO DAILY [facility] Last Admin: 01/27/17 09:53 Dose: 25 mg - Objective Vital Signs: Vital Signs Temperature 97.8 F 01/27/17 09:00 Pulse Rate 77 01/27/17 10:25 Respiratory Rate 22 01/27/17 09:00 Blood Pressure 142/59 01/27/17 09:00 O2 Sat by Pulse Oximetry (%) 98 01/27/17 10:25 Constitutional: Yes: Calm, Thin Neck: Yes: Trachea Midline Cardiovascular: Yes: Pulse Irregular, S1, S2 Respiratory: Yes: Diminished, On Nasal O2 Gastrointestinal: Yes: Normal Bowel Sounds, Soft Extremities: Yes: Other (chronic pigmentation changes) Neurological: Yes: Alert, Oriented Labs: CBC, BMP 01/27/17 05:35 01/27/17 05:35 INR, PTT INR 1.73 (0.82-1.09) H D 01/27/17 05:35 Problem List - Problems (1) Hypoxia Assessment/Plan: sec to acute hypoxic resp failure on iv lasix and iv steroids for copd exacerbation nasal canula appreicate pulm note Code(s): R09.02 - HYPOXEMIA (2) CHF (congestive heart failure) Assessment/Plan: po lasix continue aldactone and quinipril digoxin Code(s): I50.9 - HEART FAILURE, UNSPECIFIED Qualifiers: Congestive heart failure type: diastolic Congestive heart failure chronicity: acute on chronic Qualified Code(s): I50.33 - Acute on chronic diastolic (congestive) heart failure (3) A-fib Assessment/Plan: on eliquis BB tele Code(s): I48.91 - UNSPECIFIED ATRIAL FIBRILLATION Qualifiers: Atrial fibrillation type: permanent Qualified Code(s): I48.2 - Chronic atrial fibrillation (4) Hypothyroid Assessment/Plan: on sythroid tsh noted slightly higher will adjust the synthroid dose Code(s): E03.9 - HYPOTHYROIDISM, UNSPECIFIED Qualifiers: Hypothyroidism type: unspecified Qualified Code(s): E03.9 - Hypothyroidism, unspecified (5) Insomnia Assessment/Plan: melatonin Code(s): G47.00 - INSOMNIA, UNSPECIFIED
[2017-01-27] MEDS ORDERED: LEVOTHYROXINE NA 125 MCG TABLET (FP) PO SCH ×2 (12:04→12:13)
[2017-01-27] MEDS: ACETAMINOPHEN 325 MG TABLET (FP) PO PRN (14:06)
[2017-01-27] MEDS: oxyCODONE HCL 5 MG TABLET PO PRN ×2 (14:07→22:13)
--- NOTE | 2017-01-27 14:49 | PN ---
Progress Note (short form) - Note Progress Note: NEUROSURGERY CONSULT DICTATED Chart reviewed Pt examined Pt is a poor historian Not sure if she has back pain H/O a-fib, hypertension, CHF, CAD, sick sinus syndrome, PPM, COPD was admitted for respiratory distress PE: AF, VSS HEENT- normal; Cor- Ireg; Lungs- decreased BS at bases, occ wheeze B; Abd- benign; Ext- B LE chronic venous changes CN- decreased hearing B; Motor- at least 3/5 B UE/LE but poor cooperation; Sensation- difficult to fully assess; DTR- hyporereflexia CT's of abd and chest reviewed (12-04 and 02-03)- unchanged chronic L1 marked compression fx (panus) with mild superior posterior endplate retropulsion LS spine CT 2013- 50% L1 compression fx; L5-S1 spondylolisthesis Chronic marked L1 compression fracture, likely osteoporotic As appearance of L1 fx has not changed significantly over the past 2 months (it appears to have been diagnosed as early as ) and pt is not highly symptomatic, no neurosurgical intervention is recommended nor indicated
[2017-01-27 17:07] LABS: ALLENS TEST POSITIVE; ART PUNCT SITE RIGHT BRACHIAL; ARTERIAL BLD GAS O2 SATURATION 89.3 % (90-98.9); ARTERIAL BLOOD GAS BASE EXCESS 12.1 meq/l (-2-2); ARTERIAL BLOOD GAS HCO3 39.1 meq/L (22-26); ARTERIAL BLOOD GAS pH 7.39 (7.35-7.45); LPM/O2% 3L; PT. ON O2? YES; TYPE OF O2 NASAL O2
[2017-01-27 17:08] LABS: ARTERIAL BLOOD GAS PO2 59.3 mmHg (68-100)
[2017-01-27] MEDS: MELATONIN 5 MG TABLETS PO PRN (22:13)
[2017-01-27] MEDS: ATORVASTATIN CA 10 MG TABLET (FP) PO SCH (22:13)
[2017-01-27] MEDS: DOCUSATE SODIUM 100 MG CAPSULE (FP) PO SCH (22:17)
[2017-01-28] MEDS: methylPREDNISolone NA SUCC 40 MG/1 ML VIAL IVPB SCH ×3 (01:56→22:29)
[2017-01-28] MEDS ORDERED: LEVOTHYROXINE NA 125 MCG TABLET (FP) ONE (06:01)
[2017-01-28] MEDS ORDERED: LEVOTHYROXINE NA 25 MCG TABLET (FP) ONE (06:01)
[2017-01-28] MEDS: LEVOTHYROXINE 125 MCG, LEVOTHYROXINE 12.5 MCG PO SCH (06:04)
[2017-01-28] MEDS: ALBUTEROL SO4 2.5/IPRATROPIUM 0.5 INH SOL 3 ML VIAL.NEB. NEB SCH ×4 (06:47→23:22)
[2017-01-28 08:09] LABS: ALBUMIN 3.4 g/dl (3.4-5.0); ANION GAP 5 (8-16); CALCIUM 8.5 mg/dL (8.5-10.1); CO2 40 mmol/L (21-32); GLUCOSE,RANDOM 123 mg/dL (74-106); SGPT/ALT 28 U/L (12-78)
[2017-01-28 08:23] LABS: ALK PHOS 159 U/L (45-117); BILIRUBIN,TOTAL 0.7 mg/dL (0.2-1.0); CREATININE 0.5 mg/dL (0.55-1.02); SGOT/AST 28 U/L (15-37); TOT PROT 6.3 g/dl (6.4-8.2)
--- NOTE | 2017-01-28 08:59 | PN ---
Progress Note (short form) - Note Progress Note: NEUROSURGERY Denies pain PE: AF, VSS HEENT- normal; Cor- Ireg; Lungs- decreased BS at bases, occ wheeze B; Abd- benign; Ext- B LE chronic venous changes CN- decreased hearing B; Motor- at least 3/5 B UE/LE but poor cooperation; Sensation- difficult to fully assess; DTR- hyporereflexia CT's of abd and chest reviewed (12-04 and 02-03)- unchanged chronic L1 marked compression fx (panus) with mild superior posterior endplate retropulsion Chronic marked L1 compression fracture, likely osteoporotic and at least 3 years old As appearance of L1 fx has not changed significantly over the past 2 months No neurosurgical intervention is recommended
[2017-01-28] MEDS: LEVOFLOXACIN 500 MG IVPB 100 ML IVPB SCH (09:24)
[2017-01-28] MEDS: SERTRALINE HCL 50 MG TABLET (FP) PO SCH (09:25)
[2017-01-28] MEDS: FERROUS SO4 325 MG TABLET (FP) PO SCH (09:25)
[2017-01-28] MEDS: CALCITRIOL 0.25 MCG CAPSULE (FP) PO SCH (09:25)
[2017-01-28] MEDS: CALCITONIN - SALMON SYNTHETIC 3.7 ML SPRAY.PUMP NS SCH (09:25)
[2017-01-28] MEDS: METOPROLOL SUCCINATE 25 MG TAB.SR.24H (FP) PO SCH ×2 (09:25→22:28)
[2017-01-28] MEDS: SPIRONOLACTONE 25 MG TABLET (FP) PO SCH (09:25)
[2017-01-28] MEDS: APIXABAN 5 MG TABLET PO SCH ×2 (09:26→22:28)
[2017-01-28] MEDS: DIGOXIN 0.125 MG TABLET (FP) PO SCH (09:26)
[2017-01-28] MEDS: QUINAPRIL HCL 10 MG TABLET (FP) PO SCH (09:26)
[2017-01-28] MEDS: FUROSEMIDE 40 MG TABLET (FP) PO SCH (09:26)
[2017-01-28] MEDS: guaiFENesin 200 MG/10 ML 10 ML UNIT-DOSE CUPS PO PRN (09:31)
--- NOTE | 2017-01-28 10:29 | CONS ---
DATE OF CONSULTATION: 01/27/2017 CHIEF COMPLAINT: CT chest finding of L1 compression fracture. HISTORY OF PRESENT ILLNESS: The patient is an 89-year-old female with history of coronary artery disease, congestive heart failure, hypertension, atrial fibrillation, sick sinus syndrome status post pacemaker placement, COPD, skin cancer, anemia, who was admitted from [facility] for respiratory distress. She denies any recent fevers or chills, even though she is a very poor historian. She has been coughing but has no chest pain. PAST MEDICAL HISTORY: Significant for atrial fibrillation, hypertension, sick sinus syndrome status post peripheral pacemaker, coronary artery disease, congestive heart failure, COPD. CURRENT MEDICATIONS: Include Solu-Medrol, Tylenol, Accupril, Levaquin, Eliquis, Zoloft, fentanyl, DuoNeb, Toprol-XL, Lanoxin, Colace, Robitussin, Lipitor, Feosol, Lasix, Aldactone, Roxicodone, calcitonin, nasal spray, levothyroxine. ALLERGIES: PENICILLIN. SOCIAL HISTORY: She does not smoke or drink. She is a very poor historian, could not provide a full social history. REVIEW OF SYSTEMS: Otherwise negative for other major constitutional, head and neck, cardiovascular, pulmonary, gastrointestinal, genitourinary, endocrinological, neurological, psychological problems except for the above. PHYSICAL EXAMINATION: Vital Signs: Temperature is 99.6, blood pressure is 113/65, with pulse rate of 69, O2 saturation 98% on 4 L. HEENT: Examination shows her to be normocephalic, atraumatic, anicteric. Neck: Supple. Coronary: Examination demonstrated bilateral wheezes. She had decreased breath sounds at the bases. Abdomen: Benign. Extremities: Examination shows chronic venous changes of the distal bilateral lower extremities. She has a large osteophyte on the dorsum of the base of her left foot/ankle area. There is no other sign of DVT. Neurologic: She is awake, alert, and oriented x1. Her speech is sparse, and she occasionally follows commands. Cranial nerve examination is grossly intact. Motor examination shows at least 3/5 strength of the bilateral upper and lower extremities. Sensory examination is difficult to fully assess. Deep tendon reflexes are hyporeflexic throughout. There is no pathologic long-track sign. Gait is not tested for safety reasons. LABORATORY EXAMINATION: Examination shows the white blood cell count to be 8100, hemoglobin is 11.4, and platelet count is 143,000. INR is 1.73. Serum sodium is 143 and potassium 4.1. BUN and creatinine are 20 and 0.5, respectively. LFTs shows mildly elevated alkaline phosphatase initially; currently at 155. Calcium is 8.3. CT scan of the chest done yesterday demonstrated cardiomegaly with mild bilateral pleural effusion. There is a chronic L1 compression fracture which is marked in nature, and there is mild retropulsion of the superior endplate. There is approximately 80% or so depression of her L1 vertebral body. This fracture was identified on a prior CT scan of the abdomen from November of this year. Additionally, on CT scan of the lumbar spine from 2013, reported a 50% reduction in the L1 vertebral body height, which is probably the predecessor of the current L1 marked, chronic compression fracture. IMPRESSION: 1. Chronic marked L1 osteoporotic compression fracture, known since at least [address] scans of the lumbar spine as well as CT scan of the abdomen earlier this year. 2. Chronic atrial fibrillation, sick sinus syndrome, peripheral pacemaker, and hypertension. 3. Chronic obstructive pulmonary disease. RECOMMENDATIONS: The patient has a longstanding fracture of the L1 vertebral body, dating back to at least 2013. At that time, she had by report acute or subacute L1 vertebral fracture. A fracture of this nature generally tends to progress with time as it did in her case. She has a pannus formation of the L1 vertebral body. There is no significant canal compromise. No neurosurgical intervention is recommended for this chronic marked compression fracture. Pain management could be considered if she complains of pain, but she does not even do that much at this time. An attempt was made to ascertain more definitive history from her for any fall a few years ago, but the patient does not recall. The patient is an extremely poor historian and could not provide any significant history. All questions were answered at bedside. PAULINA SWEENEY M.D. DANDRE/[id number]
--- NOTE | 2017-01-28 10:40 | PN ---
Progress Note, Physician History of Present Illness: PULMONARY ALERT,OOB-CHAIR,-RESP DISTRESS - Current Medication List Current Medications: Active Medications Acetaminophen (Tylenol -) 650 mg PO Q6H PRN PRN Reason: FEVER OR PAIN Last Admin: 01/27/17 14:06 Dose: 650 mg Albuterol Sulfate (Ventolin 0.083% Nebulizer Soln -) 1 amp NEB Q6H PRN PRN Reason: SHORT OF BREATH/WHEEZING Last Admin: 01/24/17 09:40 Dose: 1 amp Albuterol/Ipratropium (Duoneb -) 1 amp NEB Q6H PRN PRN Reason: SHORTNESS OF BREATH Last Admin: 01/24/17 07:37 Dose: 1 amp Albuterol/Ipratropium (Duoneb -) 1 amp NEB QIDR [facility] Last Admin: 01/28/17 06:47 Dose: 1 amp Apixaban (Eliquis -) 5 mg PO BID [facility] Last Admin: 01/28/17 09:26 Dose: 5 mg Atorvastatin Calcium (Lipitor -) 10 mg PO HS [facility] Last Admin: 01/27/17 22:13 Dose: 10 mg Calcitonin (Miacalcin [place] -) 200 units NS DAILY [facility] Last Admin: 01/28/17 09:25 Dose: 1 spray Calcitriol (Rocaltrol -) 0.25 mcg PO DAILY [facility] Last Admin: 01/28/17 09:25 Dose: 0.25 mcg Digoxin (Lanoxin -) 0.125 mg PO DAILY [facility] Last Admin: 01/28/17 09:26 Dose: 0.125 mg Docusate Sodium (Colace -) 300 mg PO [facility] Last Admin: 01/27/17 22:17 Dose: Not Given Ferrous Sulfate (Feosol -) 325 mg PO DAILY [facility] Last Admin: 01/28/17 09:25 Dose: 325 mg Furosemide (Lasix -) 40 mg PO DAILY [facility] Last Admin: 01/28/17 09:26 Dose: 40 mg Guaifenesin (Robitussin -) 10 ml PO Q4H PRN PRN Reason: COUGH Last Admin: 01/28/17 09:31 Dose: 10 ml Levofloxacin (Levaquin 500 Mg Premixed Ivpb -) 100 mls @ 100 mls/hr IVPB DAILY [facility] Last Admin: 01/28/17 09:24 Dose: 100 mls/hr Levothyroxine Sodium 125 mcg/ (Levothyroxine Sodium 12.5 mcg) 137.5 mcg PO DAILY@0700 [facility] Last Admin: 01/28/17 06:04 Dose: 137.5 mcg Melatonin (Melatonin) 5 mg PO HS PRN PRN Reason: INSOMNIA Last Admin: 01/27/17 22:13 Dose: 5 mg Methylprednisolone Sodium Succinate (Solu-Medrol -) 40 mg IVPB Q8H-IV [facility] Last Admin: 01/28/17 09:25 Dose: 40 mg Metoprolol Succinate (Toprol Xl -) 25 mg PO BID [facility] Last Admin: 01/28/17 09:25 Dose: 25 mg Oxycodone HCl (Roxicodone -) 5 mg PO Q6H PRN PRN Reason: PAIN Last Admin: 01/27/17 22:13 Dose: 5 mg Quinapril HCl (Accupril -) 10 mg PO DAILY [facility] Last Admin: 01/28/17 09:26 Dose: 10 mg Sertraline HCl (Zoloft -) 100 mg PO DAILY [facility] Last Admin: 01/28/17 09:25 Dose: 100 mg Spironolactone (Aldactone -) 25 mg PO DAILY [facility] Last Admin: 01/28/17 09:25 Dose: 25 mg - Objective Vital Signs: Vital Signs Temperature 98 F 01/28/17 10:00 Pulse Rate 70 01/28/17 10:00 Respiratory Rate 20 01/28/17 10:00 Blood Pressure 138/76 01/28/17 10:00 O2 Sat by Pulse Oximetry (%) 95 01/28/17 06:00 Constitutional: Yes: Well Nourished, Calm Eyes: Yes: WNL HENT: Yes: WNL Neck: Yes: WNL Cardiovascular: Yes: Pulse Irregular, S1, S2 Respiratory: Yes: Rhonchi (FEW SCATTERED RHONCHI) Gastrointestinal: Yes: Normal Bowel Sounds, Soft Extremities: Yes: WNL Edema: No Labs: CBC, BMP 01/27/17 05:35 01/28/17 05:35 INR, PTT INR 1.73 (0.82-1.09) H D 01/27/17 05:35 Laboratory Tests 01/24/17 01/27/17 11:20 16:45 ABG pH 7.32 L 7.39 ABG pCO2 at Pt Temp 72.3 H* D 66.4 H* ABG pO2 at Pt Temp 130.0 H D 59.3 L D ABG HCO3 36.3 H 39.1 H ABG O2 Sat (Measured) 99.2 H 89.3 L O2 Delivery Device Nasal o2 Oxygen Flow Rate 3 3l Problem List - Problems (1) CAD (coronary artery disease) Code(s): I25.10 - ATHSCL HEART DISEASE OF [place] CORONARY ARTERY W/O ANG PCTRS Qualifiers: Coronary Disease-Associated Artery/Lesion type: [place] artery [place] vs. transplanted heart: [place] heart Associated angina: without angina Qualified Code(s): I25.10 - Atherosclerotic heart disease of [place] coronary artery without angina pectoris (2) CHF (congestive heart failure) Code(s): I50.9 - HEART FAILURE, UNSPECIFIED Qualifiers: Congestive heart failure type: diastolic Congestive heart failure chronicity: acute on chronic Qualified Code(s): I50.33 - Acute on chronic diastolic (congestive) heart failure (3) Hypoxia Code(s): R09.02 - HYPOXEMIA (4) A-fib Code(s): I48.91 - UNSPECIFIED ATRIAL FIBRILLATION Qualifiers: Atrial fibrillation type: permanent Qualified Code(s): I48.2 - Chronic atrial fibrillation (5) CHF NYHA class II (symptoms with moderately strenuous activities) Code(s): I50.9 - HEART FAILURE, UNSPECIFIED Qualifiers: Congestive heart failure type: combined Congestive heart failure chronicity: acute on chronic Qualified Code(s): I50.43 - Acute on chronic combined systolic (congestive) and diastolic (congestive) heart failure (6) COPD (chronic obstructive pulmonary disease) Code(s): J44.9 - CHRONIC OBSTRUCTIVE PULMONARY DISEASE, UNSPECIFIED Qualifiers : COPD type: COPD with acute exacerbation Qualified Code(s): J44.1 - Chronic obstructive pulmonary disease with (acute) exacerbation (7) Hypertension Code(s): I10 - ESSENTIAL (PRIMARY) HYPERTENSION Qualifiers: Hypertension type: essential hypertension Qualified Code(s): I10 - Essential (primary) hypertension (8) Hypothyroid Code(s): E03.9 - HYPOTHYROIDISM, UNSPECIFIED Qualifiers: Hypothyroidism type: unspecified Qualified Code(s): E03.9 - Hypothyroidism, unspecified (9) Pacemaker Code(s): Z95.0 - PRESENCE OF CARDIAC PACEMAKER (10) Pedal edema Code(s): R60.0 - LOCALIZED EDEMA (11) Pulmonary hypertension Code(s): I27.2 - OTHER SECONDARY PULMONARY HYPERTENSION (12) Acute hypoxemic respiratory failure Code(s): J96.01 - ACUTE RESPIRATORY FAILURE WITH HYPOXIA Assessment/Plan IMP ACUTE ON CHRONIC HYPOXEMIC/HYPERCAPNEIC RESPIRATORY FAILURE COPD EXACERBATION URI CHF PULMONARY HTN AFIB HTN PLAN TAPER STEROIDS INHALED BRONCHODILATORS O2 ANTIBIOTICS DIURETICS DAILY WTS BIPAP PRN DR NGUYEN Problem List - Problems (1) CAD (coronary artery disease) Code(s): I25.10 - ATHSCL HEART DISEASE OF [place] CORONARY ARTERY W/O ANG PCTRS Qualifiers: Coronary Disease-Associated Artery/Lesion type: [place] artery [place] vs. transplanted heart: [place] heart Associated angina: without angina Qualified Code(s): I25.10 - Atherosclerotic heart disease of [place] coronary artery without angina pectoris (2) CHF (congestive heart failure) Code(s): I50.9 - HEART FAILURE, UNSPECIFIED Qualifiers: Congestive heart failure type: diastolic Congestive heart failure chronicity: acute on chronic Qualified Code(s): I50.33 - Acute on chronic diastolic (congestive) heart failure (3) Hypoxia Code(s): R09.02 - HYPOXEMIA (4) A-fib Code(s): I48.91 - UNSPECIFIED ATRIAL FIBRILLATION Qualifiers: Atrial fibrillation type: permanent Qualified Code(s): I48.2 - Chronic atrial fibrillation (5) CHF NYHA class II (symptoms with moderately strenuous activities) Code(s): I50.9 - HEART FAILURE, UNSPECIFIED Qualifiers: Congestive heart failure type: combined Congestive heart failure chronicity: acute on chronic Qualified Code(s): I50.43 - Acute on chronic combined systolic (congestive) and diastolic (congestive) heart failure (6) COPD (chronic obstructive pulmonary disease) Code(s): J44.9 - CHRONIC OBSTRUCTIVE PULMONARY DISEASE, UNSPECIFIED Qualifiers : COPD type: unspecified COPD Qualified Code(s): J44.9 - Chronic obstructive pulmonary disease, unspecified (7) Hypertension Code(s): I10 - ESSENTIAL (PRIMARY) HYPERTENSION Qualifiers: Hypertension type: essential hypertension Qualified Code(s): I10 - Essential (primary) hypertension (8) Hypothyroid Code(s): E03.9 - HYPOTHYROIDISM, UNSPECIFIED Qualifiers: Hypothyroidism type: unspecified Qualified Code(s): E03.9 - Hypothyroidism, unspecified (9) Pacemaker Code(s): Z95.0 - PRESENCE OF CARDIAC PACEMAKER (10) Pedal edema Code(s): R60.0 - LOCALIZED EDEMA (11) Pulmonary hypertension Code(s): I27.2 - OTHER SECONDARY PULMONARY HYPERTENSION (12) Acute hypoxemic respiratory failure Code(s): J96.01 - ACUTE RESPIRATORY FAILURE WITH HYPOXIA
--- NOTE | 2017-01-28 11:32 | PN ---
Progress Note, Physician Chief Complaint: Events noted Currently sitting in chair Less confused today and carries simple conversation History of Present Illness: Patient was seen and examined. Awake. Chart was reviewed Denies chest pain or palpitations. Breathing comfortable this am and no wheezing - Current Medication List Current Medications: Active Medications Acetaminophen (Tylenol -) 650 mg PO Q6H PRN PRN Reason: FEVER OR PAIN Last Admin: 01/27/17 14:06 Dose: 650 mg Albuterol Sulfate (Ventolin 0.083% Nebulizer Soln -) 1 amp NEB Q6H PRN PRN Reason: SHORT OF BREATH/WHEEZING Last Admin: 01/24/17 09:40 Dose: 1 amp Albuterol/Ipratropium (Duoneb -) 1 amp NEB Q6H PRN PRN Reason: SHORTNESS OF BREATH Last Admin: 01/24/17 07:37 Dose: 1 amp Albuterol/Ipratropium (Duoneb -) 1 amp NEB QIDR [facility] Last Admin: 01/28/17 06:47 Dose: 1 amp Apixaban (Eliquis -) 5 mg PO BID [facility] Last Admin: 01/28/17 09:26 Dose: 5 mg Atorvastatin Calcium (Lipitor -) 10 mg PO HS [facility] Last Admin: 01/27/17 22:13 Dose: 10 mg Calcitonin (Miacalcin [place] -) 200 units NS DAILY [facility] Last Admin: 01/28/17 09:25 Dose: 1 spray Calcitriol (Rocaltrol -) 0.25 mcg PO DAILY [facility] Last Admin: 01/28/17 09:25 Dose: 0.25 mcg Digoxin (Lanoxin -) 0.125 mg PO DAILY [facility] Last Admin: 01/28/17 09:26 Dose: 0.125 mg Docusate Sodium (Colace -) 300 mg PO HS [facility] Last Admin: 01/27/17 22:17 Dose: Not Given Ferrous Sulfate (Feosol -) 325 mg PO DAILY [facility] Last Admin: 01/28/17 09:25 Dose: 325 mg Furosemide (Lasix -) 40 mg PO DAILY [facility] Last Admin: 01/28/17 09:26 Dose: 40 mg Guaifenesin (Robitussin -) 10 ml PO Q4H PRN PRN Reason: COUGH Last Admin: 01/28/17 09:31 Dose: 10 ml Levofloxacin (Levaquin 500 Mg Premixed Ivpb -) 100 mls @ 100 mls/hr IVPB DAILY [facility] Last Admin: 01/28/17 09:24 Dose: 100 mls/hr Levothyroxine Sodium 125 mcg/ (Levothyroxine Sodium 12.5 mcg) 137.5 mcg PO DAILY@0700 [facility] Last Admin: 01/28/17 06:04 Dose: 137.5 mcg Melatonin (Melatonin) 5 mg PO HS PRN PRN Reason: INSOMNIA Last Admin: 01/27/17 22:13 Dose: 5 mg Methylprednisolone Sodium Succinate (Solu-Medrol -) 40 mg IVPB BID [facility] Metoprolol Succinate (Toprol Xl -) 25 mg PO BID [facility] Last Admin: 01/28/17 09:25 Dose: 25 mg Oxycodone HCl (Roxicodone -) 5 mg PO Q6H PRN PRN Reason: PAIN Last Admin: 01/27/17 22:13 Dose: 5 mg Quinapril HCl (Accupril -) 10 mg PO DAILY [facility] Last Admin: 01/28/17 09:26 Dose: 10 mg Sertraline HCl (Zoloft -) 100 mg PO DAILY [facility] Last Admin: 01/28/17 09:25 Dose: 100 mg Spironolactone (Aldactone -) 25 mg PO DAILY [facility] Last Admin: 01/28/17 09:25 Dose: 25 mg - Objective Vital Signs: Vital Signs Temperature 98 F 01/28/17 10:00 Pulse Rate 70 01/28/17 10:00 Respiratory Rate 20 01/28/17 10:00 Blood Pressure 138/76 01/28/17 10:00 O2 Sat by Pulse Oximetry (%) 98 01/28/17 09:00 Neck: Yes: Supple Cardiovascular: Yes: Regular Rate and Rhythm, Murmur (2/6 GUILLE right sternal border), S1, S2 Respiratory: Yes: Diminished Gastrointestinal: Yes: Normal Bowel Sounds, Soft. No: Tenderness Edema: Yes Edema: LLE: Trace, RLE: Trace Integumentary: Yes: Venous Stasis Changes Labs: CBC, BMP 01/27/17 05:35 01/28/17 05:35 INR, PTT INR 1.73 (0.82-1.09) H D 01/27/17 05:35 Problem List - Problems (1) Acute hypercapnic respiratory failure Code(s): J96.02 - ACUTE RESPIRATORY FAILURE WITH HYPERCAPNIA (2) Acute hypoxemic respiratory failure Code(s): J96.01 - ACUTE RESPIRATORY FAILURE WITH HYPOXIA (3) CAD (coronary artery disease) Code(s): I25.10 - ATHSCL HEART DISEASE OF [place] CORONARY ARTERY W/O ANG PCTRS Qualifiers: Coronary Disease-Associated Artery/Lesion type: [place] artery [place] vs. transplanted heart: [place] heart Associated angina: without angina Qualified Code(s): I25.10 - Atherosclerotic heart disease of [place] coronary artery without angina pectoris (4) Compressed spine fracture Code(s): M48.50XA - COLLAPSED VERTEBRA, NEC, SITE UNSP, INIT (5) A-fib Code(s): I48.91 - UNSPECIFIED ATRIAL FIBRILLATION Qualifiers: Atrial fibrillation type: permanent Qualified Code(s): I48.2 - Chronic atrial fibrillation (6) Acute on chronic diastolic (congestive) heart failure Code(s): I50.33 - ACUTE ON CHRONIC DIASTOLIC (CONGESTIVE) HEART FAILURE (7) Anemia Code(s): D64.9 - ANEMIA, UNSPECIFIED Qualifiers: Anemia type: unspecified type Qualified Code(s): D64.9 - Anemia, unspecified (8) COPD (chronic obstructive pulmonary disease) Code(s): J44.9 - CHRONIC OBSTRUCTIVE PULMONARY DISEASE, UNSPECIFIED Qualifiers : COPD type: COPD with acute exacerbation Qualified Code(s): J44.1 - Chronic obstructive pulmonary disease with (acute) exacerbation (9) Diastolic dysfunction without heart failure Code(s): I51.9 - HEART DISEASE, UNSPECIFIED (10) Hypercholesteremia Code(s): E78.0 - PURE HYPERCHOLESTEROLEMIA * DO NOT USE * (11) Hypertension Code(s): I10 - ESSENTIAL (PRIMARY) HYPERTENSION Qualifiers: Hypertension type: essential hypertension Qualified Code(s): I10 - Essential (primary) hypertension (12) Hypothyroid Code(s): E03.9 - HYPOTHYROIDISM, UNSPECIFIED Qualifiers: Hypothyroidism type: unspecified Qualified Code(s): E03.9 - Hypothyroidism, unspecified (13) Pulmonary hypertension Code(s): I27.2 - OTHER SECONDARY PULMONARY HYPERTENSION Assessment/Plan 1. Acute hypercapneic respiratory failure referable to COPD Exacerbation 2. Acute on chronic diastolic failure improving 3. CAD, angina pectoris, stable 4. Sick sinus syndrome post PPM 5. Permanent atrial fibrillation [id number] score of 6 on NOAC (h/o Lovenox- associated rectus sheath hematoma) 6. 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 HTN 8. Hypercholesterolemia 9. Hypothyroidism 10. 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 Continue Lasix and Aldactone with close monitoring of renal function and electrolytes 2. Continue Accupril, Toprol XL and Digoxin with caution 3. Continue Lipitor 4. Continue Eliquis 5 mg bid with caution 5. IV steroids, bronchodilators, antibiotics, O2 to keep SpO2 >90% 6. Chest CT showed compression fracture, cardiomegaly and pleural effusion. Neurosurgical input noted Further plans are to follow Hi Lucas MD
--- NOTE | 2017-01-28 12:10 | PN ---
Progress Note, Physician Chief Complaint: sitting in chair today awake and alert looking better still complaining of cough - Current Medication List Current Medications: Active Medications Acetaminophen (Tylenol -) 650 mg PO Q6H PRN PRN Reason: FEVER OR PAIN Last Admin: 01/27/17 14:06 Dose: 650 mg Albuterol Sulfate (Ventolin 0.083% Nebulizer Soln -) 1 amp NEB Q6H PRN PRN Reason: SHORT OF BREATH/WHEEZING Last Admin: 01/24/17 09:40 Dose: 1 amp Albuterol/Ipratropium (Duoneb -) 1 amp NEB Q6H PRN PRN Reason: SHORTNESS OF BREATH Last Admin: 01/24/17 07:37 Dose: 1 amp Albuterol/Ipratropium (Duoneb -) 1 amp NEB QIDR [facility] Last Admin: 01/28/17 11:15 Dose: 1 amp Apixaban (Eliquis -) 5 mg PO BID [facility] Last Admin: 01/28/17 09:26 Dose: 5 mg Atorvastatin Calcium (Lipitor -) 10 mg PO HS [facility] Last Admin: 01/27/17 22:13 Dose: 10 mg Calcitonin (Miacalcin [place] -) 200 units NS DAILY [facility] Last Admin: 01/28/17 09:25 Dose: 1 spray Calcitriol (Rocaltrol -) 0.25 mcg PO DAILY [facility] Last Admin: 01/28/17 09:25 Dose: 0.25 mcg Digoxin (Lanoxin -) 0.125 mg PO DAILY [facility] Last Admin: 01/28/17 09:26 Dose: 0.125 mg Docusate Sodium (Colace -) 300 mg PO [facility] Last Admin: 01/27/17 22:17 Dose: Not Given Ferrous Sulfate (Feosol -) 325 mg PO DAILY [facility] Last Admin: 01/28/17 09:25 Dose: 325 mg Furosemide (Lasix -) 40 mg PO DAILY [facility] Last Admin: 01/28/17 09:26 Dose: 40 mg Guaifenesin (Robitussin -) 10 ml PO Q4H PRN PRN Reason: COUGH Last Admin: 01/28/17 09:31 Dose: 10 ml Levofloxacin (Levaquin 500 Mg Premixed Ivpb -) 100 mls @ 100 mls/hr IVPB DAILY [facility] Last Admin: 01/28/17 09:24 Dose: 100 mls/hr Levothyroxine Sodium 125 mcg/ (Levothyroxine Sodium 12.5 mcg) 137.5 mcg PO DAILY@0700 [facility] Last Admin: 01/28/17 06:04 Dose: 137.5 mcg Melatonin (Melatonin) 5 mg PO HS PRN PRN Reason: INSOMNIA Last Admin: 01/27/17 22:13 Dose: 5 mg Methylprednisolone Sodium Succinate (Solu-Medrol -) 40 mg IVPB BID [facility] Metoprolol Succinate (Toprol Xl -) 25 mg PO BID [facility] Last Admin: 01/28/17 09:25 Dose: 25 mg Oxycodone HCl (Roxicodone -) 5 mg PO Q6H PRN PRN Reason: PAIN Last Admin: 01/27/17 22:13 Dose: 5 mg Quinapril HCl (Accupril -) 10 mg PO DAILY [facility] Last Admin: 01/28/17 09:26 Dose: 10 mg Sertraline HCl (Zoloft -) 100 mg PO DAILY [facility] Last Admin: 01/28/17 09:25 Dose: 100 mg Spironolactone (Aldactone -) 25 mg PO DAILY [facility] Last Admin: 01/28/17 09:25 Dose: 25 mg - Objective Vital Signs: Vital Signs Temperature 98 F 01/28/17 10:00 Pulse Rate 89 01/28/17 10:45 Respiratory Rate 20 01/28/17 10:00 Blood Pressure 138/76 01/28/17 10:00 O2 Sat by Pulse Oximetry (%) 98 01/28/17 10:45 Constitutional: Yes: Calm Cardiovascular: Yes: Pulse Irregular, S1, S2 Respiratory: Yes: Diminished, On Nasal O2 Gastrointestinal: Yes: Normal Bowel Sounds, Soft Extremities: Yes: Other (chronic changes) Neurological: Yes: Alert, Oriented, Other ([place]) Labs: CBC, BMP 01/27/17 05:35 01/28/17 05:35 INR, PTT INR 1.73 (0.82-1.09) H D 01/27/17 05:35 Problem List - Problems (1) Hypoxia Assessment/Plan: sec to acute hypoxic resp failure was on iv lasix and iv steroids for copd exacerbation, now taper steroids and po lasix nasal canula appreicate pulm note Code(s): R09.02 - HYPOXEMIA (2) CHF (congestive heart failure) Assessment/Plan: po lasix continue aldactone and quinipril digoxin Code(s): I50.9 - HEART FAILURE, UNSPECIFIED Qualifiers: Congestive heart failure type: diastolic Congestive heart failure chronicity: acute on chronic Qualified Code(s): I50.33 - Acute on chronic diastolic (congestive) heart failure (3) A-fib Assessment/Plan: on eliquis BB tele Code(s): I48.91 - UNSPECIFIED ATRIAL FIBRILLATION Qualifiers: Atrial fibrillation type: permanent Qualified Code(s): I48.2 - Chronic atrial fibrillation (4) Hypothyroid Assessment/Plan: on sythroid tsh noted slightly higher will adjust the synthroid dose Code(s): E03.9 - HYPOTHYROIDISM, UNSPECIFIED Qualifiers: Hypothyroidism type: unspecified Qualified Code(s): E03.9 - Hypothyroidism, unspecified (5) Insomnia Assessment/Plan: melatonin Code(s): G47.00 - INSOMNIA, UNSPECIFIED Assessment/Plan steroid taper PT eval
[2017-01-28] MEDS ORDERED: PT OWN MED DRAWER 7, Y5N ONE (17:49)
[2017-01-28] MEDS: MELATONIN 5 MG TABLETS PO PRN (22:28)
[2017-01-28] MEDS: DOCUSATE SODIUM 100 MG CAPSULE (FP) PO SCH (22:28)
[2017-01-28] MEDS: ATORVASTATIN CA 10 MG TABLET (FP) PO SCH (22:28)
[2017-01-29] MEDS: METOPROLOL SUCCINATE 25 MG TAB.SR.24H (FP) PO SCH ×3 (02:42→22:40)
[2017-01-29] MEDS: APIXABAN 5 MG TABLET PO SCH ×3 (02:44→22:40)
[2017-01-29] MEDS: ATORVASTATIN CA 10 MG TABLET (FP) PO SCH ×2 (02:44→22:40)
[2017-01-29] MEDS ORDERED: LEVOTHYROXINE NA 125 MCG TABLET (FP) ONE (05:22)
[2017-01-29] MEDS ORDERED: LEVOTHYROXINE NA 25 MCG TABLET (FP) ONE (05:22)
[2017-01-29] MEDS: ALBUTEROL SO4 2.5/IPRATROPIUM 0.5 INH SOL 3 ML VIAL.NEB. NEB SCH ×2 (06:01→12:00)
[2017-01-29] MEDS: LEVOTHYROXINE 125 MCG, LEVOTHYROXINE 12.5 MCG PO SCH (06:41)
[2017-01-29] MEDS ORDERED: PT OWN MED DRAWER 7, Y5N ONE ×2 (08:04→09:24)
[2017-01-29] MEDS: CALCITRIOL 0.25 MCG CAPSULE (FP) PO SCH (09:21)
[2017-01-29] MEDS: SERTRALINE HCL 50 MG TABLET (FP) PO SCH (09:21)
[2017-01-29] MEDS: FERROUS SO4 325 MG TABLET (FP) PO SCH (09:22)
[2017-01-29] MEDS: SPIRONOLACTONE 25 MG TABLET (FP) PO SCH (09:22)
[2017-01-29] MEDS: FUROSEMIDE 40 MG TABLET (FP) PO SCH (09:22)
[2017-01-29] MEDS: DIGOXIN 0.125 MG TABLET (FP) PO SCH (09:22)
[2017-01-29] MEDS: LEVOFLOXACIN 500 MG IVPB 100 ML IVPB SCH (09:23)
[2017-01-29] MEDS: methylPREDNISolone NA SUCC 40 MG/1 ML VIAL IVPB SCH ×2 (09:23→22:41)
[2017-01-29] MEDS: CALCITONIN - SALMON SYNTHETIC 3.7 ML SPRAY.PUMP NS SCH (09:23)
[2017-01-29] MEDS: QUINAPRIL HCL 10 MG TABLET (FP) PO SCH (09:24)
--- NOTE | 2017-01-29 10:46 | PN ---
Progress Note, Physician History of Present Illness: pulmonary alert,still confused,-resp distress - Current Medication List Current Medications: Active Medications Acetaminophen (Tylenol -) 650 mg PO Q6H PRN PRN Reason: FEVER OR PAIN Last Admin: 01/27/17 14:06 Dose: 650 mg Albuterol Sulfate (Ventolin 0.083% Nebulizer Soln -) 1 amp NEB Q6H PRN PRN Reason: SHORT OF BREATH/WHEEZING Last Admin: 01/24/17 09:40 Dose: 1 amp Albuterol/Ipratropium (Duoneb -) 1 amp NEB Q6H PRN PRN Reason: SHORTNESS OF BREATH Last Admin: 01/24/17 07:37 Dose: 1 amp Albuterol/Ipratropium (Duoneb -) 1 amp NEB QIDR [facility] Last Admin: 01/29/17 06:01 Dose: 1 amp Apixaban (Eliquis -) 5 mg PO BID [facility] Last Admin: 01/29/17 09:22 Dose: 5 mg Atorvastatin Calcium (Lipitor -) 10 mg PO [facility] Last Admin: 01/29/17 02:44 Dose: Not Given Calcitonin (Miacalcin [place] -) 200 units NS DAILY [facility] Last Admin: 01/29/17 09:23 Dose: 1 spray Calcitriol (Rocaltrol -) 0.25 mcg PO DAILY [facility] Last Admin: 01/29/17 09:21 Dose: 0.25 mcg Digoxin (Lanoxin -) 0.125 mg PO DAILY [facility] Last Admin: 01/29/17 09:22 Dose: 0.125 mg Docusate Sodium (Colace -) 300 mg PO [facility] Last Admin: 01/28/17 22:28 Dose: Not Given Ferrous Sulfate (Feosol -) 325 mg PO DAILY [facility] Last Admin: 01/29/17 09:22 Dose: 325 mg Furosemide (Lasix -) 40 mg PO DAILY [facility] Last Admin: 01/29/17 09:22 Dose: 40 mg Guaifenesin (Robitussin -) 10 ml PO Q4H PRN PRN Reason: COUGH Last Admin: 01/28/17 09:31 Dose: 10 ml Levofloxacin (Levaquin 500 Mg Premixed Ivpb -) 100 mls @ 100 mls/hr IVPB DAILY [facility] Last Admin: 01/29/17 09:23 Dose: 100 mls/hr Levothyroxine Sodium 125 mcg/ (Levothyroxine Sodium 12.5 mcg) 137.5 mcg PO DAILY@0700 [facility] Last Admin: 01/29/17 06:41 Dose: Not Given Melatonin (Melatonin) 5 mg PO HS PRN PRN Reason: INSOMNIA Last Admin: 01/27/17 22:13 Dose: 5 mg Methylprednisolone Sodium Succinate (Solu-Medrol -) 40 mg IVPB BID [facility] Last Admin: 01/29/17 09:23 Dose: 40 mg Metoprolol Succinate (Toprol Xl -) 25 mg PO BID [facility] Last Admin: 01/29/17 09:22 Dose: 25 mg Oxycodone HCl (Roxicodone -) 5 mg PO Q6H PRN PRN Reason: PAIN Last Admin: 01/27/17 22:13 Dose: 5 mg Quinapril HCl (Accupril -) 10 mg PO DAILY [facility] Last Admin: 01/29/17 09:24 Dose: 10 mg Sertraline HCl (Zoloft -) 100 mg PO DAILY [facility] Last Admin: 01/29/17 09:21 Dose: 100 mg Spironolactone (Aldactone -) 25 mg PO DAILY [facility] Last Admin: 01/29/17 09:22 Dose: 25 mg - Objective Vital Signs: Vital Signs Temperature 98.5 F 01/29/17 10:00 Pulse Rate 82 01/29/17 10:00 Respiratory Rate 20 01/29/17 10:00 Blood Pressure 113/56 01/29/17 10:00 O2 Sat by Pulse Oximetry (%) 97 01/29/17 10:00 Constitutional: Yes: Well Nourished, Calm Eyes: Yes: WNL HENT: Yes: WNL Neck: Yes: WNL Cardiovascular: Yes: Pulse Irregular, S1, S2 Respiratory: Yes: Rhonchi (few rhonchi) Gastrointestinal: Yes: Normal Bowel Sounds, Soft Extremities: Yes: WNL Edema: Yes Labs: CBC, BMP Problem List - Problems (1) CAD (coronary artery disease) Code(s): I25.10 - ATHSCL HEART DISEASE OF [place] CORONARY ARTERY W/O ANG PCTRS Qualifiers: Coronary Disease-Associated Artery/Lesion type: [place] artery [place] vs. transplanted heart: [place] heart Associated angina: without angina Qualified Code(s): I25.10 - Atherosclerotic heart disease of [place] coronary artery without angina pectoris (2) CHF (congestive heart failure) Code(s): I50.9 - HEART FAILURE, UNSPECIFIED Qualifiers: Congestive heart failure type: diastolic Congestive heart failure chronicity: acute on chronic Qualified Code(s): I50.33 - Acute on chronic diastolic (congestive) heart failure (3) Hypoxia Code(s): R09.02 - HYPOXEMIA (4) A-fib Code(s): I48.91 - UNSPECIFIED ATRIAL FIBRILLATION Qualifiers: Atrial fibrillation type: permanent Qualified Code(s): I48.2 - Chronic atrial fibrillation (5) CHF NYHA class II (symptoms with moderately strenuous activities) Code(s): I50.9 - HEART FAILURE, UNSPECIFIED Qualifiers: Congestive heart failure type: combined Congestive heart failure chronicity: acute on chronic Qualified Code(s): I50.43 - Acute on chronic combined systolic (congestive) and diastolic (congestive) heart failure (6) COPD (chronic obstructive pulmonary disease) Code(s): J44.9 - CHRONIC OBSTRUCTIVE PULMONARY DISEASE, UNSPECIFIED Qualifiers : COPD type: COPD with acute exacerbation Qualified Code(s): J44.1 - Chronic obstructive pulmonary disease with (acute) exacerbation (7) Hypertension Code(s): I10 - ESSENTIAL (PRIMARY) HYPERTENSION Qualifiers: Hypertension type: essential hypertension Qualified Code(s): I10 - Essential (primary) hypertension (8) Hypothyroid Code(s): E03.9 - HYPOTHYROIDISM, UNSPECIFIED Qualifiers: Hypothyroidism type: unspecified Qualified Code(s): E03.9 - Hypothyroidism, unspecified (9) Pacemaker Code(s): Z95.0 - PRESENCE OF CARDIAC PACEMAKER (10) Pedal edema Code(s): R60.0 - LOCALIZED EDEMA (11) Pulmonary hypertension Code(s): I27.2 - OTHER SECONDARY PULMONARY HYPERTENSION (12) Acute hypoxemic respiratory failure Code(s): J96.01 - ACUTE RESPIRATORY FAILURE WITH HYPOXIA Assessment/Plan IMP ACUTE ON CHRONIC HYPOXEMIC/HYPERCAPNEIC RESPIRATORY FAILURE IMPROVING COPD EXACERBATION URI CHF PULMONARY HTN AFIB HTN PLAN TAPER STEROIDS INHALED BRONCHODILATORS O2 ANTIBIOTICS DIURETICS DAILY WTS BIPAP PRN DR NGUYEN Problem List - Problems (1) CAD (coronary artery disease) Code(s): I25.10 - ATHSCL HEART DISEASE OF [place] CORONARY ARTERY W/O ANG PCTRS Qualifiers: Coronary Disease-Associated Artery/Lesion type: [place] artery [place] vs. transplanted heart: [place] heart Associated angina: without angina Qualified Code(s): I25.10 - Atherosclerotic heart disease of [place] coronary artery without angina pectoris (2) CHF (congestive heart failure) Code(s): I50.9 - HEART FAILURE, UNSPECIFIED Qualifiers: Congestive heart failure type: diastolic Congestive heart failure chronicity: acute on chronic Qualified Code(s): I50.33 - Acute on chronic diastolic (congestive) heart failure (3) Hypoxia Code(s): R09.02 - HYPOXEMIA (4) A-fib Code(s): I48.91 - UNSPECIFIED ATRIAL FIBRILLATION Qualifiers: Atrial fibrillation type: permanent Qualified Code(s): I48.2 - Chronic atrial fibrillation (5) CHF NYHA class II (symptoms with moderately strenuous activities) Code(s): I50.9 - HEART FAILURE, UNSPECIFIED Qualifiers: Congestive heart failure type: combined Congestive heart failure chronicity: acute on chronic Qualified Code(s): I50.43 - Acute on chronic combined systolic (congestive) and diastolic (congestive) heart failure (6) COPD (chronic obstructive pulmonary disease) Code(s): J44.9 - CHRONIC OBSTRUCTIVE PULMONARY DISEASE, UNSPECIFIED Qualifiers : COPD type: unspecified COPD Qualified Code(s): J44.9 - Chronic obstructive pulmonary disease, unspecified (7) Hypertension Code(s): I10 - ESSENTIAL (PRIMARY) HYPERTENSION Qualifiers: Hypertension type: essential hypertension Qualified Code(s): I10 - Essential (primary) hypertension (8) Hypothyroid Code(s): E03.9 - HYPOTHYROIDISM, UNSPECIFIED Qualifiers: Hypothyroidism type: unspecified Qualified Code(s): E03.9 - Hypothyroidism, unspecified (9) Pacemaker Code(s): Z95.0 - PRESENCE OF CARDIAC PACEMAKER (10) Pedal edema Code(s): R60.0 - LOCALIZED EDEMA (11) Pulmonary hypertension Code(s): I27.2 - OTHER SECONDARY PULMONARY HYPERTENSION (12) Acute hypoxemic respiratory failure Code(s): J96.01 - ACUTE RESPIRATORY FAILURE WITH HYPOXIA
--- NOTE | 2017-01-29 11:20 | PN ---
Progress Note, Physician History of Present Illness: Dyspnea, wheezing and cough improving, sensorium clear. - Current Medication List Current Medications: Active Medications Acetaminophen (Tylenol -) 650 mg PO Q6H PRN PRN Reason: FEVER OR PAIN Last Admin: 01/27/17 14:06 Dose: 650 mg Albuterol Sulfate (Ventolin 0.083% Nebulizer Soln -) 1 amp NEB Q6H PRN PRN Reason: SHORT OF BREATH/WHEEZING Last Admin: 01/24/17 09:40 Dose: 1 amp Albuterol/Ipratropium (Duoneb -) 1 amp NEB Q6H PRN PRN Reason: SHORTNESS OF BREATH Last Admin: 01/24/17 07:37 Dose: 1 amp Albuterol/Ipratropium (Duoneb -) 1 amp NEB QIDR [facility] Last Admin: 01/29/17 06:01 Dose: 1 amp Apixaban (Eliquis -) 5 mg PO BID [facility] Last Admin: 01/29/17 09:22 Dose: 5 mg Atorvastatin Calcium (Lipitor -) 10 mg PO HS [facility] Last Admin: 01/29/17 02:44 Dose: Not Given Calcitonin (Miacalcin [place] -) 200 units NS DAILY [facility] Last Admin: 01/29/17 09:23 Dose: 1 spray Calcitriol (Rocaltrol -) 0.25 mcg PO DAILY [facility] Last Admin: 01/29/17 09:21 Dose: 0.25 mcg Digoxin (Lanoxin -) 0.125 mg PO DAILY [facility] Last Admin: 01/29/17 09:22 Dose: 0.125 mg Docusate Sodium (Colace -) 300 mg PO [facility] Last Admin: 01/28/17 22:28 Dose: Not Given Ferrous Sulfate (Feosol -) 325 mg PO DAILY [facility] Last Admin: 01/29/17 09:22 Dose: 325 mg Furosemide (Lasix -) 40 mg PO DAILY [facility] Last Admin: 01/29/17 09:22 Dose: 40 mg Guaifenesin (Robitussin -) 10 ml PO Q4H PRN PRN Reason: COUGH Last Admin: 01/28/17 09:31 Dose: 10 ml Levofloxacin (Levaquin 500 Mg Premixed Ivpb -) 100 mls @ 100 mls/hr IVPB DAILY [facility] Last Admin: 01/29/17 09:23 Dose: 100 mls/hr Levothyroxine Sodium 125 mcg/ (Levothyroxine Sodium 12.5 mcg) 137.5 mcg PO DAILY@0700 [facility] Last Admin: 01/29/17 06:41 Dose: Not Given Melatonin (Melatonin) 5 mg PO HS PRN PRN Reason: INSOMNIA Last Admin: 01/27/17 22:13 Dose: 5 mg Methylprednisolone Sodium Succinate (Solu-Medrol -) 40 mg IVPB BID [facility] Last Admin: 01/29/17 09:23 Dose: 40 mg Metoprolol Succinate (Toprol Xl -) 25 mg PO BID [facility] Last Admin: 01/29/17 09:22 Dose: 25 mg Oxycodone HCl (Roxicodone -) 5 mg PO Q6H PRN PRN Reason: PAIN Last Admin: 01/27/17 22:13 Dose: 5 mg Quinapril HCl (Accupril -) 10 mg PO DAILY [facility] Last Admin: 01/29/17 09:24 Dose: 10 mg Sertraline HCl (Zoloft -) 100 mg PO DAILY [facility] Last Admin: 01/29/17 09:21 Dose: 100 mg Spironolactone (Aldactone -) 25 mg PO DAILY [facility] Last Admin: 01/29/17 09:22 Dose: 25 mg - Objective Vital Signs: Vital Signs Temperature 98.5 F 01/29/17 10:00 Pulse Rate 82 01/29/17 10:00 Respiratory Rate 20 01/29/17 10:00 Blood Pressure 113/56 01/29/17 10:00 O2 Sat by Pulse Oximetry (%) 97 01/29/17 10:00 Constitutional: Yes: No Distress, Calm Neck: Yes: Supple Cardiovascular: Yes: Regular Rate and Rhythm Respiratory: Yes: Regular, Diminished, On Nasal O2 Gastrointestinal: Yes: Normal Bowel Sounds, Soft Edema: Yes Edema: LLE: Trace, RLE: Trace Labs: CBC, BMP 01/27/17 05:35 01/28/17 05:35 INR, PTT INR 1.73 (0.82-1.09) H D 01/27/17 05:35 - ....Imaging EKG: Report Reviewed (Tele: Afib v-paced) Problem List - Problems (1) CAD (coronary artery disease) Code(s): I25.10 - ATHSCL HEART DISEASE OF [place] CORONARY ARTERY W/O ANG PCTRS Qualifiers: Coronary Disease-Associated Artery/Lesion type: [place] artery [place] vs. transplanted heart: [place] heart Associated angina: without angina Qualified Code(s): I25.10 - Atherosclerotic heart disease of [place] coronary artery without angina pectoris (2) CHF (congestive heart failure) Code(s): I50.9 - HEART FAILURE, UNSPECIFIED Qualifiers: Congestive heart failure type: diastolic Congestive heart failure chronicity: acute on chronic Qualified Code(s): I50.33 - Acute on chronic diastolic (congestive) heart failure (3) A-fib Code(s): I48.91 - UNSPECIFIED ATRIAL FIBRILLATION Qualifiers: Atrial fibrillation type: permanent Qualified Code(s): I48.2 - Chronic atrial fibrillation (4) Acute on chronic diastolic (congestive) heart failure Code(s): I50.33 - ACUTE ON CHRONIC DIASTOLIC (CONGESTIVE) HEART FAILURE (5) Hypercholesteremia Code(s): E78.0 - PURE HYPERCHOLESTEROLEMIA * DO NOT USE * (6) Hypertension Code(s): I10 - ESSENTIAL (PRIMARY) HYPERTENSION Qualifiers: Hypertension type: essential hypertension Qualified Code(s): I10 - Essential (primary) hypertension (7) Hypothyroid Code(s): E03.9 - HYPOTHYROIDISM, UNSPECIFIED Qualifiers: Hypothyroidism type: unspecified Qualified Code(s): E03.9 - Hypothyroidism, unspecified (8) Pacemaker Code(s): Z95.0 - PRESENCE OF CARDIAC PACEMAKER (9) Pulmonary hypertension Code(s): I27.2 - OTHER SECONDARY PULMONARY HYPERTENSION (10) COPD (chronic obstructive pulmonary disease) Code(s): J44.9 - CHRONIC OBSTRUCTIVE PULMONARY DISEASE, UNSPECIFIED Qualifiers : COPD type: COPD with acute exacerbation Qualified Code(s): J44.1 - Chronic obstructive pulmonary disease with (acute) exacerbation (11) Acute hypercapnic respiratory failure Code(s): J96.02 - ACUTE RESPIRATORY FAILURE WITH HYPERCAPNIA Assessment/Plan Transthoracic echocardiography: Low normal LV fxn, mod-severe dilated and decreased RV fxn, severe VICENTA, mild-mod MR, severe TR, RVSP 40-50 mmHg 1. Acute hypercapneic respiratory failure referable to COPD Exacerbation improving 2. Acute on chronic diastolic failure improving 3. CAD, angina pectoris, stable 4. Sick sinus syndrome post PPM 5. Permanent atrial fibrillation [id number] score of 6 on NOAC (h/o Lovenox- associated rectus sheath hematoma) 6. 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 HTN 8. Hypercholesterolemia 9. Hypothyroidism PLAN: 1. Continue Lasix 40 qd and Aldactone 25 qd with close monitoring of renal function 2. Continue Accupril 10 qd with close monitoring of renal function and electrolytes 3. Continue Toprol XL 25 bid 4. Continue Digoxin 0.125 qd with close monitoring of level 5. Continue Lipitor 10 qhs 6. Continue Eliquis 5 bid with monitor Hgb 7. IV steroids, BD, abx, O2 to keep SpO2 >90%, f/u chest CT
--- NOTE | 2017-01-29 17:35 | PN ---
Progress Note, Physician History of Present Illness: sitting comfortably in chair, NAD, mild cough - Current Medication List Current Medications: Active Medications Acetaminophen (Tylenol -) 650 mg PO Q6H PRN PRN Reason: FEVER OR PAIN Last Admin: 01/27/17 14:06 Dose: 650 mg Albuterol Sulfate (Ventolin 0.083% Nebulizer Soln -) 1 amp NEB Q6H PRN PRN Reason: SHORT OF BREATH/WHEEZING Last Admin: 01/24/17 09:40 Dose: 1 amp Albuterol/Ipratropium (Duoneb -) 1 amp NEB Q6H PRN PRN Reason: SHORTNESS OF BREATH Last Admin: 01/24/17 07:37 Dose: 1 amp Apixaban (Eliquis -) 5 mg PO BID [facility] Last Admin: 01/29/17 09:22 Dose: 5 mg Atorvastatin Calcium (Lipitor -) 10 mg PO HS [facility] Last Admin: 01/29/17 02:44 Dose: Not Given Calcitonin (Miacalcin [place] -) 200 units NS DAILY [facility] Last Admin: 01/29/17 09:23 Dose: 1 spray Calcitriol (Rocaltrol -) 0.25 mcg PO DAILY [facility] Last Admin: 01/29/17 09:21 Dose: 0.25 mcg Digoxin (Lanoxin -) 0.125 mg PO DAILY [facility] Last Admin: 01/29/17 09:22 Dose: 0.125 mg Docusate Sodium (Colace -) 300 mg PO HS [facility] Last Admin: 01/28/17 22:28 Dose: Not Given Ferrous Sulfate (Feosol -) 325 mg PO DAILY [facility] Last Admin: 01/29/17 09:22 Dose: 325 mg Furosemide (Lasix -) 40 mg PO DAILY [facility] Last Admin: 01/29/17 09:22 Dose: 40 mg Guaifenesin (Robitussin -) 10 ml PO Q4H PRN PRN Reason: COUGH Last Admin: 01/28/17 09:31 Dose: 10 ml Levofloxacin (Levaquin -) 500 mg PO DAILY@0600 [facility] Levothyroxine Sodium 125 mcg/ (Levothyroxine Sodium 12.5 mcg) 137.5 mcg PO DAILY@0700 [facility] Last Admin: 01/29/17 06:41 Dose: Not Given Melatonin (Melatonin) 5 mg PO HS PRN PRN Reason: INSOMNIA Last Admin: 01/27/17 22:13 Dose: 5 mg Methylprednisolone Sodium Succinate (Solu-Medrol -) 40 mg IVPB BID [facility] Stop: 01/30/17 06:00 Last Admin: 01/29/17 09:23 Dose: 40 mg Metoprolol Succinate (Toprol Xl -) 25 mg PO BID [facility] Last Admin: 01/29/17 09:22 Dose: 25 mg Oxycodone HCl (Roxicodone -) 5 mg PO Q6H PRN PRN Reason: PAIN Last Admin: 01/27/17 22:13 Dose: 5 mg Prednisone (Deltasone -) 30 mg PO BID [facility] Quinapril HCl (Accupril -) 10 mg PO DAILY [facility] Last Admin: 01/29/17 09:24 Dose: 10 mg Sertraline HCl (Zoloft -) 100 mg PO DAILY [facility] Last Admin: 01/29/17 09:21 Dose: 100 mg Spironolactone (Aldactone -) 25 mg PO DAILY [facility] Last Admin: 01/29/17 09:22 Dose: 25 mg - Objective Vital Signs: Vital Signs Temperature 98.4 F 01/29/17 14:44 Pulse Rate 79 01/29/17 14:44 Respiratory Rate 20 01/29/17 14:44 Blood Pressure 109/60 01/29/17 14:44 O2 Sat by Pulse Oximetry (%) 97 01/29/17 10:00 Constitutional: Yes: Well Nourished, No Distress, Calm Cardiovascular: Yes: Regular Rate and Rhythm Respiratory: Yes: Regular Gastrointestinal: Yes: Normal Bowel Sounds Edema: Yes Edema: LLE: Trace, RLE: Trace Peripheral Pulses WNL: Yes Neurological: Yes: Alert Labs: CBC, BMP 01/27/17 05:35 01/28/17 05:35 INR, PTT INR 1.73 (0.82-1.09) H D 01/27/17 05:35 Problem List - Problems (1) Acute hypoxemic respiratory failure Assessment/Plan: -Bipap at night -nasal o2 as needed -repeat CXR in AM -Repeat labs in AM -on levaquin for URI Code(s): J96.01 - ACUTE RESPIRATORY FAILURE WITH HYPOXIA (2) CHF (congestive heart failure) Assessment/Plan: -on diuretics Code(s): I50.9 - HEART FAILURE, UNSPECIFIED Qualifiers: Congestive heart failure type: diastolic Congestive heart failure chronicity: acute on chronic Qualified Code(s): I50.33 - Acute on chronic diastolic (congestive) heart failure (3) A-fib Assessment/Plan: on Eliquis Code(s): I48.91 - UNSPECIFIED ATRIAL FIBRILLATION Qualifiers: Atrial fibrillation type: chronic Qualified Code(s): I48.2 - Chronic atrial fibrillation Assessment/Plan -Bipap at night -nasal o2 as needed -repeat CXR in AM -Repeat labs in AM -IV levaquin changed to po -steroid change to PO in AM -november d/c to rehab if overall stable and cleared by consults.
[2017-01-29] MEDS: DOCUSATE SODIUM 100 MG CAPSULE (FP) PO SCH (22:41)
[2017-01-29] MEDS: MELATONIN 5 MG TABLETS PO PRN (22:41)
[2017-01-30] MEDS ORDERED: LEVOTHYROXINE NA 125 MCG TABLET (FP) ONE (06:38)
[2017-01-30] MEDS ORDERED: LEVOTHYROXINE NA 25 MCG TABLET (FP) ONE (06:38)
[2017-01-30] MEDS: LEVOTHYROXINE 125 MCG, LEVOTHYROXINE 12.5 MCG PO SCH (06:50)
[2017-01-30] MEDS: LEVOFLOXACIN 500 MG TABLET (FP) PO SCH (06:50)
[2017-01-30 07:54] LABS: BASOPHIL 0.2 % (0-2.0); MCH 32.5 pg (25.7-33.7); MCHC 33.1 g/dl (32.0-36.0); MEAN CELL VOLUME 98.4 fl (80-96); MEAN PLT VOLUME 7.5 fl (7.5-11.1); NEUTROPHILS 90.7 % (42.8-82.8); PLATELET COUNT 140 K/MM3 (134-434); RDW 16.2 % (11.6-15.6)
[2017-01-30 08:26] LABS: ALBUMIN 3.3 g/dl (3.4-5.0); ANION GAP 3 (8-16); CALCIUM 8.8 mg/dL (8.5-10.1); CO2 40 mmol/L (21-32); GLUCOSE,RANDOM 105 mg/dL (74-106)
[2017-01-30 09:39] LABS: ALK PHOS 157 U/L (45-117); BILIRUBIN,TOTAL 0.8 mg/dL (0.2-1.0); CREATININE 0.5 mg/dL (0.55-1.02); SGOT/AST 38 U/L (15-37); TOT PROT 6.2 g/dl (6.4-8.2)
[2017-01-30] MEDS: ALBUTEROL SO4 2.5/IPRATROPIUM 0.5 INH SOL 3 ML VIAL.NEB. NEB PRN (09:41)
[2017-01-30] MEDS ORDERED: PT OWN MED DRAWER 7, Y5N ONE ×2 (09:43→21:15)
[2017-01-30] MEDS: APIXABAN 5 MG TABLET PO SCH ×2 (10:08→21:28)
[2017-01-30] MEDS: guaiFENesin 200 MG/10 ML 10 ML UNIT-DOSE CUPS PO PRN (10:08)
[2017-01-30] MEDS: FERROUS SO4 325 MG TABLET (FP) PO SCH (10:09)
[2017-01-30] MEDS: predniSONE 10 MG TABLET (UD) PO SCH ×2 (10:09→21:25)
[2017-01-30] MEDS: FUROSEMIDE 40 MG TABLET (FP) PO SCH (10:09)
[2017-01-30] MEDS: DIGOXIN 0.125 MG TABLET (FP) PO SCH (10:09)
[2017-01-30] MEDS: SPIRONOLACTONE 25 MG TABLET (FP) PO SCH (10:09)
[2017-01-30] MEDS: SERTRALINE HCL 50 MG TABLET (FP) PO SCH (10:09)
--- NOTE | 2017-01-30 11:00 | PN ---
Progress Note, Physician Chief Complaint: admitted for hypoxia- COPD exacerbation today low BP in 90's metoprolol and quinapril held coughing will repeat CT chest today and reorder - Current Medication List Current Medications: Active Medications Acetaminophen (Tylenol -) 650 mg PO Q6H PRN PRN Reason: FEVER OR PAIN Last Admin: 01/27/17 14:06 Dose: 650 mg Albuterol Sulfate (Ventolin 0.083% Nebulizer Soln -) 1 amp NEB Q6H PRN PRN Reason: SHORT OF BREATH/WHEEZING Last Admin: 01/24/17 09:40 Dose: 1 amp Albuterol/Ipratropium (Duoneb -) 1 amp NEB QIDR [facility] Apixaban (Eliquis -) 5 mg PO BID [facility] Last Admin: 01/30/17 10:08 Dose: 5 mg Atorvastatin Calcium (Lipitor -) 10 mg PO HS [facility] Last Admin: 01/29/17 22:40 Dose: 10 mg Calcitonin (Miacalcin [place] -) 200 units NS DAILY [facility] Last Admin: 01/29/17 09:23 Dose: 1 spray Calcitriol (Rocaltrol -) 0.25 mcg PO DAILY [facility] Last Admin: 01/29/17 09:21 Dose: 0.25 mcg Digoxin (Lanoxin -) 0.125 mg PO DAILY [facility] Last Admin: 01/30/17 10:09 Dose: 0.125 mg Docusate Sodium (Colace -) 300 mg PO HS [facility] Last Admin: 01/29/17 22:41 Dose: 300 mg Ferrous Sulfate (Feosol -) 325 mg PO DAILY [facility] Last Admin: 01/30/17 10:09 Dose: 325 mg Furosemide (Lasix -) 40 mg PO DAILY [facility] Last Admin: 01/30/17 10:09 Dose: 40 mg Guaifenesin (Robitussin -) 10 ml PO Q4H PRN PRN Reason: COUGH Last Admin: 01/30/17 10:08 Dose: 10 ml Levofloxacin (Levaquin -) 500 mg PO DAILY@0600 [facility] Last Admin: 01/30/17 06:50 Dose: 500 mg Levothyroxine Sodium 125 mcg/ (Levothyroxine Sodium 12.5 mcg) 137.5 mcg PO DAILY@0700 [facility] Last Admin: 01/30/17 06:50 Dose: 137.5 mcg Melatonin (Melatonin) 5 mg PO HS PRN PRN Reason: INSOMNIA Last Admin: 01/29/17 22:41 Dose: 5 mg Metoprolol Succinate (Toprol Xl -) 25 mg PO BID [facility] Last Admin: 01/29/17 22:40 Dose: 25 mg Oxycodone HCl (Roxicodone -) 5 mg PO Q6H PRN PRN Reason: PAIN Last Admin: 01/27/17 22:13 Dose: 5 mg Prednisone (Deltasone -) 30 mg PO BID [facility] Last Admin: 01/30/17 10:09 Dose: 30 mg Quinapril HCl (Accupril -) 10 mg PO DAILY [facility] Last Admin: 01/29/17 09:24 Dose: 10 mg Sertraline HCl (Zoloft -) 100 mg PO DAILY [facility] Last Admin: 01/30/17 10:09 Dose: 100 mg Spironolactone (Aldactone -) 25 mg PO DAILY [facility] Last Admin: 01/30/17 10:09 Dose: 25 mg - Objective Vital Signs: Vital Signs Temperature 97.3 F L 01/30/17 06:00 Pulse Rate 65 01/30/17 10:09 Respiratory Rate 20 01/30/17 06:00 Blood Pressure 103/55 01/30/17 06:00 O2 Sat by Pulse Oximetry (%) 100 01/30/17 10:04 Constitutional: Yes: Calm Cardiovascular: Yes: Pulse Irregular, S1, S2 Respiratory: Yes: On Nasal O2, Rhonchi, Wheezes Gastrointestinal: Yes: Normal Bowel Sounds, Soft Extremities: Yes: Other (chronic pigmentation changes) Neurological: Yes: Alert, Oriented Labs: CBC, BMP 01/30/17 05:45 01/30/17 05:45 INR, PTT INR 1.73 (0.82-1.09) H D 01/27/17 05:35 Problem List - Problems (1) Hypoxia Assessment/Plan: repeat chest ct sec to acute hypoxic resp failure was on iv lasix and iv steroids for copd exacerbation, now taper steroids and po lasix nasal canula appreicate pulm note neublizers Code(s): R09.02 - HYPOXEMIA (2) CHF (congestive heart failure) Assessment/Plan: low BP today meds held po lasix continue aldactone and quinipril digoxin BNP trending down Code(s): I50.9 - HEART FAILURE, UNSPECIFIED Qualifiers: Congestive heart failure type: diastolic Congestive heart failure chronicity: acute on chronic Qualified Code(s): I50.33 - Acute on chronic diastolic (congestive) heart failure (3) A-fib Assessment/Plan: on eliquis BB tele Code(s): I48.91 - UNSPECIFIED ATRIAL FIBRILLATION Qualifiers: Atrial fibrillation type: chronic Qualified Code(s): I48.2 - Chronic atrial fibrillation (4) Hypothyroid Assessment/Plan: on sythroid tsh noted slightly higher will adjust the synthroid dose Code(s): E03.9 - HYPOTHYROIDISM, UNSPECIFIED Qualifiers: Hypothyroidism type: unspecified Qualified Code(s): E03.9 - Hypothyroidism, unspecified (5) Insomnia Assessment/Plan: melatonin
[2017-01-30] MEDS: ALBUTEROL SO4 2.5/IPRATROPIUM 0.5 INH SOL 3 ML VIAL.NEB. NEB SCH ×3 (12:11→23:43)
[2017-01-30 12:17] LABS: SGPT/ALT 40 U/L (12-78)
[2017-01-30] MEDS: METOPROLOL SUCCINATE 25 MG TAB.SR.24H (FP) PO SCH ×2 (12:22→21:37)
[2017-01-30] MEDS: CALCITRIOL 0.25 MCG CAPSULE (FP) PO SCH (12:28)
[2017-01-30] MEDS: CALCITONIN - SALMON SYNTHETIC 3.7 ML SPRAY.PUMP NS SCH (12:28)
[2017-01-30] MEDS: QUINAPRIL HCL 10 MG TABLET (FP) PO SCH (12:28)
--- NOTE | 2017-01-30 12:45 | PN ---
Progress Note, Physician History of Present Illness: Dyspnea, wheezing and cough improving, sensorium clear, reports LE swelling bilaterally. - Current Medication List Current Medications: Active Medications Acetaminophen (Tylenol -) 650 mg PO Q6H PRN PRN Reason: FEVER OR PAIN Last Admin: 01/27/17 14:06 Dose: 650 mg Albuterol Sulfate (Ventolin 0.083% Nebulizer Soln -) 1 amp NEB Q6H PRN PRN Reason: SHORT OF BREATH/WHEEZING Last Admin: 01/24/17 09:40 Dose: 1 amp Albuterol/Ipratropium (Duoneb -) 1 amp NEB QIDR [facility] Last Admin: 01/30/17 12:11 Dose: 1 amp Apixaban (Eliquis -) 5 mg PO BID [facility] Last Admin: 01/30/17 10:08 Dose: 5 mg Atorvastatin Calcium (Lipitor -) 10 mg PO HS [facility] Last Admin: 01/29/17 22:40 Dose: 10 mg Calcitonin (Miacalcin [place] -) 200 units NS DAILY [facility] Last Admin: 01/30/17 12:28 Dose: 1 spray Calcitriol (Rocaltrol -) 0.25 mcg PO DAILY [facility] Last Admin: 01/30/17 12:28 Dose: 0.25 mcg Digoxin (Lanoxin -) 0.125 mg PO DAILY [facility] Last Admin: 01/30/17 10:09 Dose: 0.125 mg Docusate Sodium (Colace -) 300 mg PO HS [facility] Last Admin: 01/29/17 22:41 Dose: 300 mg Ferrous Sulfate (Feosol -) 325 mg PO DAILY [facility] Last Admin: 01/30/17 10:09 Dose: 325 mg Furosemide (Lasix -) 40 mg PO DAILY [facility] Last Admin: 01/30/17 10:09 Dose: 40 mg Guaifenesin (Robitussin -) 10 ml PO Q4H PRN PRN Reason: COUGH Last Admin: 01/30/17 10:08 Dose: 10 ml Levofloxacin (Levaquin -) 500 mg PO DAILY@0600 [facility] Last Admin: 01/30/17 06:50 Dose: 500 mg Levothyroxine Sodium 125 mcg/ (Levothyroxine Sodium 12.5 mcg) 137.5 mcg PO DAILY@0700 [facility] Last Admin: 01/30/17 06:50 Dose: 137.5 mcg Melatonin (Melatonin) 5 mg PO HS PRN PRN Reason: INSOMNIA Last Admin: 01/29/17 22:41 Dose: 5 mg Metoprolol Succinate (Toprol Xl -) 25 mg PO BID [facility] Last Admin: 01/30/17 12:22 Dose: Not Given Oxycodone HCl (Roxicodone -) 5 mg PO Q6H PRN PRN Reason: PAIN Last Admin: 01/27/17 22:13 Dose: 5 mg Prednisone (Deltasone -) 30 mg PO BID [facility] Last Admin: 01/30/17 10:09 Dose: 30 mg Quinapril HCl (Accupril -) 10 mg PO DAILY [facility] Last Admin: 01/30/17 12:28 Dose: 10 mg Sertraline HCl (Zoloft -) 100 mg PO DAILY [facility] Last Admin: 01/30/17 10:09 Dose: 100 mg Spironolactone (Aldactone -) 25 mg PO DAILY [facility] Last Admin: 01/30/17 10:09 Dose: 25 mg - Objective Vital Signs: Vital Signs Temperature 97.3 F L 01/30/17 06:00 Pulse Rate 115 H 01/30/17 12:09 Respiratory Rate 20 01/30/17 06:00 Blood Pressure 103/55 01/30/17 06:00 O2 Sat by Pulse Oximetry (%) 97 01/30/17 12:09 Constitutional: Yes: No Distress, Calm Neck: Yes: Supple Cardiovascular: Yes: Regular Rate and Rhythm Respiratory: Yes: Regular, Diminished, On Nasal O2 Gastrointestinal: Yes: Normal Bowel Sounds, Soft Edema: Yes Edema: LLE: 1+, RLE: 1+ Labs: CBC, BMP 01/30/17 05:45 01/30/17 05:45 INR, PTT INR 1.73 (0.82-1.09) H D 01/27/17 05:35 - ....Imaging EKG: Report Reviewed (Tele: Afib with episodes of RVR) Problem List - Problems (1) CAD (coronary artery disease) Code(s): I25.10 - ATHSCL HEART DISEASE OF [place] CORONARY ARTERY W/O ANG PCTRS Qualifiers: Coronary Disease-Associated Artery/Lesion type: [place] artery [place] vs. transplanted heart: [place] heart Associated angina: without angina Qualified Code(s): I25.10 - Atherosclerotic heart disease of [place] coronary artery without angina pectoris (2) CHF (congestive heart failure) Code(s): I50.9 - HEART FAILURE, UNSPECIFIED Qualifiers: Congestive heart failure type: diastolic Congestive heart failure chronicity: acute on chronic Qualified Code(s): I50.33 - Acute on chronic diastolic (congestive) heart failure (3) A-fib Code(s): I48.91 - UNSPECIFIED ATRIAL FIBRILLATION Qualifiers: Atrial fibrillation type: chronic Qualified Code(s): I48.2 - Chronic atrial fibrillation (4) Acute on chronic diastolic (congestive) heart failure Code(s): I50.33 - ACUTE ON CHRONIC DIASTOLIC (CONGESTIVE) HEART FAILURE (5) Hypercholesteremia Code(s): E78.0 - PURE HYPERCHOLESTEROLEMIA * DO NOT USE * (6) Hypertension Code(s): I10 - ESSENTIAL (PRIMARY) HYPERTENSION Qualifiers: Hypertension type: essential hypertension Qualified Code(s): I10 - Essential (primary) hypertension (7) Hypothyroid Code(s): E03.9 - HYPOTHYROIDISM, UNSPECIFIED Qualifiers: Hypothyroidism type: unspecified Qualified Code(s): E03.9 - Hypothyroidism, unspecified (8) Pacemaker Code(s): Z95.0 - PRESENCE OF CARDIAC PACEMAKER (9) Pulmonary hypertension Code(s): I27.2 - OTHER SECONDARY PULMONARY HYPERTENSION (10) COPD (chronic obstructive pulmonary disease) Code(s): J44.9 - CHRONIC OBSTRUCTIVE PULMONARY DISEASE, UNSPECIFIED Qualifiers : COPD type: COPD with acute exacerbation Qualified Code(s): J44.1 - Chronic obstructive pulmonary disease with (acute) exacerbation (11) Acute hypercapnic respiratory failure Code(s): J96.02 - ACUTE RESPIRATORY FAILURE WITH HYPERCAPNIA (12) Compressed spine fracture Code(s): M48.50XA - COLLAPSED VERTEBRA, NEC, SITE UNSP, INIT Qualifiers: Encounter type: sequela Qualified Code(s): M48.50XS - Collapsed vertebra, not elsewhere classified, site unspecified, sequela of fracture Assessment/Plan Transthoracic echocardiography: Low normal LV fxn, mod-severe dilated and decreased RV fxn, severe VICENTA, mild-mod MR, severe TR, RVSP 40-50 mmHg 1. Acute hypercapneic respiratory failure referable to COPD Exacerbation improving 2. Acute on chronic diastolic failure improving 3. CAD, angina pectoris, stable 4. Sick sinus syndrome post PPM 5. Permanent atrial fibrillation [id number] score of 6 on NOAC (h/o Lovenox- associated rectus sheath hematoma) 6. 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 HTN 8. Hypercholesterolemia 9. Hypothyroidism 10. L-1 compression fracture PLAN: 1. Continue Lasix 40 qd and Aldactone 25 qd with close monitoring of renal function 2. Continue Accupril 10 qd with close monitoring of renal function and electrolytes 3. Continue Toprol XL 25 bid 4. Continue Digoxin 0.125 qd with close monitoring of level 5. Continue Lipitor 10 qhs 6. Continue Eliquis 5 bid with monitor Hgb 7. IV steroids, BD, abx, O2 to keep SpO2 >90%, wrap legs
--- NOTE | 2017-01-30 15:19 | PN ---
Progress Note (short form) - Note Progress Note: Feels a little better today. No CP. No acute events overnight. Intake & Output 01/27/17 01/28/17 01/29/17 01/30/17 23:59 23:59 23:59 23:59 Intake Total 1250 580 910 380 Balance 1250 580 910 380 Weight 149 lb 6 oz 149 lb 2 oz 149 lb 1 oz Last Vital Signs Temp Pulse Resp BP Pulse Ox 9.7 F L 69 20 129/68 97 01/30/17 14:56 01/30/17 14:56 01/30/17 14:56 01/30/17 14:56 01/30/17 12:09 Active Medications Acetaminophen (Tylenol -) 650 mg PO Q6H PRN PRN Reason: FEVER OR PAIN Last Admin: 01/27/17 14:06 Dose: 650 mg Albuterol Sulfate (Ventolin 0.083% Nebulizer Soln -) 1 amp NEB Q6H PRN PRN Reason: SHORT OF BREATH/WHEEZING Last Admin: 01/24/17 09:40 Dose: 1 amp Albuterol/Ipratropium (Duoneb -) 1 amp NEB QIDR [facility] Last Admin: 01/30/17 12:11 Dose: 1 amp Apixaban (Eliquis -) 5 mg PO BID [facility] Last Admin: 01/30/17 10:08 Dose: 5 mg Atorvastatin Calcium (Lipitor -) 10 mg PO HS [facility] Last Admin: 01/29/17 22:40 Dose: 10 mg Calcitonin (Miacalcin [place] -) 200 units NS DAILY [facility] Last Admin: 01/30/17 12:28 Dose: 1 spray Calcitriol (Rocaltrol -) 0.25 mcg PO DAILY [facility] Last Admin: 01/30/17 12:28 Dose: 0.25 mcg Digoxin (Lanoxin -) 0.125 mg PO DAILY [facility] Last Admin: 01/30/17 10:09 Dose: 0.125 mg Docusate Sodium (Colace -) 300 mg PO HS [facility] Last Admin: 01/29/17 22:41 Dose: 300 mg Ferrous Sulfate (Feosol -) 325 mg PO DAILY [facility] Last Admin: 01/30/17 10:09 Dose: 325 mg Furosemide (Lasix -) 40 mg PO DAILY [facility] Last Admin: 01/30/17 10:09 Dose: 40 mg Guaifenesin (Robitussin -) 10 ml PO Q4H PRN PRN Reason: COUGH Last Admin: 01/30/17 10:08 Dose: 10 ml Levofloxacin (Levaquin -) 500 mg PO DAILY@0600 [facility] Last Admin: 01/30/17 06:50 Dose: 500 mg Levothyroxine Sodium 125 mcg/ (Levothyroxine Sodium 12.5 mcg) 137.5 mcg PO DAILY@0700 [facility] Last Admin: 01/30/17 06:50 Dose: 137.5 mcg Melatonin (Melatonin) 5 mg PO HS PRN PRN Reason: INSOMNIA Last Admin: 01/29/17 22:41 Dose: 5 mg Metoprolol Succinate (Toprol Xl -) 25 mg PO BID [facility] Last Admin: 01/30/17 12:22 Dose: Not Given Oxycodone HCl (Roxicodone -) 5 mg PO Q6H PRN PRN Reason: PAIN Last Admin: 01/27/17 22:13 Dose: 5 mg Prednisone (Deltasone -) 30 mg PO BID [facility] Last Admin: 01/30/17 10:09 Dose: 30 mg Quinapril HCl (Accupril -) 10 mg PO DAILY [facility] Last Admin: 01/30/17 12:28 Dose: 10 mg Sertraline HCl (Zoloft -) 100 mg PO DAILY [facility] Last Admin: 01/30/17 10:09 Dose: 100 mg Spironolactone (Aldactone -) 25 mg PO DAILY [facility] Last Admin: 01/30/17 10:09 Dose: 25 mg Constitutional: Yes: NAD Eyes: Yes: WNL HENT: Yes: WNL Neck: Yes: WNL Cardiovascular: Yes: Pulse Irregular, S1, S2 Respiratory: Yes: Scattered Rhonchi Gastrointestinal: Yes: Normal Bowel Sounds, Soft Extremities: Yes: WNL Edema: Yes Labs: Laboratory Results - last 24 hr 01/30/17 01/30/17 05:45 05:45 WBC 9.0 RBC 3.78 Hgb 12.3 Hct 37.2 MCV 98.4 H MCH 32.5 MCHC 33.1 RDW 16.2 H Plt Count 140 MPV 7.5 Neutrophils % 90.7 H Lymphocytes % 5.2 L Monocytes % 3.9 Eosinophils % 0.0 D Basophils % 0.2 Sodium 141 Potassium 4.5 Chloride 98 Carbon Dioxide 40 H Anion Gap 3 L BUN 26 H Creatinine 0.5 L Creat Clearance w eGFR > 60 Random Glucose 105 Calcium 8.8 Total Bilirubin 0.8 AST 38 H D ALT 40 D Alkaline Phosphatase 157 H B-Natriuretic Peptide 3340.42 H Total Protein 6.2 L Albumin 3.3 L Problem List - Problems (1) CAD (coronary artery disease) Code(s): I25.10 - ATHSCL HEART DISEASE OF [place] CORONARY ARTERY W/O ANG PCTRS Qualifiers: Coronary Disease-Associated Artery/Lesion type: [place] artery [place] vs. transplanted heart: [place] heart Associated angina: without angina Qualified Code(s): I25.10 - Atherosclerotic heart disease of [place] coronary artery without angina pectoris (2) CHF (congestive heart failure) Code(s): I50.9 - HEART FAILURE, UNSPECIFIED Qualifiers: Congestive heart failure type: diastolic Congestive heart failure chronicity: acute on chronic Qualified Code(s): I50.33 - Acute on chronic diastolic (congestive) heart failure (3) Hypoxia Code(s): R09.02 - HYPOXEMIA (4) A-fib Code(s): I48.91 - UNSPECIFIED ATRIAL FIBRILLATION Qualifiers: Atrial fibrillation type: permanent Qualified Code(s): I48.2 - Chronic atrial fibrillation (5) CHF NYHA class II (symptoms with moderately strenuous activities) Code(s): I50.9 - HEART FAILURE, UNSPECIFIED Qualifiers: Congestive heart failure type: combined Congestive heart failure chronicity: acute on chronic Qualified Code(s): I50.43 - Acute on chronic combined systolic (congestive) and diastolic (congestive) heart failure (6) COPD (chronic obstructive pulmonary disease) Code(s): J44.9 - CHRONIC OBSTRUCTIVE PULMONARY DISEASE, UNSPECIFIED Qualifiers : COPD type: COPD with acute exacerbation Qualified Code(s): J44.1 - Chronic obstructive pulmonary disease with (acute) exacerbation (7) Hypertension Code(s): I10 - ESSENTIAL (PRIMARY) HYPERTENSION Qualifiers: Hypertension type: essential hypertension Qualified Code(s): I10 - Essential (primary) hypertension (8) Hypothyroid Code(s): E03.9 - HYPOTHYROIDISM, UNSPECIFIED Qualifiers: Hypothyroidism type: unspecified Qualified Code(s): E03.9 - Hypothyroidism, unspecified (9) Pacemaker Code(s): Z95.0 - PRESENCE OF CARDIAC PACEMAKER (10) Pedal edema Code(s): R60.0 - LOCALIZED EDEMA (11) Pulmonary hypertension Code(s): I27.2 - OTHER SECONDARY PULMONARY HYPERTENSION (12) Acute hypoxemic respiratory failure Code(s): J96.01 - ACUTE RESPIRATORY FAILURE WITH HYPOXIA Assessment/Plan IMP ACUTE ON CHRONIC HYPOXEMIC/HYPERCAPNEIC RESPIRATORY FAILURE IMPROVING COPD EXACERBATION URI CHF PULMONARY HTN AFIB HTN PLAN PREDNISONE INHALED BRONCHODILATORS O2 ANTIBIOTICS DIURETICS DAILY WTS DR HOLT
[2017-01-30] MEDS: ATORVASTATIN CA 10 MG TABLET (FP) PO SCH (21:25)
[2017-01-30] MEDS: DOCUSATE SODIUM 100 MG CAPSULE (FP) PO SCH (21:26)
[2017-01-30] MEDS: MELATONIN 5 MG TABLETS PO PRN (21:29)
[2017-01-31] MEDS ORDERED: LEVOTHYROXINE NA 25 MCG TABLET (FP) ONE (05:54)
[2017-01-31] MEDS ORDERED: LEVOTHYROXINE NA 125 MCG TABLET (FP) ONE (05:54)
[2017-01-31] MEDS: LEVOFLOXACIN 500 MG TABLET (FP) PO SCH (06:06)
[2017-01-31] MEDS: LEVOTHYROXINE 125 MCG, LEVOTHYROXINE 12.5 MCG PO SCH (06:06)
[2017-01-31] MEDS: ALBUTEROL SO4 2.5/IPRATROPIUM 0.5 INH SOL 3 ML VIAL.NEB. NEB SCH ×2 (06:57→11:40)
[2017-01-31 07:45] LABS: ALBUMIN 3.1 g/dl (3.4-5.0); ANION GAP 4 (8-16); CALCIUM 9.2 mg/dL (8.5-10.1); CO2 37 mmol/L (21-32); CREATININE 0.5 mg/dL (0.55-1.02); GLUCOSE,RANDOM 133 mg/dL (74-106); SGOT/AST 42 U/L (15-37); SGPT/ALT 48 U/L (12-78)
[2017-01-31 07:48] LABS: ALK PHOS 154 U/L (45-117); BILIRUBIN,TOTAL 0.7 mg/dL (0.2-1.0); TOT PROT 5.7 g/dl (6.4-8.2)
[2017-01-31 09:57] VITALS: TEMP 97.3
--- NOTE | 2017-01-31 09:59 | PN ---
Progress Note, Physician History of Present Illness: Dyspnea, wheezing and cough improving, sensorium clear. - Current Medication List Current Medications: Active Medications Acetaminophen (Tylenol -) 650 mg PO Q6H PRN PRN Reason: FEVER OR PAIN Last Admin: 01/27/17 14:06 Dose: 650 mg Albuterol Sulfate (Ventolin 0.083% Nebulizer Soln -) 1 amp NEB Q6H PRN PRN Reason: SHORT OF BREATH/WHEEZING Last Admin: 01/24/17 09:40 Dose: 1 amp Albuterol/Ipratropium (Duoneb -) 1 amp NEB QIDR [facility] Last Admin: 01/31/17 06:57 Dose: 1 amp Apixaban (Eliquis -) 5 mg PO BID [facility] Last Admin: 01/30/17 21:28 Dose: 5 mg Atorvastatin Calcium (Lipitor -) 10 mg PO HS [facility] Last Admin: 01/30/17 21:25 Dose: 10 mg Calcitonin (Miacalcin [place] -) 200 units NS DAILY [facility] Last Admin: 01/30/17 12:28 Dose: 1 spray Calcitriol (Rocaltrol -) 0.25 mcg PO DAILY [facility] Last Admin: 01/30/17 12:28 Dose: 0.25 mcg Digoxin (Lanoxin -) 0.125 mg PO DAILY [facility] Last Admin: 01/30/17 10:09 Dose: 0.125 mg Docusate Sodium (Colace -) 300 mg PO HS [facility] Last Admin: 01/30/17 21:26 Dose: 300 mg Ferrous Sulfate (Feosol -) 325 mg PO DAILY [facility] Last Admin: 01/30/17 10:09 Dose: 325 mg Furosemide (Lasix -) 40 mg PO DAILY [facility] Last Admin: 01/30/17 10:09 Dose: 40 mg Guaifenesin (Robitussin -) 10 ml PO Q4H PRN PRN Reason: COUGH Last Admin: 01/30/17 10:08 Dose: 10 ml Levofloxacin (Levaquin -) 500 mg PO DAILY@0600 [facility] Last Admin: 01/31/17 06:06 Dose: 500 mg Levothyroxine Sodium 125 mcg/ (Levothyroxine Sodium 12.5 mcg) 137.5 mcg PO DAILY@0700 [facility] Last Admin: 01/31/17 06:06 Dose: 137.5 mcg Melatonin (Melatonin) 5 mg PO HS PRN PRN Reason: INSOMNIA Last Admin: 01/30/17 21:29 Dose: 5 mg Metoprolol Succinate (Toprol Xl -) 25 mg PO BID [facility] Last Admin: 01/30/17 21:37 Dose: Not Given Oxycodone HCl (Roxicodone -) 5 mg PO Q6H PRN PRN Reason: PAIN Last Admin: 01/27/17 22:13 Dose: 5 mg Prednisone (Deltasone -) 30 mg PO BID [facility] Last Admin: 01/30/17 21:25 Dose: 30 mg Quinapril HCl (Accupril -) 10 mg PO DAILY [facility] Last Admin: 01/30/17 12:28 Dose: 10 mg Sertraline HCl (Zoloft -) 100 mg PO DAILY [facility] Last Admin: 01/30/17 10:09 Dose: 100 mg Spironolactone (Aldactone -) 25 mg PO DAILY [facility] Last Admin: 01/30/17 10:09 Dose: 25 mg - Objective Vital Signs: Vital Signs Temperature 97.3 F L 01/31/17 09:57 Pulse Rate 75 01/31/17 09:57 Respiratory Rate 20 01/31/17 09:57 Blood Pressure 101/55 01/31/17 09:57 O2 Sat by Pulse Oximetry (%) 97 01/30/17 19:55 Constitutional: Yes: No Distress, Calm Neck: Yes: Supple Cardiovascular: Yes: Regular Rate and Rhythm Respiratory: Yes: Regular, Diminished, On Nasal O2 Gastrointestinal: Yes: Normal Bowel Sounds, Soft Edema: Yes Edema: LLE: Trace, RLE: Trace Labs: CBC, BMP 01/30/17 05:45 01/31/17 05:35 INR, PTT INR 1.73 (0.82-1.09) H D 01/27/17 05:35 - ....Imaging Cat Scan: Report Reviewed (Trace effusions bilaterally) Problem List - Problems (1) CAD (coronary artery disease) Code(s): I25.10 - ATHSCL HEART DISEASE OF [place] CORONARY ARTERY W/O ANG PCTRS Qualifiers: Coronary Disease-Associated Artery/Lesion type: [place] artery [place] vs. transplanted heart: [place] heart Associated angina: without angina Qualified Code(s): I25.10 - Atherosclerotic heart disease of [place] coronary artery without angina pectoris (2) CHF (congestive heart failure) Code(s): I50.9 - HEART FAILURE, UNSPECIFIED Qualifiers: Congestive heart failure type: diastolic Congestive heart failure chronicity: acute on chronic Qualified Code(s): I50.33 - Acute on chronic diastolic (congestive) heart failure (3) A-fib Code(s): I48.91 - UNSPECIFIED ATRIAL FIBRILLATION Qualifiers: Atrial fibrillation type: chronic Qualified Code(s): I48.2 - Chronic atrial fibrillation (4) Acute on chronic diastolic (congestive) heart failure Code(s): I50.33 - ACUTE ON CHRONIC DIASTOLIC (CONGESTIVE) HEART FAILURE (5) Hypercholesteremia Code(s): E78.0 - PURE HYPERCHOLESTEROLEMIA * DO NOT USE * (6) Hypertension Code(s): I10 - ESSENTIAL (PRIMARY) HYPERTENSION Qualifiers: Hypertension type: essential hypertension Qualified Code(s): I10 - Essential (primary) hypertension (7) Hypothyroid Code(s): E03.9 - HYPOTHYROIDISM, UNSPECIFIED Qualifiers: Hypothyroidism type: unspecified Qualified Code(s): E03.9 - Hypothyroidism, unspecified (8) Pacemaker Code(s): Z95.0 - PRESENCE OF CARDIAC PACEMAKER (9) Pulmonary hypertension Code(s): I27.2 - OTHER SECONDARY PULMONARY HYPERTENSION (10) COPD (chronic obstructive pulmonary disease) Code(s): J44.9 - CHRONIC OBSTRUCTIVE PULMONARY DISEASE, UNSPECIFIED Qualifiers : COPD type: COPD with acute exacerbation Qualified Code(s): J44.1 - Chronic obstructive pulmonary disease with (acute) exacerbation (11) Acute hypercapnic respiratory failure Code(s): J96.02 - ACUTE RESPIRATORY FAILURE WITH HYPERCAPNIA (12) Compressed spine fracture Code(s): M48.50XA - COLLAPSED VERTEBRA, NEC, SITE UNSP, INIT Qualifiers: Encounter type: sequela Qualified Code(s): M48.50XS - Collapsed vertebra, not elsewhere classified, site unspecified, sequela of fracture Assessment/Plan Transthoracic echocardiography: Low normal LV fxn, mod-severe dilated and decreased RV fxn, severe VICENTA, mild-mod MR, severe TR, RVSP 40-50 mmHg 1. Acute hypercapneic respiratory failure referable to COPD Exacerbation improving 2. Acute on chronic diastolic failure improving 3. CAD, angina pectoris, stable 4. Sick sinus syndrome post PPM 5. Permanent atrial fibrillation [id number] score of 6 on NOAC (h/o Lovenox- associated rectus sheath hematoma) 6. 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 HTN 8. Hypercholesterolemia 9. Hypothyroidism 10. L-1 compression fracture PLAN: 1. Continue Lasix 40 qd and Aldactone 25 qd with close monitoring of renal function 2. Continue Accupril 10 qd with close monitoring of renal function and electrolytes 3. Continue Toprol XL 25 bid 4. Continue Digoxin 0.125 qd with close monitoring of level 5. Continue Lipitor 10 qhs 6. Continue Eliquis 5 bid with monitor Hgb 7. Oral steroids, BD, abx, O2 to keep SpO2 >90%, wrap legs 8. OOB to chair, d/c planning
[2017-01-31] MEDS: METOPROLOL SUCCINATE 25 MG TAB.SR.24H (FP) PO SCH (10:00)
[2017-01-31] MEDS: QUINAPRIL HCL 10 MG TABLET (FP) PO SCH (10:00)
[2017-01-31] MEDS: CALCITONIN - SALMON SYNTHETIC 3.7 ML SPRAY.PUMP NS SCH (10:00)
[2017-01-31] MEDS: SPIRONOLACTONE 25 MG TABLET (FP) PO SCH (10:00)
[2017-01-31] MEDS: CALCITRIOL 0.25 MCG CAPSULE (FP) PO SCH (10:30)
[2017-01-31] MEDS: FUROSEMIDE 40 MG TABLET (FP) PO SCH (10:31)
[2017-01-31] MEDS: predniSONE 10 MG TABLET (UD) PO SCH (10:31)
[2017-01-31] MEDS: FERROUS SO4 325 MG TABLET (FP) PO SCH (10:32)
[2017-01-31] MEDS: APIXABAN 5 MG TABLET PO SCH (10:32)
[2017-01-31] MEDS: DIGOXIN 0.125 MG TABLET (FP) PO SCH (10:32)
[2017-01-31] MEDS: SERTRALINE HCL 50 MG TABLET (FP) PO SCH (10:33)
--- NOTE | 2017-01-31 10:54 | PN ---
Progress Note, Physician History of Present Illness: pulmonary awake,less dyspneic,-cp - Current Medication List Current Medications: Active Medications Acetaminophen (Tylenol -) 650 mg PO Q6H PRN PRN Reason: FEVER OR PAIN Last Admin: 01/27/17 14:06 Dose: 650 mg Albuterol Sulfate (Ventolin 0.083% Nebulizer Soln -) 1 amp NEB Q6H PRN PRN Reason: SHORT OF BREATH/WHEEZING Last Admin: 01/24/17 09:40 Dose: 1 amp Albuterol/Ipratropium (Duoneb -) 1 amp NEB QIDR [facility] Last Admin: 01/31/17 06:57 Dose: 1 amp Apixaban (Eliquis -) 5 mg PO BID [facility] Last Admin: 01/31/17 10:32 Dose: 5 mg Atorvastatin Calcium (Lipitor -) 10 mg PO HS [facility] Last Admin: 01/30/17 21:25 Dose: 10 mg Calcitonin (Miacalcin [place] -) 200 units NS DAILY [facility] Last Admin: 01/30/17 12:28 Dose: 1 spray Calcitriol (Rocaltrol -) 0.25 mcg PO DAILY [facility] Last Admin: 01/31/17 10:30 Dose: 0.25 mcg Digoxin (Lanoxin -) 0.125 mg PO DAILY [facility] Last Admin: 01/31/17 10:32 Dose: 0.125 mg Docusate Sodium (Colace -) 300 mg PO HS [facility] Last Admin: 01/30/17 21:26 Dose: 300 mg Ferrous Sulfate (Feosol -) 325 mg PO DAILY [facility] Last Admin: 01/31/17 10:32 Dose: 325 mg Furosemide (Lasix -) 40 mg PO DAILY [facility] Last Admin: 01/31/17 10:31 Dose: 40 mg Guaifenesin (Robitussin -) 10 ml PO Q4H PRN PRN Reason: COUGH Last Admin: 01/30/17 10:08 Dose: 10 ml Levofloxacin (Levaquin -) 500 mg PO DAILY@0600 [facility] Last Admin: 01/31/17 06:06 Dose: 500 mg Levothyroxine Sodium 125 mcg/ (Levothyroxine Sodium 12.5 mcg) 137.5 mcg PO DAILY@0700 [facility] Last Admin: 01/31/17 06:06 Dose: 137.5 mcg Melatonin (Melatonin) 5 mg PO HS PRN PRN Reason: INSOMNIA Last Admin: 01/30/17 21:29 Dose: 5 mg Metoprolol Succinate (Toprol Xl -) 25 mg PO BID [facility] Last Admin: 01/30/17 21:37 Dose: Not Given Oxycodone HCl (Roxicodone -) 5 mg PO Q6H PRN PRN Reason: PAIN Last Admin: 01/27/17 22:13 Dose: 5 mg Prednisone (Deltasone -) 30 mg PO BID [facility] Last Admin: 01/31/17 10:31 Dose: 30 mg Quinapril HCl (Accupril -) 10 mg PO DAILY [facility] Last Admin: 01/30/17 12:28 Dose: 10 mg Sertraline HCl (Zoloft -) 100 mg PO DAILY [facility] Last Admin: 01/31/17 10:33 Dose: 100 mg Spironolactone (Aldactone -) 25 mg PO DAILY [facility] Last Admin: 01/30/17 10:09 Dose: 25 mg - Objective Vital Signs: Vital Signs Temperature 97.3 F L 01/31/17 09:57 Pulse Rate 75 01/31/17 10:32 Respiratory Rate 20 01/31/17 09:57 Blood Pressure 101/55 01/31/17 09:57 O2 Sat by Pulse Oximetry (%) 97 01/30/17 19:55 Constitutional: Yes: Well Nourished, Calm Eyes: Yes: WNL HENT: Yes: WNL Neck: Yes: WNL Cardiovascular: Yes: Pulse Irregular, S1, S2 Respiratory: Yes: Rhonchi (scattered [place]air rhonchi) Gastrointestinal: Yes: Normal Bowel Sounds, Soft Extremities: Yes: WNL Edema: Yes Labs: CBC, BMP 01/30/17 05:45 01/31/17 05:35 INR, PTT INR 1.73 (0.82-1.09) H D 01/27/17 05:35 Problem List - Problems (1) CAD (coronary artery disease) Code(s): I25.10 - ATHSCL HEART DISEASE OF [place] CORONARY ARTERY W/O ANG PCTRS Qualifiers: Coronary Disease-Associated Artery/Lesion type: [place] artery [place] vs. transplanted heart: [place] heart Associated angina: without angina Qualified Code(s): I25.10 - Atherosclerotic heart disease of [place] coronary artery without angina pectoris (2) CHF (congestive heart failure) Code(s): I50.9 - HEART FAILURE, UNSPECIFIED Qualifiers: Congestive heart failure type: diastolic Congestive heart failure chronicity: acute on chronic Qualified Code(s): I50.33 - Acute on chronic diastolic (congestive) heart failure (3) Hypoxia Code(s): R09.02 - HYPOXEMIA (4) A-fib Code(s): I48.91 - UNSPECIFIED ATRIAL FIBRILLATION Qualifiers: Atrial fibrillation type: chronic Qualified Code(s): I48.2 - Chronic atrial fibrillation (5) CHF NYHA class II (symptoms with moderately strenuous activities) Code(s): I50.9 - HEART FAILURE, UNSPECIFIED Qualifiers: Congestive heart failure type: combined Congestive heart failure chronicity: acute on chronic Qualified Code(s): I50.43 - Acute on chronic combined systolic (congestive) and diastolic (congestive) heart failure (6) COPD (chronic obstructive pulmonary disease) Code(s): J44.9 - CHRONIC OBSTRUCTIVE PULMONARY DISEASE, UNSPECIFIED Qualifiers : COPD type: COPD with acute exacerbation Qualified Code(s): J44.1 - Chronic obstructive pulmonary disease with (acute) exacerbation (7) Hypertension Code(s): I10 - ESSENTIAL (PRIMARY) HYPERTENSION Qualifiers: Hypertension type: essential hypertension Qualified Code(s): I10 - Essential (primary) hypertension (8) Hypothyroid Code(s): E03.9 - HYPOTHYROIDISM, UNSPECIFIED Qualifiers: Hypothyroidism type: unspecified Qualified Code(s): E03.9 - Hypothyroidism, unspecified (9) Pacemaker Code(s): Z95.0 - PRESENCE OF CARDIAC PACEMAKER (10) Pedal edema Code(s): R60.0 - LOCALIZED EDEMA (11) Pulmonary hypertension Code(s): I27.2 - OTHER SECONDARY PULMONARY HYPERTENSION (12) Acute hypoxemic respiratory failure Code(s): J96.01 - ACUTE RESPIRATORY FAILURE WITH HYPOXIA Assessment/Plan IMP ACUTE ON CHRONIC HYPOXEMIC/HYPERCAPNEIC RESPIRATORY FAILURE IMPROVING COPD EXACERBATION URI CHF PULMONARY HTN AFIB HTN PLAN CONTINUE STEROID TAPER INHALED BRONCHODILATORS O2 ANTIBIOTICS DIURETICS DAILY WTS BIPAP PRN DR NGUYEN Problem List - Problems (1) CAD (coronary artery disease) Code(s): I25.10 - ATHSCL HEART DISEASE OF [place] CORONARY ARTERY W/O ANG PCTRS Qualifiers: Coronary Disease-Associated Artery/Lesion type: [place] artery [place] vs. transplanted heart: [place] heart Associated angina: without angina Qualified Code(s): I25.10 - Atherosclerotic heart disease of [place] coronary artery without angina pectoris (2) CHF (congestive heart failure) Code(s): I50.9 - HEART FAILURE, UNSPECIFIED Qualifiers: Congestive heart failure type: diastolic Congestive heart failure chronicity: acute on chronic Qualified Code(s): I50.33 - Acute on chronic diastolic (congestive) heart failure (3) Hypoxia Code(s): R09.02 - HYPOXEMIA (4) A-fib Code(s): I48.91 - UNSPECIFIED ATRIAL FIBRILLATION Qualifiers: Atrial fibrillation type: permanent Qualified Code(s): I48.2 - Chronic atrial fibrillation (5) CHF NYHA class II (symptoms with moderately strenuous activities) Code(s): I50.9 - HEART FAILURE, UNSPECIFIED Qualifiers: Congestive heart failure type: combined Congestive heart failure chronicity: acute on chronic Qualified Code(s): I50.43 - Acute on chronic combined systolic (congestive) and diastolic (congestive) heart failure (6) COPD (chronic obstructive pulmonary disease) Code(s): J44.9 - CHRONIC OBSTRUCTIVE PULMONARY DISEASE, UNSPECIFIED Qualifiers : COPD type: unspecified COPD Qualified Code(s): J44.9 - Chronic obstructive pulmonary disease, unspecified (7) Hypertension Code(s): I10 - ESSENTIAL (PRIMARY) HYPERTENSION Qualifiers: Hypertension type: essential hypertension Qualified Code(s): I10 - Essential (primary) hypertension (8) Hypothyroid Code(s): E03.9 - HYPOTHYROIDISM, UNSPECIFIED Qualifiers: Hypothyroidism type: unspecified Qualified Code(s): E03.9 - Hypothyroidism, unspecified (9) Pacemaker Code(s): Z95.0 - PRESENCE OF CARDIAC PACEMAKER (10) Pedal edema Code(s): R60.0 - LOCALIZED EDEMA (11) Pulmonary hypertension Code(s): I27.2 - OTHER SECONDARY PULMONARY HYPERTENSION (12) Acute hypoxemic respiratory failure Code(s): J96.01 - ACUTE RESPIRATORY FAILURE WITH HYPOXIA
[2017-01-31] MEDS ORDERED: predniSONE 20 MG TABLET (UD) PO SCH (11:56)
--- NOTE | 2017-01-31 11:57 | DS ---
Physical Examination Vital Signs: Vital Signs Temperature 97.3 F L 01/31/17 09:57 Pulse Rate 71 01/31/17 11:46 Respiratory Rate 20 01/31/17 09:57 Blood Pressure 101/55 01/31/17 09:57 O2 Sat by Pulse Oximetry (%) 96 01/31/17 11:47 Constitutional: Yes: Calm, Thin Cardiovascular: Yes: Pulse Irregular, S1, S2 Respiratory: Yes: Diminished (no wheezing) Gastrointestinal: Yes: Soft, Distention (less distended) Extremities: Yes: Other (chronic changes) Labs: CBC, BMP 01/30/17 05:45 01/31/17 05:35 Discharge Summary Reason For Visit: CHF CAD EDEMA Current Active Problems Acute hypercapnic respiratory failure (Acute) Acute hypoxemic respiratory failure (Acute) CAD (coronary artery disease) (Acute) CHF (congestive heart failure) (Acute) Compressed spine fracture (Acute) Edema (Acute) Hypoxia (Acute) Hospital Course: - Primary Care Physician PCP: Anthony Anderson - Admission Chief Complaint: sent in for SOB History of Present Illness: The patient is a 89 year old female with significant past medical history of a- fib, hypertension, hyperlipidemia, CHF, CAD, s/p ppm with sick sinus syndrome, COPD, skin cancer, and anemia who presents to the ED [facility] for respiratory distress prior to arrival. As per [place] notes, patients pulse ox was 86-91. Reported SOB and possible fever. During triage, patients temp is 98. Patient is coughing during presentation. Patient denies lightheadedness, diaphoresis, chest pain, jaw pain, shoulder pain, arm pain, nausea, or vomiting. She also denies chills, abdominal pain, and diarrhea. at [place] last few days she got in po lasix doses bid for inc leg swelling and abdominal swelling, i tried to give iv lasix but patient pulled out iv line the leg swelling and abdominal swelling has decreased since i last saw her at [place] Allergies: penicillin Social History: No alcohol, tobacco, or drug use reported. 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: Dementia Cardiovascular: Yes: AFIB, CAD, CHF, HTN, Hyperlipdemia, Pulmonary Hypertension , Other (PPM with sick sinus syndrome) Pulmonary: Yes: COPD Gastrointestinal: Yes: GERD Musculoskeletal: Yes: Other (left foot drop) Endocrine: Yes: Hypothyroidism acute hypoxemic failure got iv lasix then change to po ct chest shows improvement of abdomnal ascites and pleural effusions as well and iv steroids change to po steroids with taper po abx for another 3 days Condition: Improved - Instructions Referrals: Anthony Anderson MD [Primary Care Provider] - Disposition: [facility] - Home Medications Comprehensive Discharge Medication List: Ambulatory Orders Atorvastatin Ca [Lipitor] 10 mg PO HS tablet 04/19/16 Digoxin [Lanoxin -] 125 mcg PO DAILY 09/11/16 Spironolactone [Aldactone -] 25 mg PO DAILY 09/11/16 Acetaminophen [Tylenol .Regular Strength -] 650 mg PO Q6H PRN #0 tablet Furosemide [Lasix -] 40 mg PO DAILY tablet 10/13/16 Levothyroxine [Synthroid -] 125 mcg PO DAILY@0700 tablet 10/13/16 Melatonin 5 mg PO HS PRN #0 tab 10/13/16 Oxycodone HCl [Roxicodone -] 5 mg PO Q6H PRN #0 tablet MDD 4 10/13/16 Spironolactone [Aldactone -] 25 mg PO DAILY tablet 10/13/16 Albuterol 0.083% Nebulizer Cris 2.5 mg TID 11/19/16 Docusate Sodium 100 mg PO BID 11/19/16 Ferrous Sulfate 325 mg PO BID 11/19/16 Metoprolol Succinate [Toprol XL -] 25 mg PO BID 11/19/16 Sertraline HCl [Zoloft -] 100 mg PO AM 11/19/16 Apixaban [Eliquis -] 5 mg PO BID #10 tablet 11/26/16 Furosemide [Lasix -] 20 mg PO DAILY #60 tablet MDD 1 11/26/16 Quinapril HCl [Accupril -] 10 mg PO DAILY #30 tablet MDD 1 11/26/16
[2017-01-31 14:48] VITALS: BP 96/50; PULSE 76
== END 2017-01-31 14:34 | DRG 291 ==
LOC: JER 23:40 → J4W 01-23 02:48
PROVIDERS: ADMIT Family Medicine; ATTEND Family Medicine
DX: I11.0 Hypertensive heart disease with heart failure (principal); J96.01 Acute respiratory failure with hypoxia; J96.02 Acute respiratory failure with hypercapnia; J44.1 Chronic obstructive pulmonary disease with (acute) exacerbation; M80.88XA Other osteoporosis with current pathological fracture, vertebra(e), initial encounter for fracture; E78.5 Hyperlipidemia, unspecified; I25.10 Atherosclerotic heart disease of native coronary artery without angina pectoris; J44.9 Chronic obstructive pulmonary disease, unspecified; Z95.0 Presence of cardiac pacemaker; D64.9 Anemia, unspecified; I48.2 Chronic atrial fibrillation; Z79.01 Long term (current) use of anticoagulants; E03.9 Hypothyroidism, unspecified; I27.2 Other secondary pulmonary hypertension; Z88.0 Allergy status to penicillin; I50.33 Acute on chronic diastolic (congestive) heart failure; J06.9 Acute upper respiratory infection, unspecified; I34.0 Nonrheumatic mitral (valve) insufficiency; I36.1 Nonrheumatic tricuspid (valve) insufficiency; G47.00 Insomnia, unspecified; I35.8 Other nonrheumatic aortic valve disorders
CPT/HCPCS: 36415; 36600; 71010-TC; 71250-TC; 72131-TC; 80053; 80162; 82550; 82803; 83036; 83605; 83735; 83880; 84443; 84484; 85025; 85027; 85610; 87040; 93005; 93010; 94640; 94660; 97116-GP; 97162-GP; 99283-25

== ENCOUNTER 2017-10-25 00:09 | Inpatient (IN) | payer OTHER, MEDICARE ==
[2017-10-25 12:48] VITALS: BMI 23.8
[2017-11-05 15:07] VITALS: BP 130/62; PULSE 72; TEMP 98.1
== END 2017-11-05 16:30 | DRG 480 ==
LOC: JER 00:09 → JERBED 09:47 → J8W 12:10 → J4S 10-27 21:32
PROVIDERS: ADMIT Family Medicine; ATTEND Family Medicine
PROC: 5A09557 Assistance with Respiratory Ventilation, Greater than 96 Consecutive Hours, Continuous Positive Airway Pressure (ICD-10-PCS; 2017-10-27)
PROC: 0QS604Z Reposition Right Upper Femur with Internal Fixation Device, Open Approach (ICD-10-PCS; principal; 2017-10-31)
DX: S72.091A Other fracture of head and neck of right femur, initial encounter for closed fracture (principal); J96.01 Acute respiratory failure with hypoxia; I50.33 Acute on chronic diastolic (congestive) heart failure; J44.1 Chronic obstructive pulmonary disease with (acute) exacerbation; N39.0 Urinary tract infection, site not specified; I24.8 Other forms of acute ischemic heart disease; N17.9 Acute kidney failure, unspecified; E87.2 Acidosis; E87.0 Hyperosmolality and hypernatremia; B96.4 Proteus (mirabilis) (morganii) as the cause of diseases classified elsewhere; I11.0 Hypertensive heart disease with heart failure; I25.10 Atherosclerotic heart disease of native coronary artery without angina pectoris; E78.5 Hyperlipidemia, unspecified; D64.9 Anemia, unspecified; E78.00 Pure hypercholesterolemia, unspecified; F03.90 Unspecified dementia, unspecified severity, without behavioral disturbance, psychotic disturbance, mood disturbance, and anxiety; I27.20 Pulmonary hypertension, unspecified; E03.9 Hypothyroidism, unspecified; K21.9 Gastro-esophageal reflux disease without esophagitis; M21.372 Foot drop, left foot; I48.0 Paroxysmal atrial fibrillation; R26.81 Unsteadiness on feet; D72.829 Elevated white blood cell count, unspecified; R45.1 Restlessness and agitation; L89.611 Pressure ulcer of right heel, stage 1; L89.151 Pressure ulcer of sacral region, stage 1; W18.30XA Fall on same level, unspecified, initial encounter; Y92.9 Unspecified place or not applicable; Y93.89 Activity, other specified; Z88.0 Allergy status to penicillin; Z95.0 Presence of cardiac pacemaker; Z85.828 Personal history of other malignant neoplasm of skin; Z79.52 Long term (current) use of systemic steroids
CPT/HCPCS: 36415; 36600; 70450-TC; 71045-TC-FY; 72125-TC; 73523-TC-FY; 74230-TC-FY; 76000-TC-FY; 80048; 80053; 80162; 81003; 81015; 82550; 82553; 82803; 83605; 83735; 83880; 84100; 84443; 84484; 85025; 85027; 85610; 85730; 86850; 86900; 86901; 87040; 87086; 87186; 92611-GN; 93005; 93010; 93306-TC; 93970-TC; 94640; 94660; 94760; 97116-GP; 97162-GP; 99282-25; J0131; J1644; J7620

== ENCOUNTER 2017-11-18 19:43 | Emergency (ER) | payer OTHER, MEDICARE ==
[2017-11-18 20:01] VITALS: BP 105/66; PULSE 66; TEMP 98.7; BMI 23.1
--- NOTE | 2017-11-18 20:18 | PDOC ---
History of Present Illness - General History Source: EMS Exam Limitations: Other (Confused) - History of Present Illness Initial Comments: 11/18/17 20:31 The patient is an 89 year old female with a significant PMH of AFib (on Eliquis) , CHF, CAD (s/p permanent pacemaker), COPD, skin CA, anemia, HTN, and hyperlipidemia who presents to the emergency department from [facility] for evaluation of right leg swelling with unknown onset. As per old records, the patient was evaluated in the ED last month and was found to have a right hip fracture. The patient denies any other complaints. This patient history is limited as the patient appears very confused. Allergies: Penicillins Past surgical history: Pacemaker placement. Hysterectomy. Social history: No reported cigarette, alcohol, or drug use. PCP: Dr. Anderson <Miles Knight - Last Filed: 11/18/17 22:27> - General History Source: EMS <Dwayne Richter - Last Filed: 11/18/17 22:31> - General Chief Complaint: Edema Stated Complaint: Leg Swelling Time Seen by Provider: 11/18/17 20:16 Past History <Miles Knight - Last Filed: 11/18/17 22:27> - Past Medical History Anemia: Yes Cancer: Yes (SKIN CANCER) Cardiac Disorders: Yes (CHF ASHD,A FIB) COPD: Yes CHF: Yes HTN: Yes Hypercholesterolemia: Yes Thyroid Disease: Yes - Surgical History Abdominal Surgery: Yes (total hysterectomy) Cardiac Surgery: Yes (PACEMAKER) - Immunization History Immunization Up to Date: Yes - Suicide/Smoking/Psychosocial Hx Smoking Status: No Smoking History: Unknown if ever smoked Have you smoked in the past 12 months: No Number of Cigarettes Smoked Daily: 0 Information on smoking cessation initiated: No Hx Alcohol Use: No Drug/Substance Use Hx: No Substance Use Type: None Hx Substance Use Treatment: No <Dwayne Richter - Last Filed: 11/18/17 22:31> - Past Medical History Allergies/Adverse Reactions: Allergies Allergy/AdvReac Type Severity Reaction Status Date / Time Penicillins Allergy Unknown Verified 11/18/17 20:00 mushrooms Allergy Uncoded 11/18/17 20:00 Home Medications: Ambulatory Orders Digoxin [Lanoxin -] 0.25 mg PO DAILY 09/11/16 Levothyroxine [Synthroid -] 150 mcg PO DAILY@0700 10/25/17 Acetaminophen [Tylenol .Regular Strength -] 650 mg PO Q6H PRN tablet 11/05/17 Albuterol 2.5/Ipratropium 0.5 [Duoneb -] 1 amp NEB RQID amp 11/05/17 Apixaban [Eliquis -] 5 mg PO BID tablet 11/05/17 Atorvastatin Ca [Lipitor] 5 mg PO HS tablet 11/05/17 Docusate Sodium [Colace -] 100 mg PO Q12H PRN capsule 11/05/17 Ferrous Sulfate [Feosol] 325 mg PO DAILY ud 11/05/17 Furosemide [Lasix -] 40 mg PO BID@0600,1400 tablet 11/05/17 Melatonin 5 mg PO HS PRN tab 11/05/17 Metoprolol Succinate [Toprol XL -] 25 mg PO BID tab.sr.24h 11/05/17 Olanzapine [Zyprexa -] 2.5 mg PO HS tablet 11/05/17 Quinapril HCl [Accupril -] 10 mg PO DAILY tablet 11/05/17 Ranitidine Oral Solution [Zantac Oral Solution -] 150 mg PO DAILY cup 11/05/17 Sertraline HCl [Zoloft -] 100 mg PO DAILY tablet 11/05/17 Spironolactone [Aldactone -] 12.5 mg PO DAILY tablet 11/05/17 predniSONE [Deltasone -] 40 mg PO DAILY tablet 11/05/17 Review of Systems - Review of Systems Able to Perform ROS?: Yes Comments:: 11/18/17 20:31 CONSTITUTIONAL: (+) Confused Absent: fever, chills, diaphoresis, generalized weakness, malaise, loss of appetite HEENT: Absent: rhinorrhea, nasal congestion, throat pain, throat swelling, difficulty swallowing, mouth swelling, ear pain, eye pain, visual Changes CARDIOVASCULAR: Absent: chest pain, syncope, palpitations, irregular heart rate, lightheadedness , peripheral edema RESPIRATORY: Absent: cough, shortness of breath, dyspnea with exertion, orthopnea, wheezing, stridor, hemoptysis GASTROINTESTINAL: Absent: abdominal pain, abdominal distension, nausea, vomiting, diarrhea, constipation, melena, hematochezia GENITOURINARY: Absent: dysuria, frequency, urgency, hesitancy, hematuria, flank pain, genital pain MUSCULOSKELETAL: (+) Right leg swelling. Absent: myalgia, arthralgia. SKIN: Absent: rash, itching, pallor HEMATOLOGIC/IMMUNOLOGIC: Absent: easy bleeding, easy bruising, lymphadenopathy, frequent infections ENDOCRINE: Absent: unexplained weight gain, unexplained weight loss, heat intolerance, cold intolerance NEUROLOGIC: Absent: headache, focal weakness or paresthesias, dizziness, unsteady gait, seizure, mental status changes, bladder or bowel incontinence PSYCHIATRIC: Absent: anxiety, depression, suicidal or homicidal ideation, hallucinations. <Miles Knight - Last Filed: 11/18/17 22:27> *Physical Exam - Vital Signs Last Vital Signs Temp Pulse Resp BP Pulse Ox 98.7 F 66 17 105/66 96 11/18/17 19:55 11/18/17 19:55 11/18/17 19:55 11/18/17 19:55 11/18/17 19:55 - Physical Exam Comments: 11/18/17 20:32 GENERAL: Well developed, well nourished. Awake and alert. No acute distress. HEENT: Normocephalic, atraumatic. PERRLA, EOMI. No conjunctival pallor. Sclera are non- icteric. Moist mucous membranes. Oropharynx is clear. NECK: Supple. Full ROM. No JVD. Carotid pulses 2+ and symmetric, without bruits. No thyromegaly. No lymphadenopathy. CARDIOVASCULAR: Regular rate and rhythm. No murmurs, rubs, or gallops. Distal pulses are 2+ and symmetric. PULMONARY: No evidence of respiratory distress. Lungs clear to auscultation bilaterally. No wheezing, rales or rhonchi. ABDOMINAL: Soft. Non-tender. Non-distended. No rebound or guarding. No organomegaly. Normoactive bowel sounds. MUSCULOSKELETAL: Normal range of motion at all joints. No bony deformities or tenderness. No CVA tenderness. EXTREMITIES: (+) Right leg moderately edematous compared to left. No cyanosis. No clubbing. No calf tenderness. SKIN: Warm and dry. Normal capillary refill. No rashes. No jaundice. NEUROLOGICAL: Alert, awake, appropriate. Cranial nerves 2-12 intact. No deficits to light touch and temperature in face, upper extremities and lower extremities. No motor deficits in the in face, upper extremities and lower extremities. Normoreflexic in the upper and lower extremities. Normal speech. Toes are downgoing bilaterally. Gait is normal without ataxia. PSYCHIATRIC: Cooperative. Good eye contact. Appropriate mood and affect. <Miles Knight - Last Filed: 11/18/17 22:27> - Vital Signs Last Vital Signs Temp Pulse Resp BP Pulse Ox 98.7 F 66 17 105/66 96 11/18/17 19:55 11/18/17 19:55 11/18/17 19:55 11/18/17 19:55 11/18/17 19:55 <Dwayne Richter - Last Filed: 11/18/17 22:31> ED Treatment Course - LABORATORY CBC & Chemistry Diagram: 11/18/17 20:40 11/18/17 20:40 <Miles Knight - Last Filed: 11/18/17 22:27> - LABORATORY CBC & Chemistry Diagram: 11/18/17 20:40 11/18/17 20:40 <Dwayne Richter - Last Filed: 11/18/17 22:31> Medical Decision Making - Medical Decision Making 11/18/17 22:30 Dr. Richter: The scribe's documentation has been prepared under my direction and personally reviewed by me in its entirery. I confirm that the note above accurately reflects all work, treatment, procedures, and medical decision making performed by me. Labs stable. Dupplex negative for DVT. Pt to be discharged back to [place]. <Dwayne Richter - Last Filed: 11/18/17 22:31> *DC/Admit/Observation/Transfer - Attestations Scribe Attestion: 11/18/17 20:32 Documentation prepared by Miles Knight, acting as senior medical transcriptionist for Dwayne Richter DO. 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 Please keep leg elevated as best as possible. Follow up with pt primary care doctor
[2017-11-18 21:12] LABS: BASO % 0.2 % (0-2.0); EOS % 0.1 % (0-4.5); HEMATOCRIT 28.3 % (32.4-45.2); HEMOGLOBIN 9.4 GM/dL (10.7-15.3); LYMPH % 5.6 % (8-40); MCH 33.2 pg (25.7-33.7); MCHC 33.3 g/dl (32.0-36.0); MEAN CELL VOLUME 99.8 fl (80-96); MEAN PLT VOLUME 7.7 fl (7.5-11.1); MONO % 5.2 % (3.8-10.2); NEUT % 88.9 % (42.8-82.8); PLATELET COUNT 230 K/MM3 (134-434); RBC 2.83 M/mm3 (3.60-5.2); RDW 18.2 % (11.6-15.6); WHITE BLOOD COUNT 8.4 K/mm3 (4.0-10.0)
[2017-11-18 21:41] LABS: ALBUMIN 2.7 g/dl (3.4-5.0); ANION GAP 3 (8-16); BLOOD UREA NITROGEN 31 mg/dL (7-18); CALCIUM 7.9 mg/dL (8.5-10.1); CHLORIDE 101 mmol/L (98-107); CO2 34 mmol/L (21-32); CREATININE 0.7 mg/dL (0.55-1.02); GLUCOSE,RANDOM 128 mg/dL (74-106); POTASSIUM 4.7 mmol/L (3.5-5.1); SGOT/AST 26 U/L (15-37); SGPT/ALT 26 U/L (12-78); SODIUM 138 mmol/L (136-145)
[2017-11-18 21:43] LABS: ALK PHOS 248 U/L (45-117); BILIRUBIN,TOTAL 0.7 mg/dL (0.2-1.0); INR 1.3 (0.82-1.09); PROTHROMBIN TIME (PATIENT) 14.7 SEC (9.7-13.0); TOT PROT 5.7 g/dl (6.4-8.2)
== END 2017-11-19 02:30 | disposition home or self-care (01) ==
LOC: JER 19:43
DX: I87.8 Other specified disorders of veins (principal); I89.0 Lymphedema, not elsewhere classified; I48.91 Unspecified atrial fibrillation; I50.9 Heart failure, unspecified; Z85.828 Personal history of other malignant neoplasm of skin; I10 Essential (primary) hypertension; E78.5 Hyperlipidemia, unspecified
CPT/HCPCS: 36415; 80053; 85025; 85610; 93970-TC; 99282-25